=== PATIENT | male | born 1940 | race Caucasian/White ===

== ENCOUNTER 2024-08-19 09:43 | Day surgery (SDC) | payer MEDICARE, SELFPAY ==
--- NOTE | 2024-08-18 14:59 | PAT.ANESEVAL ---
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 When Was Last Pacemaker Check QUESTION #4 FULL TEXT: You/Your Family Experience fever (hyperthermia) with Anesthesia Last Oral Intake Last Oral intake: Last Oral Intake NPO since Meds taken in AM with sips of water? Meds patient instructed to take am of surgery PONV PONV - bag valver: PONV - bag valver Female No 08/17/24 15:59 HX of Motion Sickness No 08/17/24 15:59 HX of N/V After Surgery No 08/17/24 15:59 Non-Smoker Yes 08/17/24 15:59 Duration of Surgery greater No 08/17/24 15:59 than 60 minutes Number of Risk Factors 1 08/17/24 15:59 PONV Score Low Risk 08/17/24 15:59 Height & Weight Height & Weight: Anesthesia: Height & Weight Height 5 ft 6 in 02/25/22 12:54 Respiratory Assessment Respiratory Assessment - bag valver: Respiratory Tract Infection Hx - bag valver Hx Respiratory Tract Infection No 08/17/24 15:59 STOP Sleep Apnea STOP Sleep Apnea - bag valver: STOP Sleep Apnea - bag valver Hx Hypertension No 08/17/24 15:59 Hx Sleep Apnea No 08/17/24 15:59 CPAP BIPAP Do you snore loudly (louder Yes 08/17/24 15:59 than talking or can be heard Do you often feel tired/ No 08/17/24 15:59 fatigued/ sleepy during daytime? Has anyone observed you stop No 08/17/24 15:59 breathing during sleep? STOP Results Negative 08/17/24 15:59 QUESTION #5 FULL TEXT : Do you snore loudly (louder than talking or can be heard through closed doors)? 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 Specify any problems Hx of Preganancy in last 3 N/A 08/17/24 15:59 Months Nurse Filling Out Transfusion [email or web address] 08/17/24 15:59 & Questions: Date: 08/17/24 08/17/24 15:59 Time: 16:04 08/17/24 15:59 Patient unable to answer at this time (ie. confused, unrespo /Reproduction History /Reproductive History - bag valver: /Reproductive Hx- bag valver Hx Now Gestational Age (in weeks): EDC: Hx Hx Para Hx Section SAB PFSH Medical History (Updated 08/17/24 @ 16:12 by Willard Isidro) Cardiology follow-up encounter History of stress test History of echocardiogram Wears glasses History of leukemia Thyroid disease Hoarseness Leg cramps History of heart attack Chest pain Gastroesophageal reflux disease without esophagitis Low HDL (under 40) Erectile dysfunction Aortic stenosis Gastritis without bleeding Hypercholesteremia Hypothyroidism Coronary artery disease involving [place] coronary artery of [place] heart Delayed gastric emptying Home Medications ?Medication ?Instructions ?Recorded ?Last Taken ?Type aspirin 81 mg tablet,delayed 81 mg PO QDAY 12/11/23 08/15/24 History release (Adult Aspirin Regimen) atorvastatin 80 mg tablet 80 mg PO QDAY 12/11/23 Unknown History clopidogrel 75 mg tablet 75 mg PO QDAY 12/11/23 08/14/24 History coenzyme Q10 100 mg capsule 100 mg PO QDAY 12/11/23 Unknown History ezetimibe 10 mg tablet 10 mg PO QDAY 12/11/23 Unknown History isosorbide mononitrate 60 mg 60 mg PO QDAY 12/11/23 Unknown History tablet,extended release 24 hr levothyroxine 100 mcg capsule 100 mcg PO QDAY 12/11/23 Unknown History metoprolol tartrate 25 mg tablet 25 mg PO BID 12/11/23 Unknown History nitroglycerin 0.4 mg sublingual 0.4 mg sublingual Q5-15M PRN chest 12/11/23 Unknown History tablet pain pantoprazole 40 mg tablet,delayed 40 mg PO QDAY 12/11/23 Unknown History release cyanocobalamin (vitamin B-12) 500 500 mcg PO DAILY 08/04/24 Unknown History mcg tablet (Vitamin B-12) Allergy/AdvReac Type Severity Reaction Status Date / Time No Known Allergies Allergy Verified 08/17/24 15:55 Family History (Updated 12/11/23 @ 12:54 by Saloni Seo) Father COPD (chronic obstructive pulmonary disease) Sister Diabetes Brother Heart disease Brother Cancer bladder Surgical History History of cardiac catheterization History of coronary artery stent placement S/P CABG x 3 Social History (Updated 12/11/23 @ 12:53 by Saloni Seo) Smoking Status: Never smoker alcohol intake: never Audit: Pertinent Findings HISTORY of Pertinent Findings History of Pertinent Findings: Patient has a hx of severe CAD and moderate to severe aortic stenosis. Underwent LHC 08/2023 noting continued moderate aortic stenosis, with progression of CAD to Left main and ostium of his circumflex. Had stents placed for this, which improved his angina. Pertinent Findings EKG Perinent findings: EKG 06/2024: Sinus Rhythm with left atrial enlargement Stress test pertinent findings: Stress echo performed 01/2020: no evidence for stress induced ischemia. Echo (EF%) pertinent findings: Echo 08/13/2024: LV normal, normal LV systolic function. EF 74%. Diastolic dysfunction present with normal LVEF. AV area by continuity VTI is 1.2 cm2 (moderate aortic stenosis) Echo 05/2023: LV normal, mild septal thickening, normal LV Systolic function. EF 69%. Grade 1 diastolic dysfunction. Aortic valve has severely calcified cusps with mobility restriction. AV Peak velocity is 3.1 m/s. AV area by continuity VTI is 0.9 cm2 (moderate aortic stenosis) Recommendation Anesthesia Recommendation Anesthesia recommendation: OPTIMIZED for anesthesia
[2024-08-19] VITALS (9 sets, daily range): BP systolic 82–120; BP diastolic 57–75; PULSE 50–62; RESP 16–17; TEMP 36.1–36.4; O2SAT 94–99; BMI 27.3
[2024-08-19] MEDS: Lactated Ringers 1,000 ML 15 ML IV (10:15)
--- NOTE | 2024-08-19 10:47 | PCM.PRE.AN2 ---
ASA Classification* ASA Classification ASA Classification: 3 Assessment & Plan Anesthesia* Anesthesia Assessment Anesthesia Assessment: Discussed sedation and/or anesthesia options, risks, benefits, and alternatives with patient/parents/legal guardian/POA. Questions invited. The patient/parents/legal guardian/POA seems to understand and agrees to proceed with anesthesia plan. Reviewed the physical assessment, medical history, allergy history and patient home medications list prior to surgery/procedure/anesthetic and documented any changes. Performed airway and anesthesia risk assessments. Anesthesia Type Anesthesia Type: MAC (Patient has moderate aortic stenosis. Avoid high heart rates and low blood pressure. Phenylephrine is drug of choice.) History Source History Obtained from:: Patient and Chart Anesthesia Focused Assessment* Temperature: 96.9 F Pulse Rate: 53 Blood Pressure: 120/75 Respiratory Rate: 17 Pulse Ox: 99 Oxygen Delivery Method: Room Air Airway Assessment Mouth opens: >3 cm Mallampati Score: III Teeth Condition: Missing (Patient is missing several teeth. 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 When Was Last Pacemaker Check QUESTION #4 FULL TEXT: You/Your Family Experience fever (hyperthermia) with Anesthesia Last Oral Intake Last Oral intake: Last Oral Intake NPO since 05:00 08/19/24 10:15 Meds taken in AM with sips of Yes 08/19/24 10:15 water? Meds patient instructed to take am of surgery Any additional information?: Yes NPO since: 04:00 (Patient took his a.m. 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 Female No 08/17/24 15:59 HX of Motion Sickness No 08/17/24 15:59 HX of N/V After Surgery No 08/17/24 15:59 Non-Smoker Yes 08/17/24 15:59 Duration of Surgery greater No 08/17/24 15:59 than 60 minutes Number of Risk Factors 1 08/17/24 15:59 PONV Score Low Risk 08/17/24 15:59 Height & Weight Height & Weight: Anesthesia: Height & Weight Height 5 ft 6 in 08/19/24 10:15 Weight: 77 kg 08/19/24 10:15 Body Mass Index (BMI) 27.3 08/19/24 10:15 Respiratory Assessment Respiratory Assessment - reactor fueling supervisor: Respiratory Tract Infection Hx - reactor fueling supervisor Hx Respiratory Tract Infection No 08/17/24 15:59 STOP Sleep Apnea STOP Sleep Apnea - reactor fueling supervisor: STOP Sleep Apnea - reactor fueling supervisor Hx Hypertension No 08/17/24 15:59 Hx Sleep Apnea No 08/17/24 15:59 CPAP BIPAP Do you snore loudly (louder Yes 08/17/24 15:59 than talking or can be heard Do you often feel tired/ No 08/17/24 15:59 fatigued/ sleepy during daytime? Has anyone observed you stop No 08/17/24 15:59 breathing during sleep? STOP Results Negative 08/17/24 15:59 QUESTION #5 FULL TEXT : Do you snore loudly (louder than talking or can be heard through closed doors)? 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 Specify any problems Hx of Preganancy in last 3 N/A 08/17/24 15:59 Months Nurse Filling Out Transfusion [email or web address] 08/17/24 15:59 & Questions: Date: 08/17/24 08/17/24 15:59 Time: 16:04 08/17/24 15:59 Patient unable to answer at this time (ie. 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: /Reproductive Hx- reactor fueling supervisor Hx Now Gestational Age (in weeks): EDC: Hx Hx Para Hx Section SAB Active Medications Active Medications: Current Medications Generic Name Dose Route Start Last Admin Trade Name Freq PRN Reason Stop Dose Admin Lactated Ringer's 1,000 mls @ 15 mls/hr 08/19/24 10:00 08/19/24 10:15 IV 15 mls/hr .Q48H NAN Administration PFSH Medical History Cardiology follow-up encounter History of stress test History of echocardiogram Wears glasses History of leukemia Thyroid disease Hoarseness Leg cramps History of heart attack Chest pain Gastroesophageal reflux disease without esophagitis Low HDL (under 40) Erectile dysfunction Aortic stenosis Gastritis without bleeding Hypercholesteremia Hypothyroidism Coronary artery disease involving [place] coronary artery of [place] heart Delayed gastric emptying Home Medications ?Medication ?Instructions ?Recorded ?Last Taken ?Type aspirin 81 mg tablet,delayed 81 mg PO QDAY 12/11/23 08/15/24 History release (Adult Aspirin Regimen) atorvastatin 80 mg tablet 80 mg PO QDAY 12/11/23 08/18/24 History clopidogrel 75 mg tablet 75 mg PO QDAY 12/11/23 08/14/24 History coenzyme Q10 100 mg capsule 100 mg PO QDAY 12/11/23 08/18/24 History ezetimibe 10 mg tablet 10 mg PO QDAY 12/11/23 08/18/24 History isosorbide mononitrate 60 mg 60 mg PO QDAY 12/11/23 08/19/24 History tablet,extended release 24 hr levothyroxine 100 mcg capsule 100 mcg PO QDAY 12/11/23 08/19/24 History metoprolol tartrate 25 mg tablet 25 mg PO BID 12/11/23 08/19/24 History nitroglycerin 0.4 mg sublingual 0.4 mg sublingual Q5-15M PRN chest 12/11/23 Unknown History tablet pain pantoprazole 40 mg tablet,delayed 40 mg PO QDAY 12/11/23 08/18/24 History release cyanocobalamin (vitamin B-12) 500 500 mcg PO DAILY 08/04/24 08/18/24 History mcg tablet (Vitamin B-12) Allergy/AdvReac Type Severity Reaction Status Date / Time No Known Allergies Allergy Verified 08/19/24 10:14 Family History Father COPD (chronic obstructive pulmonary disease) Sister Diabetes Brother Heart disease Brother Cancer bladder Surgical History History of cardiac catheterization History of coronary artery stent placement S/P CABG x 3 Social History Smoking Status: Never smoker alcohol intake: never Review of Systems (Anesthesia) ROS Narrative System reviewed and no additional complaints, except as documented.
--- NOTE | 2024-08-19 11:00 | EGD_PTH ---
PATIENT: RAMY VERNON LOC: EN U#:[id number] AGE/SX: 83/M ROOM: RE08/19/[address]: Dr. Liam Bajwa DO : 1940 BED: DIS: 08/19/2024 SPEC #: [id number] RECD: 08/19/24 13:16 STATUS: NICOLASA MICHAEL #: [id number] DARIEL: 08/19/24 11:[address]: Liam Bajwa DEPT: SURGICAL PATHOLOGY RECD BY: Adonis Flowers ENTERED: 08/19/24 13:50 SP TYPE: EGD BIOPSY KLAUDIA DR: Dr. Jean-Paul Pack DO Tissues: A - Gastric mucous membrane B - Gastric mucous membrane C - Gastric mucous membrane Procedures: Immunohistochemical Stains Surgery Specimen Level IV HEADER OPERATION: EGD with biopsy PRE-OP DIAGNOSIS: GERD TISSUE SUBMITTED: A- Gastric body biopsy, B- Gastric cardia biopsy, C- Gastric antrum biopsy MICROSCOPIC DIAGNOSIS A. Gastric body, biopsy: - Oxyntic mucosa with dilated fundic glands suggestive of fundic gland polyp. B. Gastric cardia, biopsy: - Oxyntic mucosa with dilated fundic glands suggestive of fundic gland polyp. C. Gastric antrum, biopsy: - Oxyntic mucosa with mild active chronic inflammation. - IHC for H pylori is pending and will be reported in an addendum. MICROSCOPIC DESCRIPTION Slides are reviewed. GROSS DESCRIPTION A. Received in fixative is one container labeled with the patient's name and designated Gastric antrum biopsy. The specimen consists of multiple irregular fragments of light kevin soft tissue that in aggregate measure <0.1 to 0.5 cm. The specimen is totally submitted in one cassette. B. Received in fixative is one container labeled with the patient's name and designated Gastric cardia biopsy. The specimen consists of two irregular fragments of light kevin soft tissue, each measuring 0.4 cm. The specimen is totally submitted in one cassette. C. Received in fixative is one container labeled with the patient's name and designated Gastric antrum biopsy. The specimen consists of one irregular fragment of light kevin soft tissue that measures 0.4 cm. The specimen is totally submitted in one cassette. Andrea 08/19/2024 CPT:[id number] ADDENDUM ADDENDUM ADDENDUM ADDENDUM ADDENDUM ADDENDUM ADDENDUM ADDENDUM ADDENDUM ADDENDUM 09/03/2024 16:12 ADDENDUM 09/03/2024 16:12 ADDENDUM 09/03/2024 16:12 ADDENDUM 09/03/2024 16:12 ADDENDUM 09/03/2024 16:12 This addendum is to report the result of the IHC for H pylori on part C: C. IHC negative for H pylori organisms. All matched controls reacted appropriately. These tests were developed and their performance characteristics determined by [facility]. They may not have been cleared or approved by the [place]. Food and Drug Administration. The FDA has determined that such clearance or approval is not necessary.? The above immunohistochemical/dualISH?markers are reviewed by the Pathologist.
--- NOTE | 2024-08-19 11:38 | PCM.HP.STD ---
[facility] - General General Date of Admission: 08/19/24 Date of Service: 08/19/24 Chief Complaint: GERD and Bloating HPI Narrative RAMY VERNON, is a 83 M who presents with complaints of painful epigastric gas. He notes the increased gas and pain is related to eating tomatoes and red sauce on pasta. He denies difficulty chewing and swallowing, heartburn, bloating, constipation, diarrhea, hematochezia and melena. He states that he is able to lay in left recumbent position to evacuate the gas and it doesn't build up. He reports an ER visit 2 months ago where he thought he was having a heart attack from the gas pain. States he has a heart history of 5 coronary stents and a problem valve. He states that he will get an EGD if necessary, but would prefer not to. He denies knowing a specific food trigger. [facility] Medical History Cardiology follow-up encounter History of stress test History of echocardiogram Wears glasses History of leukemia Thyroid disease Hoarseness Leg cramps History of heart attack Chest pain Gastroesophageal reflux disease without esophagitis Low HDL (under 40) Erectile dysfunction Aortic stenosis Gastritis without bleeding Hypercholesteremia Hypothyroidism Coronary artery disease involving [place] coronary artery of [place] heart Delayed gastric emptying Home Medications ?Medication ?Instructions ?Recorded ?Last Taken ?Type aspirin 81 mg tablet,delayed 81 mg PO QDAY 12/11/23 08/15/24 History release (Adult Aspirin Regimen) atorvastatin 80 mg tablet 80 mg PO QDAY 12/11/23 08/18/24 History clopidogrel 75 mg tablet 75 mg PO QDAY 12/11/23 08/14/24 History coenzyme Q10 100 mg capsule 100 mg PO QDAY 12/11/23 08/18/24 History ezetimibe 10 mg tablet 10 mg PO QDAY 12/11/23 08/18/24 History isosorbide mononitrate 60 mg 60 mg PO QDAY 12/11/23 08/19/24 History tablet,extended release 24 hr levothyroxine 100 mcg capsule 100 mcg PO QDAY 12/11/23 08/19/24 History metoprolol tartrate 25 mg tablet 25 mg PO BID 12/11/23 08/19/24 History nitroglycerin 0.4 mg sublingual 0.4 mg sublingual Q5-15M PRN chest 12/11/23 Unknown History tablet pain pantoprazole 40 mg tablet,delayed 40 mg PO QDAY 12/11/23 08/18/24 History release cyanocobalamin (vitamin B-12) 500 500 mcg PO DAILY 08/04/24 08/18/24 History mcg tablet (Vitamin B-12) Allergy/AdvReac Type Severity Reaction Status Date / Time No Known Allergies Allergy Verified 08/19/24 10:14 Family History Father COPD (chronic obstructive pulmonary disease) Sister Diabetes Brother Heart disease Brother Cancer bladder Surgical History History of cardiac catheterization History of coronary artery stent placement S/P CABG x 3 Social History Smoking Status: Never smoker alcohol intake: never ROS Constitutional Constitutional: Denies fatigue, fever(s), poor appetite, weight gain or weight loss Gastrointestinal Gastrointestinal: Denies belching, bloating, change in bowel habits, change in stool character, chewing difficulty, coffee ground emesis, constipation, cramping, diarrhea, dyspepsia, dysphagia, early satiety, excessive flatus, fecal incontinence, heartburn, hematemesis, hematochezia, hemorrhoids, loose stools, melena, nausea, odynophagia, rectal bleeding, tenesmus, vomiting or weight changes Vital Signs Vital Signs Vital Signs: 08/19/24 10:15 08/19/24 10:15 08/19/24 10:56 Temperature 96.9 F L 96.9 F L Temperature Source Temporal Pulse Rate 53 L 53 L Respiratory Rate 17 17 Respiratory Pattern Normal Blood Pressure 120/75 120/75 Blood Pressure Mean 90 Blood Pressure Source Monitor Blood Pressure Position Semi-Fowlers Blood Pressure Location Left Arm Pulse Ox 99 99 Oxygen Delivery Method Room Air Room Air Weight Weight: 169 lb 12.095 oz Body Mass Index (BMI) 27.3 Physical Exam Const alert, oriented x3, no apparent distress and healthy appearing General Appearance: cooperative GI normal to inspection, nondistended, normoactive bowel sounds, soft to palpation, non-tender and non-distended Percussion: normal to percussion Rectal Exam: deferred Assessment & Plan Assessment/Plan (1) Small intestinal bacterial overgrowth (SIBO): (2) GERD (gastroesophageal reflux disease): PLAN: Assessment and Plan Assessment and Plan (1) Small intestinal bacterial overgrowth (SIBO): Status: Acute Plan: RAMY VERNON, is a 83 M who presents to the office today for establishment with [facility] for complaints of painful epigastric gas. Differential diagnoses include: SIBO, GERD, hiatal hernia, gastric dysmotility. erythromycin 500mg PO TID probiotics daily x2wks, starting second week of atb continue pantoprazole 40mg PO daily call with results(2) Gastroesophageal reflux disease: Qualifiers: Esophagitis presence: esophagitis presence not specified Qualified Code(s): K21.9 - Gastro-esophageal reflux disease without esophagitis Medications: New erythromycin 500 mg PO Q8H 42 tabs 0RF
--- NOTE | 2024-08-19 12:05 | PCM.POST.ANE ---
Anesthesia: Postop Eval I Current Vital Signs Temperature: 97.6 F Pulse Rate: 62 Blood Pressure: 97/59 Respiratory Rate: 16 Pulse Ox: 96 Assessment Airway patent: Yes Spontaneous unlabored respirations: Yes nausea: No Vomiting: No Anesthesia Complication: No Fluid Hydration Crystalloid volume administer (ml): 300 Total IV fluid infused: 300 Progress Note Anesthesia document: Postop Eval 1 completed: Yes
--- NOTE | 2024-08-19 12:11 | OP.EGD_ITS ---
Patient Name: Cornel Barron Procedure Date: 08/19/2024 11:43 AM Date of : 1940 Age: 83 Procedure: Upper GI endoscopy Indications: Epigastric abdominal pain, Functional Dyspepsia Providers: Liam Bajwa DO Referring MD: Jean-Paul Pack Medicines: Monitored Anesthesia Care Patient Profile: This is an 83 year old male. Refer to note in patient chart for documentation of history and physical. Patient has symptoms of chronic abdominal cramping, chronic abdominal distention, acute epigastric abdominal pain and chronic dyspepsia. Complications: No immediate complications. Procedure: Pre-Anesthesia Assessment: - Prior to the procedure, a History and Physical was performed, and patient medications and allergies were reviewed. The patient is competent. The risks and benefits of the procedure and the sedation options and risks were discussed with the patient. All questions were answered and informed consent was obtained. Patient identification and proposed procedure were verified by the physician in the pre-procedure area. Mental Status Examination: alert and oriented. Airway Examination: normal oropharyngeal airway and neck mobility. Respiratory Examination: clear to auscultation. CV Examination: normal. Prophylactic Antibiotics: The patient does not require prophylactic antibiotics. Prior Anticoagulants: The patient has taken no anticoagulant or antiplatelet agents except for NSAID medication. ASA Grade Assessment: II - A patient with mild systemic disease. After reviewing the risks and benefits, the patient was deemed in satisfactory condition to undergo the procedure. The anesthesia plan was to use monitored anesthesia care (MAC). Immediately prior to administration of medications, the patient was re-assessed for adequacy to receive sedatives. The heart rate, respiratory rate, oxygen saturations, blood pressure, adequacy of pulmonary ventilation, and response to care were monitored throughout the procedure. The physical status of the patient was re-assessed after the procedure. After obtaining informed consent, the endoscope was passed under direct vision. Throughout the procedure, the patient's blood pressure, pulse, and oxygen saturations were monitored continuously. The Endoscope was introduced through the mouth, and advanced to the fourth part of the duodenum. Small bowel enteroscopy was deemed necessary. The upper GI endoscopy was accomplished without difficulty. The patient tolerated the procedure well. Scope In: 11:53:58 AM Scope Out: 11:57:41 AM Total Procedure Duration Time 0 hours 3 minutes 43 seconds Findings: The examined esophagus was normal. Diffuse moderate inflammation characterized by congestion (edema) was found in the entire examined stomach. Biopsies were taken with a cold forceps for histology. Verification of patient identification for the specimen was done. Estimated blood loss was minimal. Biopsies were taken with a cold forceps for Helicobacter pylori testing. Verification of patient identification for the specimen was done. Estimated blood loss was minimal. The examined duodenum was normal. Impression: - Normal esophagus. - Atrophic gastritis. Biopsied. - Normal examined duodenum. Recommendation: - Await pathology results. - Patient has a contact number available for emergencies. The signs and symptoms of potential delayed complications were discussed with the patient. Return to normal activities tomorrow. Written discharge instructions were provided to the patient. - Resume previous diet. - Continue present medications. - Await pathology results. - IBD guard three times a day for 7 days, two times a day for 7 days, one time a day for 7 days, then take it as needed Procedure Code(s): --- Professional --- 49820, Small intestinal endoscopy, enteroscopy beyond second portion of duodenum, not including ileum; with biopsy, single or multiple CPT copyright 2021 [employer]. All rights reserved. The codes documented in this report are preliminary and upon auto parts manager review may be revised to meet current compliance requirements. Liam Bajwa DO 08/19/2024 12:11:15 PM This report has been signed electronically. Number of Addenda: 0 Note Initiated On: 08/19/2024 11:43 AM
--- NOTE | 2024-08-19 12:11 | OP.CCLET_ITS ---
08/19/2024 Jean-Paul Pack Re : Upper GI endoscopy procedure for Cornel Barron Dear Ramone This procedure was performed on July. My impressions and recommendations are as follows: Impressions : - Normal esophagus. - Atrophic gastritis. Biopsied. - Normal examined duodenum. Recommendations : - Await pathology results. - Patient has a contact number available for emergencies. The signs and symptoms of potential delayed complications were discussed with the patient. Return to normal activities tomorrow. Written discharge instructions were provided to the patient. - Resume previous diet. - Continue present medications. - Await pathology results. - IBD guard three times a day for 7 days, two times a day for 7 days, one time a day for 7 days, then take it as needed My findings are described in the full procedure note, which is enclosed. If I can be of further assistance, please feel free to contact me at . Sincerely, Liam Bajwa, 08/19/2024 12:11:15 PM This report has been signed electronically.
--- NOTE | 2024-08-19 18:13 | POSTOPAN2_ITS ---
Anesthesia Postop Eval I Sum Postop Eval Completion status Anesthesia document: Postop Eval 1 completed: Yes Anesthesia Postop Eval I Summary Anesthesia Postop Eval I Summary: Anesthesia Postop Eval I: Assessment Summary Airway patent Yes 08/19/24 12:05 [email or web address] [email or web address] Spontaneous unlabored Yes 08/19/24 12:05 PSYCHOLOGIST [employer] [email or web address] respirations Mental status nausea No 08/19/24 12:05 PSYCHOLOGIST [email or web address] Vomiting No 08/19/24 12:05 [email or web address] [email or web address] Anesthesia Postop Eval I: Fluid Summary Crystalloid volume administer 300 08/19/24 12:05 [email or web address] [email or web address] (ml) Colloids volume administered ( ml) Blood Product volume administered (ml) Total IV fluid infused 300 08/19/24 12:05 PSYCHOLOGIST [email or web address] Anesthesia Postop Eval I: Summary Notes Anesthesia Complication No 08/19/24 12:05 [email or web address] [email or web address] Anesthesia Complication Comment: Post-operative progress note Anesthesia: Postop Eval II Evaluation Mental status: Awake Pain Level: 0 nausea: No Vomiting: No
--- NOTE | 2024-08-19 18:13 | PCM.POSTANE2 ---
Anesthesia Postop Eval I Sum Postop Eval Completion status Anesthesia document: Postop Eval 1 completed: Yes Anesthesia Postop Eval I Summary Anesthesia Postop Eval I Summary: Anesthesia Postop Eval I: Assessment Summary Airway patent Yes 08/19/24 12:05 [email or web address] Spontaneous unlabored Yes 08/19/24 12:05 CONCRETE [email or web address] respirations Mental status nausea No 08/19/24 12:05 CONCRETE [email or web address] Vomiting No 08/19/24 12:05 CONCRETE [email or web address] Anesthesia Postop Eval I: Fluid Summary Crystalloid volume administer 300 08/19/24 12:05 CONCRETE [email or web address] (ml) Colloids volume administered ( ml) Blood Product volume administered (ml) Total IV fluid infused 300 08/19/24 12:05 CONCRETE [email or web address] Anesthesia Postop Eval I: Summary Notes Anesthesia Complication No 08/19/24 12:05 CONCRETE [email or web address] Anesthesia Complication Comment: Post-operative progress note Anesthesia: Postop Eval II Evaluation Mental status: Awake Pain Level: 0 nausea: No Vomiting: No
== END 2024-08-19 13:00 | disposition home or self-care (01) ==
LOC: EN 09:45 → AC 09:45
PROVIDERS: PCP Family Medicine; Referring Provider Family Medicine; Visit Provider Internal Medicine Gastroenterology
PROC: 0DJ08ZZ Inspection of Upper Intestinal Tract, Via Natural or Artificial Opening Endoscopic (ICD-10-PCS; CPT 43235; principal; 2024-08-19 10:55)
DX: K29.40 Chronic atrophic gastritis without bleeding (principal); K21.9 Gastro-esophageal reflux disease without esophagitis; Z79.02 Long term (current) use of antithrombotics/antiplatelets; I25.10 Atherosclerotic heart disease of native coronary artery without angina pectoris; E78.00 Pure hypercholesterolemia, unspecified; Z95.5 Presence of coronary angioplasty implant and graft; Z79.890 Hormone replacement therapy; Z79.899 Other long term (current) drug therapy; K63.8219 Small intestinal bacterial overgrowth, unspecified; E03.9 Hypothyroidism, unspecified; Z79.82 Long term (current) use of aspirin; K31.7 Polyp of stomach and duodenum
CPT/HCPCS: 43239; 88305; 88342

== ENCOUNTER → 2025-01-26 | Outpatient (CLI) | payer MEDICARE, SELFPAY ==
--- OUTSIDE RECORDS SUMMARY | 2025-01-26 06:52 | XMS RPT_ITS | CCD ---
Author Organization [facility] Care Team Providers Care Sales Assistant Name Role Phone Jean-Paul Pack Primary Care Provider Friend , Dr. Wheeler Attending Provider Ramone ROBERTSON, Dr. Jeong Primary Care Provider Dr. Jean-Paul Pack DO Referring Provider Aydee ROBERTSON, Dr. Wheeler Other Provider Jean-Paul Pack DO Primary Care Provider [phone] Jean-Paul Zheng Referring Unavailable Freda Ozuna Attending Unavailable FriendLiam Attending Unavailable Mahoganylla, Jean-Paul Primary Care Unavailable Mahoganylla, Jean-Paul Referring Unavailable FriendLiam Consulting Unavailable FriendLiam Attending Unavailable Petrilla, Jean-Paul Primary Care Unavailable Petrilla, Jean-Paul Referring Unavailable RODDY SOSA Attending Unavailable PETRILLA, JEAN-PAUL Primary Care Unavailable GLADYS ANTHONY Attending Unavailable MAHOGANYLLA, JEAN-PAUL Primary Care Unavailable PETRILLA, JEAN-PAUL Attending Unavailable MAHOGANYLLA, JEAN-PAUL Primary Care Unavailable PETRILLA, JEAN-PAUL Primary Care Unavailable KAVON KRAMER Attending Unavailable MAHOGANYLLAJEAN-PAUL Attending Unavailable MAHOGANYLLA, JEAN-PAUL Primary Care Unavailable PETRILLA, JEAN-PAUL Primary Care Unavailable PIETROLRODDY WILLS Attending Unavailable KAVON KRAMER Referring Unavailable PETRILLA, JEAN-PAUL Primary Care Unavailable KAVON KRAMER Referring Unavailable KAVON KRAMER Attending Unavailable MAHOGANYLLA, JEAN-PAUL Primary Care Unavailable PIETROLUNGORODDY Attending Unavailable KAVON KRAMER Referring Unavailable PIETROLRODDY WILLS Attending Unavailable RADHAA, JEAN-PAUL Primary Care Unavailable KAVON KRAMER Referring Unavailable PIETROLCLARICEORODDY Attending Unavailable JEAN-PAUL PACK Primary Care Unavailable KAVON KRAMER Referring Unavailable RODDY ALCAZAR Attending Unavailable JEAN-PAUL PACK Primary Care Unavailable KAVON KRAMER Referring Unavailable JEAN-PAUL PACK Primary Care Unavailable RODDY ALCAZAR Attending Unavailable KAVON KRAMER Referring Unavailable Medications Current Medications Medication Drug Class(es) Dates Sig (Normalized) Sig (Original) aspirin 81 mg delayed release oral tablet (20 sources) Platelet Aggregation Inhibitor, Nonsteroidal Anti-inflammatory Drug Start: 12-11-2023 take 1 tablet by mouth once daily Aspirin (Adult Aspirin Regimen) 81 mg tablet,delayed release (DR/EC) Active 81 mg PO daily December 11, 2023 12:00am Start: 08-18-2023 End: 08-18-2023 take 81 mg by mouth once daily 81 mg, Oral, Daily, Fir st dose on Fri08/18/23 at 0900, Do not crush, chew, or split. Start: 05-27-2022 End: 05-28-2022 take 81 mg by mouth once daily 81 mg, Oral, Daily, Fir st dose on Fri05/27/22 at 1800 Do not crush, chew, or split. take 1 tablet by mouth once maria elena y aspirin 81 MG tablet Take 81 mg by mouth daily 0 Active clopidogrel 75 mg oral tablet (20 sources) P2Y12 Platelet Inhibitor Start: 07-29-2023 End: 08-25-2024 take 1 tablet by mouth once daily clopidogrel (Plavix) 75 MG tablet Indications: Needs Short term supply while waiting for the [employer] to arrive. Take 1 tablet (75 mg) by mouth daily. 14 tablet 08/25/2024 Active ubidecarenone 100 mg oral capsule (8 sources) Start: 12-11-2023 take 10 capsules by mouth once daily Coenzyme Q10 100 mg capsule Active 100 mg PO daily December 11, 2023 12:00am take 1 capsule by mouth in the m orning coenzyme Q-10 100 MG capsule Take 1 capsule by mouth in the morning. 0 Active take 1 capsule by mouth once ricky ly Coenzyme Q10 (CO Q10) 100 MG CAPS Take 1 capsule by mouth daily 0 Active 250 ml DOBUTamine 2 mg/ml injection (1 source) beta-Adrenergic Agonist Start: 02-23-2020 DOBUTamine (DOBUTREX) 500 mg in dextrose 5 % 250 mL infusion ezetimibe 10 mg oral tablet (20 sources) Dietary Cholesterol Absorption Inhibitor Start: 05-09-2023 End: 05-11-2025 take 1 tablet by mouth once daily ezetimibe (Zetia) 10 MG tablet TAKE 1 TABLET BY MOUTH DAILY 90 tablet 3 07/05/2024 Active folic acid 1 mg oral tablet (13 sources) Start: 07-06-2024 End: 07-06-2025 take 1 tablet by mouth once daily folic acid (Folvite) 1 MG tablet Take 1 tablet (1 mg) by mouth daily. 90 tablet 1 07/06/2024 07/06/2025 Active 24 hr isosorbide mononitrate 60 mg extended release oral tablet (20 sources) Nitrate Vasodilator Start: 06-19-2022 End: 08-16-2024 take 1 tablet by mouth once daily isosorbide mononitrate ER (Imdur) 60 MG 24 hr tablet Indications: Chest pain due to coronary artery disease (HCC) TAKE 1 TABLET BY MOUTH DAILY 90 tablet 3 08/16/2024 Active Start: 01-29-2022 End: 05-28-2022 take 1 tablet by mouth once daily isosorbide mononitrate ER (Imdur) 60 MG 24 hr tablet Take 1 tablet (60 mg) by mouth daily. 90 tablet 3 01/29/2022 Active Start: 10-18-2020 take 1 tablet by blayne th once daily isosorbide mononitrate (IMDUR) 30 MG extended release tablet Take 1 tablet by mouth daily 90 tablet 3 10/18/2020 Active Start: 12-08-2019 take 1 tablet by blayne th once daily isosorbide mononitrate (IMDUR) 30 MG extended release tablet Take 1 tablet by mouth daily 90 tablet 3 12/08/2019 Active levothyroxine sodium 0.1 mg oral tablet (20 sources) l-Thyroxine Start: 04-30-2024 End: 10-27-2024 take 1 tablet by mouth once daily levothyroxine (Synthroid, Levoxyl) 100 MCG tablet Take 1 tablet (100 mcg) by mouth daily. 90 tablet 1 04/30/2024 Active Start: 12-11-2023 take 1 capsule by mo [facility] once daily Levothyroxine 100 mcg capsule Active 100 ug PO daily December 11, 2023 12:00am Start: 04-21-2023 End: 04-17-2024 take 1 tablet by mouth once daily levothyroxine (Synthroid, Levoxyl) 100 MCG tablet Take 1 tablet (100 mcg) by mouth daily. 90 tablet 3 04/23/2023 04/17/2024 Active Start: 04-25-2021 End: 04-15-2023 take 1 tablet by mouth once daily levothyroxine (Synthroid, Levoxyl) 100 MCG tablet Take 1 tablet (100 mcg) by mouth daily. 90 tablet 3 10/17/2022 Active Start: 04-04-2020 take 1 tablet by blayne th once daily levothyroxine (SYNTHROID) 100 MCG tablet Take 1 tablet by mouth Daily 90 tablet 3 04/04/2020 Active Start: 01-25-2019 take 1 tablet by blayne th once daily levothyroxine (SYNTHROID) 100 MCG tablet Take 1 tablet by mouth Daily 90 tablet 3 01/25/2019 Active metoprolol tartrate 25 mg oral tablet (20 sources) beta-Adrenergic Naomi Start: 05-28-2022 End: 09-01-2024 take 1 tablet by mouth twice daily metoprolol tartrate (Lopressor) 25 MG tablet Indications: Chest pain due to coronary artery disease (HCC) TAKE 1 TABLET BY MOUTH TWICE DAILY 180 tablet 3 09/01/2024 Active nitroglycerin 0.4 mg sublingual tablet (20 sources) Nitrate Vasodilator Start: 05-29-2022 End: 10-07-2024 nitroglycerin (Nitrostat) 0.[address] 1 tablet (0.4 mg) under the tongue every 5 minutes as needed for chest pain. May repeat dose every 5 minutes for up to 3 doses total. 25 tablet 1 10/08/2023 Active Start: 05-27-2022 End: 05-28-2022 nitroglycerin (Nitrostat) SL tablet 0.4 mg pantoprazole 40 mg delayed release oral tablet (20 sources) Proton Pump Inhibitor Start: 05-28-2022 End: 02-26-2024 take 1 tablet by mouth before breakfast pantoprazole (ProtoNix) 40 MG EC tablet TAKE 1 TABLET BY MOUTH IN THE MORNING BEFORE BREAKFAST DO NOT CRUSH, CHEW, OR SPLIT 90 tablet 3 02/26/2024 Active Start: 05-27-2022 End: 05-28-2022 pantoprazole (ProtoNix) inje ction 40 mg predniSONE 20 mg oral tablet (4 sources) Start: 12-23-2019 predniSONE (DELTASONE) 20 MG tablet 3 a day for 3 days, then 2 a day for 3 days, then one a day until gone- all with food 18 tablet 0 12/23/2019 Active rosuvastatin calcium 10 mg oral tablet (2 sources) HMG-CoA Reductase Inhibitor Start: 10-21-2024 End: 10-21-2025 take 1 tablet by mouth once daily rosuvastatin (Crestor) 10 MG tablet Take 1 tablet (10 mg) by mouth daily. 30 tablet 11 10/21/2024 10/21/2025 Active ubidecarenone 100 mg / vitamin e 5 unt oral capsule (20 sources) take 1 capsule by mouth in the morning coenzyme Q-10 100 MG capsule Take 1 capsule by mouth in the morning. Active vitamin B12 (13 sources) Vitamin B12 Start: 08-04-2024 take 1 tablet by mouth once daily Cyanocobalamin (Vitamin B-12) (Vitamin B-12) 500 mcg tablet Active 500 ug PO DAILY August 04, 2024 12:00am take 1 tablet by mouth once maria elena y cyanocobalamin (Vitamin B-12) 500 MCG tablet Take 500 mcg by mouth daily. Active Completed/Discontinued Medications Medication Drug Class(es) Dates Sig (Normalized) Sig (Original) acetaminophen 500 mg oral capsule (20 sources) Start: 12-11-2023 End: 12-12-2023 take 1 capsule by mouth every six hours as needed Acetaminophen 500 mg capsule Discontinued 500 mg PO EVERY 6 HOURS as needed December 11, 2023 12:00am December 12, 2023 1:23pm Start: 09-23-2023 End: 09-30-2023 take 1 tablet by mouth every four hours as needed for pain 650 mg, Oral, Every 4 hours PRN, mild pain (1-3), Fever > 100.5 F (38 C), Starting on Fri09/23/23 at 1055, [facility], Maximum dose of acetaminophen is 4000 mg from all sources in 24 hours. Start: 08-18-2023 End: 08-18-2023 take 1 tablet by mouth every six hours as needed for pain and fever acetaminophen (Tylenol) tablet 650 mg Start: 05-27-2022 End: 05-28-2022 take 1 tablet by mouth every six hours as needed for pain and fever acetaminophen (Tylenol) tablet 650 mg Start: 02-14-2017 acetaminophen (Tylenol) 500 MG tablet Take 1 tablet by mouth as needed. 02/14/2017 Active atorvastatin 80 mg oral tablet (20 sources) HMG-CoA Reductase Inhibitor Start: 08-21-2022 End: 10-21-2024 take 1 tablet by mouth once daily atorvastatin (Lipitor) 80 MG tablet TAKE 1 TABLET BY MOUTH ONCE DAILY 90 tablet 3 05/06/2024 10/21/2024 Discontinued (Side effects) Start: 05-23-2021 End: 05-28-2022 take 1 tablet by mouth in the morning atorvastatin (Lipitor) 80 MG tablet Take 1 tablet by mouth in the morning. 0 05/23/2021 Active Start: 11-30-2020 atorvastatin ( LIPITOR) 80 MG tablet Indications: Hypercholesterolemia TAKE 1 TABLET DAILY 90 tablet 3 11/30/2020 Active Start: 12-08-2019 atorvastatin ( LIPITOR) 40 MG tablet Indications: Hypercholesterolemia TAKE 1 TABLET DAILY 90 tablet 3 12/08/2019 Active azithromycin 250 mg oral tablet (1 source) Macrolide Antimicrobial Start: 02-25-2022 End: 12-11-2023 take 2-5 tablets by mouth once daily Azithromycin 250 mg tablet Discontinued 0 PO .COMPLEX February 25, 2022 1:00am December 11, 2023 12:51pm take 500 mg today (day 1), then 250 mg for 4 days (days 2-5) PO benzonatate 100 mg oral capsule (1 source) Non-narcotic Antitussive Start: 02-25-2022 End: 12-11-2023 take 2 capsules by mouth three times daily as needed for cough Benzonatate 100 mg capsule Discontinued 200 mg PO THREE TIMES A DAY as needed for cough February 25, 2022 1:00am December 11, 2023 12:51pm 0.4 ml enoxaparin sodium 100 mg/ml prefilled syringe (2 sources) Low Molecular Weight Heparin Start: 08-18-2023 End: 08-18-2023 inject 40 mg by subcutaneous injection every twenty-four hours 40 mg, SubCUTAneous, Every 24 hours scheduled (Daily), First dose on Fri08/18/23 at 0900, Indication of Use: Prophylaxis-DVT/PE, Indications: Prophylaxis of Venous Thromboembolism erythromycin 500 mg oral tablet (1 source) Macrolide, Macrolide Antimicrobial Start: 12-12-2023 End: 12-15-2023 take 1 tablet by mouth every eight hours Erythromycin 500 mg tablet Discontinued 500 mg PO Q8H 42 December 12, 2023 12:00am December 15, 2023 9:10am iopamidol (ISOVUE-370) 76 % injection 75 mL (1 source) Start: 12-07-2020 End: 12-07-2020 iopamidol (ISOVUE-370) 76 % injection 75 mL iopamidol (Isovue-370) 76 % injection 75 mL (2 sources) Start: 09-15-2023 End: 09-15-2023 take 75 mL intravenously once as needed 75 mL, IntraVENous, IMG once PRN, contrast, Starting on Fri09/15/23 at 1245, For 1 dose 1 ml morphine sulfate 4 mg/ml injection (2 sources) Opioid Agonist Start: 05-27-2022 End: 05-28-2022 take 2 mg intravenously every four hours as needed for pain morphine sulfate (PF) injection 2 mg 2 ml ondansetron 2 mg/ml injection (2 sources) Serotonin-3 Receptor Antagonist Start: 08-18-2023 End: 08-18-2023 4 mg, IntraVENous, Once, On Fri08/18/23 at 0240, For 1 dose ondansetron ODT (Zofran-ODT) disintegrating tablet 4 mg (4 sources) Start: 08-18-2023 End: 08-18-2023 take 1 tablet by mouth every eight hours as needed for nausea and vomiting ondansetron ODT (Zofran-ODT) disintegrating tablet 4 mg Start: 05-27-2022 End: 05-28-2022 take 1 tablet by mouth every eight hours as needed for nausea and vomiting ondansetron ODT (Zofran-ODT) disintegrating tablet 4 mg pantoprazole (ProtoNix) 40 mg in sodium chloride (PF) 0.9 % 10 mL injection (2 sources) Start: 08-18-2023 End: 08-18-2023 take 40 mg by mouth once daily 40 mg, IntraVENous, Administer over 2 Minutes, Nightly, First dose on Fri08/18/23 at 0245, Give only if unable to tolerate po. perflutren lipid microspheres (DEFINITY) injection 1.65 mg (1 source) Start: 02-23-2020 End: 02-23-2020 perflutren lipid microspheres (DEFINITY) injection 1.65 mg polyethylene glycol 3350 07872 mg powder for oral solution (4 sources) Osmotic Laxative Start: 08-18-2023 End: 08-18-2023 take 17 g by mouth every twenty-four hours as needed for constipation 17 g, Oral, Daily PRN, constipation, Starting on Fri08/18/23 at 0611, 1st line for treatment of constipation - give scheduled if no bowel movement in past 24 hours. Start: 05-27-2022 End: 05-28-2022 take 17 g by mouth every twenty-four hours as needed for constipation polyethylene glycol (PEG) 3350 (Miralax) packet 17 g microencapsulated potassium chloride 10 meq extended release oral tablet (2 sources) Start: 08-18-2023 End: 08-18-2023 40 mEq, Oral, Once, On Fri08/18/23 at 0330, For 1 dose, Best given with food and plenty of water to minimize gastric irritation. Do not crush or chew. rifAXIMin 550 mg oral tablet (3 sources) Rifamycin Antibacterial Start: 12-15-2023 End: 08-04-2024 take 1 tablet by mouth three times daily Xifaxan 550 MG tablet Take 550 mg by mouth 3 times daily. 12/23/2023 01/15/2024 Discontinued (Therapy completed) 1000 ml sodium chloride 9 mg/ml injection (8 sources) Start: 09-23-2023 End: 09-30-2023 take 30 mL intravenously every hour 30 mL/hr, IntraVENous, Continuous, Starting on Fri09/23/23 at 0630, Preprocedure Start: 09-23-2023 End: 09-30-2023 5-40 mL, IntraVENous, PRN, l ine care, After every IV line use, Starting on Fri09/23/23 at 0624, Preprocedure, For Line Patency: Peripheral IV = 5 mL; Midline or Central Line = 10 mL/lumen. If following IV push medication, administer flush at same rate as the IV push. Flush volume is determined by type of infusion therapy being given. For non-viscous solutions use: Peripheral IV = 5 mL Midline or Central Line = 10 mL/lumen For viscous solutions (i.e. blood components, parenteral nutrition, contrast media, or after obtaining blood sample) use: Peripheral IV = 10 mL Midline or Central Line = 20 mL/lumen Start: 09-23-2023 End: 09-30-2023 take 5-40 mL intravenously every twelve hours 5-40 mL, IntraVENous, Every 12 hours, First dose on Fri09/23/23 at 0630, Preprocedure, For Line Patency: Peripheral IV = 5 mL; Midline or Central Line = 10 mL/lumen. If following IV push medication, administer flush at same rate as the IV push. Flush volume is determined by type of infusion therapy being given. For non-viscous solutions use: Peripheral IV = 5 mL Midline or Central Line = 10 mL/lumen For viscous solutions (i.e. blood components, parenteral nutrition, contrast media, or after obtaining blood sample) use: Peripheral IV = 10 mL Midline or Central Line = 20 mL/lumen Start: 08-18-2023 End: 08-18-2023 1,000 mL, IntraVENous, at 1, 000 mL/hr, Administer over 1 Hours, Once, On Fri08/18/23 at 0240, For 1 dose technetium Tc-99m sulfur colloid (Nycomed-SC) radio-isotope solution 1.1 millicurie (2 sources) Start: 09-30-2023 End: 09-30-2023 1.1 millicurie, Oral, Once, On Fri09/30/23 at 0815, For 1 dose ticagrelor 90 mg oral tablet (20 sources) Start: 06-19-2022 End: 07-29-2023 take 1 tablet by mouth twice daily Brilinta 90 MG tablet Indications: Coronary artery disease involving [place] coronary artery of [place] heart, unspecified whether angina present TAKE 1 TABLET BY MOUTH TWICE DAILY 180 tablet 0 06/17/2023 07/29/2023 Discontinued (Alternate therapy) Problems Active Problems Problem Classification Problem Date Documented Da te Episodic/Chronic Acute bronchitis (1 source) Acute bronchitis; Translations: [Acute bronchitis, unspecified] 02-25-2022 Episodic Complication of device; implant or graft (1 source) Hematoma; Translations: [Other specified complication of vascular prosthetic devices, implants and grafts, initial encounter] Chronic Coronary atherosclerosis and other heart disease (20 sources) Coronary arteriosclerosis; Translations: [Old myocardial infarction] Onset: 5 Resolved: 4 01-05-2015 Chronic Disorders of lipid metabolism (20 sources) Hypercholesterolemia; Translations: [Hyperlipidemia] Onset: 5 Resolved: 7 10-30-2016 Chronic Esophageal disorders (20 sources) Gastroesophageal reflux disease without esophagitis; Translations: [Gastro-esophageal reflux disease without esophagitis] Onset: 4 04-21-2023 Chronic Essential hypertension (6 sources) Hypertensive disorder; Translations: [Essential (primary) hypertension] Onset: 8 01-26-2018 Chronic Gastritis and duodenitis (2 sources) Gastritis; Translations: [Gastritis, unspecified, without bleeding] 11-10-2023 Episodic Heart valve disorders (20 sources) Nonrheumatic aortic (valve) stenosis; Translations: [Aortic valve disorders] Onset: 3 10-17-2022 Chronic Other disorders of stomach and duodenum (2 sources) Delayed gastric emptying; Translations: [Functional dyspepsia] 11-10-2023 Episodic Other gastrointestinal disorders (1 source) Irritable bowel syndrome; Translations: [Irritable bowel syndrome without diarrhea] 01-08-2024 Chronic Other gastrointestinal disorders (1 source) Irritable bowel syndrome with diarrhea; Translations: [Irritable bowel syndrome with diarrhea] 12-15-2023 Chronic Other gastrointestinal disorders (2 sources) Irritable bowel syndrome without diarrhea; Translations: [Irritable bowel syndrome, unspecified] Onset: 4 Chronic Other gastrointestinal disorders (2 sources) Small bowel bacterial overgrowth syndrome; Translations: [Small intestinal bacterial overgrowth (SIBO)] 12-12-2023 Episodic Other gastrointestinal disorders (1 source) Abdominal distension (gaseous); Translations: [Abdominal distension (gaseous)] Onset: 5 Episodic Other hematologic conditions (1 source) Macrocytosis; Translations: [Other specified diseases of blood and blood-forming organs] 10-17-2022 Chronic Other hematologic conditions (1 source) Macrocytosis - no anemia; Translations: [Other specified diseases of blood and blood-forming organs] 05-16-2024 Chronic Other lower respiratory disease (1 source) Dyspnea; Translations: [Shortness of breath] 07-29-2023 Episodic Other male genital disorders (20 sources) Male erectile dysfunction, unspecified; Translations: [Impotence of organic origin] Onset: 5 01-05-2015 Chronic Other nutritional; endocrine; and metabolic disorders (20 sources) Cholesterol level - finding; Translations: [Lipoprotein deficiency] Onset: 5 01-05-2015 Chronic Spondylosis; intervertebral disc disorders; other back problems (20 sources) Cervical spondylosis; Translations: [Degeneration of lumbar intervertebral disc] Onset: 5 Resolved: 7 01-05-2015 Chronic Spondylosis; intervertebral disc disorders; other back problems (5 sources) Herniation of nucleus pulposus of lumbar intervertebral disc; Translations: [Displacement of lumbar intervertebral disc] 01-05-2015 Thyroid disorders (20 sources) Hypothyroidism; Translations: [Hypothyroidism, unspecified] Onset: 5 01-05-2015 Chronic Unclassified (2 sources) Small intestinal bacterial overgrowth, unspecified; Translations: [Small intestinal bacterial overgrowth, unspecified] Onset: Past or Other Problems Problem Classification Problem Date Documented Da te Episodic/Chronic Abdominal hernia (20 sources) Umbilical hernia; Translations: [Umbilical hernia without obstruction or gangrene] Onset: 09-22-2023 09-22-2023 Episodic 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 (20 sources) Generalized abdominal pain; Translations: [Generalized abdominal pain] Onset: 09-22-2023 Resolved: 11-10-2023 09-15-2023 Episodic Coronary atherosclerosis and other heart disease (20 sources) History of myocardial infarction; Translations: [History of percutaneous coronary intervention] Onset: 11-04-2014 10-30-2016 Episodic Gastrointestinal hemorrhage (20 sources) Rectal hemorrhage; Translations: [Hemorrhage of anus and rectum] Onset: 12-29-2023 12-29-2023 Episodic Hemorrhoids (3 sources) Bleeding external hemorrhoids; Translations: [Residual hemorrhoidal skin tags] Onset: 01-08-2024 01-08-2024 Episodic Intestinal infection (20 sources) Clostridium difficile colitis; Translations: [Enterocolitis due to Clostridium difficile, not specified as recurrent] Onset: 01-29-2021 12-07-2021 Episodic Nonspecific chest pain (20 sources) Chest pain; Translations: [Chest pain, unspecified] Onset: 05-27-2022 Resolved: 04-21-2023 05-27-2022 Episodic Other lower respiratory disease (20 sources) Lesion of lung; Translations: [Other disorders of lung] Onset: 02-24-2015 10-30-2016 Episodic Spondylosis; intervertebral disc disorders; other back problems (20 sources) Spinal stenosis of lumbar region; Translations: [Disorder of cervical spine] Onset: 02-14-2017 01-26-2018 Episodic Unclassified (2 sources) Aortic stenosis, moderate 08-13-2024 Results Test Name Value Interpretation Reference Range Facility [id number] Spoke with DIAMOND at pt' s dental office. Relayed recommendations per GUEST SERVICES REPRESENTATIVE. She states that pt was initially holding medication this morning but since there was a delay in medication recommendations from our office, she told pt that it would be best to go ahead and take the plavix today. Informed her that it was recommended for pt to NOT hold the plavix and if the dentist did in fact need the pt to hold this medication and delay his procedure, than to please call the office back. [facility] 36 Received request fro m pt's dental office requesting to hold plavix for one day prior to tooth extraction. Reviewed with KAYLEIGH. It was stated that the pt would have the same bleeding risk as being on the medication uninterrupted during procedure as he would just holding it for 1 day only. Kayleigh also states that since pt has CAD involving his left main, it would need to be cleared with a thermometer production worker for pt to hold this medication. Will call dental office and relay KAYLEIGH recommendations. [facility] 36on 11-02-2024 36 I called and spoke mandy Unger. He drank three bottles of water after he fell beside his car twice. He thinks he passed out but is not sure. Since Drinking the 3 bottles of water he has had no further episodes. I told him this sounds like it could have been dehydration but it would have been better to call 911 while he was out at his car. I told him that if he has further feeling of lightheadedness or feels faint to call 911 and go to the ER. [facility] 36 Pt called because he went fishing and felt weak when he stood up. He went home and he thinks he passed out. He would like to know if this was caused from dehydration. Please advise ANGELY: 07/16/24 NOV: 01/17/[address] 10-21-2024 36 I called and left a message stating he should continue to remain off atorvastatin due to myalgias. I recommended he initiate rosuvastatin or Crestor 10 mg daily. I routed a prescription to [facility] in [place], his pharmacy of record. I requested he have a repeat lipid panel in 3 months. I also requested a return phone call if any difficulties tolerating the rosuvastatin, or any further questions. [address] 10-20-2024 36 PT called stating he spoke to a nurse about 2 wks ago that told him to stop taking his atorvastatin due to muscle cramps, he's was told to call back in 2 wks with an update. He's doing much better and would like to know what he can take in it's place. Pt would like a call back. [address] 09-21-2024 36 I called and advised pt hold atorvastatin 80 mg daily for 2 weeks to see if his muscle pain improves. He agrees to call the office in 2 weeks with an update on how he is feeling. [address] 09-20-2024 36 S: Patient spoke wit h [facility] nurse regarding medication issue. B: Onset of symptoms/concern: atorvastatin 80 mg A: Patient states Kavon that prescribed his medication is causing extreme muscle soreness, Dr. Pack added a 10 mg of ezetimibe but states he's been on that for about six (6) months, first thing he read is that medication can cause muscle pain, states he's experiencing muscle soreness in his shoulders and arm and has had it for about two (2) months now, he cut the medication in half within the last week to see if that would help, noticed a slight difference but not absolutely sure, requesting alternative. R: Patient advised message would be sent to provider for follow up and recommendation, verbalized understanding. Q: Wants to know if there is a possibility to get it down to one medication? Please advise Reason for Disposition Caller wants to use a complementary or alternative medicine Protocols used: Medication [facility] 36 Last seen 07/16/24. [facility] 3608-25-2024 36 PT. Took last pill t his morning. [facility] says they received an order about a week and a half ago..he has not received it. He now has no pills left. Please call and advise he doesn't know where his medication is or what to do. [phone] [facility] 3608-24-2024 36 PT. Has one pill lef t. Needs to go to [facility] in [facility] EGD Reporton 08-19-2024 EGD Report [facility] Medical Records Department [address] [place] [address] EGD Report MR#: [id number] Acct: [id number] Name: RAMY BARRON Rep #: [id number] : 1940 83 From: Liam Bajwa DO PCP: Dr. Jean-Paul Pack DO Status:REG [facility] Patient Name: Ramy Barron Procedure Date: 08/19/2024 11:43 AM Date of : 1940 Age: 83 Procedure: Upper GI endoscopy Indications: Epigastric abdominal pain, Functional Dyspepsia Providers: Liam Bajwa DO Referring MD: Jean-Paul Pack Medicines: Monitored Anesthesia Care Patient Profile: This is an 83 year old male. Refer to note in patient chart for documentation of history and physical. Patient has symptoms of chronic abdominal cramping, chronic abdominal distention, acute epigastric abdominal pain and chronic dyspepsia. Complications: No immediate complications. Procedure: Pre-Anesthesia Assessment: - Prior to the procedure, a History and Physical was performed, and patient medications and allergies were reviewed. The patient is competent. The risks and benefits of the procedure and the sedation options and risks were discussed with the patient. All questions were answered and informed consent was obtained. Patient identification and proposed procedure were verified by the physician in the pre-procedure area. Mental Status Examination: alert and oriented. Airway Examination: normal oropharyngeal airway and neck mobility. Respiratory Examination: clear to auscultation. CV Examination: normal. Prophylactic Antibiotics: The patient does not require prophylactic antibiotics. Prior Anticoagulants: The patient has taken no anticoagulant or antiplatelet agents except for NSAID medication. ASA Grade Assessment: II - A patient with mild systemic disease. After reviewing the risks and benefits, the patient was deemed in satisfactory condition to undergo the procedure. The anesthesia plan was to use monitored anesthesia care (MAC). Immediately prior to administration of medications, the patient was re-assessed for adequacy to receive sedatives. The heart rate, respiratory rate, oxygen saturations, blood pressure, adequacy of pulmonary ventilation, and response to care were monitored throughout the procedure. The physical status of the patient was re-assessed after the procedure. After obtaining informed consent, the endoscope was passed under direct vision. Throughout the procedure, the patient's blood pressure, pulse, and oxygen saturations were monitored continuously. The Endoscope was introduced through the mouth, and advanced to the fourth part of the duodenum. Small bowel enteroscopy was deemed necessary. The upper GI endoscopy was accomplished without difficulty. The patient tolerated the procedure well. Scope In: 11:53:58 AM Scope Out: 11:57:41 AM Total Procedure Duration Time 0 hours 3 minutes 43 seconds Findings: The examined esophagus was normal. Diffuse moderate inflammation characterized by congestion (edema) was found in the entire examined stomach. Biopsies were taken with a cold forceps for histology. Verification of patient identification for the specimen was done. Estimated blood loss was minimal. Biopsies were taken with a cold forceps for Helicobacter pylori testing. Verification of patient identification for the specimen was done. Estimated blood loss was minimal. The examined duodenum was normal. Impression: - Normal esophagus. - Atrophic gastritis. Biopsied. - Normal examined duodenum. Recommendation: - Await pathology results. - Patient has a contact number available for emergencies. The signs and symptoms of potential delayed complications were discussed with the patient. Return to normal activities tomorrow. Written discharge instructions were provided to the patient. - Resume previous diet. - Continue present medications. - Await pathology results. - IBD guard three times a day for 7 days, two times a day for 7 days, one time a day for 7 days, then take it as needed Procedure Code(s): --- Professional --- 65675, Small intestinal endoscopy, enteroscopy beyond second portion of duodenum, not including ileum; with biopsy, single or multiple CPT copyright 2021 [employer]. All rights reserved. The codes documented in this report are preliminary and upon flame channeler review may be revised to meet current compliance requirements. Liam Bajwa DO 08/19/2024 12:11:15 PM This report has been signed electronically. Number of Addenda: 0 Note Initiated On: 08/19/2024 11:43 AM 08/19/24 1211 Date Liam Bajwa DO Cosigner Signature: Date (if indicated) CC: Dr. Jean-Paul Pack DO; Liam Bajwa DO Date Dictated (more content not included)... Normal [facility] Immunohistochemical Stainson 08-19-2024 Immunohistochemical Stains Patient Age/Sex Location Account Attending Physician RAMY BARRON 83/M EN [id number] Liam Bajwa DO Specimen: [id number] Received: 08/19/24 Status: NICOLASA Marsh Num: [id number] Spec Type: EGD BIOPSY Subm Dr: Liam Bajwa, HEADER OPERATION: EGD with biopsy PRE-OP DIAGNOSIS: GERD TISSUE SUBMITTED: A- Gastric body biopsy, B- Gastric cardia biopsy, C- Gastric antrum biopsy MICROSCOPIC DIAGNOSIS A. Gastric body, biopsy: - Oxyntic mucosa with dilated fundic glands suggestive of fundic gland polyp. B. Gastric cardia, biopsy: - Oxyntic mucosa with dilated fundic glands suggestive of fundic gland polyp. C. Gastric antrum, biopsy: - Oxyntic mucosa with mild active chronic inflammation. - IHC for H pylori is pending and will be reported in an addendum. MICROSCOPIC DESCRIPTION Slides are reviewed. GROSS DESCRIPTION A. Received in fixative is one container labeled with the patient's name and designated Gastric antrum biopsy. The specimen consists of multiple irregular fragments of light kevin soft tissue that in aggregate measure <0.1 to 0.5 cm. The specimen is totally submitted in one cassette. B. Received in fixative is one container labeled with the patient's name and designated Gastric cardia biopsy. The specimen consists of two irregular fragments of light kevin soft tissue, each measuring 0.4 cm. The specimen is totally submitted in one cassette. C. Received in fixative is one container labeled with the patient's name and designated Gastric antrum biopsy. The specimen consists of one irregular fragment of light kevin soft tissue that measures 0.4 cm. The specimen is totally submitted in one cassette. NJ/mr 08/19/2024 CPT:51868w7,38003 Patient Age/Sex Location Account Attending Physician RAMY BARRON 83/M EN [id number] Liam Bajwa DO ADDENDUM Addendum 1 Entered: 09/03/24 This addendum is to report the result of the IHC for H pylori on part C: C. IHC negative for H pylori organisms. All matched controls reacted appropriately. These tests were developed and their performance characteristics determined by [facility]. They may not have been cleared or approved by the U.S. Food and Drug Administration. The FDA has determined that such clearance or approval is not necessary.??? The above immunohistochemical/ladan Ira???markers are reviewed by the Pathologist. Addendum Signed (signature on file) Dr. Susannah London MD 09/03/24 1612 Patient Age/Sex Location Account Attending Physician RAMY BARRON 83/M EN [id number] Liam Bajwa DO Signed (signature on file) Dr. Susannah London MD 09/03/24 0942 Normal [facility] Comment on above: Performed By: #### ORLIN CONDON #### [facility] [address] [facility] [place], [address] MR/POSTOP.ANE 08-19-2024 MR/POSTOP.[facility] Medical Records Department [address] [place] [address] Anesthesia Postop Eval I 08/19/241204 MR#: [id number] Acct: [id number] Name: RAMY BARRON Rep #: [id number] : 1940 83 From: Juvencio Luu CRNA PCP: Dr. Jean-Paul Pack, DO Status:REG SDC Y Race: C Location: [place] [address] Anesthesia: Postop Eval I Current Vital Signs Temperature: 97.6 F Pulse Rate: 62 Blood Pressure: 97/59 Respiratory Rate: 16 Pulse Ox: 96 Assessment Airway patent: Yes Spontaneous unlabored respirations: Yes nausea: No Vomiting: No Anesthesia Complication: No Fluid Hydration Crystalloid volume administer (ml): 300 Total IV fluid infused: 300 Progress Note Anesthesia document: Postop Eval 1 completed: Yes 08/19/241204 Date Juvencio Luu CURTAIN FELLER BLINDSTITCH Cosigner Signature: Date CC: Signed Normal [facility] [id number] 06-26-2025 MR/POSTOPAN2 [facility] Medical Records Department [address] [place] [address] Anesthesia Postop Eval II 08/19/241812 MR#: [id number] Acct: [id number] Name: RAMY BARRON Rep #: [id number] : 1940 83 From: Yolanda Lee CRNA PCP: Dr. Jean-Paul Pack, DO Status:DEP [facility] Y Race: C Location: EN Anesthesia Postop Eval I Sum Postop Eval Completion status Anesthesia document: Postop Eval 1 completed: Yes Anesthesia Postop Eval I Summary Anesthesia Postop Eval I Summary: Anesthesia Postop Eval I: Assessment Summary Airway patent Yes 08/19/24 12:05 CURTAIN FELLER BLINDSTITCH.TNES Spontaneous unlabored Yes 08/19/24 12:05 CURTAIN FELLER BLINDSTITCH.TNES respirations Mental status nausea No 08/19/24 12:05 CURTAIN FELLER BLINDSTITCH.TNES Vomiting No 08/19/24 12:05 CURTAIN FELLER BLINDSTITCH.TNES Anesthesia Postop Eval I: Fluid Summary Crystalloid volume administer 300 08/19/24 12:05 CURTAIN FELLER BLINDSTITCH.TNES (ml) Colloids volume administered ( ml) Blood Product volume administered (ml) Total IV fluid infused 300 08/19/24 12:05 CURTAIN FELLER BLINDSTITCH.TNES Anesthesia Postop Eval I: Summary Notes Anesthesia Complication No 08/19/24 12:05 CURTAIN FELLER BLINDSTITCH.TNES Anesthesia Complication Comment: Post-operative progress note Anesthesia: Postop Eval II Evaluation Mental status: Awake Pain Level: 0 nausea: No Vomiting: No 08/19/241812 Date Yolanda Lee CURTAIN FELLER BLINDSTITCH Cosigner Signature: Date CC: Signed Normal [facility] Surgery Specimen Level [place] 08-19-2024 Surgery Specimen Level IV Patient Age/Sex Location Account Attending Physician RAMY BARRON 83/M EN [id number] Liam Bajwa DO Specimen: [id number] Received: 08/19/24 Status: NICOLASA Marsh Num: [id number] Spec Type: EGD BIOPSY Subm Dr: Liam Bajwa DO HEADER OPERATION: EGD with biopsy PRE-OP DIAGNOSIS: GERD TISSUE SUBMITTED: A- Gastric body biopsy, B- Gastric cardia biopsy, C- Gastric antrum biopsy MICROSCOPIC DIAGNOSIS A. Gastric body, biopsy: - Oxyntic mucosa with dilated fundic glands suggestive of fundic gland polyp. B. Gastric cardia, biopsy: - Oxyntic mucosa with dilated fundic glands suggestive of fundic gland polyp. C. Gastric antrum, biopsy: - Oxyntic mucosa with mild active chronic inflammation. - IHC for H pylori is pending and will be reported in an addendum. MICROSCOPIC DESCRIPTION Slides are reviewed. GROSS DESCRIPTION A. Received in fixative is one container labeled with the patient's name and designated Gastric antrum biopsy. The specimen consists of multiple irregular fragments of light kevin soft tissue that in aggregate measure <0.1 to 0.5 cm. The specimen is totally submitted in one cassette. B. Received in fixative is one container labeled with the patient's name and designated Gastric cardia biopsy. The specimen consists of two irregular fragments of light kevin soft tissue, each measuring 0.4 cm. The specimen is totally submitted in one cassette. C. Received in fixative is one container labeled with the patient's name and designated Gastric antrum biopsy. The specimen consists of one irregular fragment of light kevin soft tissue that measures 0.4 cm. The specimen is totally submitted in one cassette. Andrea 08/19/2024 CPT:56660a6,15293 Patient Age/Sex Location Account Attending Physician RAMY BARRON 83/M EN [id number] Liam Bajwa DO Signed (signature on file) Dr. Susannah London MD 09/03/24 0942 [facility] Comment on above: Performed By: #### P ORLIN LUNDBERG #### [facility] [address] [place], [address] 36on 08-18-2024 36 Per aircraft maintenance engineer, pt returned call and stated that [facility] already shipped his medication to him and it will be there on Friday. [place] [address] Called and spoke wit h pt regarding plavix refill. Informed pt that a new script was sent to [facility] home delivery pharmacy on 08/11/24. Pt states he typically gets this medication through the [facility] in [place]. Instructed pt to call [facility] to see if they have already ran it through the insurance and have it on the way. Also instructed pt to call back if they have not sent it yet and then we can send the script to [facility]. Pt verbalized understanding and had no further questions at this time. [facility] 36 Patient called and stated that he needs a refill on his medication. He states he only has a few pills left . If you have any additional questions please call him back at your earliest convenience to discuss. Thank you [facility] MR/PAT.ALEXISodrina 08-18-2024 MR/PAT.ALEXIS [facility] Medical Records Department [address] [place] [address] PAT - Anesthesia 08/18/24 1025 MR#: [id number] Acct: [id number] Name: RAMY BARRON Rep #: [id number] : 1940 83 From: Arian Rice MD PCP: Dr. 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 When Was Last Pacemaker Check QUESTION #4 FULL TEXT: You/Your Family Experience fever (hyperthermia) with Anesthesia Last Oral Intake Last Oral intake: Last Oral Intake NPO since Meds taken in AM with sips of water? Meds patient instructed to take am of surgery PONV PONV - shoe parts caser: PONV - shoe parts caser Female No 08/17/24 15:59 HX of Motion Sickness No 08/17/24 15:59 HX of N/V After Surgery No 08/17/24 15:59 Non-Smoker Yes 08/17/24 15:59 Duration of Surgery greater No 08/17/24 15:59 than 60 minutes Number of Risk Factors 1 08/17/24 15:59 PONV Score Low Risk 08/17/24 15:59 Height Weight Height Weight: Anesthesia: Height Weight Height 5 ft 6 in 02/25/22 12:54 Respiratory Assessment Respiratory Assessment - shoe parts caser: Respiratory Tract Infection Hx - 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 Has anyone observed you stop No 08/17/24 15:59 breathing during sleep? STOP Results Negative 08/17/24 15:59 QUESTION #5 FULL TEXT : Do you snore loudly (louder than talking or can be heard through closed doors)? 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 Specify any problems Hx of Preganancy in last 3 N/A 08/17/24 15:59 Months Nurse Filling Out Transfusion CPOWERS2 08/17/24 15:59 Questions: Date: 08/17/24 08/17/24 15:59 Time: 16:04 08/17/24 15:59 Patient unable to answer at this time (ie. confused, unrespo /Reproduction History /Reproductive History - shoe parts caser: /Reproductive Hx- shoe parts caser Hx Now Gestational Age (in weeks): EDC: Hx Hx Para Hx Section SAB PFSH Medical History (Updated 08/17/24 @ 16:12 by Willard Isidro) Cardiology follow-up encounter History of stress test History of echocardiogram Wears glasses History of leukemia Thyroid disease Hoarseness Leg cramps History of heart attack Chest pain Gastroesophageal reflux disease without esophagitis Low HDL (under 40) Erectile dysfunction Aortic stenosis Gastritis without bleeding Hypercholesteremia Hypothyroidism 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 Normal [facility] 36on 08-16-2024 36 Last seen 07/16/24. Normal [facility] Progress Noteon 08-13-2024 Progress Note Good afternoon, Your Echo is stable. The pumping function of your heart remains normal. You have continued moderate aortic stenosis, which is stable and comparable to your prior Echo 06/17/2023. No new recommendations at this time. Please continue your present medications. Please keep your upcoming follow up with Dr. Sosa on 01/17/2025 at 2:00 pm. Please call the office if any further questions. Thank you. Normal [facility] US Heart TransthoracicOrdere d By: Triston Lynch on 08-13-2024 Ao Root Index 1.55 cm/m2 [facility] Work Phone: [phone] Aortic Arch 2.4 cm [facility] [employer] Work Phone: [phone] Aortic Root 2.9 cm [facility] [employer] Work Phone: [phone] Aortic valve Mean systole pressure gradient by US.doppler derived full Bernoulli 22 mmHg [facility] Work Phone: Aortic valve Orifice area by US 3.5 cm2 [facility] [employer] Work Phone: Aortic valve Peak systolic flow by US.doppler 2.2 m/s [facility] [employer] Work Phone: [phone] Ascending Aorta 3.2 cm [facility] Work Phone: [phone] Ascending Aorta Index 1.71 cm/m2 [facility] [employer] Work Phone: AV Area by Peak Velocity 1.1 cm2 [facility] [employer] Work Phone: AV Area by Planimetry 0.9 cm2 [facility] [employer] Work Phone: AV Area by VTI 1.2 cm2 [facility] Work Phone: [phone] AV AT 79.92 ms [facility] [employer] Work Phone: AV Peak Gradient 40 mmHg [facility] Work Phone: [phone] AV Peak Velocity 3.2 m/s [facility] Work Phone: AV Velocity Ratio 0.31 [facility] Work Phone: AV VTI 69.4 cm [facility] Work Phone: XU/BSA 0.48 cm2/m2 [facility] Work Phone: XU/BSA Peak Velocity 0.6 cm2/m2 [facility] Work Phone: XU/BSA VTI 0.6 cm2/m2 [facility] Work Phone: E/E' Lateral 7.33 [facility] Work Phone: E/E' Ratio (Averaged) 10.27 [facility] Work Phone: [phone] E/E' Septal 13.2 [facility] Work Phone: Est. RA Pressure 3 mmHg [facility] Work Phone: [phone] Fractional Shortening 2D 37 % 28 - 44 % [facility] Work Phone: Global Longitudinal Strain -15.7 % [facility] Work Phone: [phone] Interpretation and review of laboratory results Abnormal [facility] Work Phone: [phone] IVC Diameter 1.6 cm [facility] Work Phone: [phone] IVSd 1 cm 0.6 - 1.0 cm [facility] Work Phone: [phone] LA Volume 2C 40 mL 18 - 58 mL [facility] Work Phone: [phone] LA Volume 4C 40 mL 18 - 58 mL [facility] Work Phone: [phone] LA Volume A/L 44 mL [facility] Work [phone] LA Volume BP 42 mL 18 - 58 mL [facility] [employer] Work Phone: [phone] LA Volume Index 2C 21 mL/m2 16 - 34 mL/m2 [facility] Work Phone: [phone] LA Volume Index 4C 21 mL/m2 16 - 34 mL/m2 [facility] [employer] Work Phone: [phone] LA Volume Index A/L 24 mL/m2 16 - 34 mL/m2 [facility] Work Phone: LA Volume Index BP 22 ml/m2 16 - 34 ml/m2 [facility] Work Phone: Left ventricular Ejection fraction by US.2D+Calculated by biplane method of disks 74 % 55 - 100 % [facility] Work Phone: LV E' Lateral Velocity 9 cm/s [facility] Work Phone: LV E' Septal Velocity 5 cm/s [facility] Work Phone: LV EDV A2C 54 mL [facility] Work Phone: LV EDV A4C 69 mL [facility] Work Phone: LV EDV BP 62 mL Abnormal 67 - 155 mL [facility] Work Phone: LV EDV Index A2C 29 mL/m2 [facility] Work Phone: LV EDV Index A4C 37 mL/m2 [facility] Work Phone: LV EDV Index BP 33 mL/m2 [facility] Work Phone: LV Ejection Fraction A2C 74 % [facility] Work Phone: LV Ejection Fraction A4C 73 % [facility] Work Phone: LV ESV A2C 14 mL [facility] Work Phone: LV ESV A4C 19 mL [facility] Work Phone: LV ESV BP 16 mL Abnormal 22 - 58 mL [facility] Work Phone: LV ESV Index A2C 7 mL/m2 [facility] Work Phone: LV ESV Index A4C 10 mL/m2 [facility] Work Phone: LV ESV Index BP 9 mL/m2 [facility] Work Phone: LV Mass 2D 109 g 88 - 224 g [facility] Work Phone: LV Mass 2D Index 58.3 g/m2 49 - 115 g/m2 [facility] Work Phone: LV RWT Ratio 0.47 [facility] Work Phone: LVIDd 3.8 cm Abnormal 4.2 - 5.9 cm [facility] Work Phone: LVIDd Index 2.03 cm/m2 [facility] [employer] Work Phone: LVIDs 2.4 cm [facility] [employer] Work Phone: LVIDs Index 1.28 cm/m2 [facility] [employer] Work Phone: LVOT Cardiac Output 16.1 liter/minute [facility] [employer] Work Phone: LVOT Diameter 2.1 cm [facility] Work Phone: LVOT Mean Gradient 3 mmHg [facility] [employer] Work Phone: LVOT Peak Gradient 4 mmHg [facility] [employer] Work Phone: LVOT Peak Velocity 1 m/s [facility] [employer] Work Phone: LVOT Stroke Volume Index 43.5 mL/m2 [facility] [employer] Work Phone: LVOT SV 81.4 ml [facility] [employer] Work Phone: LVOT VTI 23.5 cm [facility] [employer] Work Phone: LVOT:AV VTI Index 0.34 [facility] [facility] Work Phone: LVPWd 0.9 cm 0.6 - 1.0 cm [facility] [employer] Work Phone: MV A Velocity 1.03 m/s [facility] Work Phone: MV E Velocity 0.66 m/s [facility] Work Phone: MV E Wave Deceleration Time 372.1 ms [facility] [employer] Work Phone: MV E/A 0.64 [facility] [employer] Work Phone: Pulmonary Artery EDP 4 mmHg [facility] Work Phone: RA Area 4C 32 mL [facility] Work Phone: RA Area 4C 29.7 mL [facility] Work Phone: RV Basal Dimension 3.3 cm [facility] Work Phone: [phone] RV Free Wall Peak S' 11 cm/s [facility] Work Phone: [phone] RV Mid Dimension 2.5 cm [facility] Work Phone: [phone] RVSP 23 mmHg [facility] Work Phone: [phone] Sinotubular Junction 2.8 cm [facility] Work Phone: [phone] TAPSE 1.7 cm 1.7 cm [facility] Work Phone: [phone] TR Max Velocity 2.23 m/s [facility] Work Phone: [phone] TR Peak Gradient 20 mmHg [facility] Work Phone: [phone] [facility] Work Phone: US Heart Transthoracicon Left Ventricle: Left ventricle size is normal. Normal wall thickness. Normal left ventricular systolic function. EF by 2D Simpsons Biplane is 74%. Global longitudinal strain is -15.7%. Normal wall motion. Right Ventricle: Right ventricle size is normal. Normal systolic function. Aortic Valve: Trileaflet. Severely calcified cusps. Mild (1+) regurgitation. Moderate stenosis of the aortic valve. AV mean gradient is 22 mmHg. AV peak velocity is 3.2 m/s. LVOT:AV VTI Index is 0.34. AV area by continuity VTI is 1.2 cm2. Tricuspid Valve: Mild (1+) regurgitation. Normal hepatic vein systolic flow. Normal RVSP. RVSP is 23 mmHg. IVC/SVC: IVC diameter is normal and decreases greater than 50% during inspiration; therefore the estimated right atrial pressure is normal (~3 mmHg). Left Ventricle Left ventricle size is normal. Normal wall thickness. Normal left ventricular systolic function. EF by 2D Simpsons Biplane is 74%. Global longitudinal strain is -15.7%. Normal wall motion. Diastolic dysfunction present with normal LVEF. Right Ventricle Right ventricle size is normal. Normal systolic function. Left Atrium Left atrium size is normal. LA Vol Index A/L is 24 mL/m2. Right Atrium Right atrium size is normal. IVC/SVC IVC diameter is normal and decreases greater than 50% during inspiration; therefore the estimated right atrial pressure is normal (~3 mmHg). Mitral Valve Valve structure is normal. Moderate annular calcification (posterior). Trace regurgitation. No stenosis noted. Tricuspid Valve Valve structure is normal. Mild (1+) regurgitation. Normal hepatic vein systolic flow. Normal RVSP. RVSP is 23 mmHg. Aortic Valve Trileaflet. Severely calcified cusps. Mild (1+) regurgitation. Moderate stenosis of the aortic valve. AV mean gradient is 22 mmHg. AV peak velocity is 3.2 m/s. LVOT:AV VTI Index is 0.34. AV area by continuity VTI is 1.2 cm2. Pulmonic Valve Valve structure is normal. Mild (1+) regurgitation. Ascending Aorta Normal sized sinuses of Valsalva and ascending aorta. Pericardium No pericardial effusion. Septum No interatrial shunt visualized on color Doppler. Study Details Image quality: good. Additional technique includes myocardial strain. Heart rate: 63 bpm. Blood pressure: 135/71 mmHg. The underlying ECG rhythm was sinus rhythm. No contrast was given. CV CPACS 36on 08-11-2024 36 [facility] Has about a week left. [phone] Normal [facility] 36on 08-10-2024 36 Faxed cardiac clearance Normal S [facility] Office Visiton 07-16-2024 Follow-up visit [id number] Ramy Barron 1940 M Date Provider Department Center 07/16/2024 [id number] [place] [facility] [place] Family History Problem Relation Age of Onset No Known Problems Mother Comments: PNA and bowel obst age 85 COPD Father Comments: Miners Lung, age 80 Diabetes Sister Heart disease Brother Comments: age 76, pacemaker Bladder Cancer Brother Family Status - Relation Status Age at Mother Father Sister Alive Sister Brother Brother Alive Daughter Level of Service:03573 [place] OFFICE/OUTPATIENT ESTABLISHED MOD MDM 30 MIN Reason for Visit and Comments: Follow-up [[id number]] Normal [facility] Progress Noteon 07-16-2024 Progress Note [facility] Office Note DATE of SERVICE: 07/16/24 TIME of SERVICE: 2:01 PM Reason for Visit: Chief Complaint Patient presents with Follow-up History ofPresent Illness: Ramy Barron is a 83 y.o. male who is known to Dr. Sosa. He has a history of severe coronary artery disease and known moderate to severe aortic stenosis. He had had symptoms of worsening chest discomfort, underwent heart catheterization 09/23/2023 noting continued moderate aortic stenosis, he had progression of his coronary artery disease, underwent stenting of his left main and ostium of his circumflex. It was noted it was a complex procedure due to torturous vessels. He had significant improvement of his angina after stenting, and continues to feel well. He continues on aspirin and Plavix therapy along with atorvastatin 80 mg daily. Continues on metoprolol tartrate 25 mg twice daily as well as isosorbide. He attended cardiac rehab. He is now interested in attending [employer] which I encouraged. I advised his goal is to walk at least 30 minutes most every day of the week. I have ordered a repeat transthoracic echo for continued surveillance of his moderate aortic valve stenosis. He appears compensated today. Past Medical History: Medical History[1] Past Surgical History Surgical History[2] Family History Family History[3] Social History Social History[4] Allergies: Allergies[5] Medications: Current Medications[6] Review of Systems: Review of Systems Constitutional: Negative for activity change, chills, diaphoresis, fatigue and fever. Pt states feeling well HENT: Negative for nosebleeds and trouble swallowing. Eyes: Negative for discharge and visual disturbance. Respiratory: Negative for apnea, cough, chest tightness, shortness of breath and wheezing. Denies SOB Cardiovascular: Negative for chest pain, palpitations and leg swelling. Denies chest pain or palpitations Gastrointestinal: Negative for abdominal distention, abdominal pain, blood in stool, diarrhea, nausea and vomiting. Endocrine: Negative for cold intolerance and heat intolerance. Genitourinary: Negative for hematuria. Musculoskeletal: Negative for gait problem and myalgias. Skin: Negative for color change and rash. Neurological: Negative for dizziness, seizures, syncope, facial asymmetry, speech difficulty, weakness, light-headedness, numbness and headaches. Denies dizziness or light headedness Hematological: Does not bruise/bleed easily. Psychiatric/Behavioral: Negative for dysphoric mood. Physical Examination: Vitals: BP 116/64 (BP Location: Left arm, Patient Position: Sitting, BP Cuff Size: Adult) Pulse 61 Ht 5' 6 (1.676 m) Wt 170 lb 12.8 oz (77.5 kg) SpO2 97% BMI 27.57 kg/m? Body mass index is 27.57 kg/m?. Physical Exam Constitutional: Appearance: Normal appearance. Comments: Well compensated HENT: Head: Normocephalic. Eyes: General: Right eye: No discharge. Left eye: No discharge. Neck: Comments: No JVD Cardiovascular: Rate and Rhythm: Normal rate and regular rhythm. Heart sounds: No murmur heard. Comments: Regular, systolic murmer present Pulmonary: Effort: Pulmonary effort is normal. Breath sounds: Normal breath sounds. No wheezing or rales. Comments: clear Abdominal: General: Bowel sounds are normal. There is no distension. Palpations: Abdomen is soft. Musculoskeletal: Cervical back: Neck supple. Right lower leg: No edema. Left lower leg: No edema. Comments: BLE are non edematous Skin: General: Skin is warm. Findings: No erythema or rash. Neurological: Mental Status: He is alert and oriented to person, place, and time. Psychiatric: Behavior: Behavior normal. Laboratory Tests: Lab Results Component Value Date GLUCOSE 101 (H) 05/11/2024 CALCIUM 9.4 05/11/2024 NA 140 12/29/2023 K 4.4 12/29/2023 CO2 31 05/11/2024 CL 106 12/29/2023 BUN 13 05/11/2024 CREATININE 1.03 05/11/2024 Lab Results Component Value Date CHOL 133 05/27/2022 CHOL 125 05/23/2021 CHOL 125 11/20/2020 Lab Results Component Value Date TRIG 325 (H) 05/27/2022 TRIG 91 05/23/2021 TRIG 84 11/20/2020 Lab Results Component Value Date HDL 25 (L) 05/27/2022 HDL 41 05/23/2021 HDL 31 (L) 11/20/2020 Lab Results Component Value Date LDLCALC 43 05/27/2022 No results found for: VLDL Lab Results Component Value Date CHOLHDLRATIO 5 05/27/2022 CHOLHDLRATIO 3 05/23/2021 CHOLHDLRATIO 4 11/20/2020 Other Testing: Cardiac Tests: Last Echo (date: 06/17/2023): Left Ventricle: Left ventricle size is normal. Mild septal thickening. Normal left ventricular systolic function. EF by 2D Simpsons Biplane is 69%. Normal wall motion. Grade I diastolic dysfunction with normal LAP. Right Ventricle: Right ventricle size is normal. Normal systolic function. Left Atrium: Left atrium is mildly dilated. Aortic Valve: Trileaflet. Severely roberto (more content not included)... [facility] 3607-06-2024 36 stated she spok e with you about sending an rx [facility] folic acid [facility] [place] [facility] 36on 07-05-2024 36 Recent Visits Date Type Provider Dept 05/11/24 Office Visit Jean-Paul Pack DO [facility] [place] 01/08/24 Office Visit Jean-Paul Pack DO [facility] [place] 11/10/23 Office Visit Jean-Paul Pack DO [facility] [place] Showing recent visits within past 365 days and meeting all other requirements Future Appointments No visits were found meeting these conditions. Showing future appointments within next 90 days and meeting all other requirements Requested Prescriptions Pending Prescriptions Disp Refills ezetimibe (Zetia) 10 MG tablet [Pharmacy Med Name: Ezetimibe 10 MG Oral Tablet] 90 tablet 3 Sig: TAKE 1 TABLET BY MOUTH DAILY Provider: Jean-Paul Pack DO Verified pharmacy: yes Verified day(s) supplied: yes Verified refill(s) needed (previous prescription showing no refills in chart): Yes Have you received any controlled medications from any other provider? N/A Overdue for visit: No If yes - patient scheduled? Yes Most recent labs completed in chart? Yes Cholesterol: Lab Results Component Value Date CHOLESTEROLT 117 05/11/2024 HDLCHOLESTER 35 (L) 05/11/2024 TRIGLYCERIDE 140 05/11/2024 LDLCHOLESTER 60 05/11/2024 CHOLHDLCRATI 3.3 05/11/2024 NONHDLCHOLES 82 05/11/2024 [facility] Office Visiton 05-11-2024 Follow-up visit [id number] Ramy Barron 1940 M Date Provider Department Center 05/11/2024 JEAN-PAUL OWENS [facility] Family History Problem Relation Age of Onset No Known Problems Mother Comments: PNA and bowel obst age 85 COPD Father Comments: Miners Lung, age 80 Diabetes Sister Heart disease Brother Comments: age 76, pacemaker Bladder Cancer Brother Family Status - Relation Status Age at Mother Father Sister Alive Sister Brother Brother Alive Daughter Level of Service:20844 [place] OFFICE/OUTPATIENT ESTABLISHED LOW MDM 20 MIN Reason for Visit and Comments: 6 Month Follow-up [671] Normal [facility] Progress Noteon 05-11-2024 Progress Note [facility] - [address] [facility] [address] Visit type: Established Patient Reason for Visit: 6 Month Follow-up Assessment / Plan: Ramy was seen today for 6 month follow-up. Diagnoses and all orders for this visit: Coronary artery disease involving [place] coronary artery of [place] heart, unspecified whether angina present (Primary) Comments: Stable on Plavix and aspirin and Isordil and metoprolol Hypercholesterolemia Comments: Stable on Lipitor and Zetia Orders: - CBC auto differential; Future - Comprehensive metabolic panel; Future - CBC auto differential - Comprehensive metabolic panel Hypothyroidism, unspecified type - Lipid panel; Future - TSH; Future - Lipid panel - TSH Nonrheumatic aortic valve stenosis Gastroesophageal reflux disease without esophagitis Comments: Stable on Protonix Subjective: Patient ID: Ramy Barron is a 83 y.o. male. HPI lipid management patient with stable coronary disease, moderate to severe aortic valvular stenosis and hypothyroidism. No new concerns. Resolved lower GI bleed that was probably due to hemorrhoid. No recent acid reflux. Review of Systems No const usual symptoms. Eating and voiding well. No recent fevers or chills. Defers vaccinations. No exertional chest pain use of nitro. No acid reflux symptoms. No dysphagia abdominal pain melena or blood. Bowels are regular. No dysuria. Overall feels well. Takes some Tylenol for some arthralgias. No Known Allergies Current Outpatient Medications on File Prior to Visit Medication Sig Dispense Refill acetaminophen (Tylenol) 500 MG tablet Take 1 tablet by mouth as needed. aspirin 81 MG EC tablet Take 81 mg by mouth in the morning. atorvastatin (Lipitor) 80 MG tablet TAKE 1 TABLET BY MOUTH ONCE DAILY 90 tablet 3 clopidogrel (Plavix) 75 MG tablet Take 1 tablet (75 mg) by mouth daily. 90 tablet 3 coenzyme Q-10 100 MG capsule Take 1 capsule by mouth in the morning. ezetimibe (Zetia) 10 MG tablet Take 1 tablet (10 mg) by mouth daily. 90 tablet 3 isosorbide mononitrate ER (Imdur) 60 MG 24 hr tablet TAKE 1 TABLET BY MOUTH DAILY 90 tablet 3 levothyroxine (Synthroid, Levoxyl) 100 MCG tablet Take 1 tablet (100 mcg) by mouth daily. 90 tablet 1 metoprolol tartrate (Lopressor) 25 MG tablet TAKE 1 TABLET BY MOUTH TWICE DAILY 180 tablet 3 nitroglycerin (Nitrostat) 0.[address] 1 tablet (0.4 mg) under the tongue every 5 minutes as needed for chest pain. May repeat dose every 5 minutes for up to 3 doses total. 25 tablet 1 pantoprazole (ProtoNix) 40 MG EC tablet TAKE 1 TABLET BY MOUTH IN THE MORNING BEFORE BREAKFAST DO NOT CRUSH, CHEW, OR SPLIT 90 tablet 3 [DISCONTINUED] atorvastatin (Lipitor) 80 MG tablet TAKE 1 TABLET BY MOUTH DAILY 90 tablet 3 No current facility-administered medications on file prior to visit. 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 Barr- 3 RCA stents, CARDIAC CATHETERIZATION N/A 09/23/2023 Performed by Ronal Barr MD at [facility] Cardiac Director Utilization Management CARDIAC CATHETERIZATION N/A 09/23/2023 Performed by Ronal Barr MD at [facility] Cardiac Director Utilization Management CARDIAC CATHETERIZATION N/A 09/23/2023 Performed by Ronal Barr MD at [facility] Cardiac Director Utilization Management COLONOSCOPY 2007 Dr. Garnica CORONARY ANGIOPLASTY WITH STENT PLACEMENT 10/2014 JUSTINA to mid LAD CORONARY ARTERY BYPASS GRAFT 10/2014 RODARTE-LAD, SVG-Diagonal, SVG-PDA KNEE ARTHROSCOPY W/ MENISCAL REPAIR Left 2013 Raman Family History Problem Relation Name Age of Onset No Known Problems Mother PNA and bowel obst age 85 COPD Father Miners Lung, age 80 Diabetes Sister 4 Heart disease Brother 5 age 76, pacemaker Bladder Cancer Brother Objective: BP 120/78 Pulse 51 Temp 36.2 ?C (97.1 ?F) (Temporal) Ht 5' 6 (1.676 m) Wt 180 lb (81.6 kg) SpO2 97% BMI 29.05 kg/m? Physical Exam vital signs stable. Pleasant alert and oriented. No JVD adenopathy or thyroid lesions. Physiologic reflexes. No carotid bruits. Heart is regular with a same systolic murmu (more content not included)... Normal [address] 05-06-2024 36 ANGELY: 01/15/24, next OV on 07/16/24, last lipid on 10/08/23, LDL-48, med pended for review [address] 04-30-2024 36 Recent Visits Date Type Provider Dept 01/08/24 Office Visit Jean-Paul Pack DO [facility] 11/10/23 Office Visit Jean-Paul Pack DO [facility] Showing recent visits within past 365 days and meeting all other requirements Future Appointments Date Type Provider Dept 05/11/24 Appointment Jean-Paul Pack DO [facility] Showing future appointments within next 90 days and meeting all other requirements Requested Prescriptions Pending Prescriptions Disp Refills levothyroxine (Synthroid, Levoxyl) 100 MCG tablet [Pharmacy Med Name: Levothyroxine Sodium 100 MCG Oral Tablet] 90 tablet 1 Sig: Take 1 tablet (100 mcg) by mouth daily. Provider: Jean-Paul Pack DO Verified pharmacy: yes Verified day(s) supplied: yes Verified refill(s) needed (previous prescription showing no refills in chart): Yes Have you received any controlled medications from any other provider? N/A Overdue for visit: No If yes - patient scheduled? N/A Most recent labs completed in chart? Yes None [address] 02-26-2024 36 ANGELY: 01/15/24, next OV on 07/16/24, labs: 12/29/23 [facility] ECG 12 lead - CLINIC PERFORM EDon 01-15-2024 Sinus Bradycardia -Left atrial enlargement. Low voltage -possible pulmonary disease. ABNORMAL [facility] Office Visiton 01-15-2024 Follow-up visit [id number] Ramy Barron 1940 M Date Provider Department Center 01/15/2024 [id number] [facility] [place] Family History Problem Relation Age of Onset No Known Problems Mother Comments: PNA and bowel obst age 85 COPD Father Comments: Miners Lung, age 80 Diabetes Sister Heart disease Brother Comments: age 76, pacemaker Bladder Cancer Brother Family Status - Relation Status Age at Mother Father Sister Alive Sister Brother Brother Alive Daughter Level of Service:75871 [place] OFFICE/OUTPATIENT ESTABLISHED MOD MDM 30 MIN Reason for Visit and Comments: 3 Month Follow Up [[id number]] Coronary Artery Disease [187] Cardiac Valve Problem [1334] Normal [facility] Progress Noteon 01-15-2024 Progress Note [facility] Cardiology [facility]ARD[facility]OLOG[facility] - [address] [facility] [address] Dept: [phone] Dept Visit type: Established : 1940 Chief Complaint: Chief Complaint Patient presents with 3 Month Follow Up Coronary Artery Disease Cardiac Valve Problem History of Present Illness: Ramy Barron is a 83 y.o. male who returns in follow-up concerning his history of severe coronary artery disease and moderate to severe aortic stenosis. He had a catheterization in August because of accelerated angina. He had known moderate to moderately severe aortic stenosis. This showed his aortic stenosis to be continued moderate but he had significant progression of his [place] coronary disease. He had stenting of his left main, ostium of his circumflex. He had very tortuous vessel so the procedure was complex. He had no complications related to this. Since then he is doing much better with no symptoms of angina. He is exercising in cardiac rehab and hopes to go onto [employer]. Past Medical History: Past Medical History: Diagnosis Date Aortic stenosis, moderate 05/2022 per ECHO CAD (coronary artery disease) 01/05/2015 CABG, 06/[address] Barr Cervical spine degeneration 2019 Clostridium difficile colitis 01/2021 ?etiology ED (erectile dysfunction) H/O colonoscopy 2007 Dr. 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 Barr- 3 RCA stents, CARDIAC CATHETERIZATION N/A 09/23/2023 Performed by Ronal Barr MD at [facility] Cardiac Director Utilization Management CARDIAC CATHETERIZATION N/A 09/23/2023 Performed by Ronal Barr MD at [facility] Cardiac Director Utilization Management CARDIAC CATHETERIZATION N/A 09/23/2023 Performed by Ronal Barr MD at [facility] Cardiac Director Utilization Management COLONOSCOPY 2007 Dr. Garnica CORONARY ANGIOPLASTY WITH STENT PLACEMENT 10/2014 JUSTINA to mid LAD CORONARY ARTERY BYPASS GRAFT 10/2014 RODARTE-LAD, SVG-Diagonal, SVG-PDA KNEE ARTHROSCOPY W/ MENISCAL REPAIR Left 2013 [place] Family History Family History Problem Relation Name Age of Onset No Known Problems Mother PNA and bowel obst age 85 COPD Father Miners Lung, age 80 Diabetes Sister 4 Heart disease Brother 5 age 76, pacemaker Bladder Cancer Brother Social History Social History Tobacco Use Smoking status: Never Smokeless tobacco: Never Vaping Use Vaping status: Never Used Substance Use Topics Alcohol use: Never Drug use: Never Allergies: No Known Allergies Medications: Current Outpatient Medications: acetaminophen (Tylenol) 500 MG tablet, Take 1 tablet by mouth as needed., Disp: , Rfl: aspirin 81 MG EC tablet, Take 81 mg by mouth in the morning., Disp: , Rfl: atorvastatin (Lipitor) 80 MG tablet, TAKE 1 TABLET BY MOUTH DAILY, Disp: 90 tablet, Rfl: 3 clopidogrel (Plavix) 75 MG tablet, Take 1 tablet (75 mg) by mouth daily., Disp: 90 tablet, Rfl: 3 coenzyme Q-10 100 MG capsule, Take 1 capsule by mouth in the morning., Disp: , Rfl: ezetimibe (Zetia) 10 MG tablet, Take 1 tablet (10 mg) by mouth daily., Disp: 90 tablet, Rfl: 3 isosorbide mononitrate ER (Imdur) 60 MG 24 hr tablet, TAKE 1 TABLET BY MOUTH DAILY, Disp: 90 tablet, Rfl: 3 levothyroxine (Synthroid, Levoxyl) 100 MCG tablet, Take 1 tablet (100 mcg) by mouth daily., Disp: 90 tablet, Rfl: 3 metoprolol tartrate (Lopressor) 25 MG tablet, TAKE 1 TABLET BY MOUTH TWICE DAILY, Disp: 180 tablet, Rfl: 3 nitroglycerin (Nitrostat) 0.4 MG SL tablet, Place 1 tablet (0.4 mg) under the tongue every 5 minutes as needed for chest pain. May repeat dose every 5 minutes for up to 3 doses total., Disp: 25 tablet, Rfl: 1 pantoprazole (ProtoNix) 40 MG EC tablet, TAKE 1 TABLET BY MOUTH IN THE MORNING BEFORE BREAKFAST DO NOT CRUSH, CHEW, OR SPLIT, Disp: 90 tablet, Rfl: 3 Xifaxan 550 MG tablet, Take 550 mg by mouth 3 times daily. (Patient not taking: Reported on 01/15/2024), Disp: , Rfl: Review of Systems: Review of Systems Constitutional: Negative for activity change, chills, diaphoresis, fatigue and fever. HENT: Negative for nosebleeds and trouble swallowing. Eyes: Negative for discharge and visual disturbance. Respiratory: Negative for apnea, cough, chest tightness, shortness of breath and wheezing. Cardiovascular: Negative for chest pain, palpitations and leg swelling. Gastrointestinal: Negative for abdominal distention, abdominal pain, blood in stool, diarrhea, nausea and vomiting. Endocr (more content not included)... Normal [facility] Office Visiton 01-08-2024 Follow-up visit [id number] Ramy Barron 1940 M Date Provider Department Center 01/08/2024 [id number]-PYEPSSNGJEAN-PAUL PACK [facility] Family History Problem Relation Age of Onset No Known Problems Mother Comments: PNA and bowel obst age 85 COPD Father Comments: [employer] Lung, age 80 Diabetes Sister Heart disease Brother Comments: age 76, pacemaker Bladder Cancer Brother Family Status - Relation Status Age at Mother Father Sister Alive Sister Brother Brother Alive Daughter Level of Service:71671 [place] OFFICE/OUTPATIENT ESTABLISHED LOW MDM 20 MIN Reason for Visit and Comments: ER Follow-up [831] - Bleeding is stool Hemorid Normal [facility] Progress Noteon 01-08-2024 Progress Note [facility] Trejo [address] [facility] [id number] Visit type: Established Patient Reason for Visit: ER Follow-up (Bleeding is stool Hemorid ) Assessment / Plan: Ramy was seen today for er follow-up. Diagnoses and all orders for this visit: External hemorrhoid, bleeding (Primary) Comments: Resolved, follow-up as needed Irritable bowel syndrome, unspecified type Comments: Stable, follow-up with GI after Xifaxan completed Coronary artery disease involving [place] coronary artery of [place] heart, unspecified whether angina present Comments: Very stable, continue all meds and follow-up with cardiology Subjective: Patient ID: Ramy Barron is a 83 y.o. male. HPI patient presents to the office after going to the ER after his found spotting of blood on his pants in the rectal area. In the ER he is found to have a small external hemorrhoid that is healing. No recurrent symptoms. He presents for overall checkup Review of Systems of note was placed on Suboxone per GI for cleaning on his bowels he says. Tolerated the the meds. GI deferred doing upper endoscopy. Denies dysphagia or abdominal pain. No recurrent chest pain since a few ER evaluations this summer. No exertional dyspnea or chest pain. Denies PND orthopnea or edema. Bowels have been regular. No constipation or diarrhea.. No melena or blood. CBC normal. No Known Allergies Current Outpatient Medications on File Prior to Visit Medication Sig Dispense Refill acetaminophen (Tylenol) 500 MG tablet Take 1 tablet by mouth as needed. aspirin 81 MG EC tablet Take 81 mg by mouth in the morning. atorvastatin (Lipitor) 80 MG tablet TAKE 1 TABLET BY MOUTH DAILY 90 tablet 3 clopidogrel (Plavix) 75 MG tablet Take 1 tablet (75 mg) by mouth daily. 90 tablet 3 coenzyme Q-10 100 MG capsule Take 1 capsule by mouth in the morning. ezetimibe (Zetia) 10 MG tablet Take 1 tablet (10 mg) by mouth daily. 90 tablet 3 isosorbide mononitrate ER (Imdur) 60 MG 24 hr tablet TAKE 1 TABLET BY MOUTH DAILY 90 tablet 3 levothyroxine (Synthroid, Levoxyl) 100 MCG tablet Take 1 tablet (100 mcg) by mouth daily. 90 tablet 3 metoprolol tartrate (Lopressor) 25 MG tablet TAKE 1 TABLET BY MOUTH TWICE DAILY 180 tablet 3 nitroglycerin (Nitrostat) 0.[address] 1 tablet (0.4 mg) under the tongue every 5 minutes as needed for chest pain. May repeat dose every 5 minutes for up to 3 doses total. 25 tablet 1 pantoprazole (ProtoNix) 40 MG EC tablet TAKE 1 TABLET BY MOUTH IN THE MORNING BEFORE BREAKFAST DO NOT CRUSH, CHEW, OR SPLIT 90 tablet 3 Xifaxan 550 MG tablet Take 550 mg by mouth 3 times daily. No current facility-administered medications on file prior to visit. 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 Barr- 3 RCA stents, CARDIAC CATHETERIZATION N/A 09/23/2023 Performed by Ronal Barr MD at [facility] Cardiac Director Utilization Management CARDIAC CATHETERIZATION N/A 09/23/2023 Performed by Ronal Barr MD at [facility] Cardiac Director Utilization Management CARDIAC CATHETERIZATION N/A 09/23/2023 Performed by Ronal Barr MD at [facility] Cardiac Director Utilization Management COLONOSCOPY 2007 Dr. Garnica CORONARY ANGIOPLASTY WITH STENT PLACEMENT 10/2014 JUSTINA to mid LAD CORONARY ARTERY BYPASS GRAFT 10/2014 RODARTE-LAD, SVG-Diagonal, SVG-PDA KNEE ARTHROSCOPY W/ MENISCAL REPAIR Left 2013 [place] Family History Problem Relation Name Age of Onset No Known Problems Mother PNA and bowel obst age 85 COPD Father [employer] Lung, age 80 Diabetes Sister 4 Heart disease Brother 5 age 76, pacemaker Bladder Cancer Brother Objective: BP 121/64 (BP Location: Right arm, Patient Position: Sitting, BP Cuff Size: Large adult) Pulse 54 Temp 36.1 ?C (97 ?F) (Temporal) Ht 5' 6 (1.676 m) Wt 177 lb (80.3 kg) SpO2 97% BMI 28.57 kg/m? Physical Exam He appears well. Very alert and pleasant and engaging. No neck masses. Heart is regular. Lungs are clear. Abdomen without pain hepatosplenomegaly or masses. No guarding rigidity or rebound tenderness. Good bowel sounds. Some he (more content not included)... Normal [facility] 36on 01-07-2024 36 Called and spoke wit h patient. He already saw Dr Aydee and is established with him. No action needed by us at this time. Thank you [facility] Progress Noteon 01-02-2024 Progress Note Chart reviewed of ED follow up Seen in [facility] ED on 12/29/23 Reason: Rectal bleeding Discharge instructions: Please make appointment follow-up with gastroenterology in 1 day. Please follow-up with your PCP in 2 days. I work with Jean-Paul Pack DO's office. We received notice you were in the ED recently and wanted to ask some questions to see how you are doing. This should only take a few minutes. According to ER notes you were there for Rectal bleeding. Is that correct?Yes How are your symptoms now? States he is not having anymore active bleeding. He is having normal stools, no signs of bleeding noted. He did reach out to GI but has not heard back from them yet. He is taking his medication as ordered. He would like an appointment with his PCP since he can not get into his GI. Appointment made with PCP 01/08/24. Any questions about the instructions the emergency department gave you?No Have you picked up the medication prescribed by ED and taking as prescribed? No new medications order from ED is taking his antibiotics Are there any other concerns I can help you with today?No That's all I have for today. Thank you for choosing [facility], always remember we have same day or telehealth visits available. We encourage you to call the office if sudden health changes occur before going to ED. We have nurses available 16/09 available to help. [facility] CBC W Auto Differential pane l (Bld)Ordered By: Jaylan Madison on 12-29-2023 Basophils (Bld) [#/Vol] 0 10*3/uL 0.0 - 0.2 10*3/uL [facility] Basophils/100 WBC (Bld) 0.5 % 0.0 - 2.0 % [facility] Eosinophils (Bld) [#/Vol] 0.1 10*3/uL 0.0 - 0.5 10*3/uL [facility] Eosinophils/100 WBC (Bld) 1.6 % 0.0 - 6.0 % [facility] Erythrocyte distribution width (RBC) [Ratio] 11.8 % 11.5 - 15.0 % [facility] Hematocrit (Bld) [Volume fraction] 42.8 % 40.0 - 52.0 % [facility] Hemoglobin (Bld) [Mass/Vol] 14.6 g/dL 13.0 - 18.0 g/dL [facility] Immature granulocytes (Bld) [#/Vol] 0 10*3/uL NINF - 0.1 10*3/uL [facility] Immature granulocytes/100 WBC (Bld) 0.2 % 0.0 - 2.0 % [facility] Interpretation and review of laboratory results Abnormal [facility] Lymphocytes (Bld) [#/Vol] 1.4 10*3/uL 1.0 - 4.3 10*3/uL [facility] Lymphocytes/100 WBC (Bld) 32.1 % 15.0 - 45.0 % [facility] MCH (RBC) [Entitic mass] 35.9 pg High 26.0 - 34.0 pg [facility] MCHC (RBC) [Mass/Vol] 34.1 % 30.5 - 36.0 % [facility] MCV (RBC) [Entitic vol] 105.2 fL High 77.0 - 99.0 fL [facility] Monocytes (Bld) [#/Vol] 0.5 10*3/uL 0.0 - 0.9 10*3/uL [facility] Monocytes/100 WBC (Bld) 10.4 % 5.0 - 13.0 % [facility] Neutrophils (Bld) [#/Vol] 2.4 10*3/uL 1.8 - 7.5 10*3/uL [facility] Neutrophils/100 WBC (Bld) 55.2 % 38.0 - 82.0 % [facility] Nucleated RBC/100 WBC (Bld) [Ratio] 0 % [facility] Platelet mean volume (Bld) [Entitic vol] 10.1 fL 9.0 - 12.7 fL [facility] Platelets (Bld) [#/Vol] 167 10*3/uL 140 - 440 10*3/uL [facility] RBC (Bld) [#/Vol] 4.07 10*6/uL Low 4.40 - 5.9 0 10*6/uL [facility] WBC (Bld) [#/Vol] 4.3 10*3/uL 3.6 - 10.7 10*3/uL [facility] CBC WITH AUTO DIFFERENTIALon 12-29-2023 Basophils (Bld) [#/Vol] 0.0 10*3/uL Normal 0.0-0.[address] [facility] Comment on above: Performed By: #### L [id number] ####Infantry Weapons Officer: NATHALY GANN ([id number])[facility] ([facility])[address] [place] [address] Basophils/100 WBC (Bld) 0.5 % Normal 0.0-2.0 [facility] Comment on above: Performed By: #### L [id number] ####Infantry Weapons Officer: NATHALY GANN ([id number])[facility] [place] [address] Eosinophils (Bld) [#/Vol] 0.1 10*3/uL Normal 0.0-0.5 [facility] Comment on above: Performed By: #### L [id number] ####Infantry Weapons Officer: NATHALY GANN ([id number])[facility] ([facility])[address] Eosinophils/100 WBC (Bld) 1.6 % Normal 0.0-6.[address] [facility] Comment on above: Performed By: #### L [id number] ####Infantry Weapons Officer: NATHALY GANN ([id number])[facility] ([facility])[address] [place] [address] Erythrocyte distribution width (RBC) [Ratio] 11.8 % Normal 11.5-15.0 [facility] Comment on above: Performed By: #### L [id number] ####Infantry Weapons Officer: NATHALY MAYMalenaSONG ([id number])[facility] [place] [facility])[address] Hematocrit (Bld) [Volume fraction] 42.8 % Normal 40.0-52.0 [facility] Comment on above: Performed By: #### L [id number] ####Infantry Weapons Officer: NATHALY MAYMICAH ([id number])[facility] [place] ([facility])[address] Hemoglobin (Bld) [Mass/Vol] 14.6 g/dL Normal 13.0-18.0 [facility] Comment on above: Performed By: #### L [id number] ####Infantry Weapons Officer: NATHALY WALLSSONG ([id number])[facility] [place] ([facility])[address] IMMATURE GRANS % 0.2 % Normal 0.0-2.0 [facility] Comment on above: Performed By: #### L [id number] ####Infantry Weapons Officer: NATHALY WALLSSONG ([id number])[facility] [place] ([facility])[address] IMMATURE GRANS ABSOLUTE 0.0 10*3/uL Normal <0.1 [facility] Comment on above: Performed By: #### L [id number] ####Infantry Weapons Officer: NATHALY WALLSSONG ([id number])[facility] [place] ([facility])[address] Lymphocytes (Bld) [#/Vol] 1.4 10*3/uL Normal 1.0-4.3 [facility] Comment on above: Performed By: #### L [id number] ####Infantry Weapons Officer: NATHALY GANN ([id number])[facility] [place] ([facility])[address] Lymphocytes/100 WBC (Bld) 32.1 % Normal 15.0-45.[address] [facility] Comment on above: Performed By: #### L [id number] ####Infantry Weapons Officer: NATHALY GANN ([id number])[facility] [place] ([facility])[address] MCH (RBC) [Entitic mass] 35.9 pg High 26.0-34.[address] [facility] Comment on above: Performed By: #### L [id number] ####Infantry Weapons Officer: NATHALY GANN ([id number])[facility] [place] ([facility])[address] MCHC 34.1 % Normal 30.5-36.[address] [facility] Comment on above: Performed By: #### L [id number] ####Infantry Weapons Officer: NATHALY GANN ([id number])[facility] [place] ([facility])[address] [place] [address] MCV (RBC) [Entitic vol] 105.2 fL High 77.0-99.0 [facility] Comment on above: Performed By: #### L [id number] ####Infantry Weapons Officer: NATHALY GANN ([id number])[facility] [place] ([facility])[address] [place] [address] Monocytes (Bld) [#/Vol] 0.5 10*3/uL Normal 0.0-0.[address] [facility] Comment on above: Performed By: #### L [id number] ####Infantry Weapons Officer: NATHALY GANN ([id number])[facility] [place] ([facility])[address] [place] [address] Monocytes/100 WBC (Bld) 10.4 % Normal 5.0-13.0 [facility] Comment on above: Performed By: #### L [id number] ####Infantry Weapons Officer: NATHALY GANN ([id number])[facility] [place] ([facility])[address] NEUTROPHILS ABSOLUTE 2.4 10*3/uL Normal 1.8-7.5 [facility] Comment on above: Performed By: #### L [id number] ####Infantry Weapons Officer: NATHALY GANN ([id number])[facility] [place] ([facility])[address] Neutrophils/100 WBC (Bld) 55.2 % Normal 38.0-82.0 [facility] Comment on above: Performed By: #### L [id number] ####Infantry Weapons Officer: NATHALY GANN ([id number])[facility] [place] ([facility])[address] NRBC 0.0 /100 WBCs Normal 0.0-2.0 [facility] Comment on above: Performed By: #### L [id number] ####Infantry Weapons Officer: NATHALY GANN ([id number])[facility] ([facility])[address] Platelet mean volume (Bld) [Entitic vol] 10.1 fL Normal 9.0-12.7 [facility] Comment on above: Performed By: #### L [id number] ####Infantry Weapons Officer: NATHALY GANN ([id number])[facility] [place] ([facility])[address] Platelets (Bld) [#/Vol] 167 10*3/uL Normal 140-440 [facility] Comment on above: Performed By: #### L [id number] ####Infantry Weapons Officer: NATHALY GANN ([id number])[facility] [place] ([facility])[address] [place] [address] [place] RBC (Bld) [#/Vol] 4.07 10*6/uL Low 4.40-5.90 [facility] Comment on above: Performed By: #### L [id number] ####Infantry Weapons Officer: NATHALY GANN ([id number])[facility] [place] ([facility])[address] [place] [address] [place] WBC (Bld) [#/Vol] 4.3 10*3/uL Normal 3.6-10.7 [facility] Comment on above: Performed By: #### L [id number] ####Infantry Weapons Officer: NATHALY GANN ([id number])[facility] [place] ([facility])[address] COMPREHENSIVE METABOLIC PANE Hussein 12-29-2023 Albumin [Mass/Vol] 4.8 g/dL Normal 3.5-5.0 [facility] Comment on above: Performed By: #### L AB17, LAB99 ####Infantry Weapons Officer: NATHALY GANN ([id number])[facility] [place] ([facility])[address] ALP [Catalytic activity/Vol] 97 U/L Normal 38-126 [facility] Comment on above: Performed By: #### L AB17, LAB99 ####Infantry Weapons Officer: NATHALY GANN ([id number])[facility] [place] ([facility])[address] ALT [Catalytic activity/Vol] 34 U/L Normal 0-49 [facility] Comment on above: Performed By: #### L AB17, LAB99 ####Infantry Weapons Officer: NATHALY GANN ([id number])[facility] [place] ([facility])[address] Anion gap [Moles/Vol] 9 mmol/L Normal 3-13 [facility] Comment on above: Performed By: #### L AB17, LAB99 ####Infantry Weapons Officer: NATHALY GANN ([id number])[facility] [place] ([facility])[address] AST [Catalytic activity/Vol] 35 U/L Normal 15-46 [facility] Comment on above: Performed By: #### L AB17, LAB99 ####Infantry Weapons Officer: NATHALY GANN ([id number])[facility] [place] ([facility])[address] Bilirubin [Mass/Vol] 1.0 mg/dL Normal 0.2-1.3 [facility] Comment on above: Performed By: #### L AB17, LAB99 ####Infantry Weapons Officer: NATHALY GANN ([id number])[facility] [place] ([facility])[address] Calcium [Mass/Vol] 9.4 mg/dL Normal 8.4-10.4 [facility] Comment on above: Performed By: #### L AB17, LAB99 ####Infantry Weapons Officer: NATHALY GANN ([id number])[facility] [place] ([facility])[address] Chloride [Moles/Vol] 106 mmol/L Normal 98-107 [facility] Comment on above: Performed By: #### L AB17, LAB99 ####Infantry Weapons Officer: NATHALY GANN ([id number])[facility] ([facility])[address] CO2 [Moles/Vol] 26 mmol/L Normal 22-30 [facility] Comment on above: Performed By: #### L AB17, LAB99 ####Infantry Weapons Officer: NATHALY GANN ([id number])[facility] ([facility])[address] Creatinine [Mass/Vol] 0.95 mg/dL Normal 0.66-1.25 [facility] Comment on above: Performed By: #### L AB17, LAB99 ####Infantry Weapons Officer: NATHALY GANN ([id number])[facility] ([facility])[address] [place] [address] [place] GLOMERULAR FILTRATION RATE ML/MIN/1.73 SQ M.PREDICTED 79.9 mL/min/1.73m*2 Normal >60.0 [facility] Comment on above: Result Comment: Calc ulation based on the Chronic Kidney Disease Epidemiology Collaboration (CKD-EPI) equation refit without adjustment for race Performed By: #### L AB17, LAB99 ####Infantry Weapons Officer: NATHALY GANN ([id number])[facility] ([facility])[address] Glucose [Mass/Vol] 102 mg/dL High 70-100 [facility] Comment on above: Performed By: #### L AB17, LAB99 ####Infantry Weapons Officer: NATHALY GANN ([id number])[facility] ([facility])[address] Potassium [Moles/Vol] 4.4 mmol/L Normal 3.5-5.1 [facility] Comment on above: Performed By: #### L AB17, LAB99 ####Infantry Weapons Officer: NATHALY GANN ([id number])[facility] ([facility])[address] Protein [Mass/Vol] 8.3 g/dL High 6.3-8.2 [facility] Comment on above: Performed By: #### L AB17, LAB99 ####Infantry Weapons Officer: NATHALY GANN ([id number])[facility] ([facility])[address] Sodium [Moles/Vol] 140 mmol/L Normal 135-145 [facility] Comment on above: Performed By: #### L AB17, LAB99 ####Infantry Weapons Officer: NATHALY GANN ([id number])[facility] ([facility])[address] Urea nitrogen [Mass/Vol] 18 mg/dL Normal 9-20 [facility] Comment on above: Performed By: #### L AB17, LAB99 ####Infantry Weapons Officer: NATHALY GANN ([id number])[facility] ([facility])[address] Comprehensive metabolic 1998 panelon 12-29-2023 Albumin [Mass/Vol] 4.8 g/dL 3.5 - 5.0 g/dL [facility] ALP [Catalytic activity/Vol] 97 U/L 38 - 126 U/L [facility] ALT [Catalytic activity/Vol] 34 U/L 0 - 49 U/L [facility] Anion gap [Moles/Vol] 9 mmol/L 3 - 13 mmol/L [facility] AST [Catalytic activity/Vol] 35 U/L 15 - 46 U/L [facility] Bilirubin [Mass/Vol] 1 mg/dL 0.2 - 1 .3 mg/dL [facility] Calcium [Mass/Vol] 9.4 mg/dL 8.4 - 10. 4 mg/dL [facility] Chloride [Moles/Vol] 106 mmol/L 98 - 10 7 mmol/L [facility] CO2 [Moles/Vol] 26 mmol/L 22 - 30 mmol/L [facility] Creatinine [Mass/Vol] 0.95 mg/dL 0.66 - 1.25 mg/dL [facility] GFR/1.73 sq M.predicted (S/P/Bld) [Vol rate/Area] 79.9 mL/min - PINF [facility] Comment on above: Calculation based on the Chronic Kidney Disease Epidemiology Collaboration (CKD-EPI) equation refit without adjustment for race Glucose [Mass/Vol] 102 mg/dL High 70 - 100 mg/dL [facility] Interpretation and review of laboratory results Abnormal [facility] Potassium [Moles/Vol] 4.4 mmol/L 3.5 - 5.1 mmol/L [facility] Protein [Mass/Vol] 8.3 g/dL High 6.3 - 8.2 g/dL [facility] Sodium [Moles/Vol] 140 mmol/L 135 - 145 mmol/L [facility] Urea nitrogen [Mass/Vol] 18 mg/dL 9 - 20 mg/dL [facility] ED Nursing Noteon 12-29-2023 ED Nursing Note I was in the room wi Gustavo GUEST SERVICES REPRESENTATIVE for the rectal exam. Normal [facility] ED Nursing Note Reports he was place d on Xifaxan 4 days ago, reports he had an episode of rectal bleeding today. Normal [facility] ED Provider Noteon ED Provider Note EMERGENCY DEPARTMENT ENCOUNTER Pt Name: Ramy Barron Birthdate 1940 Date of evaluation: 12/29/2023 ED Provider: Gustavo Tsang, SALESPERSON TOY TRAINS AND ACCESSORIES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 EDcare was supervised by Dr. Gladys Anthony who independently examined and evaluated the patient. Please see their attestation note for further details. CHIEF COMPLAINT Chief Complaint Patient presents with Rectal Bleeding Reports he was placed on Xifaxan 4 days ago, reports he had an episode of rectal bleeding today. HISTORY OF PRESENT ILLNESS (Location/Symptom, Timing/Onset, Context/Setting, Quality, Duration, Modifying Factors, Severity) Note limiting factors. I wore appropriate PPE for the entirety of this encounter. History provided by: Patient circuit court judge used: Nery Barron is a 83 y.o. male with past medical history for hemorrhoids, C. difficile, CAD and status post CABG presents to the emergency department for evaluation of rectal bleeding which started today. Patient states that he recently started taking Xifaxan medication. He is suspecting that the medication is causing the rectal bleeding. He has taken 4 doses. Patient states that he does not think that his hemorrhoids are bleeding. Patient denies abdominal pain, nausea, vomiting, diarrhea, dysuria, fever or chills. Nursing Notes were reviewed. Limitations to history: None Outside historians: None REVIEW OF SYSTEMS Review of Systems Constitutional: Negative for chills and fever. Gastrointestinal: Positive for anal bleeding. Negative for abdominal pain, diarrhea, nausea and vomiting. Genitourinary: Negative for dysuria. All other systems reviewed and are negative. Pertinent positives and negatives as per HPI. PAST MEDICAL HISTORY Past Medical History: Diagnosis Date Aortic stenosis, moderate 05/2022 per ECHO CAD (coronary artery disease) 01/05/2015 CABG, 06/[address] Barr Cervical spine degeneration 2019 Clostridium difficile colitis 01/2021 ?etiology ED (erectile dysfunction) H/O colonoscopy 2007 Dr. 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 Barr- 3 RCA stents, CARDIAC CATHETERIZATION N/A 09/23/2023 Performed by Ronal Barr MD at [facility] Cardiac Director Utilization Management CARDIAC CATHETERIZATION N/A 09/23/2023 Performed by Ronal Barr MD at [facility] Cardiac Director Utilization Management CARDIAC CATHETERIZATION N/A 09/23/2023 Performed by Ronal Barr MD at [facility] Cardiac Director Utilization Management COLONOSCOPY 2007 Dr. Garnica CORONARY ANGIOPLASTY WITH STENT PLACEMENT 10/2014 JUSTINA to mid LAD CORONARY ARTERY BYPASS GRAFT 10/2014 RODARTE-LAD, SVG-Diagonal, SVG-PDA KNEE ARTHROSCOPY W/ MENISCAL REPAIR Left 2013 [place] CURRENT MEDICATIONS Discharge Medication List as of 12/29/2023 10:34 PM CONTINUE these medications which have NOT CHANGED Details acetaminophen (Tylenol) 500 MG tablet Take 1 tablet by mouth as needed., Starting Fri02/14/2017, Historical Med aspirin 81 MG EC tablet Take 81 mg by mouth in the morning., Historical Med atorvastatin (Lipitor) 80 MG tablet TAKE 1 TABLET BY MOUTH DAILY, Starting Fri06/30/2023, Normal clopidogrel (Plavix) 75 MG tablet Take 1 tablet (75 mg) by mouth daily., Starting Fri08/15/2023, Normal coenzyme Q-10 100 MG capsule Take 1 capsule by mouth in the morning., Historical Med ezetimibe (Zetia) 10 MG tablet Take 1 tablet (10 mg) by mouth daily., Starting Fri06/04/2023, Until Fri12/01/2023, Normal isosorbide mononitrate ER (Imdur) 60 MG 24 hr tablet TAKE 1 TABLET BY MOUTH DAILY, Starting Fri08/19/2023, Normal levothyroxine (Synthroid, Levoxyl) 100 MCG tablet Take 1 tablet (100 mcg) by mouth daily., Starting Fri04/23/2023, Until 04/17/2024, Normal metoprolol tartrate (Lopressor) 25 MG tablet TAKE 1 TABLET BY MOUTH TWICE DAILY, Starting Fri08/19/2023, Normal nitroglycerin (Nitrostat) 0.[address] 1 tablet (0.4 mg) under the tongue every 5 minutes as needed for chest pain. May repeat dose every 5 minutes for up to 3 doses total., Starting Fri10/08/2023, Until Jyotsna 10/07/2024 at 2359, Normal pantoprazole (ProtoNix) 40 MG EC tablet TAKE 1 TABLET BY MOUTH IN THE MORNING BEFORE BREAKFAST DO NOT CRUSH, CHEW, OR SPLIT, Normal ALLERGIES Patient has no known allergies. FAMILY HISTORY Family History Problem Relation Name Age of Onset No Known Problems Mother PNA and bowel obst age 85 COPD Father [employer], age 80 Diabetes Sister 4 Heart disease Brother 5 age 76, pacemaker (more content not included)... Normal [facility] ED Provider Note Emergency Department Encounter [facility] ED Patient: Ramy Barron : 1940 Date of Evaluation: 12/29/2023 ED Supervising Physician: Gladys Anthony DO I personally evaluated Ramy Barron and made/approved the management plan and take responsibility for the patient management. This will serve as my Supervisory note and shared attestation. I did perform a substantive portion of the visit including all aspects of the Medical Decision Making. I wore appropriate PPE for the entirety of this encounter. In brief, Ramy Barron is a 83 y.o. that presents to the emergency department for evaluation of rectal bleeding. Patient was started Xifaxan 4 days ago by GI. This afternoon noticed he had some spots of blood on his pants. He reports when he checked this out, he had a few drops on his pants as well as some \blood on his underwear. Denies any melanotic stools. Denies any bloody stools. Denies any lethargy shortness of breath chest pain or lightheadedness. He does have a history of hemorrhoids. Reports he wanted to get checked out because he is concerned that the bleeding was caused by this medication Focused exam: Sitting upright, no acute distress. Answer questions appropriately. No conversational dyspnea. Abdomen is soft, nondistended, nontender. No rebound or guarding Brief ED course/MDM: Patient is an 83-year-old male presenting to the emergency department for evaluation of rectal bleeding Concern for internal versus external hemorrhoids, diverticulosis. Low suspicion for melena. Patient is well-established with GI. He is only reporting 1 episode of rectal bleeding and says it was a few spots on his underwear. Obtained labs to evaluate for anemia, transaminitis, or dehydration and these were grossly unremarkable. The patient is denying any active bleeding at this time and he has a benign abdominal exam. I did consider obtaining advanced imaging however I do not think it would be overtly helpful in this case. Discussed with the patient returning to the emergency department if he has additional episodes of rectal bleeding, and discussed that he should call his GI doctor tomorrow morning for further recommendations whether he should continue on this antibiotic or not. Patient voices understanding, all questions answered. Patient stable for discharge Diagnostics interpreted by me: I personally discussed the patient's management with other clinicians: All diagnostic, treatment, and disposition decisions were made by myself in conjunction with the KAYLEIGH. For all further details of the patient's emergency department visit, please see their documentation. (Comment: Please note this report has been produced using speech recognition software and may contain errors related to that system including errors in grammar, punctuation, and spelling, as well as words and phrases that may be inappropriate. If there are any questions or concerns please feel free to contact the dictating provider for clarification.) Gladys Anthony DO [employer] Gladys Anthony DO 12/31/231957 Normal [facility] LIPASEon 12-29-2023 Lipase [Catalytic activity/Vol] 65 U/L Normal 23-300 [facility] Comment on above: Performed By: #### L AB17, LAB99 ####Infantry Weapons Officer: NATHALY GANN ([phone])[facility] ([facility])[address] [place] [address] Laboratory - Chemistry and C hemistry - challengeon 12-29-2023 Lipase [Catalytic activity/Vol] 65 U/L 23 - 300 U/L [facility] Lipase [Catalytic activity/V ol]on 12-29-2023 Interpretation and review of laboratory results Normal [facility] No Panel Informationon 12-28 [facility] Gastroenterology Visit Repor ton 12-12-2023 Gastroenterology Visit Report [facility] Gastroenterology [address] [place] [address] OFFICE VISIT Date of Service: 12/12/23 MR#: [id number] Acct: [id number] Name: RAMY BARRON Rep #: [id number] : 1940 Provider: ROBBIN meléndez Age/Sex: 83/M [place] [facility] [place]: Signed Intake Vital Signs 02/25/22 12:54 Height 5 ft 6 in Intake Visit Reasons: Gastroesophageal reflux disease (GERD) Management Manager Required: No Is patient in pain?: No Allergies No Known Allergies Allergy (Unverified 12/11/23 12:48) Medications ???Medication ???Instructions ???Recorded ???Confirmed ???Type aspirin 81 mg tablet,delayed 81 mg PO QDAY 12/11/23 12/11/23 History release (Adult Aspirin Regimen) atorvastatin 80 mg tablet 80 mg PO QDAY 12/11/23 12/11/23 History clopidogrel 75 mg tablet 75 mg PO QDAY 12/11/23 12/11/23 History coenzyme Q10 100 mg capsule 100 mg PO QDAY 12/11/23 12/11/23 History ezetimibe 10 mg tablet 10 mg PO QDAY 12/11/23 12/11/23 History isosorbide mononitrate 60 mg 60 mg PO QDAY 12/11/23 12/11/23 History tablet,extended release 24 hr levothyroxine 100 mcg capsule 100 mcg PO QDAY 12/11/23 12/11/23 History metoprolol tartrate 25 mg tablet 25 mg PO BID 12/11/23 12/11/23 History nitroglycerin 0.4 mg sublingual 0.4 mg sublingual Q5-15M PRN 12/11/23 12/11/23 History tablet pantoprazole 40 mg tablet,delayed 40 mg PO QDAY 12/11/23 12/11/23 History release erythromycin 500 mg tablet 500 mg PO Q8H #42 tabs 12/12/23 12/12/23 Rx Have you fallen in the past year?: No Nurse's Note: Gets reflux so bad he ended up in the hospital about 3 months ago in [place]. If he is able to burb he is ok and if he lays on his left side he will pass gas terrible. Notices it more with tomato or eats late in the evening after 7 people. [facility] Medical History (Updated 12/12/23 @ 15:36 by ROBBIN German) Chest pain Gastroesophageal reflux disease without esophagitis Low HDL (under 40) Erectile dysfunction Aortic stenosis Gastritis without bleeding Hypercholesteremia Hypothyroidism 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 Surgical History (Updated 12/11/23 @ 12:53 by Saloni Seo) S/P CABG x 3 Family History (Updated 10/17/24 @ 12:54 by Saloni Seo) Father COPD (chronic obstructive pulmonary disease) Sister Diabetes Brother Heart disease Brother Cancer bladder Social History (Updated 12/11/23 @ 12:53 by Saloni Seo) Smoking Status: Never smoker alcohol intake: never HPI HPI Details: RAMY BARRON, is a 83 M who presents to the office today for establishment with [facility] for complaints of painful epigastric gas. He notes the increased gas and pain is related to eating tomatoes and red sauce on pasta. He denies difficulty chewing and swallowing, heartburn, bloating, constipation, diarrhea, hematochezia and melena. He states that he is able to lay in left recumbent position to evacuate the gas and it doesn't build up. He reports an ER visit 2 months ago where he thought he was having a heart attack from the gas pain. States he has a heart history of 5 coronary stents and a problem valve. He states that he will get an EGD if necessary, but would prefer not to. He denies knowing a specific food trigger. ROS Gastro GI: Positive for bloating and heartburn Musc Musculoskeletal: Positive for joint pain, back pain, Arthritis and sciatica Skin Skin: Positive for dry skin Onur/Lymp Hematologic/Lymphatic: Positive for easy bruising Exam Const General: cooperative, healthy appearing, comfortable and no acute distress Nutritional Appearance: average body habitus Orientation: alert HENIA Head: normal to inspection Ears: hearing grossly normal bilaterally Nose: external nose normal Face and sinus: normal facial exam and face symmetric Eyes General: appearance normal, both eyes and all related structures Sclera: sclerae normal Neck Neck: normal visual inspection and full ROM Neck mass: No Chest Chest palpation inspection: normal inspection of the chest Resp Effort Inspection: normal respiratory effort, able to speak in complete sentences and symmetric chest movement GI Inspection: normal to inspection and distended Palpation: soft and no hepatosplenomegaly Skin General: ecchymosis Neuro General: patient alert, patient awake, patient oriented x3 and moves all extremities Cognition: normal cognition Speech: speech normal Gait: normal gait Extrem General: normal to inspection and full ROM Psych Appearance: well kempt Mental Status: mental status grossly normal Mood: congruent mood Affect: normal affect Speech and Movement: speech and movement normal Attitude: cooperative Thought Process: normal As (more content not included)... Normal [facility] ECG 12 leadon 10-08-2023 Sinus Bradycardia -Left atrial enlargement. [facility] Stomach Views for gastric emptying solid phase W radionuclide Raul 09-30-2023 Impression: While th ere is normal emptying by one hour, by two hours there is minimally abnormally increased activity within the stomach, which is eventually normalized by four hours. DELAYED GASTRIC EMPTYING OF SOLIDS. Report Dictated on Electronically Signed By: Mitchell Regalado MD Electronically Signed Date/Time: 09/30/2023 1:53 PM EDT [facility] Patient Name: RAMY RAHMAN : 1940 Exam Date/Time: 09/30/2023 12:17 Procedure: NM GASTRIC EMPTYING SOLID Ordering Provider: TRUJILLO RYAN Reason For Exam: chronic abdominal pain, bloating Study: GASTRIC EMPTYING STUDY. Clinical indication: 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 Dose: 1 mCi tc-99m sulfur colloid in standard meal TECHNIQUE: Anterior and posterior imaging was obtained over the abdomen for up to four hours. Geometric mean values were utilized to determine gastric emptying fraction. Findings: At one hour the percentage of contents remaining in the stomach is 82%. At two hours the percentage of contents remaining in the stomach is 53%. At four hours the percentage of contents remaining in the stomach is 7.0%. (Normal ranges include 37-90 percent at one hour, 19- 52% at two hours, less than 10 percent at four hours if performed) [facility] Mitchell Regalado MD - 09/30/2023 Patient Name: RAMY BARRON : 1940 Exam Date/Time: 09/30/2023 12:17 Procedure: NM GASTRIC EMPTYING SOLID Ordering Provider: TRUJILLO RYAN Reason For Exam: chronic abdominal pain, bloating Study: GASTRIC EMPTYING STUDY. Clinical indication: 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 Dose: 1 mCi tc-99m sulfur colloid in standard meal TECHNIQUE: Anterior and posterior imaging was obtained over the abdomen for up to four hours. Geometric mean values were utilized to determine gastric emptying fraction. Findings: At one hour the percentage of contents remaining in the stomach is 82%. At two hours the percentage of contents remaining in the stomach is 53%. At four hours the percentage of contents remaining in the stomach is 7.0%. (Normal ranges include 37-90 percent at one hour, 19- 52% at two hours, less than 10 percent at four hours if performed) IMPRESSION: Impression: While there is normal emptying by one hour, by two hours there is minimally abnormally increased activity within the stomach, which is eventually normalized by four hours. DELAYED GASTRIC EMPTYING OF SOLIDS. Report Dictated on Electronically Signed By: Mitchell Regalado MD Electronically Signed Date/Time: 09/30/2023 1:53 PM EDT [facility] [employer] Radiology Study observation (narrative) [facility] [place] Stomach Views for gastric emptying solid phase W radionuclide POOrdered By: Mitchell Regalado on 09-30-2023 [employer] Work Phone: No Panel InformationOrdered By: Triston Patterson on 09-24-2023 P [place] 66 degrees [facility] [employer] Work Phone: VT Interval 188 ms [facility] [employer] Work Phone: QRS [place] 76 degrees [employer] Work Phone: QRSD Interval [address] [facility] [employer] Work Phone: QT Interval 467 ms [employer] Work Phone: QTC Interval 414 ms [facility] [employer] Work Phone: T Wave [place] 24 degrees [facility] [employer] Work Phone: [facility]: No Panel Informationon 09-23 Sinus bradycardia Probable left atrial enlargement Low voltage with right axis deviation Electronically Signed On 09-24-2023 17:30:36 EDT by Triston Patterson CV Triston Arana MD - 09/24/2023 IMPRESSION: Sinus bradycardia Probable left atrial enlargement Low voltage with right axis deviation Electronically Signed On 09-24-2023 17:30:36 EDT by Triston Patterson [facility] [employer] Vital signsOrdered By: Elaine Patterson on 09-24-2023 Heart rate 47 /min bpm [employer] Work Phone: Cardiac catheterization stud yon 09-23-2023 Severe CAD with azul re LMT disease, ostial LCX disease and ostial diagonal disease. The L-LAD is patent. His aortic stenosis appears moderate so it was decided to proceed with PCI. The ostium of the LCx was treated with angioplasty only with a 2.5mm balloon. The LMT into the proximal diagonal was treated with a 3.0x28 drug eluting stent, IVUS guided. It was extremely difficult to pass equipment into the mid/distal calcified and tortuous diagonal branch. Both the LCx and the diagonal have improved flow after the LMT/Diagonal stent. If he has persistent symptoms of dyspnea and fatigue, consider proceeding with TAVR. Coronary Findings Diagnostic Dominance: Right Left Main: Ost LM to Mid LM lesion, 70% stenosed. IVUS was performed on the lesion. Left Anterior Descending: Prox LAD lesion, 80% stenosed. Mid LAD to Dist LAD lesion, 80% stenosed. First Diagonal Branch: 1st Diag-1 lesion, 90% stenosed. 1st Diag-2 lesion, 80% stenosed. Ramus Intermedius: The vessel exhibits moderate disease. Lateral Ramus Intermedius: The vessel exhibits moderate disease. Left Circumflex: The vessel exhibits mild disease. Ost Cx to Prox Cx lesion, 90% stenosed. First Obtuse Marginal Branch: The vessel exhibits moderate disease. Right Coronary Artery: The vessel exhibits moderate disease. Ost RCA lesion, 5% stenosed. The lesion was previously treated using a drug-eluting stent and balloon angioplasty. Dist RCA lesion, 5% stenosed with 5% stenosed side branch in RPAV. The lesion is severely calcified. The lesion was previously treated using a drug-eluting stent and balloon angioplasty. Right Posterior Atrioventricular Artery: The vessel exhibits mild disease. Vein Graft To 1st Diag: Conduit Type: vein. Occluded SVG to Diag Vein Graft To 1st Mrg: Conduit Type: vein. Occluded SVG to OM RODARTE Graft To Dist LAD: Patent RODARTE - LAD Vein Graft To RPDA: Conduit Type: vein. Occluded SVG to RCA Intervention Ost LM to Mid LM lesion: Stent: Type of stent: drug-eluting. Post-Intervention Lesion Assessment: The guidewire crossed the lesion. Device was deployed. The pre-interventional distal flow is normal (REBECA 3). Post-intervention REBECA flow is 3. There is a 5% residual stenosis post intervention. 1st Diag-1 lesion: Angioplasty: Angioplasty using a standard balloon was performed prior to stent deployment. Balloon inflated using mutiple inflation technique. Stent: Type of stent: drug-eluting. A single stent was placed. The stent was fully expanded. Stent strut was apposed. Post-Intervention Lesion Assessment: The intervention was successful. The guidewire crossed the lesion. Device was deployed. The pre-interventional distal flow is normal (REBECA 3). Post-intervention REBECA flow is 3. There were no complications. There is a 5% residual stenosis post intervention. Ost Cx to Prox Cx lesion: Angioplasty: Angioplasty was performed independent of stent deployment. Balloon inflated using single inflation technique. Post-Intervention Lesion Assessment: The guidewire crossed the lesion. Device was deployed. The pre-interventional distal flow is normal (REBECA 3). Post-intervention REBECA flow is 3. There were no complications. There is a 40% residual stenosis post intervention. Clinical Background Very pleasant 82yo M with h/o PCI and CABG (RODARTE to left anterior descending, vein to OM, vein to diagonal, vein to PDA with all vein grafts known occluded) with PCI of the RCA in the setting of unstable angina 05/2022, aortic stenosis (likely moderate) who presents with worsening dyspnea. He was scheduled for L/R heart cath for evaluation of need for further PCI vs TAVR. Cath Recommendations Patient management should include: Aggressive risk factor modification, optimal medical management, follow-up for further management of valve disease, cardiac rehabillitation, drug-eluting stent maintenance and continue with current meds. CV CPACS HEMO [facility] [employer] No Panel Informationon 09-22 Interpretation and review of laboratory results Abnormal [employer] POCT ACT 292 High [employer] POCT ACT 274 High [employer] Performed by: [facility], [address] [place] [id number] CLIA ID: [id number] [facility] [employer] [facility] [employer] Performed by: [facility], [address] [facility] [address] CLIA ID: [id number] Reportable Results: OxyHemoglobin 0 - 100% Expected Ranges: OxyHemoglobin Arterial Sample 95 - 100%* Adequate Oxygenation >=92% Venous sample 60 - 85%* Note: *OxyHemoglobin Reference Ranges based upon literature review Adequate oxygenation based upon [facility] Clinical Decision [facility] Performed by: [facility], [address] [place] [address] CLIA ID: [id number] Reportable Results: OxyHemoglobin 0 - 100% Expected Ranges: OxyHemoglobin Arterial Sample 95 - 100%* Adequate Oxygenation >=92% Venous sample 60 - 85%* Note: *OxyHemoglobin Reference Ranges based upon literature review Adequate oxygenation based upon [facility] Clinical Decision [facility] Performed by: [facility], [address] [facility] [address] CLIA ID: [id number] Reportable Results: OxyHemoglobin 0 - 100% Expected Ranges: OxyHemoglobin Arterial Sample 95 - 100%* Adequate Oxygenation >=92% Venous sample 60 - 85%* Note: *OxyHemoglobin Reference Ranges based upon literature review Adequate oxygenation based upon [facility] Clinical Decision [facility] Vital signson 09-23-2023 Oxygen saturation in Blood 65 % [facility] Oxygen saturation in Blood 92 % [facility] Oxygen saturation in Blood 63 % [facility] CBC W Auto Differential pane l (Bld)Ordered By: Rachana Coelho on 09-15-2023 Basophils (Bld) [#/Vol] 0.0 10*3/uL 0.0 - 0.2 10*3/uL [facility] Basophils/100 WBC (Bld) 0.2 % 0.0 - 2.0 % [facility] Eosinophils (Bld) [#/Vol] 0.1 10*3/uL 0.0 - 0.5 10*3/uL [facility] Eosinophils/100 WBC (Bld) 2.0 % 0.0 - 6.0 % [facility] Erythrocyte distribution width (RBC) [Ratio] 12.0 % 11.5 - 15.0 % [facility] Hematocrit (Bld) [Volume fraction] 40.5 % 40.0 - 52.0 % [facility] Hemoglobin (Bld) [Mass/Vol] 14.1 g/dL 13.0 - 18.0 g/dL [facility] Immature granulocytes (Bld) [#/Vol] 0.0 10*3/uL NINF - 0.1 10*3/uL [facility] Immature granulocytes/100 WBC (Bld) 0.2 % 0.0 - 2.0 % [facility] [employer] Interpretation and review of laboratory results Abnormal [facility] [employer] Lymphocytes (Bld) [#/Vol] 1.4 10*3/uL 1.0 - 4.3 10*3/uL [facility] Lymphocytes/100 WBC (Bld) 31.4 % 15.0 - 45.0 % [facility] [employer] MCH (RBC) [Entitic mass] 36.5 pg High 26.0 - 34.0 pg [facility] [employer] MCHC (RBC) [Mass/Vol] 34.8 % 30.5 - 36.0 % [facility] [employer] MCV (RBC) [Entitic vol] 104.9 fL High 77.0 - 99.0 fL [facility] [employer] Monocytes (Bld) [#/Vol] 0.5 10*3/uL 0.0 - 0.9 10*3/uL [facility] Monocytes/100 WBC (Bld) 11.0 % 5.0 - 13.0 % [facility] [employer] Neutrophils (Bld) [#/Vol] 2.5 10*3/uL 1.8 - 7.5 10*3/uL [facility] Neutrophils/100 WBC (Bld) 55.2 % 38.0 - 82.0 % [facility] [employer] Nucleated RBC/100 WBC (Bld) [Ratio] 0.0 % [facility] [employer] Platelet mean volume (Bld) [Entitic vol] 10.3 fL 9.0 - 12.7 fL [facility] [employer] Platelets (Bld) [#/Vol] 163 10*3/uL 140 - 440 10*3/uL [facility] RBC (Bld) [#/Vol] 3.86 10*6/uL Low 4.40 - 5.9 0 10*6/uL [facility] WBC (Bld) [#/Vol] 4.6 10*3/uL 3.6 - 10.7 10*3/uL [facility] CT Abdomen and Pelvis W alton Hutchinson 09-15-2023 1. No acute abdominopelvic process identified. 2. Other chronic and postsurgical findings as discussed. Report Dictated on Electronically Signed By: Sedrick Vivar MD Electronically Signed Date/Time: 09/15/2023 1:36 PM EDT [employer] Patient Name: RAMY RAHMAN : [address] [facility]#: [id number] Exam Date/Time: 09/15/2023 12:46 Procedure: CT ABDOMEN PELVIS W CONTRAST Ordering Provider: CANALES GREGORY Reason For Exam: 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 patient clinically has periumbilical hernia evaluate for obstruction incarceration CT ABDOMEN AND PELVIS WITH CONTRAST CLINICAL INDICATION: Superficial abdominal pain about the umbilicus TECHNIQUE: Transaxial sequence was performed through the abdomen and pelvis during the intravenous infusion of 75 mL nonionic contrast media . Oral contrast: Not given Dose reduction was employed with automated exposure control. COMPARISON: None. FINDINGS: Lung bases: No pleural effusion or focal consolidation. Pulmonary parenchymal calcifications are seen. Coronary atherosclerosis. Chest wall: Status post median sternotomy. Liver: The liver is normal in size and contour. No focal hepatic lesions identified. Biliary system: The biliary system is not dilated. The gallbladder is normal in appearance. Spleen: Scattered calcifications are noted in the spleen, compatible with sequela of prior granulomatous disease. Otherwise the spleen is normal in size and contour. Pancreas: No significant abnormality. Adrenal glands: No significant abnormality. Kidneys/ Ureter: Symmetric renal enhancement is noted. No evidence of hydroureteronephrosis. No evidence of nephrolithiasis. No evidence of focal renal lesions. Bladder: The urinary bladder is decompressed, limiting detailed evaluation. Pelvic organs: No masses or other significant abnormalities seen. Bowel: Esophagus is unremarkable. The stomach is unremarkable. The small bowel is of normal caliber throughout without evidence of wall thickening or obstruction. The appendix is unremarkable. The large bowel is without evidence of dilatation or thickening. Mesentery/Intraperitone um: No intraperitoneal free fluid or air is seen. Mesentery is normal in appearance. Lymph nodes: No lymphadenopathy Vasculature: Atherosclerotic calcifications are noted throughout the abdominal pelvic vasculature. Otherwise, the abdominal aorta is normal in caliber without evidence of aneurysmal dilatation. The venous vasculature appears grossly unremarkable. Abdominal wall: The abdominal wall soft tissues appear unremarkable. Osseous structures: No suspicious osseous lesions identified. Mild degenerative changes of the lumbar spine are observed. [employer] Sedrick Vivar MD - 09/15/2023 Patient Name: RAMY BARRON : 1940 Exam Date/Time: 09/15/2023 12:46 Procedure: CT ABDOMEN PELVIS W CONTRAST Ordering Provider: CANALES GREGORY Reason For Exam: 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 patient clinically has periumbilical hernia evaluate for obstruction incarceration CT ABDOMEN AND PELVIS WITH CONTRAST CLINICAL INDICATION: Superficial abdominal pain about the umbilicus TECHNIQUE: Transaxial sequence was performed through the abdomen and pelvis during the intravenous infusion of 75 mL nonionic contrast media . Oral contrast: Not given Dose reduction was employed with automated exposure control. COMPARISON: None. FINDINGS: Lung bases: No pleural effusion or focal consolidation. Pulmonary parenchymal calcifications are seen. Coronary atherosclerosis. Chest wall: Status post median sternotomy. Liver: The liver is normal in size and contour. No focal hepatic lesions identified. Biliary system: The biliary system is not dilated. The gallbladder is normal in appearance. Spleen: Scattered calcifications are noted in the spleen, compatible with sequela of prior granulomatous disease. Otherwise the spleen is normal in size and contour. Pancreas: No significant abnormality. Adrenal glands: No significant abnormality. Kidneys/ Ureter: Symmetric renal enhancement is noted. No evidence of hydroureteronephrosis. No evidence of nephrolithiasis. No evidence of focal renal lesions. Bladder: The urinary bladder is decompressed, limiting detailed evaluation. Pelvic organs: No masses or other significant abnormalities seen. Bowel: Esophagus is unremarkable. The stomach is unremarkable. The small bowel is of normal caliber throughout without evidence of wall thickening or obstruction. The appendix is unremarkable. The large bowel is without evidence of dilatation or thickening. Mesentery/Intraperitone um: No intraperitoneal free fluid or air is seen. Mesentery is normal in appearance. Lymph nodes: No lymphadenopathy Vasculature: Atherosclerotic calcifications are noted throughout the abdominal pelvic vasculature. Otherwise, the abdominal aorta is normal in caliber without evidence of aneurysmal dilatation. The venous vasculature appears grossly unremarkable. Abdominal wall: The abdominal wall soft tissues appear unremarkable. Osseous structures: No suspicious osseous lesions identified. Mild degenerative changes of the lumbar spine are observed. IMPRESSION: 1. No acute abdominopelvic process identified. 2. Other chronic and postsurgical findings as discussed. Report Dictated on Electronically Signed By: Sedrick Vivar MD Electronically Signed Date/Time: 09/15/2023 1:36 PM EDT [facility] Radiology Study observation (narrative) Mohan He alth CT Abdomen and Pelvis W cont rast IVOrdered By: Sedrick Vivar on 09-15-2023 [facility] Work Phone: Comprehensive metabolic 1998 panelon 09-15-2023 Albumin [Mass/Vol] 4.3 g/dL 3.5 - 5.0 g/dL [facility] ALP [Catalytic activity/Vol] 84 U/L 38 - 126 U/L [facility] ALT [Catalytic activity/Vol] 26 U/L 0 - 49 U/L [facility] Anion gap [Moles/Vol] 7 mmol/L 3 - 13 mmol/L [facility] AST [Catalytic activity/Vol] 32 U/L 15 - 46 U/L [facility] Bilirubin [Mass/Vol] 1.4 mg/dL High 0.2 - 1 .3 mg/dL [facility] Calcium [Mass/Vol] 9.5 mg/dL 8.4 - 10. 4 mg/dL [facility] Chloride [Moles/Vol] 104 mmol/L 98 - 10 7 mmol/L [facility] CO2 [Moles/Vol] 28 mmol/L 22 - 30 mmol/L [facility] Creatinine [Mass/Vol] 1.05 mg/dL 0.66 - 1.25 mg/dL [facility] GFR/1.73 sq M.predicted MDRD (S/P/Bld) [Vol rate/Area] 71.3 mL/min/{1.73_m2[facility] Comment on above: Calculation based on the Chronic Kidney Disease Epidemiology Collaboration (CKD-EPI) equation refit without adjustment for race Glucose [Mass/Vol] 126 mg/dL High 70 - 100 mg/dL [facility] Interpretation and review of laboratory results Abnormal [facility] Potassium [Moles/Vol] 4.6 mmol/L 3.5 - 5.1 mmol/L [facility] Protein [Mass/Vol] 7.5 g/dL 6.3 - 8.2 g/dL [facility] Sodium [Moles/Vol] 139 mmol/L 135 - 145 mmol/L [facility] Urea nitrogen [Mass/Vol] 17 mg/dL 9 - 20 mg/dL [facility] Laboratory - Chemistry and C hemistry - challengeon 09-15-2023 Lipase [Catalytic activity/Vol] 53 U/L 23 - 300 U/L [facility] Lipase [Catalytic activity/V ol]on 09-15-2023 Interpretation and review of laboratory results Normal [facility] No Panel Informationon 09-14 [facility] Basic metabolic 1998 panelon 08-18-2023 Anion gap [Moles/Vol] 16 mmol/L High 3 - 13 mmol/L [facility] Calcium [Mass/Vol] 9.0 mg/dL 8.4 - 10. 4 mg/dL [facility] Chloride [Moles/Vol] 105 mmol/L 98 - 10 7 mmol/L [facility] CO2 [Moles/Vol] 15 mmol/L Low 22 - 30 mmol/L [facility] Creatinine [Mass/Vol] 0.89 mg/dL 0.66 - 1.25 mg/dL [facility] GFR/1.73 sq M.predicted MDRD (S/P/Bld) [Vol rate/Area] 86.1 mL/min/{1.73_m2} - PIN[facility] Comment on above: Calculation based on the Chronic Kidney Disease Epidemiology Collaboration (CKD-EPI) equation refit without adjustment for race Glucose [Mass/Vol] 177 mg/dL High 70 - 100 mg/dL [facility] Interpretation and review of laboratory results Abnormal [facility] Potassium [Moles/Vol] 3.3 mmol/L Low 3.5 - 5.1 mmol/L [facility] Sodium [Moles/Vol] 137 mmol/L 135 - 145 mmol/L [facility] Urea nitrogen [Mass/Vol] 21 mg/dL High 9 - 20 mg/dL [facility] CBC W Auto Differential pane l (Bld)Ordered By: Timothy Barragan on 08-18-2023 Basophils (Bld) [#/Vol] 0.0 10*3/uL 0.0 - 0.2 10*3/uL [facility] Basophils/100 WBC (Bld) 0.3 % 0.0 - 2.0 % [facility] Eosinophils (Bld) [#/Vol] 0.1 10*3/uL 0.0 - 0.5 10*3/uL [facility] Eosinophils/100 WBC (Bld) 1.7 % 0.0 - 6.0 % [facility] Erythrocyte distribution width (RBC) [Ratio] 12.3 % 11.5 - 15.0 % [facility] [employer] Hematocrit (Bld) [Volume fraction] 36.2 % Low 40.0 - 52.0 % [facility] Hemoglobin (Bld) [Mass/Vol] 12.9 g/dL Low 13.0 - 18.0 g/dL [facility] Immature granulocytes (Bld) [#/Vol] 0.0 10*3/uL NINF - 0.1 10*3/uL [facility] Immature granulocytes/100 WBC (Bld) 0.3 % 0.0 - 2.0 % [facility] Interpretation and review of laboratory results Abnormal [facility] Lymphocytes (Bld) [#/Vol] 2.5 10*3/uL 1.0 - 4.3 10*3/uL [facility] Lymphocytes/100 WBC (Bld) 32.5 % 15.0 - 45.0 % [facility] MCH (RBC) [Entitic mass] 36.8 pg High 26.0 - 34.0 pg [facility] MCHC (RBC) [Mass/Vol] 35.6 % 30.5 - 36.0 % [facility] MCV (RBC) [Entitic vol] 103.1 fL High 77.0 - 99.0 fL [facility] [employer] Monocytes (Bld) [#/Vol] 1.0 10*3/uL High 0.0 - 0.9 10*3/uL [facility] Monocytes/100 WBC (Bld) 12.5 % 5.0 - 13.0 % [facility] Neutrophils (Bld) [#/Vol] 4.0 10*3/uL 1.8 - 7.5 10*3/uL [facility] Neutrophils/100 WBC (Bld) 52.7 % 38.0 - 82.0 % [facility] Nucleated RBC/100 WBC (Bld) [Ratio] 0.0 % [facility] [employer] Platelet mean volume (Bld) [Entitic vol] 10.4 fL 9.0 - 12.7 fL [facility] Platelets (Bld) [#/Vol] 181 10*3/uL 140 - 440 10*3/uL [facility] RBC (Bld) [#/Vol] 3.51 10*6/uL Low 4.40 - 5.9 0 10*6/uL [facility] WBC (Bld) [#/Vol] 7.6 10*3/uL 3.6 - 10.7 10*3/uL [facility] Comprehensive metabolic 1998 panelOrdered By: Jaylan Madison on 08-18-2023 Albumin [Mass/Vol] 4.0 g/dL 3.5 - 5.0 g/dL [facility] ALP [Catalytic activity/Vol] 63 U/L 38 - 126 U/L [facility] ALT [Catalytic activity/Vol] 28 U/L 0 - 49 U/L [facility] Anion gap [Moles/Vol] 8 mmol/L 3 - 13 mmol/L [facility] AST [Catalytic activity/Vol] 36 U/L 15 - 46 U/L [facility] Bilirubin [Mass/Vol] 1.1 mg/dL 0.2 - 1 .3 mg/dL [facility] Calcium [Mass/Vol] 8.8 mg/dL 8.4 - 10. 4 mg/dL [facility] Chloride [Moles/Vol] 104 mmol/L 98 - 10 7 mmol/L [facility] CO2 [Moles/Vol] 26 mmol/L 22 - 30 mmol/L [facility] Creatinine [Mass/Vol] 0.88 mg/dL 0.66 - 1.25 mg/dL [facility] GFR/1.73 sq M.predicted MDRD (S/P/Bld) [Vol rate/Area] 86.4 mL/min/{1.73_m2} [facility] Comment on above: Calculation based on the Chronic Kidney Disease Epidemiology Collaboration (CKD-EPI) equation refit without adjustment for race Glucose [Mass/Vol] 90 mg/dL 70 - 100 mg/dL [facility] Interpretation and review of laboratory results Normal [facility] Potassium [Moles/Vol] 4.5 mmol/L 3.5 - 5.1 mmol/L [facility] Protein [Mass/Vol] 7.0 g/dL 6.3 - 8.2 g/dL [facility] Sodium [Moles/Vol] 138 mmol/L 135 - 145 mmol/L [facility] Urea nitrogen [Mass/Vol] 17 mg/dL 9 - 20 mg/dL [facility] SLIGHTLY HEMOLYZED [facility] Laboratory - Chemistry and C hemistry - challengeon 08-18-2023 Lactate [Moles/Vol] 1.3 mmol/L 0.7 - 2. 0 mmol/L [facility] Troponin I.cardiac [Mass/Vol] ng/mL [facility] - 0.034 ng/mL [facility] Troponin I.cardiac [Mass/Vol] ng/mL NINF - 0.034 ng/mL [facility] TSH Qn 3.488 m[IU]/L [facility] h Troponin I.cardiac [Mass/Vol] ng/mL [facility] - 0.034 ng/mL [facility] Lipase [Catalytic activity/Vol] 82 U/L 23 - 300 U/L [facility] Lipase [Catalytic activity/V ol]on 08-18-2023 Interpretation and review of laboratory results Normal [facility] Natriuretic peptide B [Mass/ Vol]on 08-18-2023 Natriuretic peptide B (Bld) [Mass/Vol] 145 pg/mL <20 - 300 [facility] No Panel Informationon 08-17 Interpretation and review of laboratory results Normal [facility] P [place] 58 degrees [facility] [place] Interval 277 ms [facility] QRS [place] 39 degrees [facility] QRSD Interval [address] [facility] h QT Interval 463 ms [facility] QTC Interval 481 ms [facility] T Wave [place] 23 degrees [facility] Sinus arrhythmia Sinus pause new compared to previous Prolonged [place] interval Borderline low voltage, extremity leads Borderline prolonged QT interval No Electronically Signed On 08-18-2023 03:29:34 EDT by Tanna Winston MD - 08/18/2023 IMPRESSION: Sinus arrhythmia Sinus pause new compared to previous Prolonged [place] interval Borderline low voltage, extremity leads Borderline prolonged QT interval No Electronically Signed On 08-18-2023 03:29:34 EDT by Tanna Camarillo [facility] P [place] 79 degrees [facility] [place] Interval 308 ms [facility] QRS [place] 67 degrees [facility] QRSD Interval [address] [facility] h QT Interval 441 ms [facility] QTC Interval 477 ms [facility] T Wave [place] 31 degrees [facility] Sinus rhythm Prolonged [place] interval Borderline low voltage, extremity leads Abnormal R-wave progression, late transition Borderline prolonged QT interval No significant change compared to 06/11/2022 Electronically Signed On 08-18-2023 02:25:29 EDT by Tanna Winston MD - 08/18/2023 IMPRESSION: Sinus rhythm Prolonged [place] interval Borderline low voltage, extremity leads Abnormal R-wave progression, late transition Borderline prolonged QT interval No significant change compared to 06/11/2022 Electronically Signed On 08-18-2023 02:25:29 EDT by Tanna Camarillo [facility] Interpretation and review of laboratory results Normal [facility] TSH Qnon 08-18-2023 Interpretation and review of laboratory results Normal [facility] Troponin I.cardiac [Mass/Vol ]on 08-18-2023 Interpretation and review of laboratory results Normal [facility] Patients with high levels of Biotin oral intake (ie >5 mg/day) may have falsely decreased Troponin levels. [facility] Interpretation and review of laboratory results Normal [facility] Patients with high levels of Biotin oral intake (ie >5 mg/day) may have falsely decreased Troponin levels. [facility] Patients with high levels of Biotin oral intake (ie >5 mg/day) may have falsely decreased Troponin levels. [facility] Vital signson 08-18-2023 Heart rate 65 /min bpm [facility] Heart rate 70 /min bpm [facility] ECG 12 lead - CLINIC PERFORM EDon 07-29-2023 Sinus Bradycardia -Left atrial enlargement. Low voltage -possible pulmonary disease. ABNORMAL [facility] US Heart TransthoracicOrdere d By: Lucia Sargent on 06-17-2023 Aortic Sinus Valsalva 3.2 cm [facility] Work Phone: Aortic Sinus Valsalva Index 1.69 cm/m2 [facility] Work Phone: Ascending Aorta 3.6 cm [facility] Work Phone: Ascending Aorta Index 1.90 cm/m2 [facility] Work Phone: AV Area by Peak Velocity 1.0 cm2 [facility] Work Phone: AV Area by VTI 0.9 cm2 [facility] Work Phone: AV Mean Gradient 20 mmHg [facility] Work Phone: [phone] AV Mean Velocity 2.0 m/s [facility] Work Phone: AV Peak Gradient 38 mmHg [facility] Work Phone: AV Peak Velocity 3.1 m/s [facility] Work Phone: AV Velocity Ratio 0.35 [facility] Work Phone: AV VTI 68.4 cm [facility] Work Phone: XU/BSA Peak Velocity 0.5 cm2/m2 [facility] Work Phone: XU/BSA VTI 0.5 cm2/m2 [facility] Work Phone: E/E' Lateral 7.00 [facility] Work Phone: E/E' Ratio (Averaged) 8.50 [facility] Work Phone: E/E' Septal 10.00 [facility] Work Phone: [phone] EF BP 69 % 55 - 100 % [facility] Work Phone: [phone] Est. RA Pressure 3 mmHg [facility] Work Phone: Fractional Shortening 2D 28 % 28 - 44 % [facility] Work Phone: [phone] Interpretation and review of laboratory results Abnormal [facility] Work Phone: [phone] IVC Diameter 1.2 cm [facility] [employer] Work Phone: [phone] IVSd 0.9 cm 0.6 - 1.0 cm [facility] [employer] Work Phone: [phone] LA Diameter 4.3 cm [facility] [employer] Work Phone: [phone] LA Size Index 2.28 cm/m2 [facility] [employer] Work Phone: LA Volume 2C 59 mL Abnormal 18 - 58 mL [facility] Work Phone: [phone] LA Volume 4C 69 mL Abnormal 18 - 58 mL [facility] [employer] Work [phone] LA Volume A/L [address] [facility] [employer] Work Phone: LA Volume Index 2C 31 mL/m2 16 - 34 mL/m2 [facility] Work Phone: LA Volume Index 4C 37 mL/m2 Abnormal 16 - 34 mL/m2 [facility] Work Phone: LA Volume Index A/L 35 mL/m2 16 - 34 mL/m2 [facility] Work Phone: LV E' Lateral Velocity 10 cm/s [facility] Work Phone: LV E' Septal Velocity 7 cm/s [facility] Work Phone: LV EDV A2C 71 mL [facility] Work Phone: LV EDV A4C 81 mL [facility] Work Phone: LV EDV BP 76 mL 67 - 155 mL [facility] Work Phone: LV EDV Index A2C 38 mL/m2 [facility] Work Phone: LV EDV Index A4C 43 mL/m2 [facility] Work Phone: LV EDV Index BP 40 mL/m2 [facility] Work Phone: LV Ejection Fraction A2C 70 % [facility] Work Phone: LV Ejection Fraction A4C 68 % [facility] Work Phone: LV ESV A2C 21 mL [facility] Work Phone: LV ESV A4C 26 mL [facility] Work Phone: LV ESV BP 24 mL 22 - 58 mL [facility] Work Phone: LV ESV Index A2C 11 mL/m2 [facility] Work Phone: LV ESV Index A4C 14 mL/m2 [facility] Work Phone: LV ESV Index BP 13 mL/m2 [facility] Work Phone: LV Mass 2D 122.3 g 88 - 224 g [facility] Work Phone: LV Mass 2D Index 64.7 g/m2 49 - 115 g/m2 [facility] [employer] Work Phone: LV RWT Ratio 0.30 [facility] [employer] Work Phone: LVIDd 4.7 cm 4.2 - 5.9 cm [facility] Work Phone: LVIDd Index 2.49 cm/m2 [facility] [employer] Work Phone: LVIDs 3.4 cm [facility] [employer] Work Phone: LVIDs Index 1.80 cm/m2 [facility] [employer] Work Phone: LVOT Area 3.1 cm2 [facility] [employer] Work Phone: [phone] LVOT Cardiac Output 5.3 liter/minute [facility] [employer] Work Phone: LVOT Diameter 2.0 cm [facility] [employer] Work Phone: [phone] LVOT Mean Gradient 2 mmHg [facility] [employer] Work Phone: [phone] LVOT Peak Gradient 5 mmHg [facility] [employer] Work Phone: LVOT Peak Velocity 1.1 m/s [facility] [employer] Work Phone: [phone] LVOT Stroke Volume Index 34.9 mL/m2 [facility] [employer] Work Phone: [phone] LVOT SV 65.9 ml [facility] [employer] Work Phone: LVOT VTI 21.0 cm [facility] [employer] Work Phone: [phone] LVOT:AV VTI Index 0.31 [facility] Work Phone: LVPWd 0.7 cm 0.6 - 1.0 cm [facility] [employer] Work Phone: [phone] MV A Velocity 0.88 m/s [facility] Work Phone: [phone] MV E Velocity 0.70 m/s [facility] Work Phone: MV E Wave Deceleration Time 322.4 ms [facility] [employer] Work [phone] MV E/A 0.80 [facility] [employer] Work Phone: [phone] Pulmonary Artery EDP 4 mmHg [facility] Work Phone: RV Free Wall Peak S' 8 cm/s [facility] Work Phone: [phone] RVSP 24 mmHg [facility] Work Phone: Sinotubular [place] 3.0 cm [facility] Work Phone: [phone] TAPSE 1.8 cm 1.7 cm [facility] Work Phone: TR Max Velocity 2.30 m/s [facility] Work Phone: TR Peak Gradient 21 mmHg [facility] Work Phone: [facility] Work Phone: US Heart Transthoracicon Left Ventricle: Left ventricle size is normal. Mild septal thickening. Normal left ventricular systolic function. EF by 2D [employer] Biplane is 69%. Normal wall motion. Grade I diastolic dysfunction with normal LAP. Right Ventricle: Right ventricle size is normal. Normal systolic function. Left Atrium: Left atrium is mildly dilated. Aortic Valve: Trileaflet. Severely calcified cusps with signifincat mobility restriction on visual inspetion. Trace regurgitation. Paradoxical low flow/low gradient severe aortic stenosis with normal EF. AV mean gradient is 20 mmHg. AV peak gradient is 38 mmHg. AV peak velocity is 3.1 m/s. LVOT:AV VTI Index is 0.31. AV area by continuity VTI is 0.9 cm2. Stroke volume index is 34.9 mL/m2. Aorta: Normal sized sinuses of Valsalva. Mildly dilated ascending aorta. Ao ascending diameter is 3.6 cm. Technically difficult study. Left Ventricle Left ventricle size is normal. Mild septal thickening. Normal left ventricular systolic function. EF by 2D [employer] Biplane is 69%. Normal wall motion. Grade I diastolic dysfunction with normal LAP. Right Ventricle Right ventricle size is normal. Normal systolic function. Left Atrium Left atrium is mildly dilated. Right Atrium Right atrium size is normal. IVC/SVC IVC diameter is normal and decreases greater than 50% during inspiration; therefore the estimated right atrial pressure is normal (~3 mmHg). Mitral Valve Moderate annular calcification. No regurgitation. No stenosis noted. Tricuspid Valve Valve structure is normal. Trace regurgitation. Normal RVSP. Aortic Valve Trileaflet. Severely calcified cusps with signifincat mobility restriction on visual inspetion. Trace regurgitation. Paradoxical low flow/low gradient severe aortic stenosis with normal EF. AV mean gradient is 20 mmHg. AV peak gradient is 38 mmHg. AV peak velocity is 3.1 m/s. LVOT:AV VTI Index is 0.31. AV area by continuity VTI is 0.9 cm2. Stroke volume index is 34.9 mL/m2. Pulmonic Valve The pulmonic valve visualization is suboptimal but appears to be functioning normally. Mild (1+) regurgitation. Ascending Aorta Normal sized sinuses of Valsalva. Mildly dilated ascending aorta. Ao ascending diameter is 3.6 cm. Pericardium No pericardial effusion. Septum No interatrial shunt visualized on color Doppler. Pulmonary Artery Pulmonary artery was not well visualized. Study Details Image quality: adequate. Blood pressure: 137/70 mmHg. No contrast was given. Echo Additional Conclusions Technically difficult study. Wall Scoring Baseline Score Index: 1.00 The left ventricular wall motion is normal. CV CPACS US Heart TransthoracicOrdere d By: Kelly Hernandez on 06-06-2022 Ascending [facility] 3.[facility] Work Phone: Ascending Aorta Index 1.82 cm/m2 [place] [employer] Work Phone: AV Area by Peak Velocity 1.0 cm2 [facility] Work Phone: AV Area by VTI 1.0 cm2 [facility] Work Phone: AV Mean Gradient 20 mmHg [facility] Work Phone: AV Mean Velocity 2.1 m/s [facility] Work Phone: AV Peak Gradient 33 mmHg [facility] Work Phone: AV Peak Velocity 2.9 m/s [facility] Work Phone: AV Velocity Ratio 0.34 [facility] Work Phone: AV VTI 69.6 cm [facility] Work Phone: XU/BSA Peak Velocity 0.5 cm2/m2 [place] [facility] Work Phone: XU/BSA VTI 0.5 cm2/m2 [facility] Work Phone: EF BP 59 % 55 - 100 % [facility] Work Phone: Est. RA Pressure 3 mmHg [facility] alth Work Phone: Fractional Shortening 2D 33 % 28 - 44 % [facility] Work Phone: [phone] Interpretation and review of laboratory results Abnormal [facility] Work Phone: [phone] IVC Diameter 0.8 cm [facility] Work Phone: [phone] IVSd 1.2 cm Abnormal 0.6 - 1.0 cm [facility] Work Phone: [phone] LA Volume 2C 46 mL 18 - 58 mL [facility] Work Phone: [phone] LA Volume 4C 53 mL 18 - 58 mL [facility] Work Phone: [phone] LA Volume A/L 52 mL [facility] Work [phone] LA Volume Index 2C 25 mL/m2 16 - 34 mL/m2 [facility] Work Phone: LA Volume Index 4C 28 mL/m2 16 - 34 mL/m2 [facility] Work [phone] LA Volume Index A/L 28 mL/m2 16 - 34 mL/m2 [facility] Work Phone: LV EDV A2C 61 mL [facility] Work Phone: [phone] LV EDV A4C 64 mL [facility] Work Phone: LV EDV BP 63 mL Abnormal 67 - 155 mL [facility] Work Phone: LV EDV Index A2C 33 mL/m2 [facility] alth Work Phone: [phone] LV EDV Index A4C 34 mL/m2 [facility] Work Phone: LV EDV Index BP 34 mL/m2 [facility] Work Phone: LV Ejection Fraction A2C 62 % [facility] Work Phone: LV Ejection Fraction A4C 58 % [facility] Work Phone: LV ESV A2C 23 mL [facility] Work Phone: LV ESV A4C 27 mL [facility] Work Phone: LV ESV BP 26 mL 22 - 58 mL [facility] Work Phone: LV ESV Index A2C 12 mL/m2 [facility] alth Work Phone: LV ESV Index A4C 14 mL/m2 [facility]th Work Phone: LV ESV Index BP 14 mL/m2 [facility] Work Phone: LV Mass 2D 178.2 g 88 - 224 g [facility] Work Phone: LV Mass 2D Index 95.3 g/m2 49 - 115 g/m2 [facility] Work Phone: LV RWT Ratio 0.57 [facility] [employer] Work Phone: LVIDd 4.2 cm 4.2 - 5.9 cm [facility] Work Phone: LVIDd Index 2.25 cm/m2 [facility] [employer] Work Phone: LVIDs 2.8 cm [facility] Work Phone: LVIDs Index 1.50 cm/m2 [facility] [employer] Work Phone: LVOT Area 2.8 cm2 [facility] [employer] Work Phone: [phone] LVOT Cardiac Output 5.7 liter/minute [facility] Work Phone: LVOT Diameter 1.9 cm [facility] Work Phone: LVOT Mean Gradient 2 mmHg [facility] [employer] Work Phone: LVOT Peak Gradient 4 mmHg [facility] Work Phone: [phone] LVOT Peak Velocity 1.0 m/s [facility] [employer] Work Phone: [phone] LVOT Stroke Volume Index 35.2 mL/m2 [facility] Work Phone: LVOT SV 65.7 ml [facility] Work Phone: LVOT VTI 23.2 cm [facility] Work Phone: [phone] LVOT:AV VTI Index 0.33 [facility] ealth Work Phone: LVPWd 1.2 cm Abnormal 0.6 - 1.0 cm [facility] Work Phone: MV A Velocity 0.99 m/s [facility] h Work Phone: MV E Velocity 0.84 m/s [facility] Work Phone: MV E Wave Deceleration Time 181.7 ms [facility] Work Phone: MV E/A 0.85 [facility] Work Phone: Pulm Vein A Duration 198.4 ms [facility] Work Phone: Pulm Vein A Velocity 0.5 m/s [facility] Work Phone: Pulm Vein Peak D Velocity 0.6 m/s [facility] Work Phone: Pulm Vein Peak S Velocity 0.6 m/s [facility] Work Phone: Pulm Vein S/D 1.0 [facility] Work Phone: RVSP 22 mmHg [facility] Work Phone: Sinotubular Junction 2.5 cm [facility] Work Phone: TAPSE 1.7 cm 1.7 cm [facility] Work Phone: [phone] TR Max Velocity 2.20 m/s [facility] Work Phone: [facility] Work Phone: Heart Transthoracicon Left Ventricle: Left ventricle size is normal. Mildly increased wall thickness. Normal left ventricular systolic function. EF by 2D [employer] Bi[employer] is 59%. Normal wall motion. Right Ventricle: Right ventricle size is normal. Normal systolic function. Aortic Valve: Trileaflet. No cusp thickening. Moderately calcified noncoronary cusp. Moderate stenosis of the aortic valve. AV mean gradient is 20 mmHg. AV peak gradient is 33 mmHg. AV area by continuity VTI is 1.0 cm2. Left Ventricle Left ventricle size is normal. Mildly increased wall thickness. Normal left ventricular systolic function. EF by 2D [employer] Biplane is 59%. Normal wall motion. Normal diastolic function. Right Ventricle Right ventricle size is normal. Normal systolic function. Left Atrium Left atrium size is normal. Right Atrium Right atrium size is normal. IVC/SVC IVC diameter is normal and decreases greater than 50% during inspiration; therefore the estimated right atrial pressure is normal (~3 mmHg). Mitral Valve Mildly thickened leaflets. Mildly calcified leaflets. Moderate annular calcification. No regurgitation. No stenosis noted. Tricuspid Valve Valve structure is normal. Mild (1+) regurgitation. Normal RVSP. RVSP is 22 mmHg. Aortic Valve Trileaflet. No cusp thickening. Moderately calcified noncoronary cusp. Trace regurgitation. Moderate stenosis of the aortic valve. AV mean gradient is 20 mmHg. AV peak gradient is 33 mmHg. AV area by continuity VTI is 1.0 cm2. Pulmonic Valve Valve structure is normal. Trace regurgitation. Ascending Aorta Normal sized sinuses of Valsalva and ascending aorta. Pericardium No pericardial effusion. Septum No interatrial shunt visualized on color Doppler. Study Details Image quality: good. Heart rate: 53 bpm. Blood pressure: 129/72 mmHg. The underlying ECG rhythm was sinus bradycardia. No contrast was given. CV CPACS CBC panel Auto (Bld)Ordered By: Bill Tao on 05-28-2022 Erythrocyte distribution width (RBC) [Ratio] 12.9 % 11.5 - 14.5 % [facility] Hematocrit (Bld) [Volume fraction] 40.5 % 40.0 - 52.0 % [facility] Hemoglobin (Bld) [Mass/Vol] 14.1 g/dL 13.0 - 18.0 g/dL [facility] Interpretation and review of laboratory results Abnormal [facility] MCH (RBC) [Entitic mass] 36.3 pg High 26.0 - 34.0 pg [facility] MCHC (RBC) [Mass/Vol] 34.9 % 32.0 - 36.0 % [facility] MCV (RBC) [Entitic vol] 104.0 fL High 80.0 - 98.0 fL [facility] Platelet mean volume (Bld) [Entitic vol] 8.1 fL 7.4 - 12.4 fL [facility] Platelets (Bld) [#/Vol] 160 10*3/uL 140 - 440 10*3/uL [facility] RBC (Bld) [#/Vol] 3.89 10*6/uL Low 4.40 - 5.9 0 10*6/uL [facility] WBC (Bld) [#/Vol] 5.7 10*3/uL 3.6 - 10.7 10*3/uL [facility] Comprehensive metabolic 1998 panelon 05-28-2022 Albumin [Mass/Vol] 3.9 g/dL 3.5 - 5.0 g/dL [facility] ALP [Catalytic activity/Vol] 90 U/L 38 - 126 U/L [facility] ALT [Catalytic activity/Vol] 28 U/L 0 - 49 U/L [facility] Anion gap [Moles/Vol] 5 mmol/L 3 - 13 mmol/L [facility] AST [Catalytic activity/Vol] 30 U/L 15 - 46 U/L [facility] Bilirubin [Mass/Vol] 0.8 mg/dL 0.2 - 1 .3 mg/dL [facility] Calcium [Mass/Vol] 8.9 mg/dL 8.4 - 10. 4 mg/dL [facility] Chloride [Moles/Vol] 106 mmol/L 98 - 10 7 mmol/L [facility] CO2 [Moles/Vol] 26 mmol/L 22 - 30 mmol/L [facility] Creatinine [Mass/Vol] 1.06 mg/dL 0.66 - 1.25 mg/dL [facility] GFR/1.73 sq M.predicted MDRD (S/P/Bld) [Vol rate/Area] 70.9 mL/min/{1.73_m2} - PINF [facility] Comment on above: Calculation based on the Chronic Kidney Disease Epidemiology Collaboration (CKD-EPI) equation refit without adjustment for race Glucose [Mass/Vol] 97 mg/dL 70 - 100 mg/dL [facility] Interpretation and review of laboratory results Normal [facility] Potassium [Moles/Vol] 4.4 mmol/L 3.5 - 5.1 mmol/L [facility] Protein [Mass/Vol] 7.1 g/dL 6.3 - 8.2 g/dL [facility] Sodium [Moles/Vol] 137 mmol/L 135 - 145 mmol/L [facility] Urea nitrogen [Mass/Vol] 19 mg/dL 9 - 20 mg/dL [facility] Laboratory - Chemistry and C hemistry - challengeon 05-28-2022 Troponin I.cardiac [Mass/Vol] ng/mL 0.000 - 0.034 ng/mL [facility] No Panel InformationOrdered By: Amy Savage on 05-28-2022 P [place] 74 degrees [facility] [employer] Work Phone: VT Interval 163 ms [facility] [employer] Work Phone: QRS [place] 66 degrees [facility] [employer] Work Phone: QRSD Interval 84 ms [facility] Work Phone: QT Interval 393 ms [facility] [employer] Work Phone: QTC Interval 419 ms [facility] [employer] Work Phone: T Wave [place] 27 degrees [facility] [employer] Work Phone: [facility] [employer] Work Phone: No Panel Informationon 05-28 Sinus rhythm Probable left atrial enlargement Low voltage with right axis deviation Electronically Signed On 05-28-2022 7:09:10 EDT by Amy Burks MD - 05/28/2022 IMPRESSION: Sinus rhythm Probable left atrial enlargement Low voltage with right axis deviation Electronically Signed On 05-28-2022 7:09:10 EDT by Amy Savage [facility] Troponin I.cardiac [Mass/Vol ]on 05-28-2022 Interpretation and review of laboratory results Normal [facility] Patients with high levels of Biotin oral intake (ie >5 mg/day) may have falsely decreased Troponin levels. [facility] [employer] Vital signsOrdered By: Amy Savage on 05-28-2022 Heart rate 68 /min bpm [facility] [employer] Work Phone: CBC W Auto Differential pane l (Bld)Ordered By: Josefa Lerner on 05-27-2022 Basophils (Bld) [#/Vol] 0.0 10*3/uL 0.0 - 0.2 10*3/uL [facility] [employer] Basophils/100 WBC (Bld) 0.4 % 0.0 - 2.0 % [facility] Eosinophils (Bld) [#/Vol] 0.1 10*3/uL 0.0 - 0.5 10*3/uL [facility] Eosinophils/100 WBC (Bld) 2.5 % 1.0 - 6.0 % [facility] Erythrocyte distribution width (RBC) [Ratio] 12.9 % 11.5 - 14.5 % [facility] Hematocrit (Bld) [Volume fraction] 41.7 % 40.0 - 52.0 % [facility] Hemoglobin (Bld) [Mass/Vol] 14.2 g/dL 13.0 - 18.0 g/dL [facility] Interpretation and review of laboratory results Abnormal [facility] Lymphocytes (Bld) [#/Vol] 1.9 10*3/uL 1.0 - 4.3 10*3/uL [facility] Lymphocytes/100 WBC (Bld) 40.2 % High 20.0 - 40.0 % [facility] MCH (RBC) [Entitic mass] 35.7 pg High 26.0 - 34.0 pg [facility] MCHC (RBC) [Mass/Vol] 34.0 % 32.0 - 36.0 % [facility] MCV (RBC) [Entitic vol] 104.9 fL High 80.0 - 98.0 fL [facility] Monocytes (Bld) [#/Vol] 0.7 10*3/uL 0.0 - 0.8 10*3/uL [facility] Monocytes/100 WBC (Bld) 14.5 % High 2.0 - 10.0 % [facility] Neutrophils (Bld) [#/Vol] 2.0 10*3/uL 1.8 - 7.0 10*3/uL [facility] Neutrophils/100 WBC (Bld) 42.4 % 40.0 - 80.0 % [facility] Nucleated RBC/100 WBC (Bld) [Ratio] 0.2 % [facility] Platelet mean volume (Bld) [Entitic vol] 8.8 fL 7.4 - 12.4 fL [facility] Platelets (Bld) [#/Vol] 165 10*3/uL 140 - 440 10*3/uL [facility] RBC (Bld) [#/Vol] 3.97 10*6/uL Low 4.40 - 5.9 0 10*6/uL [facility] WBC (Bld) [#/Vol] 4.6 10*3/uL 3.6 - 10.7 10*3/uL [facility] Comprehensive metabolic 1998 panelon 05-27-2022 Albumin [Mass/Vol] 4.0 g/dL 3.5 - 5.0 g/dL [facility] ALP [Catalytic activity/Vol] 122 U/L 38 - 126 U/L [facility] ALT [Catalytic activity/Vol] 28 U/L 0 - 49 U/L [facility] Anion gap [Moles/Vol] 8 mmol/L 3 - 13 mmol/L [facility] AST [Catalytic activity/Vol] 31 U/L 15 - 46 U/L [facility] Bilirubin [Mass/Vol] 0.7 mg/dL 0.2 - 1 .3 mg/dL [facility] Calcium [Mass/Vol] 9.2 mg/dL 8.4 - 10. 4 mg/dL [facility] Chloride [Moles/Vol] 107 mmol/L 98 - 10 7 mmol/L [facility] CO2 [Moles/Vol] 22 mmol/L 22 - 30 mmol/L [facility] Creatinine [Mass/Vol] 0.87 mg/dL 0.66 - 1.25 mg/dL [facility] GFR/1.73 sq M.predicted MDRD (S/P/Bld) [Vol rate/Area] 87.2 mL/min/{1.73_m2} - [facility] Comment on above: Calculation based on the Chronic Kidney Disease Epidemiology Collaboration (CKD-EPI) equation refit without adjustment for race Glucose [Mass/Vol] 104 mg/dL High 70 - 100 mg/dL [facility] Interpretation and review of laboratory results Abnormal [facility] Potassium [Moles/Vol] 4.0 mmol/L 3.5 - 5.1 mmol/L [facility] Protein [Mass/Vol] 7.0 g/dL 6.3 - 8.2 g/dL [facility] Sodium [Moles/Vol] 136 mmol/L 135 - 145 mmol/L [facility] Urea nitrogen [Mass/Vol] 19 mg/dL 9 - 20 mg/dL [facility] Laboratory - Chemistry and C hemistry - challengeon 05-27-2022 Troponin I.cardiac [Mass/Vol] ng/mL 0.000 - 0.034 ng/mL [facility] TSH Qn 4.207 m[IU]/L [facility] h Troponin I.cardiac [Mass/Vol] ng/mL 0.000 - 0.034 ng/mL [facility] Troponin I.cardiac [Mass/Vol] ng/mL 0.000 - 0.034 ng/mL [facility] Lipid 1996 panelon 3 Cholesterol [Mass/Vol] 133 mg/dL NINF - 200 mg/dL [facility] Cholesterol in HDL [Mass/Vol] 25 mg/dL Low 40 - 60 mg/dL [facility] Cholesterol in LDL [Mass/Vol] 43 mg/dL 0 - <100 [facility] Cholesterol.total/Ange sterol in HDL [Mass ratio] 5 {ratio} [facility] Comment on above: Ref Range: < 3 Low Risk for CHD 3-6 Mod Risk for CHD > 6 High Risk for CHD Interpretation and review of laboratory results Abnormal [facility] Triglyceride [Mass/Vol] 325 mg/dL High NINF - 150 mg/dL [facility] Natriuretic peptide B [Mass/ Vol]on 05-27-2022 Interpretation and review of laboratory results Normal [facility] Natriuretic peptide B (Bld) [Mass/Vol] 106 pg/mL 0 - 450 pg/mL [facility] No Panel Informationon 05-27 P [place] 51 degrees [facility] VT Interval 148 ms [facility] QRS [place] 89 degrees [facility] QRSD Interval [address] [facility] h QT Interval 368 ms [facility] QTC Interval 422 ms [facility] T Wave [place] -10 degrees [facility] SINUS ARRHYTHMIA, RA TE 64- 89 PROBABLE LEFT ATRIAL ABNORMALITY BORDERLINE RIGHT AXIS DEVIATION LATE PRECORDIAL R/S TRANSITION BORDERLINE T ABNORMALITIES, INFERIOR LEADS No previous ECG available for comparison Electronically Signed On 05-27-2022 14:09:09 EDT by Cornelio Garcia CV Cornelio Zheng MD - 05/27/2022 IMPRESSION: SINUS ARRHYTHMIA, RATE 64- 89 PROBABLE LEFT ATRIAL ABNORMALITY BORDERLINE RIGHT AXIS DEVIATION LATE PRECORDIAL R/S TRANSITION BORDERLINE T ABNORMALITIES, INFERIOR LEADS No previous ECG available for comparison Electronically Signed On 05-27-2022 14:09:09 EDT by Cornelio Garcia [facility] TSH Qnon 05-27-2022 Interpretation and review of laboratory results Normal [facility] Troponin I.cardiac [Mass/Vol ]on 05-27-2022 Interpretation and review of laboratory results Normal [facility] Patients with high levels of Biotin oral intake (ie >5 mg/day) may have falsely decreased Troponin levels. [facility] Interpretation and review of laboratory results Normal [facility] Patients with high levels of Biotin oral intake (ie >5 mg/day) may have falsely decreased Troponin levels. [facility] Interpretation and review of laboratory results Normal [facility] Patients with high levels of Biotin oral intake (ie >5 mg/day) may have falsely decreased Troponin levels. [facility] Vital signson 05-27-2022 Heart rate 79 /min bpm [facility] XR Chest 2 Viewson FINDINGS AND IMPRESSION: SUPPORT DEVICES: EKG leads OSSEOUS STRUCTURES: Degenerative changes in the thoracic spine. HEART AND MEDIASTINUM: The cardiomediastinal silhouette appears unchanged from the prior exam, including prior median sternotomy. LUNGS AND PLEURA: The lungs are clear. No sizable pleural effusion. Report Dictated on Electronically Signed By: Bharat Saravia Electronically Signed Date/Time: 05/27/2022 2:28 PM EDT [facility] Patient Name: RAMY RAHMAN : 1940 Exam Date/Time: 05/27/2022 14:24 Procedure: XR CHEST 2 VIEWS Ordering Provider: GARCIA MICHAEL Reason For Exam: CHEST PAIN PA AND LATERAL CHEST CLINICAL INDICATION: Chest pain TECHNIQUE: PA and Lateral chest COMPARISON: 01/27/2018 [facility] Bharat Saravia MD - 05/27/2022 Patient Name: RAMY BARRON : 1940 Exam Date/Time: 05/27/2022 14:24 Procedure: XR CHEST 2 VIEWS Ordering Provider: GARCIA MICHAEL Reason For Exam: CHEST PAIN PA AND LATERAL CHEST CLINICAL INDICATION: Chest pain TECHNIQUE: PA and Lateral chest COMPARISON: 01/27/2018 IMPRESSION: FINDINGS AND IMPRESSION: SUPPORT DEVICES: EKG leads OSSEOUS STRUCTURES: Degenerative changes in the thoracic spine. HEART AND MEDIASTINUM: The cardiomediastinal silhouette appears unchanged from the prior exam, including prior median sternotomy. LUNGS AND PLEURA: The lungs are clear. No sizable pleural effusion. Report Dictated on Electronically Signed By: Bharat Saravia Electronically Signed Date/Time: 05/27/2022 2:28 PM EDT [facility] Radiology Study observation (narrative) [facility] alth XR Chest 2 ViewsOrdered By: Bharat Saravia on 05-27-2022 [facility] [employer] Work Phone: Comp Metabolic Panelon 01-25 ALT [Catalytic activity/Vol] 31 U/L Normal 0-[address] [facility] Comment on above: Result Comment: The ALT test is performed by an updated assay method. Please note that the reference intervals have been changed and are now sex specific. Performed By: #### C MP3, HEMDF, LACT3, RBCMO #### [facility] [address] [place] [address] Calcium [Mass/Vol] 9.0 mg/dL Normal 8.4-10.[address] [facility] Comment on above: Performed By: #### C MP3, HEMDF, LACT3, RBCMO #### [facility] [address] [place] [address] Glucose [Mass/Vol] 161 mg/dL High 70-[address] [facility] Comment on above: Performed By: #### C MP3, HEMDF, LACT3, RBCMO #### [facility] [address] [place] [address] ALP [Catalytic activity/Vol] 91 U/L Normal 38-[address] [facility] Comment on above: Performed By: #### C MP3, HEMDF, LACT3, RBCMO #### [facility] [address] [place] [address] Anion gap [Moles/Vol] 8 mmol/L Normal 3-13 [facility] Comment on above: Performed By: #### C MP3, HEMDF, LACT3, RBCMO #### [facility] [address] [place] [address] AST [Catalytic activity/Vol] 32 U/L Normal 15-[address] [facility] Comment on above: Performed By: #### C MP3, HEMDF, LACT3, RBCMO #### [facility] [address] [place] [address] Bilirubin [Mass/Vol] 0.7 mg/dL Normal 0.2-1.3 [facility] Comment on above: Performed By: #### C MP3, HEMDF, LACT3, RBCMO #### [facility] [address] [place] [address] CO2 [Moles/Vol] 26 mmol/L Normal 22-30 [facility] Comment on above: Performed By: #### C MP3, HEMDF, LACT3, RBCMO #### [facility] [address] [place] [address] Creatinine [Mass/Vol] 0.86 mg/dL Normal 0.52-1.25 [facility] Comment on above: Performed By: #### C MP3, HEMDF, LACT3, RBCMO #### [facility] [address] [place] [address] GFR/1.73 sq M.predicted among blacks MDRD (S/P/Bld) [Vol rate/Area] mL/min/{1.73_m2} Normal >[address] [facility] Comment on above: Performed By: #### C MP3, HEMDF, LACT3, RBCMO #### [place] [address] [place] [address] GFR/1.73 sq M.predicted among non-blacks MDRD (S/P/Bld) [Vol rate/Area] 82.4 mL/min/{1.73_m2} Normal >60 [facility] Comment on above: Result Comment: KDIG O guidelines provide the following GFR categories: Stage GFR(ml/min/1.73 m2) Terms G1 >=90 Normal or high G2 60-89 Mildly decreased* G3a 45-59 Mildly to moderately decreased G3b 30-44 Moderately to severely decreased G4 15-29 Severely decreased G5 <15 Kidney failure *Relative to young adult level. In the absence of evidence of kidney damage, neither GFR category G1 nor G2 fulfill the criteria for CKD. The CKD-EPI equation is validated in individuals 18 years of age and older. Currently the best equation for estimating glomerular filtration rate (GFR) from serum creatinine in children is the Bedside Mcclain equation. It is less accurate in patients with extremes of muscle mass, restriction of dietary protein, ingestion of creatine, extra-renal metabolism of creatinine, or treatment with medications that affect renal tubular creatinine secretion. Performed By: #### C MP3, HEMDF, LACT3, RBCMO #### [facility] [address] [place] [address] Protein [Mass/Vol] 7.0 g/dL Normal 6.3-8.[address] [facility] Comment on above: Performed By: #### C MP3, HEMDF, LACT3, RBCMO #### [facility] [address] [place] [address] Urea nitrogen [Mass/Vol] 17 mg/dL Normal 7-[address] [facility] Comment on above: Performed By: #### C MP3, HEMDF, LACT3, RBCMO #### [facility] [address] [place] [address] Potassium [Moles/Vol] 3.8 mmol/L Normal 3.5-5.1 [facility] Comment on above: Performed By: #### C MP3, HEMDF, LACT3, RBCMO #### [facility] [address] [place] [address] Sodium [Moles/Vol] 137 mmol/L Normal 135-[address] [facility] Comment on above: Performed By: #### C MP3, HEMDF, LACT3, RBCMO #### [facility] [address] [place] [address] Albumin [Mass/Vol] 4.0 g/dL Normal 3.5-5.[address] [facility] Comment on above: Performed By: #### C MP3, HEMDF, LACT3, RBCMO #### [facility] [address] [place] [address] Chloride [Moles/Vol] 103 mmol/L Normal 98-107 [facility] Comment on above: Performed By: #### C MP3, HEMDF, LACT3, RBCMO #### [facility] [address] [place] [address] ED Provider Noteon 1 ED Provider Note JOSIANE SIENNASHARIF ED eMERGENCY dEPARTMENT eNCOUnter Pt Name: Ramy Barron Birthdate 1940 Date of evaluation: 01/25/2021 Provider: Jah Gauthier APRN - PENELOPE I have evaluated this patient on my own, per my scope of practice with an attending physician available for consultation. CHIEF COMPLAINT No chief complaint on file. HISTORY OF PRESENT ILLNESS (Location/Symptom, Timing/Onset,Context/Se tting, Quality, Duration, Modifying Factors, Severity) Note limiting factors. HPI Ramy Barron is a 80 y.o. male who presents to the emergency department with diarrhea for the last week. Patient had a GI panel and a C. difficile test done by his PCP was positive for C. difficile. No recent antibiotic use. PCP tried to put him on Dificid and it was declined by insurance it would cost him $5000 [id number]. Patient's PCP told him to come to the emergency department because the medication would need to be approved by a GI doctor or an infectious disease doctor. Patient denies any abdominal pain. Denies lightheadedness. He had 2 episodes of bloody stool yesterday today his stool is not bloody. He is not on blood thinners. Denies lightheadedness or any other complaints. Nursing Notes were reviewed. REVIEW OF SYSTEMS (2+ for4; 10+ for level 5) Review of Systems Constitutional: Negative for activity change, appetite change, chills and fever. HENT: Negative for congestion, ear discharge, ear pain, hearing loss, postnasal drip, rhinorrhea and sore throat. Eyes: Negative for discharge and redness. Respiratory: Negative for chest tightness, shortness of breath and wheezing. Cardiovascular: Negative for chest pain and palpitations. Gastrointestinal: Positive for diarrhea. Negative for abdominal pain, blood in stool, constipation, nausea and vomiting. Genitourinary: Negative for dysuria, genital sores, hematuria and penile pain. Musculoskeletal: Negative for arthralgias and myalgias. Skin: Negative for color change. Neurological: Negative for dizziness, tremors, syncope, weakness, light-headedness and headaches. Hematological: Negative for adenopathy. Psychiatric/Behavioral: Negative for agitation, confusion and dysphoric mood. All other systems reviewed and are negative. PAST MEDICAL HISTORY Past Medical History: Diagnosis Date ? CAD (coronary artery disease) 10/2014 stent and 4 vessel CABG (Dr. Barr)- nml EF ? Cervical spine degeneration 2019 ? Displacement of lumbar intervertebral disc 2010 bulging discs, various levels with one epidural NB- repeat study 12/10 ? ED (erectile dysfunction) ? H/O colonoscopy 2007 Turowski- due 2017 ? History of myocardial infarction 11/04/2014 STEMI-anterior ? Hypercholesterolemia 2014 ? Hypothyroidism 2008 ? 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 Prostate cancer screening 01/2018 ? Pulmonary scarring 2016 pulm workup SURGICALHISTORY Past Surgical History: Procedure Laterality Date ? COLONOSCOPY 2007 Dr. Garnica - due 2017 ? CORONARY ANGIOPLASTY WITH STENT PLACEMENT 11/04/2014 JUSTINA to mid LAD ? CORONARY ARTERY BYPASS GRAFT 10/2014 RODARTE-LAD, SVG-OM, SVG-Diagonal, SVG-PDA ? MENISCECTOMY Left 2013 [place] CURRENT MEDICATIONS Previous Medications ACETAMINOPHEN (TYLENOL) 500 MG TABLET 1-2 tid prn, no more than 6 a day as needed for pain ASPIRIN 81 MG TABLET Take 81 mg by mouth daily ATORVASTATIN (LIPITOR) 80 MG TABLET TAKE 1 TABLET DAILY COENZYME Q10 (CO Q10) 100 MG CAPS Take 1 capsule by mouth daily ISOSORBIDE MONONITRATE (IMDUR) 30 MG EXTENDED RELEASE TABLET Take 1 tablet by mouth daily LEVOTHYROXINE (SYNTHROID) 100 MCG TABLET Take 1 tablet by mouth Daily LOPERAMIDE (IMODIUM A-D) 2 MG TABLET Take 1 tablet by mouth 4 times daily as needed for Diarrhea SIMETHICONE (MYLICON) 80 MG CHEWABLE TABLET Take 1 tablet by mouth 4 times daily as needed for Flatulence Patient has no known allergies. FAMILY HISTORY Family History Problem Relation Age of Onset ? Heart Disease Father ? High Blood Pressure Father ? COPD Father miner helper's lung in 80 ? Other Mother SBO , age 85 ? Heart Disease Brother ? High Blood Pressure Brother ? No Known Problems Sister ? Ovarian Cancer Sister ? Heart Attack Brother 70 sudden age 76, hx of defi ? Alzheimer's Disease Brother age 75 ? Other Brother 63 [place] ? due to agent orange ? COPD Brother 80 miners lung ? Cancer Brother bladder CA, alive 86 ? Diabetes Sister age 69 ? Other Sister 70 ? Alzheimer's Disease Sister 80 SOCIAL HISTORY Social History Socioeconomic History ? Marital status: Spouse name: Not on file ? Number of children: Not on file ? Years of education: Not on file ? Highest education level: Not on file Occupational History ? Not on file Tobacco Use ? Smoking status: Never Smoker ? Smokeless tobacco: Never Used Vaping Use ? Vaping Use: Not on file (more content not included)... Normal [facility] Hemogram w/ Autodiffon 01-25 Abs Baso Cnt 0.0 10*3/uL Normal 0.0-0.2 [facility] Comment on above: Performed By: #### C MP3, HEMDF, LACT3, RBCMO #### [facility] [address] [place] [address] Abs Neutrophile Cnt 3.4 10*3/uL Normal 1.8-7.0 [facility] Comment on above: Performed By: #### C MP3, HEMDF, LACT3, RBCMO #### [facility] [address] [place] [address] Basophils/100 WBC (Bld) 0.4 % Normal 0.0-2.0 [facility] Comment on above: Performed By: #### C MP3, HEMDF, LACT3, RBCMO #### [facility] [address] [place] [address] Eosinophils (Bld) [#/Vol] 0.1 10*3/uL Normal 0.0-0.[address] [facility] Comment on above: Performed By: #### C MP3, HEMDF, LACT3, RBCMO #### [facility] [address] [place] [address] Eosinophils/100 WBC (Bld) 1.6 % Normal 1.0-6.[address] [facility] Comment on above: Performed By: #### C MP3, HEMDF, LACT3, RBCMO #### [facility] [address] [place] [address] Erythrocyte distribution width (RBC) [Ratio] 12.1 % Normal 11.5-14.[address] [facility] Comment on above: Performed By: #### C MP3, HEMDF, LACT3, RBCMO #### [facility] [address] [place] [address] Granulocytes/100 WBC (Bld) 60.4 % Normal 40.0-80.[address] [facility] Comment on above: Performed By: #### C MP3, HEMDF, LACT3, RBCMO #### [facility] [address] [place] [address] Hematocrit (Bld) [Volume fraction] 38.4 % Low 40.0-52.[address] [facility] Comment on above: Performed By: #### C MP3, HEMDF, LACT3, RBCMO #### [facility] [address] [place] [address] Hemoglobin (Bld) [Mass/Vol] 13.2 g/dL Normal 13.0-18.[address] [facility] Comment on above: Performed By: #### C MP3, HEMDF, LACT3, RBCMO #### [facility] [address] [place] [address] Lymphocytes (Bld) [#/Vol] 1.4 10*3/uL Normal 1.0-4.[address] [facility] Comment on above: Performed By: #### C MP3, HEMDF, LACT3, RBCMO #### [facility] [address] [place] [address] Lymphocytes/100 WBC (Bld) 25.8 % Normal 20.0-40.[address] [facility] Comment on above: Performed By: #### C MP3, HEMDF, LACT3, RBCMO #### [facility] [address] [place] [address] MCH (RBC) [Entitic mass] 36.5 pg High 26.0-34.[address] [facility] Comment on above: Performed By: #### C MP3, HEMDF, LACT3, RBCMO #### [facility] [address] [place] [address] MCHC 34.5 % Normal 32.0-36.[address] [facility] Comment on above: Performed By: #### C MP3, HEMDF, LACT3, RBCMO #### [facility] [address] [place] [address] MCV (RBC) [Entitic vol] 105.8 fL High 80.0-98.0 [facility] Comment on above: Performed By: #### C MP3, HEMDF, LACT3, RBCMO #### [facility] [address] [place] [address] Monocytes (Bld) [#/Vol] 0.7 10*3/uL Normal 0.0-0.[address] [facility] Comment on above: Performed By: #### C MP3, HEMDF, LACT3, RBCMO #### [facility] [address] [place] [address] Monocytes/100 WBC (Bld) 11.8 % High 2.0-10.0 [facility] Comment on above: Performed By: #### C MP3, HEMDF, LACT3, RBCMO #### [facility] [address] [place] [address] Platelet mean volume (Bld) [Entitic vol] 8.4 fL Normal 7.4-10.[address] [facility] Comment on above: Performed By: #### C MP3, HEMDF, LACT3, RBCMO #### [facility] [address] [place] [address] Platelets (Bld) [#/Vol] 182 10*3/uL Normal 140-[address] [facility] Comment on above: Performed By: #### C MP3, HEMDF, LACT3, RBCMO #### [facility] [address] [place] [address] RBC (Bld) [#/Vol] 3.62 10*6/uL Low 4.40-5.[address] [facility] Comment on above: Performed By: #### C MP3, HEMDF, LACT3, RBCMO #### [facility] [address] [place] [address] WBC (Bld) [#/Vol] 5.6 10*3/uL Normal 3.6-10.[address] [facility] Comment on above: Performed By: #### C MP3, HEMDF, LACT3, RBCMO #### [facility] [address] [place] [address] Lactic Acidon 2021 Lactate [Moles/Vol] 1.5 mmol/L Normal 0.7-2.[address] [facility] Comment on above: Performed By: #### C MP3, HEMDF, LACT3, RBCMO #### [facility] [address] [place] [address] RBC Morphologyon 01-25-2021 Macrocytosis Slight Normal [facility] Comment on above: Performed By: #### C MP3, HEMDF, LACT3, RBCMO #### [facility] [address] [place] [address] Ovalocytes Slight Normal [facility] Comment on above: Performed By: #### C MP3, HEMDF, LACT3, RBCMO #### [facility] [address] [place] [address] RBC morphology finding Nom (Bld) ABNORMAL Normal [facility] Comment on above: Performed By: #### C MP3, HEMDF, LACT3, RBCMO #### [facility] [address] [place] [address] CT Chest w/ Contraston 12-07 CT Chest w/ Contrast Patient Name: RAMY ELLSWORTH Computed Tomography ACCESSION EXAM DATE/TIME PROCEDURE ORDERING PROVIDER [id number] 12/07/2020 13:[address] Thorax w/ Contrast DO PACK EUGENE F. CPT code 61608 Q9967 Reason For Exam (CT Thorax w/ Contrast) hx of asbestosis exposure Report CLINICAL HISTORY: Abnormal chest radiograph. The patient complains of shortness of breath and cough. COMPARISON: Chest radiograph dated 01/27/2018 Technique: [address] images were obtained of the chest after the uneventful IV administration of 75 mL of Isovue-370. Images were reformatted in coronal and sagittal projections. FINDINGS: Lungs: There are bilateral scattered calcified granulomas. No suspicious pulmonary nodules or masses. No areas of consolidation. The tracheobronchial tree remains patent. Pleura: No pleural effusion Heart/Great vessels: Normal heart size with no pericardial effusion. The aorta and pulmonary arteries are normal in caliber. Mediastinum/Marguerite: No enlarged mediastinal, hilar, or axillary lymph nodes. Thyroid and Esophagus: Normal Visualized Upper Abdomen: Calcified granulomas within the liver and spleen. Chest wall/Lower neck: Normal Bones: Multilevel degenerative changes of the thoracic spine and lumbar spine. No suspicious osseous lesions. IMPRESSION: Lungs clear with no suspicious pulmonary nodules or masses. No areas of consolidation. Sequela of prior granulomatous disease. Computed Tomography Report Report Dictated on Final Dictating Physician: MD WILLIS YUN ROBERT Signed Date and Time: 12/08/2020 4:18 pm Signed by: MD WILLIS YUN ROBERT Transcribed Date and Time: 12/08/2020 4:[address] [facility] Echo Dobutamine Stress Echo w/wo Conton 02-23-2020 Echo Dobutamine Stress Echo w/wo Cont Patient Name: RAMY BARRON Ultrasound ACCESSION EXAM DATE/TIME PROCEDURE ORDERING PROVIDER [id number] 02/23/2020 10:05 EST Echo Dobutamine Stress PENELOPE MALDONADO CAYLA Echo w/wo Cont Reason For Exam (Echo Dobutamine Stress Echo w/wo Cont) chest pain with exertion Addendum STRESS ECHOCARDIOGRAM Dobutamine (AMENDED REPORT ) PATIENT: Ramy Barron STUDY DATE: 02/23/2020 [facility]#: [id number] : 1940 AGE: 79 HT/WT: 170.2 cm (67 80.7 kg in) (177.6 lb) GENDER: M BP: 134 / 92 LOCATION: [place] [address] PATIENT Outpatient [facility] STATUS: *ORDERING PHYSICIAN: * Rekha Maldonado *FELLOW: * Huyen Linares *SUPERVISING PHYSICIAN: * Janette, *RN: * Martha Aguilar Smita MD Thania *READING PHYSICIAN: * Amy Savage MD *DEVELOPER ADVOCATE: * Janie Martin 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 -- HISTORY: Dyslipidemia. Myocardial infarction. Family history of cardiovascular disease. Chest Pain/ discomfort with exertion. Hypothyroid Lightheadedness. Medications: Aspirin. Atorvastatin (Lipitor). Isosorbide mononitrate (Imdur). Levothyroxine (Synthroid). Allergies: No known allergies. Patient is NPO per policy. Catheterization (2014). There was a stenosis which was treated with a stent. Coronary artery bypass grafting (2014). -- CONCLUSIONS SUMMARY: 1. Left ventricle: Systolic function is normal by the biplane method of disks. The estimated ejection fraction is 65%. 2. Normal study after pharmacologic stress without reproduction of symptoms. Low risk/extent of ischemia. 3. Stress echo: There is no evidence for stress-induced ischemia. 4. Stress ECG conclusions: There was no ischemic ST depression. 5. Stress: Stress testing did not produce any symptoms suggestive of coronary artery disease. Ultrasound Addendum -- STUDY DATA: Stress echocardiogram. Procedure: Initial setup. A baseline ECG was recorded. Surface ECG leads and blood pressure measurements were monitored. Total intravenous fluids received during the test were 50 ml. Image quality was suboptimal. The study was technically limited due to body habitus. Intravenous imaging enhancement (Definity) was administered to opacify the chamber. Definity lot #: [id number]. Dobutamine stress test. Dobutamine was administered by intravenous infusion at an initial rate of 10 mcg/kg/min; the rate was advanced to a final rate of 20 mcg/kg/min. Heart rate response was augmented by the addition of hand marine services technician and leg lifts. The infusion was terminated after achieving the target heart rate. Transthoracic stress echocardiography. Images were captured at baseline, low dose, peak dose, and recovery. Total time of infusion 4 min 36 sec Limited 2D and color flow Doppler images were acquired and archived for permanent storage and are available for subsequent review. Study status: Routine. Patient status: Outpatient. Pre pain assessment is 0 out of 10. Post pain assessment is 0 out of 10. Location: Echo laboratory. Consent: The procedure was reviewed with the patient and the patient voices understanding. Study completion: The patient tolerated the procedure well. There were no complications. Administered medications: None. Discharge: Discharge instructions given The patient was discharged to homewhile ambulatory. -- FINDINGS LEFT VENTRICLE: The cavity size is normal. Wall thickness is normal. Systolic function is normal by the biplane method of disks. The estimated ejection fraction is 65%. There are no regional wall motion abnormalities. RIGHT VENTRICLE: The cavity size is normal. Wall thickness is normal. Systolic function is normal. MITRAL VALVE: Structurally normal valve. Leaflet separation is normal. Doppler: Transvalvular velocity is within the normal range. There is no evidence for stenosis. There is no regurgitation. AORTIC VALVE: Trileaflet; mildly thickened, moderately calcified leaflets. Thickening, consistent with sclerosis. Cusp separation is normal. Doppler: Transvalvular velocity is within the normal range. There is no stenosis. There is no regurgitation. The peak systolic gradient is 8 mm Hg. The peak systolic velocity is 1.4 m/sec. TRICUSPID VALVE: Structurally normal valve. Leaflet separation is normal. Doppler: Transvalvular velocity is within the normal range. There is no evidence for stenosis. There is trivial, less than 1+ regurgitation. AORTA: Aortic root: The aortic root is normal in size. Ascending aorta: The ascending aorta is normal in size. STRESS PROTOCOL: + -+---+ +---- --------+ +Stage +HR +BP +Symptoms + + -+---+ +---- --------+ +Baseline +104+134/92 (106)+No symptoms.+ + -+---+ +---- --------+ +Dobutamine 10 ug/kg/min+84 +126/75 (92) +No symptoms.+ + -+---+ +---- --------+ +Peak stress +130+123/66 (85) +No symptoms.+ + -+---+ +---- --------+ +Recovery; 2 min +120+125/64 (84) +No symptoms.+ + -+---+ +---- --------+ +Late recovery +101+130/75 (93) +No symptoms.+ + -+---+ +---- --------+ Ultrasound Addendum STRESS RESULTS: There is an appropriate blood pressure response to stress. The rate-pressure product for the peak heart rate and blood pressure was [address] mm Hg/min. Stress testing did not produce any symptoms suggestive of coronary artery disease. Peak heart rate during stress was 130 bpm (92% of maximal predicted heart rate). The maximal predicted heart rate was 142 bpm.The target heart rate was achieved. The heart rate response to stress was normal. STRESS ECG: There was no ischemic ST depression. Baseline: LV size is normal. LV global systolic function is normal. Normal wall motion; no LV regional wall motion abnormalities. Wall motion score: 1.00. Low dose: LV size is appropriately decreased from baseline. No evidence for new LV regional wall motion abnormalities. Peak dose: LV size is appropriately decreased from the prior stage. LV global systolic function is hyperdynamic. No evidence for new LV regional wall motion abnormalities. Recovery: LV size is unchanged from the prior stage. Normal wall motion; no LV regional wall motion abnormalities. Wall motion score: 1.00. STRESS ECHO RESULTS: There is no evidence for stress-induced ischemia. -- Measurements Value Reference Ascending aorta ID, A-P, S 3.5 cm --------- Ascending aorta ID/bsa, A-P, S 1.8 cm/m^2 --------- Left ventricle Value Reference Stroke volume/bsa, 1-p A2C 21.1 ml/m^2 --------- LV end-diastolic volume, 1-p A4C (L) 62 ml 69 - 185 LV end-systolic volume, 1-p A4C 23 ml 22 - 78 LV end-diastolic volume, 2-p 64 ml 62 - 150 LV end-systolic volume, 2-p 22 ml 21 - 61 LV ejection fraction, 2-p 65 % 52 - 72 LVOT Value Reference LVOT mean velocity, S 0.7 m/sec --------- LVOT peak gradient, S 4 mm Hg --------- Aortic valve Value Reference Aortic valve peak velocity, S 1.4 m/sec --------- Aortic peak gradient, S 8 mm Hg --------- Legend: (L) and (H) mary values outside specified reference range. (AMENDED REPORT ) Electronically signed by Amy Savage MD 02/23/2020 11:04 Prior Signatures: Final Addendum Signed Date and Time: 02/23/2020 11:05 am Signed by: AMY SAVAGE Ultrasound Report STRESS ECHOCARDIOGRAM Dobutamine PATIENT: Ramy Barron STUDY DATE: 02/23/2020 : 1940 AGE: 79 HT/WT: 170.2 cm (67 80.7 kg in) (177.6 lb) GENDER: M BP: 134 / 92 LOCATION: [place] [address] PATIENT Outpatient [facility] STATUS: *ORDERING PHYSICIAN: * Rekha Maldonado *FELLOW: * Huyen Linares *SUPERVISING PHYSICIAN: * Janette, *RN: * Mratha Aguilar Smita MD Jeanine *READING PHYSICIAN: * Amy Savage MD *DEVELOPER ADVOCATE: * Janie Martin 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 -- HISTORY: Dyslipidemia. Myocardial infarction. Family history of cardiovascular disease. Chest Pain/ discomfort with exertion. Hypothyroid Lightheadedness. Medications: Aspirin. Atorvastatin (Lipitor). Isosorbide mononitrate (Imdur). Levothyroxine (Synthroid). Allergies: No known allergies. Patient is NPO per policy. Catheterization (2015). There was a stenosis which was treated with a stent. Coronary artery bypass grafting (2015). -- CONCLUSIONS SUMMARY: 1. Normal study after pharmacologic stress without reproduction of symptoms. Low risk/extent of ischemia. 2. Stress echo: There is no evidence for stress-induced ischemia. 3. Stress ECG conclusions: There was no ischemic ST depression. 4. Stress: Stress testing did not produce any symptoms suggestive of coronary artery disease. -- STUDY DATA: Stress echocardiogram. Procedure: Initial setup. A baseline ECG was recorded. Surface ECG leads and blood pressure measurements were monitored. Total intravenous fluids received during the test were 50 ml. . Intravenous imaging enhancement (Definity) was administered. Dobutamine stress test. Dobutamine was administered by intravenous infusion at an initial rate of 10 mcg/kg/min; the rate was advanced to a final rate of 20 mcg/kg/min. Heart rate response was augmented by the addition of hand marine services technician and leg lifts. The infusion was terminated after achieving the target heart rate. Transthoracic stress echocardiography. Images were captured at baseline, low dose, peak dose, and recovery. Total time of infusion 4 min 36 sec Limited 2D and color flow Doppler images were acquired and archived for permanent storage and are available for subsequent review. Study status: Routine. Patient status: Outpatient. Pre pain assessment is 0 out of 10. Post pain assessment is 0 out of 10. Location: Echo laboratory. Consent: The procedure was reviewed with the patient and the patient voices understanding. Study completion: The patient tolerated the procedure well. There were no complications. Administered medications: Ultrasound Report None. Discharge: Discharge instructions given The patient was discharged to homewhile ambulatory. -- FINDINGS AORTIC VALVE: Doppler: The peak systolic gradient is 8 mm Hg. The peak systolic velocity is 1.4 m/sec. STRESS PROTOCOL: + -+---+ +---- --------+ +Stage +HR +BP +Symptoms + + -+---+ +---- --------+ +Baseline +104+134/92 (106)+No symptoms.+ + -+---+ +---- --------+ +Dobutamine 10 ug/kg/min+84 +126/75 (92) +No symptoms.+ + -+---+ +---- --------+ +Peak stress +130+123/66 (85) +No symptoms.+ + -+---+ +---- --------+ +Recovery; 2 min +120+125/64 (84) +No symptoms.+ + -+---+ +---- --------+ +Late recovery +101+130/75 (93) +No symptoms.+ + -+---+ +---- --------+ STRESS RESULTS: There is an appropriate blood pressure response to stress. The rate-pressure product for the peak heart rate and blood pressure was 54644 mm Hg/min. Stress testing did not produce any symptoms suggestive of coronary artery disease. Peak heart rate during stress was 130 bpm (92% of maximal predicted heart rate). The maximal predicted heart rate was 142 bpm.The target heart rate was achieved. The heart rate response to stress was normal. STRESS ECG: There was no ischemic ST depression. Baseline: LV size is normal. LV global systolic function is normal. Normal wall motion; no LV regional wall motion abnormalities. Wall motion score: 1.00. Low dose: LV size is appropriately decreased from baseline. No evidence for new LV regional wall motion abnormalities. Peak dose: LV size is appropriately decreased from the prior stage. LV global systolic function is hyperdynamic. No evidence for new LV regional wall motion abnormalities. Recovery: LV size is unchanged from the prior stage. Normal wall motion; no LV regional wall motion abnormalities. Wall motion score: 1.00. STRESS ECHO RESULTS: There is no evidence for stress-induced ischemia. -- Measurements Value Reference Ascending aorta ID, A-P, S 3.5 cm --------- Ascending aorta ID/bsa, A-P, S 1.8 cm/m^2 --------- Left ventricle Value Reference Stroke volume/bsa, 1-p A2C 21.1 ml/m^2 --------- LV end-diastolic volume, 1-p A4C (L) 62 ml 69 - 185 LV end-systolic volume, 1-p A4C 23 ml 22 - 78 LV end-diastolic volume, 2-p 64 ml 62 - 150 LV end-systolic volume, 2-p 22 ml 21 - 61 LV ejection fraction, 2-p 65 % 52 - 72 LVOT Value Reference LVOT mean velocity, S 0.7 m/sec --------- Ultrasound Report LVOT peak gradient, S 4 mm Hg --------- Aortic valve Value Reference Aortic valve peak velocity, S 1.4 m/sec --------- Aortic peak gradient, S 8 mm Hg --------- Legend: (L) and (H) mary values outside specified reference range. Electronically signed by Amy Savage MD 02/23/2020 10:34 Prior Signatures: Final Dictated: 02/23/2020 10:34 am Dictating Physician: AMY SAVAGE Signed Date and Time: 02/23/2020 10:34 am Signed by: AMY SAVAGE Report last revised on 02/23/2020 11:05 EST by AMY SAVAGE Normal [facility] Echo Stress Test - Dobutamin nader 02-23-2020 STRESS ECHOCARDIOGRA M Dobutamine (AMENDED REPORT ) PATIENT: Ramy Barron STUDY DATE: 02/23/2020 : 1940 AGE: 79 HT/WT: 170.2 cm (67 80.7 kg in) (177.6 lb) GENDER: M BP: 134 / 92 LOCATION: [place] [address] PATIENT Outpatient [facility] [place] STATUS: *ORDERING PHYSICIAN: * Rekha Maldonado *FELLOW: * Huyen Linares *SUPERVISING PHYSICIAN: * Janette, *RN: * Martha Aguilar Smita MD Jeanine *READING PHYSICIAN: * Amy Savage MD *DEVELOPER ADVOCATE: * Janie Martin 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 -- HISTORY: Dyslipidemia. Myocardial infarction. Family history of cardiovascular disease. Chest Pain/ discomfort with exertion. Hypothyroid Lightheadedness. Medications: Aspirin. Atorvastatin (Lipitor). Isosorbide mononitrate (Imdur). Levothyroxine (Synthroid). Allergies: No known allergies. Patient is NPO per policy. Catheterization (2014). There was a stenosis which was treated with a stent. Coronary artery bypass grafting (2014). -- CONCLUSIONS SUMMARY: 1. Left ventricle: Systolic function is normal by the biplane method of disks. The estimated ejection fraction is 65%. 2. Normal study after pharmacologic stress without reproduction of symptoms. Low risk/extent of ischemia. 3. Stress echo: There is no evidence for stress-induced ischemia. 4. Stress ECG conclusions: There was no ischemic ST depression. 5. Stress: Stress testing did not produce any symptoms suggestive of coronary artery disease. -- STUDY DATA: Stress echocardiogram. Procedure: Initial setup. A baseline ECG was recorded. Surface ECG leads and blood pressure measurements were monitored. Total intravenous fluids received during the test were 50 ml. Image quality was suboptimal. The study was technically limited due to body habitus. Intravenous imaging enhancement (Definity) was administered to opacify the chamber. Definity lot #: [id number]. Dobutamine stress test. Dobutamine was administered by intravenous infusion at an initial rate of 10 mcg/kg/min; the rate was advanced to a final rate of 20 mcg/kg/min. Heart rate response was augmented by the addition of hand marine services technician and leg lifts. The infusion was terminated after achieving the target heart rate. Transthoracic stress echocardiography. Images were captured at baseline, low dose, peak dose, and recovery. Total time of infusion 4 min 36 sec Limited 2D and color flow Doppler images were acquired and archived for permanent storage and are available for subsequent review. Study status: Routine. Patient status: Outpatient. Pre pain assessment is 0 out of 10. Post pain assessment is 0 out of 10. Location: Echo laboratory. Consent: The procedure was reviewed with the patient and the patient voices understanding. Study completion: The patient tolerated the procedure well. There were no complications. Administered medications: None. Discharge: Discharge instructions given The patient was discharged to homewhile ambulatory. -- FINDINGS LEFT VENTRICLE: The cavity size is normal. Wall thickness is normal. Systolic function is normal by the biplane method of disks. The estimated ejection fraction is 65%. There are no regional wall motion abnormalities. RIGHT VENTRICLE: The cavity size is normal. Wall thickness is normal. Systolic function is normal. MITRAL VALVE: Structurally normal valve. Leaflet separation is normal. Doppler: Transvalvular velocity is within the normal range. There is no evidence for stenosis. There is no regurgitation. AORTIC VALVE: Trileaflet; mildly thickened, moderately calcified leaflets. Thickening, consistent with sclerosis. Cusp separation is normal. Doppler: Transvalvular velocity is within the normal range. There is no stenosis. There is no regurgitation. The peak systolic gradient is 8 mm Hg. The peak systolic velocity is 1.4 m/sec. TRICUSPID VALVE: Structurally normal valve. Leaflet separation is normal. Doppler: Transvalvular velocity is within the normal range. There is no evidence for stenosis. There is trivial, less than 1+ regurgitation. AORTA: Aortic root: The aortic root is normal in size. Ascending aorta: The ascending aorta is normal in size. STRESS PROTOCOL: + -+---+ +---- --------+ +Stage +HR +BP +Symptoms + + -+---+ +---- --------+ +Baseline +104+134/92 (106)+No symptoms.+ + -+---+ +---- --------+ +Dobutamine 10 ug/kg/min+84 +126/75 (92) +No symptoms.+ + -+---+ +---- --------+ +Peak stress +130+123/66 (85) +No symptoms.+ + -+---+ +---- --------+ +Recovery; 2 min +120+125/64 (84) +No symptoms.+ + -+---+ +---- --------+ +Late recovery +101+130/75 (93) +No symptoms.+ + -+---+ +---- --------+ STRESS RESULTS: There is an appropriate blood pressure response to stress. The rate-pressure product for the peak heart rate and blood pressure was 48633 mm Hg/min. Stress testing did not produce any symptoms suggestive of coronary artery disease. Peak heart rate during stress was 130 bpm (92% of maximal predicted heart rate). The maximal predicted heart rate was 142 bpm.The target heart rate was achieved. The heart rate response to stress was normal. STRESS ECG: There was no ischemic ST depression. Baseline: LV size is normal. LV global systolic function is normal. Normal wall motion; no LV regional wall motion abnormalities. Wall motion score: 1.00. Low dose: LV size is appropriately decreased from baseline. No evidence for new LV regional wall motion abnormalities. Peak dose: LV size is appropriately decreased from the prior stage. LV global systolic function is hyperdynamic. No evidence for new LV regional wall motion abnormalities. Recovery: LV size is unchanged from the prior stage. Normal wall motion; no LV regional wall motion abnormalities. Wall motion score: 1.00. STRESS ECHO RESULTS: There is no evidence for stress-induced ischemia. -- Measurements Value Reference Ascending aorta ID, A-P, S 3.5 cm --------- Ascending aorta ID/bsa, A-P, S 1.8 cm/m^2 --------- Left ventricle Value Reference Stroke volume/bsa, 1-p A2C 21.1 ml/m^2 --------- LV end-diastolic volume, 1-p A4C (L) 62 ml 69 - 185 LV end-systolic volume, 1-p A4C 23 ml 22 - 78 LV end-diastolic volume, 2-p 64 ml 62 - 150 LV end-systolic volume, 2-p 22 ml 21 - 61 LV ejection fraction, 2-p 65 % 52 - 72 LVOT Value Reference LVOT mean velocity, S 0.7 m/sec --------- LVOT peak gradient, S 4 mm Hg --------- Aortic valve Value Reference Aortic valve peak velocity, S 1.4 m/sec --------- Aortic peak gradient, S 8 mm Hg --------- Legend: (L) and (H) mary values outside specified reference range. (AMENDED REPORT ) Electronically signed by Amy Savage MD 02/23/2020 11:04 Prior Signatures: [facility], [facility], [employer] Incoming Cardiology Results From [employer] - 02/23/2020 11:05 AM EST STRESS ECHOCARDIOGRAM Dobutamine (AMENDED REPORT ) PATIENT: Ramy Barron STUDY DATE: 02/23/2020 : 1940 AGE: 79 HT/WT: 170.2 cm (67 80.7 kg in) (177.6 lb) GENDER: M BP: 134 / 92 LOCATION: [place] [address] [address] STATUS: *ORDERING PHYSICIAN: * Rekha Maldonado *FELLOW: * Huyen Linares *SUPERVISING PHYSICIAN: * Janette, *RN: * Martha Aguilar Smita MD Thania *READING PHYSICIAN: * Amy Savage MD *DEVELOPER ADVOCATE: * Janie Martin 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 -- HISTORY: Dyslipidemia. Myocardial infarction. Family history of cardiovascular disease. Chest Pain/ discomfort with exertion. Hypothyroid Lightheadedness. Medications: Aspirin. Atorvastatin (Lipitor). Isosorbide mononitrate (Imdur). Levothyroxine (Synthroid). Allergies: No known allergies. Patient is NPO per policy. Catheterization (2015). There was a stenosis which was treated with a stent. Coronary artery bypass grafting (2015). -- CONCLUSIONS SUMMARY: 1. Left ventricle: Systolic function is normal by the biplane method of disks. The estimated ejection fraction is 65%. 2. Normal study after pharmacologic stress without reproduction of symptoms. Low risk/extent of ischemia. 3. Stress echo: There is no evidence for stress-induced ischemia. 4. Stress ECG conclusions: There was no ischemic ST depression. 5. Stress: Stress testing did not produce any symptoms suggestive of coronary artery disease. -- STUDY DATA: Stress echocardiogram. Procedure: Initial setup. A baseline ECG was recorded. Surface ECG leads and blood pressure measurements were monitored. Total intravenous fluids received during the test were 50 ml. Image quality was suboptimal. The study was technically limited due to body habitus. Intravenous imaging enhancement (Definity) was administered to opacify the chamber. Definity lot #: [id number]. Dobutamine stress test. Dobutamine was administered by intravenous infusion at an initial rate of 10 mcg/kg/min; the rate was advanced to a final rate of 20 mcg/kg/min. Heart rate response was augmented by the addition of hand marine services technician and leg lifts. The infusion was terminated after achieving the target heart rate. Transthoracic stress echocardiography. Images were captured at baseline, low dose, peak dose, and recovery. Total time of infusion 4 min 36 sec Limited 2D and color flow Doppler images were acquired and archived for permanent storage and are available for subsequent review. Study status: Routine. Patient status: Outpatient. Pre pain assessment is 0 out of 10. Post pain assessment is 0 out of 10. Location: Echo laboratory. Consent: The procedure was reviewed with the patient and the patient voices understanding. Study completion: The patient tolerated the procedure well. There were no complications. Administered medications: None. Discharge: Discharge instructions given The patient was discharged to homewhile ambulatory. -- FINDINGS LEFT VENTRICLE: The cavity size is normal. Wall thickness is normal. Systolic function is normal by the biplane method of disks. The estimated ejection fraction is 65%. There are no regional wall motion abnormalities. RIGHT VENTRICLE: The cavity size is normal. Wall thickness is normal. Systolic function is normal. MITRAL VALVE: Structurally normal valve. Leaflet separation is normal. Doppler: Transvalvular velocity is within the normal range. There is no evidence for stenosis. There is no regurgitation. AORTIC VALVE: Trileaflet; mildly thickened, moderately calcified leaflets. Thickening, consistent with sclerosis. Cusp separation is normal. Doppler: Transvalvular velocity is within the normal range. There is no stenosis. There is no regurgitation. The peak systolic gradient is 8 mm Hg. The peak systolic velocity is 1.4 m/sec. TRICUSPID VALVE: Structurally normal valve. Leaflet separation is normal. Doppler: Transvalvular velocity is within the normal range. There is no evidence for stenosis. There is trivial, less than 1+ regurgitation. AORTA: Aortic root: The aortic root is normal in size. Ascending aorta: The ascending aorta is normal in size. STRESS PROTOCOL: + -+---+ +---- --------+ +Stage +HR +BP +Symptoms + + -+---+ +---- --------+ +Baseline +104+134/92 (106)+No symptoms.+ + -+---+ +---- --------+ +Dobutamine 10 ug/kg/min+84 +126/75 (92) +No symptoms.+ + -+---+ +---- --------+ +Peak stress +130+123/66 (85) +No symptoms.+ + -+---+ +---- --------+ +Recovery; 2 min +120+125/64 (84) +No symptoms.+ + -+---+ +---- --------+ +Late recovery +101+130/75 (93) +No symptoms.+ + -+---+ +---- --------+ STRESS RESULTS: There is an appropriate blood pressure response to stress. The rate-pressure product for the peak heart rate and blood pressure was 70746 mm Hg/min. Stress testing did not produce any symptoms suggestive of coronary artery disease. Peak heart rate during stress was 130 bpm (92% of maximal predicted heart rate). The maximal predicted heart rate was 142 bpm.The target heart rate was achieved. The heart rate response to stress was normal. STRESS ECG: There was no ischemic ST depression. Baseline: LV size is normal. LV global systolic function is normal. Normal wall motion; no LV regional wall motion abnormalities. Wall motion score: 1.00. Low dose: LV size is appropriately decreased from baseline. No evidence for new LV regional wall motion abnormalities. Peak dose: LV size is appropriately decreased from the prior stage. LV global systolic function is hyperdynamic. No evidence for new LV regional wall motion abnormalities. Recovery: LV size is unchanged from the prior stage. Normal wall motion; no LV regional wall motion abnormalities. Wall motion score: 1.00. STRESS ECHO RESULTS: There is no evidence for stress-induced ischemia. -- Measurements Value Reference Ascending aorta ID, A-P, S 3.5 cm --------- Ascending aorta ID/bsa, A-P, S 1.8 cm/m^2 --------- Left ventricle Value Reference Stroke volume/bsa, 1-p A2C 21.1 ml/m^2 --------- LV end-diastolic volume, 1-p A4C (L) 62 ml 69 - 185 LV end-systolic volume, 1-p A4C 23 ml 22 - 78 LV end-diastolic volume, 2-p 64 ml 62 - 150 LV end-systolic volume, 2-p 22 ml 21 - 61 LV ejection fraction, 2-p 65 % 52 - 72 LVOT Value Reference LVOT mean velocity, S 0.7 m/sec --------- LVOT peak gradient, S 4 mm Hg --------- Aortic valve Value Reference Aortic valve peak velocity, S 1.4 m/sec --------- Aortic peak gradient, S 8 mm Hg --------- Legend: (L) and (H) mary values outside specified reference range. (AMENDED REPORT ) Electronically signed by Amy Savage MD 02/23/2020 11:04 Prior Signatures: [employer] [place], [facility] XR CERVICAL SPINE (4-5 VIEWS )on 12-23-2019 Patient Name: RAMY RAHMAN ---Diagnostic Radiology--- Exam Date/Time 12/23/2019 13:24:00 EDT Exam CR Spine Cervical 4+ Views Ordering Physician DO PACK EUGENE F. Accession Number [id number] CPT4 Codes 26140 () Reason For Exam pain Report CERVICAL SPINE SERIES: INDICATION: Neck pain COMPARISON: No prior studies are available for comparative purposes. TECHNIQUE: Five films are submitted for interpretation, including a swimmer's view. FINDINGS: Alignment, curvature and segmentation of the cervical spine are within normal limits. The prevertebral soft tissues are unremarkable. There is no evidence of acute fracture, dislocation or subluxation. Disc space narrowing is noted at C4-C5, C5-C6 and C6-C7. There is 2 mm retrolisthesis at C5-C6. Multilevel foraminal encroachment is present bilaterally with relative sparing at C6-C7. AP and open mouth odontoid views are grossly unremarkable. Impression: Arthritic changes. No acute fracture. 2 mm of retrolisthesis of C5-C6. Report Dictated on --- Final --- Dictating Physician: DO KING ALFRED Signed Date and Time: 12/23/2019 2:32 pm Signed by: DO KING ALFRED Transcribed Date and Time: 12/23/2019 2:33 [facility], [place] [facility] Results From [facility] - 12/23/2019 2:33 PM EDT Patient Name: RAMY BARRON ---Diagnostic Radiology--- Exam Date/Time 12/23/2019 13:24:00 EDT Exam CR Spine Cervical 4+ Views Ordering Physician DO PACK EUGENE F. Accession Number [id number] CPT4 Codes 74113 () Reason For Exam pain Report CERVICAL SPINE SERIES: INDICATION: Neck pain COMPARISON: No prior studies are available for comparative purposes. TECHNIQUE: Five films are submitted for interpretation, including a swimmer's view. FINDINGS: Alignment, curvature and segmentation of the cervical spine are within normal limits. The prevertebral soft tissues are unremarkable. There is no evidence of acute fracture, dislocation or subluxation. Disc space narrowing is noted at C4-C5, C5-C6 and C6-C7. There is 2 mm retrolisthesis at C5-C6. Multilevel foraminal encroachment is present bilaterally with relative sparing at C6-C7. AP and open mouth odontoid views are grossly unremarkable. Impression: Arthritic changes. No acute fracture. 2 mm of retrolisthesis of C5-C6. Report Dictated on --- Final --- Dictating Physician: DO KING ALFRED Signed Date and Time: 12/23/2019 2:32 pm Signed by: DO KING ALFRED Transcribed Date and Time: 12/23/2019 2:33 [place], [place] Vital Signs Date Time Vital Sign Value Performing Clinician Facility 08-19-2024 12:30-0400 Body temperature 97.5 [degF] Dr. Jean-Paul Pack DO Work Phone: [facility] 08-19-2024 12:30-0400 Diastolic blood pressure 60 mm[Hg] Dr. Jean-Paul Pack DO Work Phone: [facility] 08-19-2024 12:30-0400 Heart rate 50 /min Dr. Jean-Paul Pack DO Work Phone: [phone] [place] [address] 08-19-2024 12:30-0400 Respiratory rate 16 /min Dr. Jean-Paul Pack DO Work Phone: [facility] 08-19-2024 12:30-0400 SaO2% (BldA) [Mass fraction] 96 % Dr. Jean-Paul Pack DO Work Phone: [facility] 08-19-2024 12:30-0400 Systolic blood pressure 97 mm[Hg] Dr. Jean-Paul Pack DO Work Phone: [facility] 08-19-2024 12:00-0400 Inhaled oxygen flow rate 2 L/min Dr. Jean-Paul Pack DO Work Phone: [facility] 08-19-2024 10:15-0400 Body height 167.[address] Jean-Paul Pack DO Work Phone: [facility] 08-19-2024 10:15-0400 Body mass index (BMI) [Ratio] 27.3 kg/m2 Dr. Jean-Paul Pack DO Work Phone: [facility] 08-19-2024 10:15-0400 Body weight [address] Jean-Paul Pack DO Work Phone: [facility] 08-13-2024 13:49-0400 Body height 167.6 cm Kavon Kramer [employer]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 Work Phone: [facility] [employer] 08-13-2024 13:49-0400 Body mass index (BMI) [Ratio] 27.44 kg/m2 Kavon Kramer SALESPERSON [employer]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 Work Phone: [facility] [employer] 08-13-2024 13:49-0400 Body weight 77.11 kg Kavon Kramer [employer]ESPERSON [employer]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 Work Phone: [facility] [employer] 05-11-2024 10:18-0400 Body height 167.6 cm Jean-Paul Mahoganydes DO Work Phone: [facility] [employer] 05-11-2024 10:18-0400 Body mass index (BMI) [Ratio] 29.05 kg/m2 Jean-Paul Pack Work Phone: [facility] [employer] 05-11-2024 10:18-0400 Body temperature 97.11 [degF] Jean-Paul Pack Work Phone: [facility] [employer] 05-11-2024 10:18-0400 Body weight 81.65 kg Jean-Paul Pack Work Phone: [facility] [employer] 05-11-2024 10:18-0400 Diastolic blood pressure 78 mm[Hg] Jean-Paul Pack Work Phone: [facility] [employer] 05-11-2024 10:18-0400 Heart rate 51 /min Jean-Paul Pack Work Phone: [facility] [employer] 05-11-2024 10:18-0400 SaO2% (BldA) [Mass fraction] 97 % Jean-Paul Pack DO Work Phone: [facility] [employer] 05-11-2024 10:18-0400 Systolic blood pressure 120 mm[Hg] Jean-Paul Videsdes Work Phone: [facility] [employer] 01-15-2024 14:42-0500 Body height 167.6 cm Roddy Sosa MD Work Phone: [facility] [employer] 01-15-2024 14:42-0500 Body mass index (BMI) [Ratio] 28.25 kg/m2 Roddy Sosa MD Work Phone: [facility] [employer] 01-15-2024 14:42-0500 Body weight 79.38 kg Roddy Sosa MD Work Phone: [facility] [employer] 01-15-2024 14:42-0500 Diastolic blood pressure 62 mm[Hg] Roddy Sosa MD Work Phone: [facility] [employer] 01-15-2024 14:42-0500 Heart rate 54 /min Roddy Sosa MD Work Phone: [facility] [employer] 01-15-2024 14:42-0500 Respiratory rate 16 /min Roddy Sosa MD Work Phone: [facility] [employer] 01-15-2024 14:42-0500 SaO2% (BldA) [Mass fraction] 98 % Roddy Sosa MD Work Phone: [facility] [employer] 01-15-2024 14:42-0500 Systolic blood pressure 110 mm[Hg] Roddy Sosa MD Work Phone: [facility] [employer] 01-08-2024 14:23-0500 Body height 167.6 cm Jean-Paul Videsdes Work Phone: [facility] [employer] 01-08-2024 14:23-0500 Body mass index (BMI) [Ratio] 28.57 kg/m2 Jean-Paul Ramone Work Phone: [facility] [employer] 01-08-2024 14:23-0500 Body temperature 97 [degF] Jean-Paul Ramone DO Work Phone: [facility] [employer] 01-08-2024 14:23-0500 Body weight 80.29 kg Jean-Paul Petrilla DO Work Phone: [employer] 01-08-2024 14:23-0500 Diastolic blood pressure 64 mm[Hg] Jean-Paul Pack DO Work Phone: [facility] [employer] 01-08-2024 14:23-0500 Heart rate 54 /min Jean-Paul Pack DO Work Phone: [facility] [employer] 01-08-2024 14:23-0500 SaO2% (BldA) [Mass fraction] 97 % Jean-Paul Pack DO Work Phone: [facility] [employer] 01-08-2024 14:23-0500 Systolic blood pressure 121 mm[Hg] Jean-Paul Pack DO Work Phone: [facility] [employer] 12-29-2023 21:13-0500 Diastolic blood pressure 71 mm[Hg] Gladys Anthony DO Work Phone: [facility] [employer] 12-29-2023 21:13-0500 Heart rate 61 /min Gladys Anthony DO Work Phone: [facility] [employer] 12-29-2023 21:13-0500 SaO2% (BldA) [Mass fraction] 98 % Gladys Anthony DO Work Phone: [facility] [employer] 12-29-2023 21:13-0500 Systolic blood pressure 127 mm[Hg] Gladys Anthony DO Work Phone: [facility] [employer] 12-29-2023 17:48-0500 Body temperature 97.11 [degF] Gladys Anthony DO Work Phone: [facility] [employer] 12-29-2023 17:48-0500 Respiratory rate 19 /min Gladys Anthony DO Work Phone: [facility] [employer] 11-10-2023 08:39-0400 Body height 167.6 cm Jean-Paul Pack DO Work Phone: [facility] [employer] 11-10-2023 08:39-0400 Body mass index (BMI) [Ratio] 28.41 kg/m2 Jean-Paul Pack DO Work Phone: [facility] [employer] 11-10-2023 08:39-0400 Body temperature 97 [degF] Jean-Paul Pack DO Work Phone: [facility] [employer] 11-10-2023 08:39-0400 Body weight 79.83 kg Jean-Paul Pack DO Work Phone: [facility] [employer] 11-10-2023 08:39-0400 Diastolic blood pressure 74 mm[Hg] Jean-Paul Pack DO Work Phone: [facility] [employer] 11-10-2023 08:39-0400 Heart rate 55 /min Jean-Paul Pack DO Work Phone: [facility] [employer] 11-10-2023 08:39-0400 SaO2% (BldA) [Mass fraction] 98 % Jean-Paul Pack DO Work Phone: [facility] [employer] 11-10-2023 08:39-0400 Systolic blood pressure 118 mm[Hg] Jean-Paul Pack DO Work Phone: [facility] [employer] 10-08-2023 10:42-0400 Body height 167.6 cm Kavon Nia [employer]ERSON [employer]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 Work Phone: [employer] 10-08-2023 10:42-0400 Body mass index (BMI) [Ratio] 28.12 kg/m2 Kavon Nia [employer]ERSON [employer]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 Work Phone: [employer] 10-08-2023 10:42-0400 Body weight 79.02 kg Kavon Nia [employer]ESPERSON [employer]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 Work Phone: [employer] 10-08-2023 10:42-0400 Diastolic blood pressure 78 mm[Hg] Kavon Nia SALESPERSON [employer]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 Work Phone: [employer] 10-08-2023 10:42-0400 Heart rate 58 /min Kavon Nia SALESPERSON [employer]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 Work Phone: [employer] 10-08-2023 10:42-0400 Respiratory rate 16 /min Kavon Nia SALESPERSON [employer]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 Work Phone: [facility] [employer] 10-08-2023 10:42-0400 Systolic blood pressure 126 mm[Hg] Kavon Kramer SALESPERSON [employer]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 Work Phone: [facility] [employer] 09-23-2023 14:45-0400 Diastolic blood pressure 58 mm[Hg] Ronal Barr MD Work Phone: [facility] [employer] 09-23-2023 14:45-0400 Heart rate 60 /min Ronal Barr MD Work Phone: [facility] [employer] 09-23-2023 14:45-0400 Respiratory rate 14 /min Ronal Barr MD Work Phone: [facility] [employer] 09-23-2023 14:45-0400 SaO2% (BldA) [Mass fraction] 98 % Ronal Barr MD Work Phone: [facility] [employer] 09-23-2023 14:45-0400 Systolic blood pressure 102 mm[Hg] Ronal Barr MD Work Phone: [facility] [employer] 09-23-2023 10:55-0400 Body temperature 97.39 [degF] Ronal Barr MD Work Phone: [facility] [employer] 09-23-2023 06:33-0400 Body height 167.6 cm Ronal Barr MD Work Phone: [facility] [employer] 09-23-2023 06:33-0400 Body mass index (BMI) [Ratio] 27.44 kg/m2 Ronal Barr MD Work Phone: [facility] [employer] 09-23-2023 06:33-0400 Body weight 77.11 kg Ronal Barr MD Work Phone: [facility] [employer] 09-22-2023 08:40-0400 Body height 167.6 cm Kaushik Wise MD Work Phone: [facility] [employer] 09-22-2023 08:40-0400 Body mass index (BMI) [Ratio] 28.15 kg/m2 Kaushik Wise MD Work Phone: [facility] [employer] 09-22-2023 08:40-0400 Body weight 79.11 kg Kaushik Wise MD Work Phone: [facility] [employer] 09-22-2023 08:40-0400 Diastolic blood pressure 69 mm[Hg] Kaushik Wise MD Work Phone: [facility] [employer] 09-22-2023 08:40-0400 Heart rate 51 /min Kaushik Wise MD Work Phone: [facility] [employer] 09-22-2023 08:40-0400 Systolic blood pressure 120 mm[Hg] Kaushik Wise MD Work Phone: [facility] [employer] 09-17-2023 15:04-0400 Body height 167.6 cm Ronal Barr MD Work Phone: [facility] [employer] 09-17-2023 15:04-0400 Body mass index (BMI) [Ratio] 27.7 kg/m2 Ronal Barr MD Work Phone: [facility] [employer] 09-17-2023 15:04-0400 Body weight 77.84 kg Ronal Barr MD Work Phone: [facility] [employer] 09-17-2023 15:04-0400 Diastolic blood pressure 76 mm[Hg] Ronal Barr MD Work Phone: [facility] [employer] 09-17-2023 15:04-0400 Heart rate 61 /min Ronal Barr MD Work Phone: [facility] [employer] 09-17-2023 15:04-0400 SaO2% (BldA) [Mass fraction] 97 % Ronal Barr MD Work Phone: [facility] [employer] 09-17-2023 15:04-0400 Systolic blood pressure 144 mm[Hg] Ronal Barr MD Work Phone: [facility] [employer] 09-15-2023 11:11-0400 Body temperature 97.9 [degF] Keanu Canales MD Work Phone: [facility] [employer] 09-15-2023 11:11-0400 Diastolic blood pressure 80 mm[Hg] Keanu Canales MD Work Phone: [facility] [employer] 09-15-2023 11:11-0400 Heart rate 67 /min Keanu Canales MD Work Phone: [facility] 09-15-2023 11:11-0400 Respiratory rate 16 /min Keanu Canales MD Work Phone: [facility] 09-15-2023 11:11-0400 SaO2% (BldA) [Mass fraction] 98 % Keanu Canales MD Work Phone: [facility] 09-15-2023 11:11-0400 Systolic blood pressure 144 mm[Hg] Keanu Canales MD Work Phone: [facility] 08-18-2023 11:14-0400 Body temperature 97.2 [degF] Tanna Chavez MD Work Phone: [facility] 08-18-2023 11:14-0400 Diastolic blood pressure 68 mm[Hg] Tanna Chavez MD Work Phone: [facility] 08-18-2023 11:14-0400 Heart rate 73 /min Tanna Chavez MD Work Phone: [facility] 08-18-2023 11:14-0400 Respiratory rate 14 /min Tanna Chavez MD Work Phone: [facility] 08-18-2023 11:14-0400 SaO2% (BldA) [Mass fraction] 96 % Tanna Chavez MD Work Phone: [facility] 08-18-2023 11:14-0400 Systolic blood pressure 117 mm[Hg] Tanna Chavez MD Work Phone: [facility] 08-18-2023 10:33-0400 Body height 167.6 cm Tanna Chavez MD Work Phone: [facility] 08-18-2023 10:33-0400 Body mass index (BMI) [Ratio] 27.44 kg/m2 Tanna Chavez MD Work Phone: [facility] [employer] 08-18-2023 10:33-0400 Body weight 77.11 kg Tanna Chavez MD Work Phone: [facility] [employer] 07-29-2023 10:53-0400 Body height 167.6 cm Roddy Sosa MD Work Phone: [facility] [employer] 07-29-2023 10:53-0400 Body mass index (BMI) [Ratio] 27.99 kg/m2 Roddy Sosa MD Work Phone: [facility] [employer] 07-29-2023 10:53-0400 Body weight 78.65 kg Roddy Sosa MD Work Phone: [facility] [employer] 07-29-2023 10:53-0400 Diastolic blood pressure 70 mm[Hg] Roddy Sosa MD Work Phone: [facility] [employer] 07-29-2023 10:53-0400 Heart rate 57 /min Roddy Sosa MD Work Phone: [facility] [employer] 07-29-2023 10:53-0400 Respiratory rate 16 /min Roddy Sosa MD Work Phone: [facility] [employer] 07-29-2023 10:53-0400 SaO2% (BldA) [Mass fraction] 97 % Roddy Sosa MD Work Phone: [facility] [employer] 07-29-2023 10:53-0400 Systolic blood pressure 90 mm[Hg] Roddy Sosa MD Work Phone: [facility] [employer] 06-17-2023 12:45-0400 Body height 167.6 cm Ronal Barr MD Work Phone: [facility] [employer] 06-17-2023 12:45-0400 Body mass index (BMI) [Ratio] 28.41 kg/m2 Ronal Barr MD Work Phone: [facility] [employer] 06-17-2023 12:45-0400 Body weight 79.83 kg Ronal Barr MD Work Phone: [facility] [employer] 10-17-2022 07:32-0400 Diastolic blood pressure 76 mm[Hg] Jean-Paul Pack DO Work Phone: [facility] [employer] 10-17-2022 07:32-0400 Heart rate 72 /min Jean-Paul Pack DO Work Phone: [facility] [employer] 10-17-2022 07:32-0400 Systolic blood pressure 126 mm[Hg] Jean-Paul Pack DO Work Phone: [facility] [employer] 10-17-2022 06:53-0400 Body height 167.6 cm Jean-Paul Pack DO Work Phone: [facility] [employer] 10-17-2022 06:53-0400 Body mass index (BMI) [Ratio] 28.08 kg/m2 Jean-Paul Pack DO Work Phone: [facility] [employer] 10-17-2022 06:53-0400 Body temperature 98.01 [degF] Jean-Paul Pack DO Work Phone: [facility] [employer] 10-17-2022 06:53-0400 Body weight 78.93 kg Jean-Paul Pack DO Work Phone: [facility] [employer] 10-17-2022 06:53-0400 SaO2% (BldA) [Mass fraction] 98 % Jean-Paul Pack DO Work Phone: [facility] [employer] 06-22-2022 18:15-0400 Body temperature 97.2 [degF] Jean-Paul Pack DO Work Phone: [facility] [employer] 06-22-2022 18:15-0400 Diastolic blood pressure 85 mm[Hg] Jean-Paul Pack DO Work Phone: [facility] [employer] 06-22-2022 18:15-0400 Heart rate 79 /min Jean-Paul Pack DO Work Phone: [facility] [employer] 06-22-2022 18:15-0400 Respiratory rate 16 /min Jean-Paul Pack DO Work Phone: [facility] [employer] 06-22-2022 18:15-0400 SaO2% (BldA) [Mass fraction] 97 % Jean-Paul Pack DO Work Phone: [facility] [employer] 06-22-2022 18:15-0400 Systolic blood pressure 142 mm[Hg] Jean-Paul Petrilla DO Work Phone: [facility] 06-06-2022 11:57-0400 Body height 167.6 cm Ronal Barr MD Work Phone: [facility] 06-06-2022 11:57-0400 Body mass index (BMI) [Ratio] 27.44 kg/m2 Ronal Barr MD Work Phone: [facility] 06-06-2022 11:57-0400 Body weight 77.11 kg Ronal Barr MD Work Phone: [facility] 05-29-2022 12:02-0400 Body height 167.6 cm Ronal Barr MD Work Phone: [facility] [employer] 05-29-2022 12:02-0400 Body mass index (BMI) [Ratio] 28.63 kg/m2 Ronal Barr MD Work Phone: [facility] [employer] 05-29-2022 12:02-0400 Body weight 80.47 kg Ronal Barr MD Work Phone: [facility] 05-29-2022 12:02-0400 Diastolic blood pressure 62 mm[Hg] Ronal Barr MD Work Phone: [facility] [employer] 05-29-2022 12:02-0400 Heart rate 60 /min Ronal Barr MD Work Phone: [facility] 05-29-2022 12:02-0400 Systolic blood pressure 112 mm[Hg] Ronal Barr MD Work Phone: [facility] 05-28-2022 10:20-0400 Body temperature 97 [degF] Cornelio Garcia MD Work Phone: [facility] [employer] 05-28-2022 10:20-0400 Diastolic blood pressure 71 mm[Hg] Cornelio Garcia MD Work Phone: [facility] [employer] 05-28-2022 10:20-0400 Heart rate 70 /min Cornelio Garcia MD Work Phone: [facility] [employer] 05-28-2022 10:20-0400 Respiratory rate 16 /min Cornelio Garcia MD Work Phone: [facility] [employer] 05-28-2022 10:20-0400 SaO2% (BldA) [Mass fraction] 96 % Cornelio Garcia MD Work Phone: [facility] [employer] 05-28-2022 10:20-0400 Systolic blood pressure 111 mm[Hg] Cornelio Garcia MD Work Phone: [facility] [employer] 05-27-2022 16:11-0400 Body height 167.6 cm Cornelio Garcia MD Work Phone: [facility] [employer] 05-27-2022 16:11-0400 Body mass index (BMI) [Ratio] 27.44 kg/m2 Cornelio Garcia MD Work Phone: [facility] [employer] 05-27-2022 16:11-0400 Body weight 77.11 kg Cornelio Garcia MD Work Phone: [facility] [employer] 02-23-2020 09:26-0500 BMI (Body Mass Index) 27.88 kg/m2 [place], [place] 02-23-2020 09:26-0500 Body weight 80.74 kg [place], [place] 02-23-2020 09:26-0500 Height 170.2 cm [place], [place] Encounters Encounter Date Encounter Type Care Provider Facility Start: 11-02-2024 End: 11-03-2024 Telephone encounter Roddy Sosa MD Work Phone: [facility] Comment on above: Med Management Start: 10-20-2024 End: 10-21-2024 Telephone encounter Roddy Sosa MD Work Phone: [facility] Comment on above: Medication Reaction Start: 09-20-2024 End: 09-21-2024 ambulatory Karolina Lopez RN [facility] Clinical Communication Start: 09-20-2024 End: 09-21-2024 Patient encounter procedure Karolina Lopez RN [facility] Clinic al Communication Start: 08-31-2024 End: 09-01-2024 Refill Roddy Sosa MD Work Phone: [facility] Comment on above: Chest pain due to co ronary artery disease (HCC) Start: 08-25-2024 End: 08-25-2024 Telephone encounter Roddy Sosa MD Work Phone: [facility] Comment on above: Med Management Start: 08-24-2024 End: 08-24-2024 Refill Roddy Sosa MD Work Phone: [facility] Comment on above: Coronary artery dise ase involving [place] coronary artery of [place] heart, unspecified whether angina present Start: 08-19-2024 ambulatory Liam Bajwa Facility :[facility] Start: 08-19-2024 Non-patient / Non-visit Liam Gaviria nd DO -[facility] Start: 08-19-2024 End: 08-19-2024 Admission to same day surgery center Liam Bajwa DO -Endoscopy Work Phone: Start: 08-19-2024 End: 08-19-[address] Jean-Paul Pack DO Work Phone: [facility] Work Phone: Start: 08-13-2024 End: 10-13-2024 Follow-up encounter Kavon Kramer APRN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 Work Phone: [facility] Comment on above: Transthoracic echoca rdiogram (TTE) complete with contrast, bubble, strain, and 3D PRN Start: 08-13-2024 End: 08-16-2024 Subsequent hospital visit by physician Kavon Kramer APRN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 Work Phone: [facility] Non-Invasive Cardiology Comment on above: Aortic stenosis, mod erate Chest pain due to co ronary artery disease (HCC) Start: 08-13-2024 End: 08-13-2024 ambulatory JEAN-PAUL PACK [facility] Start: 08-11-2024 End: 08-11-2024 Refill Roddy Sosa MD Work Phone: [facility] Comment on above: Coronary artery dise ase involving [place] coronary artery of [place] heart, unspecified whether angina present Start: 08-10-2024 End: 08-10-2024 Telephone encounter Roddy Sosa MD Work Phone: [facility] Start: 07-16-2024 End: 07-16-2024 ambulatory JEAN-PAUL [facility] Start: 07-06-2024 End: 07-06-2024 Orders Only Jean-Paul Pack DO Work Phone: [facility] Start: 07-03-2024 End: 07-05-2024 Refill Jean-Paul Pack DO Work Phone: [facility] Start: 05-16-2024 End: 05-16-2024 Orders Only Jean-Paul Pack DO Work Phone: [facility] Comment on above: Macrocytosis without anemia (Primary Dx) Start: 05-11-2024 End: 05-11-2024 Office outpatient visit 15 minutes Jean-Paul Pack DO Work Phone: [facility] Comment on above: Coronary artery dise ase involving [place] coronary artery of [place] heart, unspecified whether angina present (Primary Dx); Hypercholesterolemia; Hypothyroidism, unspecified type; Nonrheumatic aortic valve stenosis; Gastroesophageal reflux disease without esophagitis Start: 05-11-2024 End: 05-11-2024 ambulatory [facility] Start: 05-05-2024 End: 05-06-2024 Refill Roxana Kelly APRN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 [facility] Start: 04-29-2024 End: 04-30-2024 Refill Jean-Paul Pack DO Work Phone: [facility] Start: 02-24-2024 End: 02-26-2024 Refill Jean-Paul Pack DO Work Phone: [facility] Start: 01-15-2024 End: 01-15-2024 Office outpatient visit 25 minutes Roddy Sosa MD Work Phone: [facility] Comment on above: Coronary artery dise ase involving [place] coronary artery of [place] heart, unspecified whether angina present (Primary Dx); Aortic valve stenosis, etiology of cardiac valve disease unspecified; Mixed hyperlipidemia Start: 01-15-2024 End: 01-15-2024 ambulatory RODDY MARTÍNEZPAMELA [facility] Start: 01-08-2024 End: 01-08-2024 Office outpatient visit 15 minutes Jean-Paul Pack DO Work Phone: [facility] [place] Comment on above: External hemorrhoid, bleeding (Primary Dx); Irritable bowel syndrome, unspecified type; Coronary artery disease involving [place] coronary artery of [place] heart, unspecified whether angina present Start: 01-08-2024 End: 01-08-2024 ambulatory [facility] Start: 12-30-2023 End: 01-03-2024 Telephone encounter Jill Giron MD Work Phone: [facility] Gastroenterology - [place] Comment on above: Appointment Request Start: 12-29-2023 End: 12-29-2023 Emergency department patient visit Gladys Villanueva Pipe DO Work Phone: [facility] ED Comment on above: Rectal bleeding (Gena soila Dx) Start: 12-12-2023 End: 12-12-2023 ambulatory Jean-Paul Pack [facility] Facility:[facility] Start: 12-11-2023 End: 12-11-2023 Subsequent hospital visit by physician Roddy Alcazar DO Work Phone: [facility] Comment on above: Postsurgical percuta neous transluminal coronary angioplasty status [Z98.61] Start: 12-11-2023 End: 12-11-2023 ambulatory JEAN-PAUL [facility] Start: 12-10-2023 End: 12-10-2023 [facility] Start: 12-10-2023 End: 12-10-2023 Subsequent hospital visit by physician Roddy Alcazar DO Work Phone: [facility] Comment on above: Postsurgical percuta neous transluminal coronary angioplasty status [Z98.61] Start: 12-08-2023 End: 12-08-2023 ambulatory JEAN-PAUL [facility] Start: 12-08-2023 End: 12-08-2023 Subsequent hospital visit by physician Roddy Alcazar DO Work Phone: [facility] Comment on above: Postsurgical percuta neous transluminal coronary angioplasty status [Z98.61] Start: 12-04-2023 End: 12-04-2023 [facility] Start: 12-04-2023 End: 12-04-2023 Subsequent hospital visit by physician Roddy Alcazar DO Work Phone: [facility] Comment on above: Postsurgical percuta neous transluminal coronary angioplasty status [Z98.61] Start: 12-03-2023 End: 12-03-2023 [facility] Start: 12-03-2023 End: 12-03-2023 Subsequent hospital visit by physician Roddy Alcazar DO Work Phone: [facility] Comment on above: Postsurgical percuta neous transluminal coronary angioplasty status [Z98.61] Start: 12-01-2023 End: 12-01-2023 [facility] Start: 12-01-2023 End: 12-01-2023 Subsequent hospital visit by physician Roddy Alcazar DO Work Phone: [facility] Comment on above: Postsurgical percuta neous transluminal coronary angioplasty status [Z98.61] Start: 11-27-2023 End: 11-27-2023 Subsequent hospital visit by physician Roddy Alcazar DO Work Phone: [facility] Comment on above: Postsurgical percuta neous transluminal coronary angioplasty status [Z98.61] Start: 11-26-2023 End: 11-26-2023 Subsequent hospital visit by physician Roddy Alcazar DO Work Phone: [facility] Comment on above: Postsurgical percuta neous transluminal coronary angioplasty status [Z98.61] Start: 11-24-2023 End: 11-24-2023 Subsequent hospital visit by physician Roddy Alcazar DO Work Phone: [facility] Comment on above: Percutaneous translu mata coronary angioplasty status [Z98.61] Start: 11-20-2023 End: 11-20-2023 Subsequent hospital visit by physician Roddy Alcazar DO Work Phone: [facility] Comment on above: Postsurgical percuta neous transluminal coronary angioplasty status [Z98.61] Start: 11-19-2023 End: 11-19-2023 Subsequent hospital visit by physician Roddy Alcazar DO Work Phone: [facility] Comment on above: Postsurgical percuta neous transluminal coronary angioplasty status [Z98.61] Start: 11-17-2023 End: 11-17-2023 Subsequent hospital visit by physician Roddy Alcazar DO Work Phone: [facility] Comment on above: Postsurgical percuta neous transluminal coronary angioplasty status [Z98.61] Start: 11-13-2023 End: 11-14-2023 Telephone encounter Jean-Paul Pack DO Work Phone: [facility] Start: 11-13-2023 End: 11-13-2023 Subsequent hospital visit by physician Roddy Alcazar DO Work Phone: [facility] Comment on above: Postsurgical percuta neous transluminal coronary angioplasty status [Z98.61] Start: 11-12-2023 End: 11-12-2023 Subsequent hospital visit by physician Roddy Alcazar DO Work Phone: [facility] Comment on above: Postsurgical percuta neous transluminal coronary angioplasty status [Z98.61] Start: 11-10-2023 End: 11-10-2023 Subsequent hospital visit by physician Roddy Alcazar DO Work Phone: [facility] Comment on above: Postsurgical percuta neous transluminal coronary angioplasty status [Z98.61] Start: 11-10-2023 End: 11-10-2023 Office outpatient visit 15 minutes Jean-Paul Rodas Mahoganydes DO Work Phone: [facility] [place] Comment on above: Delayed gastric empt judi (Primary Dx); Coronary artery disease involving [place] coronary artery of [place] heart, unspecified whether angina present; Hypothyroidism, unspecified type; Hypercholesterolemia; Gastritis without bleeding, unspecified chronicity, unspecified gastritis type; Aortic stenosis, moderate Start: 11-07-2023 End: 11-07-2023 Subsequent hospital visit by physician Roddy Alcazar DO Work Phone: [facility] Card Pulm Rehab Comment on above: Coronary artery dise ase involving [place] coronary artery of [place] heart, unspecified whether angina present; History of percutaneous coronary intervention; Post PTCA [Z98.61] Start: 10-08-2023 End: 10-08-2023 Office outpatient visit 25 minutes Kavon Kramer SALESPERSON [employer] [place] Work Phone: [facility] Cardiology Comment on above: Coronary artery dise ase involving [place] coronary artery of [place] heart, unspecified whether angina present (Primary Dx); Aortic valve stenosis, etiology of cardiac valve disease unspecified; History of percutaneous coronary intervention; Dyslipidemia; Aortic stenosis, moderate; Hypercholesterolemia Start: 09-30-2023 End: 09-30-2023 Subsequent hospital visit by physician Florian Trujillo APRN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 Work Phone: [facility] Nuclear Medicine Comment on above: 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, 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, 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 Start: 09-23-2023 End: 09-23-2023 Subsequent hospital visit by physician Ronal Barr MD Work Phone: [facility] Cardiac Director Utilization Management Comment on above: Aortic valve stenosi s, etiology of cardiac valve disease unspecified Start: 09-22-2023 End: 09-22-2023 Office outpatient new 30 minutes Kaushik Wise MD Work Phone: [facility] General Surgery Comment on above: Umbilical hernia wit hout obstruction and without gangrene (Primary Dx); 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, chronic, generalized Start: 09-18-2023 End: 09-18-2023 ambulatory Meagan Jovel SALESPERSON [employer]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 Work Phone: [facility] Start: 09-17-2023 End: 09-17-2023 Office outpatient visit 40 minutes Ronal Barr MD Work Phone: [facility] Comment on above: Aortic valve stenosi s, etiology of cardiac valve disease unspecified (Primary Dx) Start: 09-15-2023 End: 09-15-2023 ambulatory Salma Amezcua RN [facility] Clinical Communication Start: 09-15-2023 End: 09-15-2023 Patient encounter procedure Salma Amezcua RN [facility] Clinic al Communication Start: 09-15-2023 End: 09-15-2023 Emergency department patient visit Keanu Canales MD Work Phone: [facility] ED Comment on above: Generalized abdomina l pain (Primary Dx) Start: 08-19-2023 End: 08-19-2023 Refill Kayla Vamsi PA-C Work Phone: [facility] Cardiology Comment on above: Chest pain due to co ronary artery disease (HCC) Start: 08-18-2023 End: 08-19-2023 Refill Kayla Vamsi PA-C Work Phone: [facility] Comment on above: Chest pain due to co ronary artery disease (HCC) Start: 08-18-2023 End: 08-18-2023 Evaluation and management of inpatient Tanna Chavez MD Work Phone: [facility] Medical Surgical Unit [facility] Comment on above: Chest pain, unspecif ied type (Primary Dx) Start: 08-15-2023 End: 08-15-2023 Refill Roddy Sosa MD Work Phone: [facility] Comment on above: Coronary artery dise ase involving [place] coronary artery of [place] heart, unspecified whether angina present Start: 07-29-2023 End: 07-29-2023 Office outpatient visit 25 minutes Roddy Sosa MD Work Phone: [facility] Comment on above: Coronary artery dise ase involving [place] coronary artery of [place] heart, unspecified whether angina present (Primary Dx); Shortness of breath; Aortic valve stenosis, etiology of cardiac valve disease unspecified; Mixed hyperlipidemia Start: 06-27-2023 Refill Ronal Barr MD Work Phone: [facility] Start: 06-17-2023 Refill Kayla Vamsi PA-C Work Phone: [facility] Comment on above: Chest pain due to co ronary artery disease (HCC) Start: 06-17-2023 End: 06-17-2023 Subsequent hospital visit by physician Ronal Barr MD Work Phone: [facility] Non-Invasive Cardiology Comment on above: Aortic valve stenosi s, etiology of cardiac valve disease unspecified Start: 06-16-2023 Refill Kayla Vamsi PA-C Work Phone: [facility] Comment on above: Coronary artery dise ase involving [place] coronary artery of [place] heart, unspecified whether angina present; Chest pain due to coronary artery disease (HCC) Start: 06-04-2023 Orders Only Jean-Paul F Mahogany lla DO Work Phone: [facility] Start: 05-14-2023 Orders Only Jean-Paul F Mahogany lla DO Work Phone: [facility] Comment on above: Hypercholesterolemia (Primary Dx) Start: 05-09-2023 Orders Only Jean-Paul F Mahogany lla DO Work Phone: [facility] Comment on above: Hypercholesterolemia (Primary Dx) Start: 04-23-2023 Refill Jean-Paul F Mahogany lla DO Work Phone: [facility] Start: 04-14-2023 Refill Kayla Vamsi PA-C Work Phone: [facility] Comment on above: Coronary artery dise ase involving [place] coronary artery of [place] heart, unspecified whether angina present; Chest pain, unspecified type; Chest pain due to coronary artery disease (HCC) Start: 11-06-2022 Refill Kayla Vamsi PA-C Work Phone: [facility] Start: 10-17-2022 End: 10-17-2022 Assay of hemosiderin, quant Jean-Paul Pack DO Work Phone: [facility] Start: 10-17-2022 End: 10-17-2022 Patient encounter procedure Jean-Paul Pack DO Work Phone: [facility] Comment on above: Encounter for subseq uent annual wellness visit (AWV) in Medicare patient (Primary Dx); Coronary artery disease involving [place] coronary artery of [place] heart, unspecified whether angina present; Acquired hypothyroidism; Hypercholesterolemia; History of myocardial infarction; Macrocytic; Routine general medical examination at health care facility Start: 10-14-2022 ambulatory Carolyn Orosco RN [facility] C linical Communication Start: 10-14-2022 Patient encounter procedure Carolyn hall RN [facility] Clinical Communication Start: 07-31-2022 Refill Jean-Paul nunes DO Work Phone: [facility] Start: 07-09-2022 End: 07-09-2022 Subsequent hospital visit by physician Roddy Alcazar DO Work Phone: [facility] Card Pulm Rehab Comment on above: Canceled (Patient: O ther ) Start: 06-22-2022 End: 06-22-2022 Emergency department patient visit Jean-Paul Pack DO Work Phone: [facility] ED Comment on above: Hematoma of IV site, initial encounter (HCC) (Primary Dx) Start: 06-06-2022 End: 06-06-2022 Subsequent hospital visit by physician Ronal Barr MD Work Phone: [facility] [address] Non-Invasive Cardiology Comment on above: Coronary artery dise ase involving [place] coronary artery of [place] heart, unspecified whether angina present Start: 06-05-2022 ambulatory Meagan Jovel [employer]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 Work Phone: [facility] Start: 05-29-2022 End: 05-29-2022 Office outpatient visit 40 minutes Ronal Barr MD Work Phone: [facility] Comment on above: Coronary artery dise ase involving [place] coronary artery of [place] heart, unspecified whether angina present; Chest pain due to coronary artery disease (HCC); Hypercholesterolemia Start: 05-28-2022 Telephone encounter Ronal baldwin MD Work Phone: [facility] Comment on above: Appointment Request (Discharge from CDU today. 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) Start: 01-13-2020 End: 01-13-2020 Subsequent hospital visit by physician Jean-Paul Pack Work Phone: [facility] [place] [facility] Start: 01-07-2020 End: 01-07-2020 Subsequent hospital visit by physician [facility] Start: 01-06-2020 End: 01-06-2020 Subsequent hospital visit by physician Jean-Paul Pack Work Phone: [facility] [place] [facility] Start: 12-23-2019 End: 12-23-2019 Subsequent hospital visit by physician Jean-Paul Pack Work Phone: [facility] Radiology Comment on above: Cervical spine disea se Procedures Date Procedure Procedure Detail Performing Clinician Start: 08-19-[address] Jean-Paul griffin DO Work Phone: Start: 08-13-2024 Echo tthrc r-t 2d w/wom-mode compl spec&colr d Kavon Kramer [employer] [place] Work Phone: Start: 05-11-2024 Adult depression screening assessment Jean-Paul Pack DO Work Phone: Start: 05-11-2024 Lipid 1996 panel - Serum or Plasma Cristal Pack DO Work Phone: Start: 05-11-2024 Thyrotropin [Units/volume] in Serum or Plasma Jean-Paul Pack DO Work Phone: Start: 01-15-2024 Ecg routine ecg w/least 12 lds w/i&r Roddy Sosa MD Work Phone: Start: 01-08-2024 Adult depression screening assessment Jean-Paul Pack DO Work Phone: Start: 12-29-2023 Comprehensive metabolic panel Gustavo ennis [employer] [place] Work Phone: Start: 10-08-2023 Ecg routine ecg w/least 12 lds w/i&r Roddy Sosa MD Work Phone: Start: 10-08-2023 Lipid 1996 panel - Serum or Plasma Reyes eliot Inge DO Work Phone: Start: 09-30-2023 Gastric emptying imaging study Florian damon [employer] [place] Work Phone: Start: 09-26-2023 History of coronary artery bypass grafting S/P CABG x 3 Florian Trujillo [employer]ERSON [employer] - [employer] Work Phone: Start: 09-23-2023 Ecg routine ecg w/least 12 lds trcg only w/o i&r Ronal Barr MD Work Phone: Start: 09-23-2023 Cardiac catheterization study Ronal baldwin MD Work Phone: Start: 09-23-2023 Percutaneous coronary intervention Chase Barr MD Work Phone: Start: 09-23-2023 POCT ACT Ronal Barr MD Work Phone: Start: 09-23-2023 POCT ACT Ronal Barr MD Work Phone: Start: 09-23-2023 End: 09-23-2023 POCT O2 SATURATION Ronal Barr MD Work Phone: Start: 09-17-2023 Ecg routine ecg w/least 12 lds trcg only w/o i&r Ronal Barr MD Work Phone: Start: 09-15-2023 Ct abdomen & pelvis w/contrast material Keanu Canales MD Work Phone: Start: 09-15-2023 Comprehensive metabolic panel Keanu pollock MD Work Phone: Start: 08-18-2023 Basic metabolic panel calcium total Garrison george Montoya MD Work Phone: Start: 08-18-2023 Assay of troponin quantitative Tanna Guy MD Work Phone: Start: 08-18-2023 Assay of troponin quantitative Tanna Guy MD Work Phone: Start: 08-18-2023 Ecg routine ecg w/least 12 lds trcg only w/o i&r Tanna Chavez MD Work Phone: Start: 08-18-2023 Thyrotropin [Units/volume] in Serum or Plasma Tanna Chavez MD Work Phone: Start: 08-18-2023 Comprehensive metabolic panel Tanna Ross MD Work Phone: Start: 08-18-2023 Ecg routine ecg w/least 12 lds trcg only w/o i&r Tanna Chavez MD Work Phone: Start: 07-29-2023 Ecg routine ecg w/least 12 lds w/i&r Roddy Sosa MD Work Phone: Start: 06-17-2023 Echo tthrc r-t 2d w/wom-mode compl spec&colr d Ronal Barr MD Work Phone: Start: 04-21-2023 Lipid 1996 panel - Serum or Plasma Cristal Pack DO Work Phone: Start: 04-21-2023 Thyrotropin [Units/volume] in Serum or Plasma Jean-Paul Pack DO Work Phone: Start: 10-17-2022 Adult depression screening assessment Jean-Paul Pack DO Work Phone: Start: 10-17-2022 Lipid 1996 panel - Serum or Plasma Bree h Vamsi PA-C Work Phone: Start: 10-17-2022 Thyrotropin [Units/volume] in Serum or Plasma Kayla Vamsi PA-C Work Phone: Start: 06-06-2022 Echo tthrc r-t 2d w/wom-mode compl spec&colr d Ronal Barr MD Work Phone: Start: 05-28-2022 Ecg routine ecg w/least 12 lds trcg only w/o i&r Freda Yony Cisneros [employer]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 Work Phone: Start: 05-28-2022 Comprehensive metabolic panel Freda Bhakta Cisneros [employer]ERSON [employer]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 Work Phone: Start: 05-27-2022 Assay of troponin quantitative Freda Bhakta Cisneros SAL[employer]ERSON [employer]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 Work Phone: Start: 05-27-2022 Ecg routine ecg w/least 12 lds trcg only w/o i&r Freda M Cisneros [employer]ERSON [employer]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 Work Phone: Start: 05-27-2022 Assay of troponin quantitative Freda Yony Cisneros [employer]ERSON [employer]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 Work Phone: Start: 05-27-2022 Radiologic exam chest 2 views Temi bean MD Work Phone: Start: 05-27-2022 Comprehensive metabolic panel Temi bean MD Work Phone: Start: 05-27-2022 Lipid panel Freda Cisneros [employer]ERSON [employer]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 Work Phone: Start: 05-27-2022 Ecg routine ecg w/least 12 lds i&r only Cornelio Garcia MD Work Phone: Start: 05-27-2022 Lipid 1996 panel - Serum or Plasma Chase Barr MD Work Phone: Start: 05-27-2022 End: 05-27-2022 Thyrotropin [Units/volume] in Serum or Plasma Freda Cisneros APRN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 Work Phone: Start: 05-23-2021 Lipid 1996 panel - Serum or Plasma Cristal e Mahoganylla DO Work Phone: Start: 02-23-2020 ECHOCARDIOGRAM PHARMACOLOGICAL STRESS TEST Rekha Maldonado Work Phone: Start: 12-23-2019 Radex spine cervical 4 or 5 views Jean-Paul Rodas Ramone Work Phone: Plan of Treatment Date Care Activity Detail Author Start: 05-11-2029 Lipid panel Lipid Panel [facility] Start: 10-07-2028 Lipid panel Lipid Panel [facility] Start: 04-21-2028 Lipid panel Lipid Panel [facility] Start: 10-18-2027 Lipid panel Lipid Panel [facility] Start: 05-28-2027 Lipid panel Lipid Panel [facility] Start: 05-23-2026 Lipid panel Lipid Panel [facility] Start: 05-11-2025 Depression Screening Depression Screening [facility] Start: 05-11-2025 Thyroid stimulating hormone measurement TSH Level [facility] Start: 01-17-2025 End: 01-17-2025 Patient encounter procedure 01/17/2025 2:00 PM EST Office Visit [facility] Cardiology [facility] [address] [place] [address] [phone] Roddy Sosa MD [address] [place] [address] [phone] [facility] Cardiology [facility] Start: 01-07-2025 Depression Screening Depression Screening [facility] Start: 11-16-2024 End: 05-16-2025 CBC W Auto Differential panel - Blood CBC auto differential Lab Routine Macrocytosis without anemia Expected: 11/16/2024 (Approximate), Expires: 05/16/2025 [facility] Comment on above: Expected: 11/16/2024 (Approximate), Expi res: 05/16/2025 Start: 11-16-2024 End: 05-16-2025 Cobalamin (Vitamin B12) [Mass/volume] in Serum or Plasma Vitamin B12 Lab Routine Macrocytosis without anemia Expected: 11/16/2024 (Approximate), Expires: 05/16/2025 [facility] Work Phone: Comment on above: Expected: 11/16/2024 (Approximate), Expi res: 05/16/2025 Start: 11-16-2024 End: 05-16-2025 Folate RBC Folate RBC Lab Routine Macrocytosis without anemia Expected: 11/16/2024 (Approximate), Expires: 05/16/2025 [facility] Comment on above: Expected: 11/16/2024 (Approximate), Expi res: 05/16/2025 Start: 11-10-2024 End: 11-10-2024 Patient encounter procedure 11/10/2024 10:20 AM EDT Office Visit [facility] [address] [place] [address] Jean-Paul Pack, [address] [place] [address] [facility] Start: 10-25-2024 COVID-19 Vaccine ( season) COVID-19 Vaccine ( season) [facility] Start: 10-25-2024 Influenza vaccination [facility] Start: 08-19-2024 Patient discharge [facility] Start: 08-17-2024 Thyroid stimulating hormone measurement TSH Level [facility] Start: 08-13-2024 End: 08-13-2024 Patient encounter procedure 08/13/2024 2:00 PM EDT Appointment [facility] Non-Invasive Cardiology [address] [place] [address] Kavon Kramer, [employer]ERSON [employer]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 [address], [address] [place] [address] [facility] Non-Invasive Cardiology Start: 07-16-2024 End: 07-16-2024 Patient encounter procedure 07/16/2024 1:30 PM EDT Office Visit [facility] [address] [place] [address] Kavon Kramer, [employer]ERSON [employer]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 [address], [address] [place] [address] [facility] Start: 05-11-2024 End: 05-11-2025 CBC W Auto Differential panel - Blood CBC auto differential Lab Routine Hypercholesterolemia Expected: 05/11/2024 (Approximate), Expires: 05/11/2025 [facility] Work Phone: Comment on above: Expected: 05/11/2024 (Approximate), Expi res: 05/11/2025 Start: 05-11-2024 End: 05-11-2025 Comprehensive metabolic 1998 panel - Serum or Plasma Comprehensive metabolic panel Lab Routine Hypercholesterolemia Expected: 05/11/2024 (Approximate), Expires: 05/11/2025 [facility] Comment on above: Expected: 05/11/2024 (Approximate), Expi res: 05/11/2025 Start: 05-11-2024 End: 05-11-2025 Lipid 1996 panel - Serum or Plasma Lipid panel Lab Routine Hypothyroidism, unspecified type Expected: 05/11/2024 (Approximate), Expires: 05/11/2025 [facility] Comment on above: Expected: 05/11/2024 (Approximate), Expi res: 05/11/2025 Start: 05-11-2024 End: 05-11-2025 Thyrotropin [Units/volume] in Serum or Plasma TSH Lab Routine Hypothyroidism, unspecified type Expected: 05/11/2024 (Approximate), Expires: 05/11/2025 [facility] Comment on above: Expected: 05/11/2024 (Approximate), Expi res: 05/11/2025 Start: 05-11-2024 End: 05-11-2024 Patient encounter procedure 05/11/2024 10:30 AM EDT Office Visit [facility] [address] [place] [address] Jean-Paul Pack Clark, DO [address] [place] [address] [facility] Start: 04-21-2024 Thyroid stimulating hormone measurement TSH Level [facility] Start: 02-25-2024 Medicare Advantage Annual Wellness Visit Medicare Advantage Annual Wellness Visit [facility] Start: 01-28-2024 End: 01-28-2024 Patient encounter procedure 01/28/2024 1:30 PM EST Appointment [facility]m Re[facility] [address] [place] [address] [phone] [facility], DO [address] [place] [address] [facility] Start: 01-26-2024 End: 01-26-2024 Patient encounter procedure 01/26/2024 1:30 PM EST Appointment [facility] [address] [place] [phone] [facility], DO [address] [place] [address] [facility] Start: 01-21-2024 End: 01-21-2024 Patient encounter procedure 01/21/2024 1:30 PM EST Appointment [facility] [address] [place] [phone] [facility], DO [address] [place] [address] [facility] Start: 01-19-2024 End: 01-19-2024 Patient encounter procedure 01/19/2024 1:30 PM EST Appointment [facility] [address] [place] [phone] Johnnyhugo Roddy, [place] [address] [facility] Start: 01-15-2024 End: 01-15-2024 Patient encounter procedure [facility] Start: 01-15-2024 End: 01-15-2024 Patient encounter procedure 01/15/2024 1:30 PM EST Appointment [facility] [address] [place] [phone] [facility] [place] [address] [facility] Start: 01-14-2024 End: 01-14-2024 Patient encounter procedure 01/14/2024 1:30 PM EST Appointment [facility] [address] [place] [phone] [facility] Roddy, DO [address] [place] [address] [facility] Start: 01-12-2024 End: 01-12-2024 Patient encounter procedure 01/12/2024 1:30 PM EST Appointment [facility] [address] [place] [phone] [facility] Roddy, [place] [address] [facility] Start: 01-08-2024 End: 01-08-2024 Patient encounter procedure [facility] Start: 01-07-2024 End: 01-07-2024 Patient encounter procedure 01/07/2024 1:30 PM EST Appointment [facility] [address] [facility] [place] [address] Roddy Alcazar, DO [address] [place] [address] [facility] Start: 01-05-2024 End: 01-05-2024 Patient encounter procedure 01/05/2024 1:30 PM EST Appointment [facility] [address] [facility] [place] [address] Roddy Alcazar, DO [address] [place] [address] [facility] Start: 01-01-2024 End: 01-01-2024 Patient encounter procedure 01/01/2024 1:30 PM EST Appointment [facility] [address] [place] [address] Roddy Alcazar, DO [address] [place] [address] [facility] Start: 12-31-2023 End: 12-31-2023 Patient encounter procedure 12/31/2023 1:30 PM EST Appointment [facility] [address] [address] [place] [address] Roddy Alcazar, DO [address] [place] [address] [facility] Start: 12-29-2023 End: 12-29-2023 Patient encounter procedure 12/29/2023 1:30 PM EST Appointment [facility] [address] [address] [address] [place] [address] Roddy Alcazar, DO [address] [place] [address] [facility] Start: 12-25-2023 End: 12-25-2023 Patient encounter procedure 12/25/2023 1:30 PM EDT Appointment [facility] [address] [facility] [place] [address] Roddy Alcazar, [place] [address] [facility] Start: 12-24-2023 End: 12-24-2023 Patient encounter procedure 12/24/2023 1:30 PM EDT Appointment [facility] [address] [place], [place] [address] [address] Inge Roddy, [place] [address] [facility] Start: 12-22-2023 End: 12-22-2023 Patient encounter procedure 12/22/2023 1:30 PM EDT Appointment [facility] [address] [facility] [address] [place], [place] [address] [address] Inge Roddy, [place] [address] [facility] Start: 12-18-2023 End: 12-18-2023 Patient encounter procedure 12/18/2023 1:30 PM EDT Appointment [facility] [address] [facility] [address] [place] [address] [address] Roddy Alcazar, [place] [address] [facility] Start: 12-17-2023 End: 12-17-2023 Patient encounter procedure 12/17/2023 1:30 PM EDT Appointment [facility] [address] [facility] [address] [place] [address] Inge [place], DO [address] [place] [id number] [facility] Start: 12-15-2023 End: 12-15-2023 Patient encounter procedure 12/15/2023 1:30 PM EDT Appointment [facility] [address] [facility] [address] [place] [address] [address] [facility] Roddy, [place] [address] [facility] Start: 12-11-2023 End: 12-11-2023 Patient encounter procedure 12/11/2023 1:30 PM EDT Appointment [facility] [address] [address] [place] [address] [facility] DO [address] [place] [address] [facility] Start: 12-10-2023 End: 12-10-2023 Patient encounter procedure 12/10/2023 1:30 PM EDT Appointment [facility] [address] [facility] [address] [place] [address] [facility], DO [address] [place] [address] [facility] Start: 12-08-2023 End: 12-08-2023 Patient encounter procedure 12/08/2023 1:30 PM EDT Appointment [facility] [address] [address] [place] [address] [facility] DO [address] [place] [address] [facility] Start: 12-04-2023 End: 12-04-2023 Patient encounter procedure 12/04/2023 1:30 PM EDT Appointment [facility] [address] [facility] [address] [facility] [place] [address] Roddy Alcazar, DO [address] [place] [address] [facility] Start: 12-03-2023 End: 12-03-2023 Patient encounter procedure 12/03/2023 1:30 PM EDT Appointment [facility] [address] [facility] [address] [place] [address] [address] [facility], [place] [address] [facility] Start: 12-01-2023 End: 12-01-2023 Patient encounter procedure 12/01/2023 1:30 PM EDT Appointment [facility] [address] [facility] [address] [place], [place] [address] [address] [facility], [place] [address] [facility] Start: 11-27-2023 End: 11-27-2023 Patient encounter procedure 11/27/2023 1:30 PM EDT Appointment [facility] [address] [facility] [address] [place] [address] [address] Roddy Alcazar, [place] [address] [facility] Start: 11-26-2023 End: 11-26-2023 Patient encounter procedure 11/26/2023 1:30 PM EDT Appointment [facility] [address] [facility] [address] [place] [address] [facility] Roddy, [place] [address] [facility] Start: 11-24-2023 End: 11-24-2023 Patient encounter procedure 11/24/2023 1:30 PM EDT Appointment [facility] [address] [facility] [address] [address] [place] [address] Roddy Alcazar, [place] [address] [facility] Start: 11-20-2023 End: 11-20-2023 Patient encounter procedure 11/20/2023 1:30 PM EDT Appointment [facility] [address] [facility] [address] [place] [address] [facility], [place] [address] [facility] Start: 11-19-2023 End: 11-19-2023 Patient encounter procedure 11/19/2023 1:30 PM EDT Appointment [facility] [address] [facility] [address] [place] [address] [facility] [place] Roddy, [place] [address] [facility] Start: 11-17-2023 End: 11-17-2023 Patient encounter procedure 11/17/2023 1:30 PM EDT Appointment [facility] [address] [facility] [address] [address] [facility] Roddy, [place] [address] [facility] Start: 11-13-2023 End: 11-13-2023 Patient encounter procedure 11/13/2023 1:30 PM EDT Appointment [facility] [address] [facility] [address] [address] [facility] [address] [place] [address] [facility] Start: 11-12-2023 End: 11-12-2023 Patient encounter procedure 11/12/2023 1:30 PM EDT Appointment [facility] [address] [place] [phone] [facility] [address] [place] [address] [facility] Start: 11-10-2023 End: 11-10-2023 Patient encounter procedure [facility] Start: 10-26-2023 COVID-19 Vaccine ( season) COVID-19 Vaccine ( season) [facility] Start: 10-26-2023 COVID-19 Vaccine ( season) COVID-19 Vaccine ( season) [facility] Start: 10-26-2023 Influenza vaccination [facility] Start: 10-20-2023 End: 10-20-2023 Patient encounter procedure 10/20/2023 8:30 AM EDT Office Visit [facility] [address] [place] [address] Jean-Paul Pack F, DO [address] [place] [address] [facility] Start: 10-18-2023 Depression Screening Depression Screening [facility] Start: 10-18-2023 Thyroid stimulating hormone measurement TSH Level [facility] Start: 10-08-2023 End: 10-07-2024 Basic metabolic 1998 panel - Serum or Plasma Basic metabolic panel Lab Routine Coronary artery disease involving [place] coronary artery of [place] heart, unspecified whether angina present Expected: 10/08/2023 (Approximate), Expires: 10/07/2024 [facility] Work Phone: Comment on above: Expected: 10/08/2023 (Approximate), Expi res: 10/07/2024 Start: 10-08-2023 End: 10-07-2024 CBC panel - Blood by Automated count CBC Lab Routine Coronary artery disease involving [place] coronary artery of [place] heart, unspecified whether angina present Expected: 10/08/2023 (Approximate), Expires: 10/07/2024 [facility] Comment on above: Expected: 10/08/2023 (Approximate), Expi res: 10/07/2024 Start: 10-08-2023 End: 10-07-2024 Hepatic function 2000 panel - Serum or Plasma Hepatic function panel Lab Routine Dyslipidemia Expected: 10/08/2023 (Approximate), Expires: 10/07/2024 [facility] Comment on above: Expected: 10/08/2023 (Approximate), Expi res: 10/07/2024 Start: 10-08-2023 End: 10-07-2024 Lipid 1996 panel - Serum or Plasma Lipid panel Lab Routine Dyslipidemia Expected: 10/08/2023 (Approximate), Expires: 10/07/2024 [facility] Comment on above: Expected: 10/08/2023 (Approximate), Expi res: 10/07/2024 Start: 10-08-2023 End: 10-08-2023 Patient encounter procedure 10/08/2023 9:00 AM EDT Office Visit [facility] [address] [place] [address] Temi Tubbs, [employer]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 [address] [place] [address] [facility] Start: 09-23-2023 End: 09-23-2023 Admission to same day surgery center [facility] Cardiac Director Utilization Management Comment on above: Left and right heart cath / coronary ang iography Left and right heart cath / coronary angiography w grafts Start: 09-23-2023 Subsequent hospital visit by physician 09/23/2023 8:00 AM EDT Hospital Encounter [facility] Cardiac Director Utilization Management [address] [place] [address] Ronal Barr MD [address] [place] [phone] Aortic valve stenosis, etiology of cardiac valve disease unspecified [facility] Cardiac Director Utilization Management Comment on above: Aortic valve stenosis, etiology of cardi ac valve disease unspecified Start: 09-22-2023 End: 09-21-2024 NM Stomach Views for gastric emptying solid phase W radionuclide PO NM gastric emptying solid Imaging Routine 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, chronic, generalized Expected: 09/22/2023, Expires: 09/21/2024 [facility] Work Phone: Comment on above: Expected: 09/22/2023, Expires: Start: 09-22-2023 End: 09-22-2023 Patient encounter procedure 09/22/2023 9:15 AM EDT Office Visit [facility] [address] [facility] [address] [place] [phone] Kaushik Wise MD [address] [place] [address] [address] [place] [address] [facility] Start: 09-17-2023 End: 09-17-2023 Patient encounter procedure 09/17/2023 3:30 PM EDT Office Visit [facility] [address] [place] [phone] Ronal Barr MD [address] [place] [phone] [facility] Start: 08-14-2023 End: 05-13-2024 Alanine aminotransferase [Enzymatic activity/volume] in Serum or Plasma ALT Lab Routine Hypercholesterolemia Expected: 08/14/2023 (Approximate), Expires: 05/13/2024 [facility] Work Phone: Comment on above: Expected: 08/14/2023 (Approximate), Expi res: 05/13/2024 Start: 08-14-2023 End: 05-13-2024 Lipid 1996 panel - Serum or Plasma Lipid panel Lab Routine Hypercholesterolemia Expected: 08/14/2023 (Approximate), Expires: 05/13/2024 [facility] Comment on above: Expected: 08/14/2023 (Approximate), Expi res: 05/13/2024 Start: 08-09-2023 End: 05-08-2024 Alanine aminotransferase [Enzymatic activity/volume] in Serum or Plasma ALT Lab Routine Hypercholesterolemia Expected: 08/09/2023 (Approximate), Expires: 05/08/2024 [facility] Comment on above: Expected: 08/09/2023 (Approximate), Expi res: 05/08/2024 Start: 08-09-2023 End: 05-08-2024 Aspartate aminotransferase [Enzymatic activity/volume] in Serum or Plasma AST Lab Routine Hypercholesterolemia Expected: 08/09/2023 (Approximate), Expires: 05/08/2024 [facility] Comment on above: Expected: 08/09/2023 (Approximate), Expi res: 05/08/2024 Start: 08-09-2023 End: 05-08-2024 Lipid 1996 panel - Serum or Plasma Lipid panel Lab Routine Hypercholesterolemia Expected: 08/09/2023 (Approximate), Expires: 05/08/2024 [facility] [employer] Work Phone: Comment on above: Expected: 08/09/2023 (Approximate), Expi res: 05/08/2024 Start: 07-29-2023 End: 07-29-2023 Patient encounter procedure 07/29/2023 11:00 AM EDT Office Visit [facility] [address] [facility] [address] [place] [address] Roddy Sosa MD [address] [facility] [address] [place] [address] [facility] Start: 06-17-2023 End: 06-17-2023 Patient encounter procedure 06/17/2023 1:00 PM EDT Appointment [facility] Non-Invasive Cardiology [address] [place] [phone] Ronal Barr MD [address] [facility] [address] [place] [phone] [facility] Non-Invasive Cardiology Start: 05-28-2023 Thyroid stimulating hormone measurement TSH Level [facility] Start: 05-26-2023 End: 05-26-2023 Patient encounter procedure 05/26/2023 1:00 PM EDT Appointment [facility] Non-Invasive Cardiology [address] [place] [facility] [address] Ronal Barr MD [address] [place] [address] [facility] Non-Invasive Cardiology Start: 04-21-2023 End: 04-21-2023 Patient encounter procedure [facility] Start: 02-24-2023 Medicare Advantage Annual Wellness Visit Medicare Advantage Annual Wellness Visit [facility] Start: 10-25-2022 COVID-19 Vaccine ( season) COVID-19 Vaccine () [facility] Start: 10-25-2022 Influenza vaccination [facility] Start: 10-17-2022 End: 10-18-2023 CBC W Auto Differential panel - Blood CBC auto differential Lab Routine Acquired hypothyroidism Expected: 10/17/2022 (Approximate), Expires: 10/18/2023 [facility] Comment on above: Expected: 10/17/2022 (Approximate), Expi res: 10/18/2023 Start: 10-17-2022 End: 10-18-2023 Cobalamin (Vitamin B12) [Mass/volume] in Serum or Plasma Vitamin B12 Lab Routine Macrocytic Expected: 10/17/2022 (Approximate), Expires: 10/18/2023 [facility] Comment on above: Expected: 10/17/2022 (Approximate), Expi res: 10/18/2023 Start: 10-17-2022 End: 10-18-2023 Comprehensive metabolic 1998 panel - Serum or Plasma Comprehensive metabolic panel Lab Routine Acquired hypothyroidism Expected: 10/17/2022 (Approximate), Expires: 10/18/2023 [facility] Work Phone: Comment on above: Expected: 10/17/2022 (Approximate), Expi res: 10/18/2023 Start: 10-17-2022 End: 10-18-2023 Folate RBC Folate RBC Lab Routine Macrocytic Expected: 10/17/2022 (Approximate), Expires: 10/18/2023 [facility] [employer] Comment on above: Expected: 10/17/2022 (Approximate), Expi res: 10/18/2023 Start: 10-17-2022 End: 10-18-2023 Lipid 1996 panel - Serum or Plasma Lipid panel Lab Routine Hypercholesterolemia Expected: 10/17/2022 (Approximate), Expires: 10/18/2023 [facility] [employer] Comment on above: Expected: 10/17/2022 (Approximate), Expi res: 10/18/2023 Start: 10-17-2022 End: 10-18-2023 Thyrotropin [Units/volume] in Serum or Plasma TSH Lab Routine Acquired hypothyroidism Expected: 10/17/2022 (Approximate), Expires: 10/18/2023 [facility] [employer] Comment on above: Expected: 10/17/2022 (Approximate), Expi res: 10/18/2023 Start: 10-17-2022 End: 10-17-2022 Patient encounter procedure 10/17/2022 7:00 AM EDT Office Visit [facility] [address] [place] [address] Jean-Paul Pack DO [address] [place] [address] [facility] Start: 08-21-2022 End: 08-21-2022 Patient encounter procedure [facility] Start: 07-09-2022 End: 07-09-2022 Patient encounter procedure 07/09/2022 Appointment Cardiology [facility] Card Pulm Rehab Start: 06-11-2022 End: 06-11-2022 Admission to same day surgery center 06/11/2022 Surgery Cardiology Ronal Barr MD [address] [place] [address] Left heart cath / coronary angiography [facility] Cardiac Director Utilization Management Comment on above: Left heart cath / coronary angiography Start: 06-11-2022 Subsequent hospital visit by physician 06/11/2022 Hospital Encounter Cardiology Ronal Barr MD [address] [place] [address] Chest pain due to coronary artery disease (HCC) [facility] Cardiac Director Utilization Management Comment on above: Chest pain due to coronary artery diseas e (HCC) Start: 06-06-2022 End: 06-06-2022 Patient encounter procedure 06/06/2022 Appointment Cardiology Ronal Barr MD [address] [place] [address] [facility] [address] Non-Invasive Cardiology Start: 05-29-2022 End: 05-29-2024 US Heart Transthoracic Transthoracic echocardiogram (TTE) complete with contrast, bubble, strain, and 3D PRN CV Echocardiography STAT Coronary artery disease involving [place] coronary artery of [place] heart, unspecified whether angina present Expected: 05/29/2022 (Approximate), Expires: 05/29/[address] [facility] Work Phone: Comment on above: Expected: 05/29/2022 (Approximate), Expi res: 05/29/2024 Start: 05-29-2022 End: 05-29-2022 Patient encounter procedure 05/29/2022 Office Visit Cardiology Ronal Barr MD [address] [place] [address] [facility] Start: 11-20-2021 Lipid panel Lipid screen [facility] Work Phone: Start: 11-20-2021 Thyroid stimulating hormone measurement TSH testing [facility] Work Phone: Start: 10-25-2021 Influenza vaccination Influenza Vaccine (#1) [facility] Start: 03-22-2021 COVID-19 Vaccine (1) COVID-19 Vaccine (1) [facility] Work Phone: Comment on above: Postponed from 1953 (Patient Refus ed) Start: 01-17-2021 End: 01-17-2021 Office Visit 01/17/2021 Office Visit Family Medicine Jean-Paul Pack, DO [address] [place] [address], [place] [address] [phone] [facility] Start: 01-17-2021 Annual Wellness Visit (AWV) Annual Wellness Visit (AWV) [place], [place] Start: 01-16-2021 Influenza vaccination Flu vaccine (#1) [place] Comment on above: Postponed from 10/26/2019 (Patient Refus ed) Start: 2020 Lipid panel Lipid screen [place] Start: 10-25-2020 Influenza vaccination Flu vaccine (#1) [facility] Work Phone: Start: 03-01-2020 End: 03-01-2020 Virtual Visit 03/01/2020 Virtual Visit Cardiology Ronal Barr MD [address] [place] [phone] [facility] Start: 01-17-2020 End: 01-17-2020 Office Visit 01/17/2020 Office Visit Family Medicine Jean-Paul Pack, DO [address] [place] [address] [phone] [facility] Start: 01-04-2020 End: 01-04-2020 Appointment 01/04/2020 Appointment [facility] [address] [facility] Start: 10-26-2019 Influenza vaccination Flu vaccine (#1) [place] Start: 04-25-2019 TSH Qn TSH testing [place] Start: 08-16-2018 Annual Wellness Visit (AWV) Annual Wellness Visit (AWV) [place] Start: 2016 RSV Immunization for Adults (1 - 1-dose 75+ series) RSV Immunization for Adults (1 - 1-dose 75+ series) [facility] Start: 2001 RSV Immunization aged 60 or older (1 - 1-dose 60+ series) RSV Immunization aged 60 or older (1 - 1-dose 60+ series) [facility] Start: 12-03-1991 Shingles Vaccine (1 of 2) Shingles Vaccine (1 of 2) [place] Start: 12-03-1991 Zoster Vaccines (1 of 2) Zoster Vaccines (1 of 2) [facility] Start: 1960 DTaP/Tdap/Td vaccine (1 - Tdap) DTaP/Tdap/Td vaccine (1 - Tdap) [place] Start: 1960 DTaP/Tdap/Td Vaccines (1 - Tdap) DTaP/Tdap/Td Vaccines (1 - Tdap) [facility] Start: 12-03-1959 Diabetes mellitus screening Diabetes Screening [facility] Start: 1953 Depression Screening Depression Screening [facility] Start: 1948 DTaP/Tdap/Td Vaccines (1 - Tdap) DTaP/Tdap/Td Vaccines (1 - Tdap) [facility] Start: 06-02-1942 COVID-19 Vaccine (#1) COVID-19 Vaccine (#1) [facility] Start: 1941 Hepatitis B Vaccines (1 of 3 - 3-dose series) Hepatitis B Vaccines (1 of 3 - 3-dose series) [facility] Start: 1941 Hepatitis C screening Hepatitis C screen [place], [place] Start: 1941 Medicare Advantage Annual Wellness Visit (AWV) Medicare Advantage Annual Wellness Visit (AWV) [facility] Start: 1941 Thyroid stimulating hormone measurement TSH Level [facility] End: 12-07-2020 CT CHEST W CONTRAST CT CHEST W CONTRAST Imaging Routine Pulmonary scarring 1 Occurrences starting 12/07/2020 until 12/07/2020 [facility] Work Phone: Comment on above: 1 Occurrences starting 12/07/2020 until 12/07/2020 CT CHEST W CONTRAST CT CHEST W C ONTRAST Imaging Routine Pulmonary scarring 12/07/2020 12:53 PM EDT [facility] Work Phone: ECG 12 lead ECG 12 lead CV E CG Routine 05/28/2022 7:20 AM EDT [facility] [employer] Work Phone: ECG 12 lead - CLINIC PERFORMED ECG 12 lead - CLINIC PERFORMED CV ECG Routine Aortic valve stenosis, etiology of cardiac valve disease unspecified 09/17/2023 4:10 PM EDT [employer] Work Phone: LEFT AND RIGHT HEART CATH / CORONARY ANGIOGRAPHY LEFT AND RIGHT HEART CATH / CORONARY ANGIOGRAPHY Aortic valve stenosis, etiology of cardiac valve disease unspecified [employer] End: 02-23-2020 Nasal Cannula Oxygen Nasal Cannula Oxygen Respiratory Care Routine As Needed until discontinued starting 02/23/2020 [place] Comment on above: As Needed until discontinued starting OUTSIDE PROCEDURE SCAN OUTSIDE P ROCEDURE SCAN Procedures Ordered: 06/26/2022 [employer] [facility] Comment on above: Ordered: 06/26/2022 Patient referral [facility] Work Phone: Immunizations Immunization Date Immunization Notes Care Provider Mejia manning 10-30-2016 pneumococcal polysaccharide vaccine, 23 valent [facility] 05-27-2016 pneumococcal conjuga te vaccine, 13 valent [place] Payers Date Payer Category Payer Self-pay 2022 Medicare [id number] 2022 Medicare O [facility] MEDICARE ADV ANTAGE [id number] 2022 Medicare [id number] 2017 Medicare [employer] MEDICARE A ETNA MEDICARE-ADVANTAGE PPO [id number] 2017-Present [address] [place] [address] Medicare [id number] Unknown BC OUT OF STATE [id number] Unknown [id number] Unknown [id number] Social History Date Type Detail Facility Start: 12-23-2019 End: 12-18-2021 Tobacco smoking status NHIS Never smoker [place] Start: 12-23-2019 End: 12-18-2021 Tobacco use and exposure Never used [place], [place] Start: 12-23-2019 End: 11-17-2020 Alcohol intake Current non-drinker of alcohol (finding) [place] Start: 07-22-2018 End: 05-27-2022 History SDOH Alcohol Frequency 1 [place] Start: 07-22-2018 End: 11-17-2020 History SDOH Social Connections Phone 5 [place] Start: 07-22-2018 History SDOH Social Connections Get Together [address] [place] Start: 07-22-2018 History SDOH Social Connections Denominational 3 [place] Start: 07-22-2018 End: 05-27-2022 History SDOH Physical Activity DPW 2 [place], [place] Start: 1940 Sex Assigned At Not on file M [place], [place] Start: 05-17-2022 End: 10-17-2022 Exposure to SARS-CoV-2 (event) Not sure [place] Start: 11-17-2020 End: 05-27-2022 Alcohol intake [facility] Start: 06-19-2022 End: 07-16-2024 Alcohol intake Lifetime non-drinker (finding) [facility] Start: 06-11-2022 History SDOH Alcohol Std Drinks 0 [facility] Start: 05-27-2022 End: 06-11-2022 Humiliation, Afraid, Rape, and Kick questionnaire [HARK] [facility] Within the last year , have you been afraid of your partner or ex-partner? No [facility] How often to you hav e a drink containing alcohol? Never [facility] How many standard dr inks containing alcohol do you have on a typical day? Patient does not drink [facility] Start: 09-24-2021 Sex Male (finding) [facility] Start: 1940 Sex Assigned At Male W [facility] Medical Equipment Procedure Code Equipment Code Equipment Origin al Text Equipment Identifier Dates Stent Cor Skypoi nt [id number] - [id number] Start: 06-11-2022 Stent Cor Skypoi nt [id number] - [id number] Start: 06-11-2022 Stent Cor Skypoi nt [id number] - [id number] Start: 06-11-2022 Stent Cor Skypoi nt [id number] - [id number] Start: 09-23-2023 Goals Date Patient Goal Desired Activity /State Mental Status Date Assessment Result Facility 08-19-2024 Cognitive function Voice/Name [facility] Work Phone: Clinical Notes 03-08-2022 to 11-02-2024 Telephone Encounter - Roddy Anne RN - 11/02/2024 1:53 PM EDTTelephone Encounter - Roddy Anne RN - 11/02/2024 1:53 PM EDTTelephone Encounter - Angelica Burns - 11/02/2024 1:27 PM EDT Note Date & Type Note Facility 11-02-2024 Telephone encounter Note Form atting of this note might be different from the original. I called and spoke with Ramy. He drank three bottles of water after he fell beside his car twice. He thinks he passed out but is not sure. Since Drinking the 3 bottles of water he has had no further episodes. I told him this sounds like it could have been dehydration but it would have been better to call 911 while he was out at his car. I told him that if he has further feeling of lightheadedness or feels faint to call 911 and go to the ER. [facility] 11-02-2024 Miscellaneous Notes Formattin g of this note might be different from the original. I called and spoke with Ramy. He drank three bottles of water after he fell beside his car twice. He thinks he passed out but is not sure. Since Drinking the 3 bottles of water he has had no further episodes. I told him this sounds like it could have been dehydration but it would have been better to call 911 while he was out at his car. I told him that if he has further feeling of lightheadedness or feels faint to call 911 and go to the ER. Pt called because he went fishing and felt weak when he stood up. He went home and he thinks he passed out. He would like to know if this was caused from dehydration. Please advise ANGELY: 07/16/24 NOV: 01/17/25 documented in this encounter [facility] 11-02-2024 Telephone encounter Note Form atting of this note might be different from the original. Pt called because he went fishing and felt weak when he stood up. He went home and he thinks he passed out. He would like to know if this was caused from dehydration. Please advise ANGELY: 07/16/24 NOV: 01/17/25 [facility] 10-21-2024 Telephone encounter Note Form atting of this note might be different from the original. I called and left a message stating he should continue to remain off atorvastatin due to myalgias. I recommended he initiate rosuvastatin or Crestor 10 mg daily. I routed a prescription to [facility] in [place], his pharmacy of record. I requested he have a repeat lipid panel in 3 months. I also requested a return phone call if any difficulties tolerating the rosuvastatin, or any further questions. [facility] 10-21-2024 Miscellaneous Notes Formattin g of this note might be different from the original. I called and left a message stating he should continue to remain off atorvastatin due to myalgias. I recommended he initiate rosuvastatin or Crestor 10 mg daily. I routed a prescription to [facility] in [place], his pharmacy of record. I requested he have a repeat lipid panel in 3 months. I also requested a return phone call if any difficulties tolerating the rosuvastatin, or any further questions. PT called stating he spoke to a nurse about 2 wks ago that told him to stop taking his atorvastatin due to muscle cramps, he's was told to call back in 2 wks with an update. He's doing much better and would like to know what he can take in it's place. Pt would like a call back. documented in this encounter [facility] 10-20-2024 Telephone encounter Note Form atting of this note might be different from the original. PT called stating he spoke to a nurse about 2 wks ago that told him to stop taking his atorvastatin due to muscle cramps, he's was told to call back in 2 wks with an update. He's doing much better and would like to know what he can take in it's place. Pt would like a call back. [facility] 09-21-2024 Telephone encounter Note Form atting of this note might be different from the original. I called and advised pt hold atorvastatin 80 mg daily for 2 weeks to see if his muscle pain improves. He agrees to call the office in 2 weeks with an update on how he is feeling. [facility] 09-21-2024 Miscellaneous Notes Formattin g of this note might be different from the original. I called and advised pt hold atorvastatin 80 mg daily for 2 weeks to see if his muscle pain improves. He agrees to call the office in 2 weeks with an update on how he is feeling. S: Patient spoke with [facility] nurse regarding medication issue. B: Onset of symptoms/concern: atorvastatin 80 mg A: Patient states Kavon that prescribed his medication is causing extreme muscle soreness, Dr. Pack added a 10 mg of ezetimibe but states he's been on that for about six (6) months, first thing he read is that medication can cause muscle pain, states he's experiencing muscle soreness in his shoulders and arm and has had it for about two (2) months now, he cut the medication in half within the last week to see if that would help, noticed a slight difference but not absolutely sure, requesting alternative. R: Patient advised message would be sent to provider for follow up and recommendation, verbalized understanding. Q: Wants to know if there is a possibility to get it down to one medication? Please advise Reason for Disposition Caller wants to use a complementary or alternative medicine Protocols used: Medication Question [id number] documented in this encounter [facility] 09-20-2024 Telephone encounter Note Form atting of this note might be different from the original. S: Patient spoke with [facility] nurse regarding medication issue. B: Onset of symptoms/concern: atorvastatin 80 mg A: Patient states Kavon that prescribed his medication is causing extreme muscle soreness, Dr. Pack added a 10 mg of ezetimibe but states he's been on that for about six (6) months, first thing he read is that medication can cause muscle pain, states he's experiencing muscle soreness in his shoulders and arm and has had it for about two (2) months now, he cut the medication in half within the last week to see if that would help, noticed a slight difference but not absolutely sure, requesting alternative. R: Patient advised message would be sent to provider for follow up and recommendation, verbalized understanding. Q: Wants to know if there is a possibility to get it down to one medication? Please advise Reason for Disposition Caller wants to use a complementary or alternative medicine Protocols used: Medication Question [id number] [facility] 09-01-2024 Telephone encounter Note Form atting of this note might be different from the original. Last seen 07/16/24. [facility] 09-01-2024 Miscellaneous Notes Formattin g of this note might be different from the original. Last seen 07/16/24. documented in this encounter [facility] 08-25-2024 Telephone encounter Note Form atting of this note might be different from the original. PT. Took last pill this morning. [facility] says they received an order about a week and a half ago..he has not received it. He now has no pills left. Please call and advise he doesn't know where his medication is or what to do. [phone] [facility] 08-25-2024 Miscellaneous Notes Formattin g of this note might be different from the original. PT. Took last pill this morning. [facility] says they received an order about a week and a half ago..he has not received it. He now has no pills left. Please call and advise he doesn't know where his medication is or what to do. [phone] documented in this encounter [facility] 08-24-2024 Telephone encounter Note Form atting of this note might be different from the original. PT. Has one pill left. Needs to go to [facility] in [facility] 08-24-2024 Miscellaneous Notes Formattin g of this note might be different from the original. PT. Has one pill left. Needs to go to [facility] in [facility] documented in this encounter [facility] 08-19-2024 Consult note Note Date/Time August 19, 2024 10:56am [facility] Medical Records Department [address] [place] [address] Pre-Anesthesia Evaluation 08/19/24 1047 MR#: [id number] Acct: [id number] Name: RAMY BARRON Rep #:[id number] : 1940 83 From: Bennie Alfaro MD PCP: Dr. Jean-Paul Pack, DO Status:RE G SDC Y Race: C Location: [place] [address] ASA Classification* ASA Classification ASA Classification: 3 Assessment & Plan Anesthesia* Anesthesia Assessment Anesthesia Assessment: Discussed sedation and/or anesthesia options, risks, benefits, and alternatives with patient/parents/legal guardian/POA. Questions invited. The patient/parents/legal guardian/POA seems to understand and agrees to proceedwith anesthesia plan. Reviewed the physical assessment, medical history, allergy history and patient home medications list prior to surgery/procedure/anesthetic and documented any changes. Performed airway and anesthesia risk assessments. Anesthesia Type Anesthesia Type: MAC (Patient has moderate aortic stenosis. Avoid high heart rates and low blood pressure. Phenylephrine is drug of choice.) History Source History Obtained from:: Patient and Chart Anesthesia Focused Assessment* Temperature: 96.9 F Pulse Rate: 53 Blood Pressure: 120/75 Respiratory Rate: 17 Pulse Ox: 99 Oxygen Delivery Method: Room Air Airway Assessment Mouth opens: >3 cm Mallampati Score: III Teeth Condition: Missing (Patient is missing several teeth. 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 When Was Last Pacemaker Check QUESTION #4 FULL TEXT: You/Your Family Experience fever (hyperthermia) with Anesthesia Last Oral Intake Last Oral intake: Last Oral Intake NPO since 05:00 08/19/24 10:15 Meds taken in AM with sips of Yes 08/19/24 10:15 water? Meds patient instructed to take am of surgery Any additional information?: Yes NPO since: 04:00 (Patient took his a.m. 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 Female No 08/17/24 15:59 HX of Motion Sickness No 08/17/24 15:59 HX of N/V After Surgery No 08/17/24 15:59 Non-Smoker Yes 08/17/24 15:59 Duration of Surgery greater No 08/17/24 15:59 than 60 minutes Number of Risk Factors 1 08/17/24 15:59 PONV Score Low Risk 08/17/24 15:59 Height & Weight Height & Weight: Anesthesia: Height & Weight Height 5 ft 6 in 08/19/24 10:15 Weight: 77 kg 08/19/24 10:15 Body Mass Index (BMI) 27.3 08/19/24 10:15 Respiratory Assessment Respiratory Assessment - shoe parts caser: Respiratory Tract Infection Hx - 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 Has anyone observed you stop No 08/17/24 15:59 breathing during sleep? STOP Results Negative 08/17/24 15:59 QUESTION #5 FULL TEXT : Do you snore loudly (louder than talking or can be heard through closed doors)? 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 Specify any problems Hx of Preganancy in last 3 N/A 08/17/24 15:59 Months Nurse Filling Out Transfusion [id number] 08/17/24 15:59 & Questions: Date: 08/17/24 08/17/24 15:59 Time: 16:04 08/17/24 15:59 Patient unable to answer at this time (ie. confused, unrespo /Reproduction History /Reproductive History - shoe parts caser: /Reproductive Hx- shoe parts caser Hx Now Gestational Age (in weeks): EDC: Hx Hx Para Hx Section SAB Active Medications Active Medications: Current Medications Generic Name Dose Route Start Last Admin Trade Name Freq PRN Reason Stop Dose Admin Lactated Ringer's 1,000 mls @ 15 mls/hr 08/19/24 10:00 08/19/24 10:15 IV 15 mls/hr .Q48H NAN Administration PFSH Medical History Cardiology follow-up encounter History of stress test History of echocardiogram Wears glasses History of leukemia Thyroid disease Hoarseness Leg cramps History of heart attack Chest pain Gastroesophageal reflux disease without esophagitis Low HDL (under 40) Erectile dysfunction Aortic stenosis Gastritis without bleeding Hypercholesteremia Hypothyroidism 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 Home Medications ?Medication ?Instructions ?Recorded ?Last Taken ?Type aspirin 81 mg tablet,delayed 81 mg PO QDAY 12/11/23 History release (Adult Aspirin Regimen) atorvastatin 80 mg tablet 80 mg PO QDAY 10/17/24 06/25 /25 History clopidogrel 75 mg tablet 75 mg PO QDAY 12/11/2308/14 History coenzyme Q10 100 mg capsule 100 mg PO QDAY 12/11/23 History ezetimibe 10 mg tablet 10 mg PO QDAY 12/11/2308/18 History isosorbide mononitrate 60 mg 60 mg PO QDAY 12/11/23 History tablet,extended release 24 hr levothyroxine 100 mcg capsule 100 mcg PO QDAY 12/11/23 08/19/24 History metoprolol tartrate 25 mg tablet 25 mg PO BID 12/11/23 08/19/24 History nitroglycerin 0.4 mg sublingual 0.4 mg sublingual Q5-1 5M PRN chest 12/11/23 Unknown History tablet pain pantoprazole 40 mg tablet,delayed 40 mg PO QDAY 08/18/24 History release cyanocobalamin (vitamin B-12) 500 500 mcg PO DAILY 01/1808/18/24 History mcg tablet (Vitamin B-12) Allergy/AdvReac Type Severity Reaction Status Date / Time No Known Allergies Allergy Verified 08/19/24 10:14 Family History Father COPD (chronic obstructive pulmonary disease) Sister Diabetes Brother Heart disease Brother Cancer bladder Surgical History History of cardiac catheterization History of coronary artery stent placement S/P CABG x 3 Social History Smoking Status: Never smoker alcohol intake: never Review of Systems (Anesthesia) ROS Narrative System reviewed and no additional complaints, except as documented. 08/19/24 1056 <Electronically signed by Bennie carson MD> Date _ Bennie Alfaro MD Cosigner Signature: Date CC: ~ Signed [facility] Work Phone: 1(569) 221-212506-26-2025 Procedure note [facility] Medical Records Department [address] [place] [address] EGD Report MR#: [id number] Acct: [id number] Name: RAMY BARRON Rep #:[id number] : 1940 83 From: Liam Bajwa DO PCP: Dr. Jean-Paul Pack DO Status:[facility] Patient Name: Ramy Barron Procedure Date: 08/19/2024 11:43 AM Date of : 1940 Age: 83 Procedure: Upper GI endoscopy Indications: Epigastric abdominal pain, Functional Dyspepsia Providers: Liam Bajwa DO Referring MD: Jean-Paul Pack Medicines: Monitored Anesthesia Care Patient Profile: This is an 83 year old male. Refer to note in patient chart for documentation of history and physical. Patient has symptoms of chronic abdominal cramping, chronic abdominal distention, acute epigastric abdominal pain and chronic dyspepsia. Complications: No immediate complications. Procedure: Pre-Anesthesia Assessment: - Prior to the procedure, a History and Physical was performed, and patient medications and allergies were reviewed. The patient is competent. The risks and benefits of the procedure and the sedation options and risks were discussed with the patient. All questions were answered and informed consent was obtained. Patient identification and proposed procedure were verified by the physician in the pre-procedure area. Mental Status Examination: alert and oriented. Airway Examination: normal oropharyngeal airway and neck mobility. Respiratory Examination: clear to auscultation. CV Examination: normal. Prophylactic Antibiotics: The patient does not require prophylactic antibiotics. Prior Anticoagulants: The patient has taken no anticoagulant or antiplatelet agents except for NSAID medication. ASA Grade Assessment: II - A patient with mild systemic disease. After reviewing the risks and benefits, the patient was deemed in satisfactory condition to undergo the procedure. The anesthesia plan was to use monitored anesthesia care (MAC). Immediately prior to administration of medications, the patient was re-assessed for adequacy to receive sedatives. The heart rate, respiratory rate, oxygen saturations, blood pressure, adequacy of pulmonary ventilation, and response to care were monitored throughout the procedure. The physical status of the patient was re-assessed after the procedure. After obtaining informed consent, the endoscope was passed under direct vision. Throughout the procedure, the patient's blood pressure, pulse, and oxygen saturations were monitored continuously. The Endoscope was introduced through the mouth, and advanced to the fourth part of the duodenum. Small bowel enteroscopy was deemed necessary. The upper GI endoscopy was accomplished without difficulty. The patient tolerated the procedure well. Scope In: 11:53:58 AM Scope Out: 11:57:41 AM Total Procedure Duration Time 0 hours 3 minutes 43 seconds Findings: The examined esophagus was normal. Diffuse moderate inflammation characterized by congestion (edema) was found in the entire examined stomach. Biopsies were taken with a cold forceps for histology. Verification of patient identification for the specimen was done. Estimated blood loss was minimal. Biopsies were taken with a cold forceps for Helicobacter pylori testing. Verification of patient identification for the specimen was done. Estimated blood loss was minimal. The examined duodenum was normal. Impression: - Normal esophagus. - Atrophic gastritis. Biopsied. - Normal examined duodenum. Recommendation: - Await pathology results. - Patient has a contact number available for emergencies. The signs and symptoms of potential delayed complications were discussed with the patient. Return to normal activities tomorrow. Written discharge instructions were provided to the patient. - Resume previous diet. - Continue present medications. - Await pathology results. - IBD guard three times a day for 7 days, two times a day for 7 days, one time a day for 7 days, then take it as needed Procedure Code(s): --- Professional --- 01403, Small intestinal endoscopy, enteroscopy beyond second portion of duodenum, not including ileum; with biopsy, single or multiple CPT copyright 2021 [employer]. All rights reserved. The codes documented in this report are preliminary and upon flame channeler review may be revised to meet current compliance requirements. Liam Bajwa DO 08/19/2024 12:11:15 PM This report has been signed electronically. Number of Addenda: 0 Note Initiated On: 08/19/2024 11:43 AM 08/19/24 1211 Date _ Liam Ashbyignbraden Signature: Date (if indicated) CC: Dr. Jean-Paul Pack DO; Liam Bajwa DO ~ Date Dictated: 08/19/24 1143 Date Transcribed: Chemical Packager: RF Signed [facility]06-26-2025 Procedure note [facility] Medical Records Department [address] [place] [address] Operative Report - CC Letter MR#: [id number] Acct: [id number] Name: RAMY BARRON Rep #:[id number] : 1940 83 From: Liam Bajwa DO PCP: Dr. Jean-Paul Pack DO Status:RE G [facility] 08/19/2024 Jean-Paul Pack Re : Upper GI endoscopy procedure for Ramy Barron Dear Ramone This procedure was performed on July. My impressions and recommendations are as follows: Impressions : - Normal esophagus. - Atrophic gastritis. Biopsied. - Normal examined duodenum. Recommendations : - Await pathology results. - Patient has a contact number available for emergencies. The signs and symptoms of potential delayed complications were discussed with the patient. Return to normal activities tomorrow. Written discharge instructions were provided to the patient. - Resume previous diet. - Continue present medications. - Await pathology results. - IBD guard three times a day for 7 days, two times a day for 7 days, one time a day for 7 days, then take it as needed My findings are described in the full procedure note, which is enclosed. If I can be of further assistance, please feel free to contact me at . Sincerely, Liam Bajwa DO 08/19/2024 12:11:15 PM This report has been signed electronically. 08/19/24 1211 Date _ Liam Bajwa DO Cosigner Signature: Date (if indicated) CC: Dr. Jean-Paul Pack, ; Liam Bajwa, ~ Date Dictated: 08/19/24 1143 Date Transcribed: Chemical Packager: RF Signed [facility]06-26-2025 Consult note [facility] Medical Records Department [address] [place] [address] Anesthesia Postop Eval I 08/19/24 1205 MR#: [id number] Acct: [id number] Name: RAMY BARRON Rep #:[id number] : 1940 83 From: Juvencio CANELA PCP: Dr. Jean-Paul Pack DO Status:RE G SDC Y Race: C Location: [place] [address] Anesthesia: Postop Eval I Current Vital Signs Temperature: 97.6 F Pulse Rate: 62 Blood Pressure: 97/59 Respiratory Rate: 16 Pulse Ox: 96 Assessment Airway patent: Yes Spontaneous unlabored respirations: Yes nausea: No Vomiting: No Anesthesia Complication: No Fluid Hydration Crystalloid volume administer (ml): 300 Total IV fluid infused: 300 Progress Note Anesthesia document: Postop Eval 1 completed: Yes 08/19/24 120 CURTAIN FELLER BLINDSTITCH> Date _ Juvencio Luu CURTAIN FELLER BLINDSTITCH Cosigner Signature: Date CC: ~ Signed [facility]06-26-2025 Evaluation note* Diagnosis Onset Date Resolution Status Admit Date GERD (gastroesophageal reflu x disease) acute August 19, 2024 9:43am Small intestinal bacterial overgrowth (SIBO) acute August 19 9:43am [facility] Work Phone: 1(239) 811-143506-26-2025 History and physical note [facility] Medical Records Department [address] [place] [address] History & Physical Exam 08/19/24 1138 MR#: [id number] Acct: [id number] Name: RAMY BARRON Rep #:[id number] : 1940 83 From: Liam Bajwa DO PCP: Dr. Jean-Paul Pack, DO Status:[facility] Location: [place] [address] HPI - General General Date of Admission: 08/19/24 Date of Service: 08/19/24 Chief Complaint: GERD and Bloating HPI Narrative RAMY BARRON, is a 83 M who presents with complaints of painful epigastric gas. He notes the increased gas and pain is related to eating tomatoes and red sauce on pasta. He denies difficulty chewing and swallowing, heartburn, bloating, constipation, diarrhea, hematochezia and melena. He states that he is able to lay in left recumbent position to evacuate the gas and it doesn't build up. He reports an ER visit 2 months ago where he thought he was having a heart attack from the gas pain. States he has a heart history of 5 coronary stents cristino problem valve. He states that he will get an EGD if necessary, but would prefer not to. He denies knowing a specific food trigger. 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 Home Medications ?Medication ?Instructions ?Recorded ?Last Taken ?Type aspirin 81 mg tablet,delayed 81 mg PO QDAY 12/11/23 History release (Adult Aspirin Regimen) atorvastatin 80 mg tablet 80 mg PO QDAY 12/11/2308/18 History clopidogrel 75 mg tablet 75 mg PO QDAY 12/11/2308/14 History coenzyme Q10 100 mg capsule 100 mg PO QDAY 12/11/23 History ezetimibe 10 mg tablet 10 mg PO QDAY 12/11/2308/18 History isosorbide mononitrate 60 mg 60 mg PO QDAY 12/11/23 History tablet,extended release 24 hr levothyroxine 100 mcg capsule 100 mcg PO QDAY 12/11/23 08/19/24 History metoprolol tartrate 25 mg tablet 25 mg PO BID 12/11/23 08/19/24 History nitroglycerin 0.4 mg sublingual 0.4 mg sublingual Q5-1 5M PRN chest 12/11/23 Unknown History tablet pain pantoprazole 40 mg tablet,delayed 40 mg PO QDAY 08/18/24 History release cyanocobalamin (vitamin B-12) 500 500 mcg PO DAILY 01/1808/18/24 History mcg tablet (Vitamin B-12) Allergy/AdvReac Type Severity Reaction Status Date / Time No Known Allergies Allergy Verified 08/19/24 10:14 Family History Father COPD (chronic obstructive pulmonary disease) Sister Diabetes Brother Heart disease Brother Cancer bladder Surgical History History of cardiac catheterization History of coronary artery stent placement S/P CABG x 3 Social History Smoking Status: Never smoker alcohol intake: never ROS Constitutional Constitutional: Denies fatigue, fever(s), poor appetite, weight gain or weight loss Gastrointestinal Gastrointestinal: Denies belching, bloating, change in bowel habits, change in stool character, chewing difficulty, coffee ground emesis, constipation, cramping, diarrhea, dyspepsia, dysphagia, earlysatiety, excessive flatus, fecalincontinence, heartburn, hematemesis, hematochezia, hemorrhoids, loose stools, melena, nausea, odynophagia, rectal bleeding, tenesmus, vomiting or weight changes Vital Signs Vital Signs Vital Signs: 08/19/24 10:15 08/19/24 10:15 08/19/24 10:56 Temperature 96.9 F L 96.9 F L Temperature Source Temporal Pulse Rate 53 L 53 L Respiratory Rate 17 17 Respiratory Pattern Normal Blood Pressure 120/75 120/75 Blood Pressure Mean 90 Blood Pressure Source Monitor Blood Pressure Position Semi-Fowlers Blood Pressure Location Left Arm Pulse Ox 99 99 Oxygen Delivery Method Room Air Room Air Weight Weight: 169 lb 12.095 oz Body Mass Index (BMI) 27.3 Physical Exam Const alert, oriented x3, no apparent distress and healthy appearing General Appearance: cooperative GI normal to inspection, nondistended, normoactive bowel sounds, soft to palpation,non-tender and non-distended Percussion: normal to percussion Rectal Exam: deferred Assessment & Plan Assessment/Plan (1) Small intestinal bacterial overgrowth (SIBO): (2) GERD (gastroesophageal reflux disease): PLAN: Assessment and Plan Assessment and Plan (1) Small intestinal bacterial overgrowth (SIBO): Status: Acute Plan: RAMY BARRON, is a 83 M who presents to the office today for establishment with [facility] for complaints of painful epigastric gas. Differential diagnoses include: SIBO, GERD, hiatal hernia, gastric dysmotility. * erythromycin 500mg PO TID * probiotics daily x2wks, starting second week of atb * continue pantoprazole 40mg PO daily * call with results(2) Gastroesophageal reflux disease: Qualifiers: Esophagitis presence: esophagitis presence not specified Qualified Code(s): K21.9 - Gastro-esophageal reflux disease without esophagitis Medications: New erythromycin 500 mg PO Q8H 42 tabs 0RF 08/19/24 1140 Cosigner Signature (if applicable): CC: Dr. Jean-Paul Pack DO; Liam Bajwa DO~ Signed [facility]06-26-2025 [facility] Medical Records Department [address] [place] [address] History Physical Exam 08/19/24 1138 MR#: [id number] Acct: [id number] Name: RAMY BARRON Rep #: [id number] : 1940 83 From: Liam Bajwa DO PCP: Dr. Jean-Paul Pack DO Status:[facility] Location: [place] [address] HPI - General General Date of Admission: 08/19/24 Date of Service: 08/19/24 Chief Complaint: GERD and Bloating HPI Narrative RAMY BARRON, is a 83 M who presents with complaints of painful epigastric gas. He notes the increased gas and pain is related to eating tomatoes and red sauce on pasta. He denies difficulty chewing and swallowing, heartburn, bloating, constipation, diarrhea, hematochezia and melena. He states that he is able to lay in left recumbent position to evacuate the gas and it doesn't build up. He reports an ER visit 2 months ago where he thought he was having a heart attack from the gas pain. States he has a heart history of 5 coronary stents and a problem valve. He states that he will get an EGD if necessary, but would prefer not to. He denies knowing a specific food trigger. 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 Home Medications ???Medication ???Instructions ???Recorded ???Last Taken ???Type aspirin 81 mg tablet,delayed 81 mg PO QDAY 12/11/23 08/15/24 Hi story release (Adult Aspirin Regimen) atorvastatin 80 mg tablet 80 mg PO QDAY 12/11/23 08/18/24 Hi story clopidogrel 75 mg tablet 75 mg PO QDAY 12/11/23 08/14/24 Hi story coenzyme Q10 100 mg capsule 100 mg PO QDAY 12/11/23 08/18/24 H istory ezetimibe 10 mg tablet 10 mg PO QDAY 12/11/23 08/18/24 Hi story isosorbide mononitrate 60 mg 60 mg PO QDAY 12/11/23 08/19/24 Hi story tablet,extended release 24 hr levothyroxine 100 mcg capsule 100 mcg PO QDAY 12/11/23 08/19/24 History metoprolol tartrate 25 mg tablet 25 mg PO BID 12/11/23 08/19/24 His tory nitroglycerin 0.4 mg sublingual 0.4 mg sublingual Q5-15M PRN chest 12/11/23 Unknown History tablet pain pantoprazole 40 mg tablet,delayed 40 mg PO QDAY 12/11/23 08/18/24 H istory release cyanocobalamin (vitamin B-12) 500 500 mcg PO DAILY 08/04/24 5 History mcg tablet (Vitamin B-12) Allergy/AdvReac Type Severity Reaction Status Date / Time No Known Allergies Allergy Verified 08/19/24 10:14 Family History Father COPD (chronic obstructive pulmonary disease) Sister Diabetes Brother Heart disease Brother Cancer bladder Surgical History History of cardiac catheterization History of coronary artery stent placement S/P CABG x 3 Social History Smoking Status: Never smoker alcohol intake: never ROS Constitutional Constitutional: Denies fatigue, fever(s), poor appetite, weight gain or weight loss Gastrointestinal Gastrointestinal: Denies belching, bloating, change in bowel habits, change in stool character, chewing difficulty, coffee ground emesis, constipation, cramping, diarrhea, dyspepsia, dysphagia, ea rly satiety, excessive flatus, fecal incontinence, heartburn, hematemesis, hematochezia, hemorrhoids, loose stools, melena, nausea, odynophagia, rectal bleeding, tenesmus, vomiting or weight changes Vital Signs Vital Signs Vital Signs: 08/19/24 10:15 08/19/24 10:15 08/19/24 10:56 Temperature 96.9 F L 96.9 F L Temperature Source Temporal Pulse Rate 53 L 53 L Respiratory Rate 17 17 Respiratory Pattern Normal Blood Pressure 120/75 120/75 Blood Pressure Mean 90 Blood Pressure Source Monitor Blood Pressure Position Semi-Fowlers Blood Pressure Location Left Arm Pulse Ox 99 99 Oxygen Delivery Method Room Air Room Air Weight Weight: 169 lb 12.095 oz Body Mass Index (BMI) 27.3 Physical Exam Const alert, oriented x3, no apparent distress and healthy appearing General Appearance: cooperative GI normal to inspection, nondistended, normoactive bowel sounds, soft to palpation, non-tender and non- distended Percussion: normal to percussion Rectal Exam: deferred Assessment Plan Assessment/Plan (1) Small intestinal bacterial overgro (more content not included)...[facility]06-26-2025 Consult note [facility] Medical Records Department [address] [place] [address] Pre-Anesthesia Evaluation 08/19/24 1047 MR#: [id number] Acct: [id number] Name: RAMY BARRON Rep #:[id number] : 1940 83 From: Bennie Alfaro MD PCP: Dr. Jean-Paul Pack, DO Status:RE G SDC Y Race: C Location: [place] [address] ASA Classification* ASA Classification ASA Classification: 3 Assessment & Plan Anesthesia* Anesthesia Assessment Anesthesia Assessment: Discussed sedation and/or anesthesia options, risks, benefits, and alternatives with patient/parents/legal guardian/POA. Questions invited. The patient/parents/legal guardian/POA seems to understand and agrees to proceedwith anesthesia plan. Reviewed the physical assessment, medical history, allergy history and patient home medications list prior to surgery/procedure/anesthetic and documented any changes. Performed airway and anesthesia risk assessments. Anesthesia Type Anesthesia Type: MAC (Patient has moderate aortic stenosis. Avoid high heart rates and low blood pressure. Phenylephrine is drug of choice.) History Source History Obtained from:: Patient and Chart Anesthesia Focused Assessment* Temperature: 96.9 F Pulse Rate: 53 Blood Pressure: 120/75 Respiratory Rate: 17 Pulse Ox: 99 Oxygen Delivery Method: Room Air Airway Assessment Mouth opens: >3 cm Mallampati Score: III Teeth Condition: Missing (Patient is missing several teeth. 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 When Was Last Pacemaker Check QUESTION #4 FULL TEXT: You/Your Family Experience fever (hyperthermia) with Anesthesia Last Oral Intake Last Oral intake: Last Oral Intake NPO since 05:00 08/19/24 10:15 Meds taken in AM with sips of Yes 08/19/24 10:15 water? Meds patient instructed to take am of surgery Any additional information?: Yes NPO since: 04:00 (Patient took his a.m. 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 Female No 08/17/24 15:59 HX of Motion Sickness No 08/17/24 15:59 HX of N/V After Surgery No 08/17/24 15:59 Non-Smoker Yes 08/17/24 15:59 Duration of Surgery greater No 08/17/24 15:59 than 60 minutes Number of Risk Factors 1 08/17/24 15:59 PONV Score Low Risk 08/17/24 15:59 Height & Weight Height & Weight: Anesthesia: Height & Weight Height 5 ft 6 in 08/19/24 10:15 Weight: 77 kg 08/19/24 10:15 Body Mass Index (BMI) 27.3 08/19/24 10:15 Respiratory Assessment Respiratory Assessment - shoe parts caser: Respiratory Tract Infection Hx - 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 Has anyone observed you stop No 08/17/24 15:59 breathing during sleep? STOP Results Negative 08/17/24 15:59 QUESTION #5 FULL TEXT : Do you snore loudly (louder than talking or can be heard through closeddoors)? 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 Specify any problems Hx of Preganancy in last 3 N/A 08/17/24 15:59 Months Nurse Filling Out Transfusion [email or web address] 08/17/24 15:59 & Questions: Date: 08/17/24 08/17/24 15:59 Time: 16:04 08/17/24 15:59 Patient unable to answer at this time (ie. confused, unrespo /Reproduction History /Reproductive History - shoe parts caser: /Reproductive Hx- shoe parts caser Hx Now Gestational Age (in weeks): EDC: Hx Hx Para Hx Section SAB Active Medications Active Medications: Current Medications Generic Name Dose Route Start Last Admin Trade Name Freq PRN Reason Stop Dose Admin Lactated Ringer's 1,000 mls @ 15 mls/hr 08/19/24 10:00 08/19/24 10:15 IV 15 mls/hr .Q48H NAN Administration PFSH Medical History Cardiology follow-up encounter History of stress test History of echocardiogram Wears glasses History of leukemia Thyroid disease Hoarseness Leg cramps History of heart attack Chest pain Gastroesophageal reflux disease without esophagitis Low HDL (under 40) Erectile dysfunction Aortic stenosis Gastritis without bleeding Hypercholesteremia Hypothyroidism 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 Home Medications ?Medication ?Instructions ?Recorded ?Last Taken ?Type aspirin 81 mg tablet,delayed 81 mg PO QDAY 12/11/23 History release (Adult Aspirin Regimen) atorvastatin 80 mg tablet 80 mg PO QDAY 12/11/2308/18 History clopidogrel 75 mg tablet 75 mg PO QDAY 12/11/2308/14 History coenzyme Q10 100 mg capsule 100 mg PO QDAY 12/11/23 History ezetimibe 10 mg tablet 10 mg PO QDAY 12/11/2308/18 History isosorbide mononitrate 60 mg 60 mg PO QDAY 12/11/23 History tablet,extended release 24 hr levothyroxine 100 mcg capsule 100 mcg PO QDAY 12/11/23 08/19/24 History metoprolol tartrate 25 mg tablet 25 mg PO BID 12/11/23 08/19/24 History nitroglycerin 0.4 mg sublingual 0.4 mg sublingual Q5-1 5M PRN chest 12/11/23 Unknown History tablet pain pantoprazole 40 mg tablet,delayed 40 mg PO QDAY 08/18/24 History release cyanocobalamin (vitamin B-12) 500 500 mcg PO DAILY 01/1808/18/24 History mcg tablet (Vitamin B-12) Allergy/AdvReac Type Severity Reaction Status Date / Time No Known Allergies Allergy Verified 08/19/24 10:14 Family History Father COPD (chronic obstructive pulmonary disease) Sister Diabetes Brother Heart disease Brother Cancer bladder Surgical History History of cardiac catheterization History of coronary artery stent placement S/P CABG x 3 Social History Smoking Status: Never smoker alcohol intake: never Review of Systems (Anesthesia) ROS Narrative System reviewed and no additional complaints, except as documented. 08/19/24 1056 yamileth CONWAY> Date _ Bennie Alfaro MD Cosigner Signature: Date CC: ~ Signed [facility]06-23-2025 Telephone encounter Note* Telephone Encounter - Yadi Costello RN - 08/16/2024 7:37 AM EDT Last seen 07/16/24. [id number] Miscellaneous Notes* Telephone Encounter - Yadi Costello RN - 08/16/2024 7:37 AM EDT Last seen 07/16/24. documented in this [facility], [id number] Progress note* Result Encounter Note - NOÉ Hennessy CNP - 08/13/2024 3:56 PM EDT Good afternoon, Your Echo is stable. The pumping function of your heart remains normal. You have continued moderateaortic stenosis, which is stable and comparable to your prior Echo 06/17/2023. No new recommendations at this time. Please continue your present medications. Please keep your upcoming follow up with Dr. Sosa on 01/17/2025 at 2:00 pm. Please call the office if any further questions. Thank you. [facility] [id number] Miscellaneous Notes* Result Encounter Note - NOÉ Hennessy CNP - 08/13/2024 3:56 PM EDT Good afternoon, Your Echo is stable. The pumping function of your heart remains normal. You have continued moderateaortic stenosis, which is stable and comparable to your prior Echo 06/17/2023. No new recommendations at this time. Please continue your present medications. Please keep your upcoming follow up with Dr. Sosa on 01/17/2025 at 2:00 pm. Please call the office if any further questions. Thank you. documented in this [facility]06-18-2025 Telephone encounter Note* Telephone Encounter - Leslie Mendoza - 08/11/2024 11:46 AM EDT [facility]. Has about a week left. [phone] [id number] Miscellaneous Notes* Telephone Encounter - Leslie Mendoza - 08/11/2024 11:46 AM EDT [facility] [place] [facility] Has about a week left. [phone] documented in this [facility]06-17-2025 Telephone encounter Note* Telephone Encounter - Leslie Mendoza - 08/10/2024 1:53 PM EDT Faxed cardiac clearance [id number] Miscellaneous Notes* Telephone Encounter - Leslie Mendoza - 08/10/2024 1:53 PM EDT Faxed cardiac clearance documented in this [facility]05-12-2025 Telephone encounter Note* Telephone Encounter - Tsering Hudson LPN - 07/05/2024 7:32 AM EDT Recent Visits Date Type Provider Dept 05/11/24 Office Visit Jean-Paul Pack, DO [facility] 01/08/24 Office Visit Jean-Paul Pack, DO [facility] 11/10/23 Office Visit Jean-Paul Pack, DO [facility] Showing recent visits within past 365 days and meeting all other requirements Future Appointments No visits were found meeting these conditions. Showing future appointments within next 90 days and meeting all other requirements Requested Prescriptions Pending Prescriptions Disp Refills ezetimibe (Zetia) 10 MG tablet [Pharmacy Med Name: Ezetimibe 10 MG Oral Tablet] 90 tablet 3 Sig: TAKE 1 TABLET BY MOUTH DAILY Provider: Jean-Paul Pack DO Verified pharmacy: yes Verified day(s) supplied: yes Verified refill(s) needed (previous prescription showing no refills in chart): Yes Have you received any controlled medications from any other provider? N/A Overdue for visit: No If yes - patient scheduled? Yes Most recent labs completed in chart? Yes Cholesterol: Lab Results Component Value Date CHOLESTEROLT 117 05/11/2024 HDLCHOLESTER 35 (L) 05/11/2024 TRIGLYCERIDE 140 05/11/2024 LDLCHOLESTER 60 05/11/2024 CHOLHDLCRATI 3.3 05/11/2024 NONHDLCHOLES 82 05/11/2024 [id number] Miscellaneous Notes* Telephone Encounter - Tsering Hudson LPN - 07/05/2024 7:32 AM EDT Recent Visits Date Type Provider Dept 05/11/24 Office Visit Jean-Paul Pack, DO [facility] 01/08/24 Office Visit Jean-Paul Pack, DO [facility] 11/10/23 Office Visit Jean-Paul Pack, DO [facility] Showing recent visits within past 365 days and meeting all other requirements Future Appointments No visits were found meeting these conditions. Showing future appointments within next 90 days and meeting all other requirements Requested Prescriptions Pending Prescriptions Disp Refills ezetimibe (Zetia) 10 MG tablet [Pharmacy Med Name: Ezetimibe 10 MG Oral Tablet] 90 tablet 3 Sig: TAKE 1 TABLET BY MOUTH DAILY Provider: Jean-Paul Pack DO Verified pharmacy: yes Verified day(s) supplied: yes Verified refill(s) needed (previous prescription showing no refills in chart): Yes Have you received any controlled medications from any other provider? N/A Overdue for visit: No If yes - patient scheduled? Yes Most recent labs completed in chart? Yes Cholesterol: Lab Results Component Value Date CHOLESTEROLT 117 05/11/2024 HDLCHOLESTER 35 (L) 05/11/2024 TRIGLYCERIDE 140 05/11/2024 LDLCHOLESTER 60 05/11/2024 CHOLHDLCRATI 3.3 05/11/2024 NONHDLCHOLES 82 05/11/2024 documented in this [facility]03-18-2025 History of Present illness Narrative* Jean-Paul Pack, - 05/11/2024 10:30 AM EDT Images from the original note were not included. [facility] [place] [address] [facility] [id number] Visit type: Established Patient Reason for Visit: 6 Month Follow-up Assessment / Plan: Ramy was seen today for 6 month follow-up. Diagnoses and all orders for this visit: Coronary artery disease involving [place] coronary artery of [place] heart, unspecified whether angina present (Primary) Comments: Stable on Plavix and aspirin and Isordil and metoprolol Hypercholesterolemia Comments: Stable on Lipitor and Zetia Orders: - CBC auto differential; Future - Comprehensive metabolic panel; Future - CBC auto differential - Comprehensive metabolic panel Hypothyroidism, unspecified type - Lipid panel; Future - TSH; Future - Lipid panel - TSH Nonrheumatic aortic valve stenosis Gastroesophageal reflux disease without esophagitis Comments: Stable on Protonix Subjective: Patient ID: Ramy Barron is a 83 y.o. male. HPI lipid management patient with stable coronary disease, moderate to severe aortic valvular stenosis and hypothyroidism. No new concerns. Resolved lower GI bleed that was probably due to hemorrhoid. No recent acid reflux. Review of Systems No const usual symptoms. Eating and voiding well. No recent fevers or chills. Defers vaccinations. No exertional chest pain use of nitro. No acid reflux symptoms. No dysphagia abdominal pain melena or blood. Bowels are regular. No dysuria. Overall feels well. Takes some Tylenol for some arthralgias. No Known Allergies Current Outpatient Medications on File Prior to Visit Medication Sig Dispense Refill acetaminophen (Tylenol) 500 MG tablet Take 1 tablet by mouth as needed. aspirin 81 MG EC tablet Take 81 mg by mouth in the morning. atorvastatin (Lipitor) 80 MG tablet TAKE 1 TABLET BY MOUTH ONCE DAILY 90 tablet 3 clopidogrel (Plavix) 75 MG tablet Take 1 tablet (75 mg) by mouth daily. 90 tablet 3 coenzyme Q-10 100 MG capsule Take 1 capsule by mouth in the morning. ezetimibe (Zetia) 10 MG tablet Take 1 tablet (10 mg) by mouth daily. 90 tablet 3 isosorbide mononitrate ER (Imdur) 60 MG 24 hr tablet TAKE 1 TABLET BY MOUTH DAILY 90 tablet 3 levothyroxine (Synthroid, Levoxyl) 100 MCG tablet Take 1 tablet (100 mcg) by mouth daily. 90 tablet1 metoprolol tartrate (Lopressor) 25 MG tablet TAKE 1 TABLET BY MOUTH TWICE DAILY 180 tablet 3 nitroglycerin (Nitrostat) 0.[address] 1 tablet (0.4 mg) under the tongue every 5 minutesas needed for chest pain. May repeat dose every 5 minutes for up to 3 doses total. 25 tablet 1 pantoprazole (ProtoNix) 40 MG EC tablet TAKE 1 TABLET BY MOUTH IN THE MORNING BEFORE BREAKFAST DO NOT CRUSH, CHEW, OR SPLIT 90 tablet 3 [DISCONTINUED] atorvastatin (Lipitor) 80 MG tablet TAKE 1 TABLET BY MOUTH DAILY 90 tablet 3 No current facility-administered medications on file prior to visit. 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 Barr- 3 RCA stents, CARDIAC CATHETERIZATION N/A 09/23/2023 Performed by Ronal Barr MD at [facility] Cardiac Director Utilization Management CARDIAC CATHETERIZATION N/A 09/23/2023 Performed by Ronal Barr MD at [facility] Cardiac Director Utilization Management CARDIAC CATHETERIZATION N/A 09/23/2023 Performed by Ronal Barr MD at [facility] Cardiac Director Utilization Management COLONOSCOPY 2007 Dr. Garnica CORONARY ANGIOPLASTY WITH STENT PLACEMENT 10/2014 JUSTINA to mid LAD CORONARY ARTERY BYPASS GRAFT 10/2014 RODARTE-LAD, SVG-Diagonal, SVG-PDA KNEE ARTHROSCOPY W/ MENISCAL REPAIR Left 2013 [place] Family History Problem Relation Name Age of Onset No Known Problems Mother PNA and bowel obst age 85 COPD Father [employer] [facility], age 80 Diabetes Sister 4 Heart disease Brother 5 age 76, pacemaker Bladder Cancer Brother Objective: BP 120/78 Pulse 51 Temp 36.2 C (97.1 F) (Temporal) Ht 5' 6 (1.676 m) Wt 180 lb (81.6 kg) SpO2 97% BMI 29.05 kg/m Physical Exam vital signs stable. Pleasant alert and oriented. No JVD adenopathy or thyroid lesions. Physiologic reflexes. No carotid bruits. Heart is regular with a same systolic murmur. No gallops or ectopy. Lungs are clear without rales wheezes or egophony. Abdomen slightly obese without pain hepatosplenomegaly masses or bruits. Femoral pulses are good. Extremities are without appreciable edema. Posterior pulses are adequate documented in this [facility]03-13-2025 Telephone encounter Note* Telephone Encounter - Marly Chambers RN - 05/06/2024 11:27 AM EDT ANGELY: 01/15/24, next OV on 07/16/24, last lipid on 10/08/23, LDL-48, med pended for review [id number] Miscellaneous Notes* Telephone Encounter - Marly Chambers RN - 05/06/2024 11:27 AM EDT ANGELY: 01/15/24, next OV on 07/16/24, last lipid on 10/08/23, LDL-48, med pended for review documented in this [facility]03-07-2025 Telephone encounter Note* Telephone Encounter - Mary Lou Black MA - 04/30/2024 8:35 AM EST Recent Visits Date Type Provider Dept 01/08/24 Office Visit Jean-Paul Rodas Ramone, DO [facility] 11/10/23 Office Visit Jean-Paul Rodas Mahoganyanatoliykay DO [facility] Showing recent visits within past 365 days and meeting all other requirements Future Appointments Date Type Provider Dept 05/11/24 Appointment Jean-Paul Rodas DO Ramone [facility] Showing future appointments within next 90 days and meeting all other requirements Requested Prescriptions Pending Prescriptions Disp Refills levothyroxine (Synthroid, Levoxyl) 100 MCG tablet [Pharmacy Med Name: Levothyroxine Sodium 100 MCG Oral Tablet] 90 tablet 1 Sig: Take 1 tablet (100 mcg) by mouth daily. Provider: Jean-Paul Pack DO Verified pharmacy: yes Verified day(s) supplied: yes Verified refill(s) needed (previous prescription showing no refills in chart): Yes Have you received any controlled medications from any other provider? N/A Overdue for visit: No If yes - patient scheduled? N/A Most recent labs completed in chart? Yes None [id number] Miscellaneous Notes* Telephone Encounter - Mary Lou Black MA - 04/30/2024 8:35 AM EST Recent Visits Date Type Provider Dept 01/08/24 Office Visit Jean-Paul Rodas Ramone, DO [facility] 11/10/23 Office Visit Jean-Paul Rodas Ramone DO [facility] Showing recent visits within past 365 days and meeting all other requirements Future Appointments Date Type Provider Dept 05/11/24 Appointment Jean-Paul Clark DO [facility] Showing future appointments within next 90 days and meeting all other requirements Requested Prescriptions Pending Prescriptions Disp Refills levothyroxine (Synthroid, Levoxyl) 100 MCG tablet [Pharmacy Med Name: Levothyroxine Sodium 100 MCG Oral Tablet] 90 tablet 1 Sig: Take 1 tablet (100 mcg) by mouth daily. Provider: Jean-Paul Pack DO Verified pharmacy: yes Verified day(s) supplied: yes Verified refill(s) needed (previous prescription showing no refills in chart): Yes Have you received any controlled medications from any other provider? N/A Overdue for visit: No If yes - patient scheduled? N/A Most recent labs completed in chart? Yes None documented in this [facility]01-02-2025 Telephone encounter Note* Telephone Encounter - Marly Chambers RN - 02/26/2024 12:40 PM EST ANGELY: 01/15/24, next OV on 07/16/24, labs: 12/29/23 [facility] Miscellaneous Notes* Telephone Encounter - Marly Chambers RN - 02/26/2024 12:40 PM EST ANGELY: 01/15/24, next OV on 07/16/24, labs: 12/29/23 documented in this [facility]11-21-2024 History of Present illness Narrative* Roddy Sosa MD - 01/15/2024 2:45 PM EST [facility] Medical [facility] Cardiology [facility] CARDIOLOGY - [address] [facility] [address] Dept: [phone] Dept Visit type: Established : 1940 Chief Complaint: Chief Complaint Patient presents with 3 Month Follow Up Coronary Artery Disease Cardiac Valve Problem History of Present Illness: Ramy Barron is a 83 y.o. male who returns in follow-up concerning his history of severe coronary artery disease and moderate to severe aortic stenosis. He had a catheterization in August because ofaccelerated angina. He had known moderate to moderately severe aortic stenosis. This showed his aortic stenosis to be continued moderate but he had significant progression of his [place] coronary disease. He had stenting of his left main, ostium of his circumflex. He had very tortuous vessel so the procedure was complex. He had no complications related to this. Since then he is doing much better with no symptoms of angina. He is exercising in cardiac rehab and hopes to go onto Silver sneakers. Past Medical History: Past Medical History: Diagnosis Date Aortic stenosis, moderate 05/2022 per ECHO CAD (coronary artery disease) 01/05/2015 CABG, 06/[address] Barr Cervical spine degeneration 2019 Clostridium difficile colitis 01/2021 ?etiology ED (erectile dysfunction) H/O colonoscopy 2007 Dr. 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 Barr- 3 RCA stents, CARDIAC CATHETERIZATION N/A 09/23/2023 Performed by Ronal Barr MD at [facility] Cardiac Director Utilization Management CARDIAC CATHETERIZATION N/A 09/23/2023 Performed by Ronal Barr MD at [facility] Cardiac Director Utilization Management CARDIAC CATHETERIZATION N/A 09/23/2023 Performed by Ronal Barr MD at [facility] Cardiac Director Utilization Management COLONOSCOPY 2007 Dr. Garnica CORONARY ANGIOPLASTY WITH STENT PLACEMENT 10/2014 JUSTINA to mid LAD CORONARY ARTERY BYPASS GRAFT 10/2014 RODARTE-LAD, SVG-Diagonal, SVG-PDA KNEE ARTHROSCOPY W/ MENISCAL REPAIR Left 2013 [place] Family History Family History Problem Relation Name Age of Onset No Known Problems Mother PNA and bowel obst age 85 COPD Father Miners Lung, age 80 Diabetes Sister 4 Heart disease Brother 5 age 76, pacemaker Bladder Cancer Brother Social History Social History Tobacco Use Smoking status: Never Smokeless tobacco: Never Vaping Use Vaping status: Never Used Substance Use Topics Alcohol use: Never Drug use: Never Allergies: No Known Allergies Medications: Current Outpatient Medications: acetaminophen (Tylenol) 500 MG tablet, Take 1 tablet by mouth as needed., Disp: , Rfl: aspirin 81 MG EC tablet, Take 81 mg by mouth in the morning., Disp: , Rfl: atorvastatin (Lipitor) 80 MG tablet, TAKE 1 TABLET BY MOUTH DAILY, Disp: 90 tablet, Rfl: 3 clopidogrel (Plavix) 75 MG tablet, Take 1 tablet (75 mg) by mouth daily., Disp: 90 tablet, Rfl: 3 coenzyme Q-10 100 MG capsule, Take 1 capsule by mouth in the morning., Disp: , Rfl: ezetimibe (Zetia) 10 MG tablet, Take 1 tablet (10 mg) by mouth daily., Disp: 90 tablet, Rfl: 3 isosorbide mononitrate ER (Imdur) 60 MG 24 hr tablet, TAKE 1 TABLET BY MOUTH DAILY, Disp: 90 tablet, Rfl: 3 levothyroxine (Synthroid, Levoxyl) 100 MCG tablet, Take 1 tablet (100 mcg) by mouth daily., Disp: 90 tablet, Rfl: 3 metoprolol tartrate (Lopressor) 25 MG tablet, TAKE 1 TABLET BY MOUTH TWICE DAILY, Disp: 180 tablet,Rfl: 3 nitroglycerin (Nitrostat) 0.4 MG SL tablet, Place 1 tablet (0.4 mg) under the tongue every 5 minutes as needed for chest pain. May repeat dose every 5 minutes for up to 3 doses total., Disp: 25 tablet, Rfl: 1 pantoprazole (ProtoNix) 40 MG EC tablet, TAKE 1 TABLET BY MOUTH IN THE MORNING BEFORE BREAKFAST DO NOT CRUSH, CHEW, OR SPLIT, Disp: 90 tablet, Rfl: 3 Xifaxan 550 MG tablet, Take 550 mg by mouth 3 times daily. (Patient not taking: Reported on 01/15/2024), Disp: , Rfl: Review of Systems: Review of Systems Constitutional: Negative for activity change, chills, diaphoresis, fatigue and fever. HENT: Negative for nosebleeds and trouble swallowing. Eyes: Negative for discharge and visual disturbance. Respiratory: Negative for apnea, cough, chest tightness, shortness of breath and wheezing. Cardiovascular: Negative for chest pain, palpitations and leg swelling. Gastrointestinal: Negative for abdominal distention, abdominal pain, blood in stool, diarrhea, nausea and vomiting. Endocrine: Negative for cold intolerance and heat intolerance. Genitourinary: Negative for hematuria. Musculoskeletal: Negative for gait problem and myalgias. Skin: Negative for color change and rash. Neurological: Negative for dizziness, seizures, syncope, facial asymmetry, speech difficulty, weakness, light-headedness, numbness and headaches. Hematological: Does not bruise/bleed easily. Psychiatric/Behavioral: Negative for dysphoric mood. Physical Examination: Vitals: Vitals: 01/15/24 1442 BP: 110/62 BP Location: Left arm Patient Position: Sitting BP Cuff Size: Large adult Pulse: 54 Resp: 16 SpO2: 98% Weight: 175 lb (79.4 kg) Height: 5' 6 (1.676 m) Body mass index is 28.25 kg/m . Physical Exam Constitutional: Appearance: Normal appearance. HENT: Head: Normocephalic and atraumatic. Nose: Nose normal. Eyes: General: No scleral icterus. Extraocular Movements: Extraocular movements intact. Pupils: Pupils are equal, round, and reactive to light. Neck: Thyroid: No thyromegaly. Vascular: No carotid bruit or JVD. Cardiovascular: Rate and Rhythm: Normal rate and regular rhythm. Pulses: Normal pulses. Heart sounds: Murmur heard. Systolic murmur is present with a grade of 2/6. No gallop. Pulmonary: Effort: Pulmonary effort is normal. Breath sounds: No wheezing, rhonchi or rales. Chest: Chest wall: No tenderness. Abdominal: General: Abdomen is flat. There is no distension. Palpations: Abdomen is soft. There is no hepatomegaly, splenomegaly or mass. Musculoskeletal: General: No swelling or tenderness. Normal range of motion. Cervical back: No tenderness. Skin: General: Skin is warm. Neurological: General: No focal deficit present. Mental Status: He is alert and oriented to person, place, and time. Cranial Nerves: Cranial nerves 2-12 are intact. No cranial nerve deficit. Psychiatric: Attention and Perception: Attention normal. Mood and Affect: Mood normal. Speech: Speech normal. Behavior: Behavior normal. Laboratory Tests: Lab Results Component Value Date WBC 4.3 12/29/2023 HGB 14.6 12/29/2023 HCT 42.8 12/29/2023 MCV 105.2 (H) 12/29/2023 PLT 167 12/29/2023 Lab Results Component Value Date GLUCOSE 102 (H) 12/29/2023 CALCIUM 9.4 12/29/2023 NA 140 12/29/2023 K 4.4 12/29/2023 CO2 26 12/29/2023 CL 106 12/29/2023 BUN 18 12/29/2023 CREATININE 0.95 12/29/2023 @LASTP@ Lab Results Component Value Date CHOL 133 05/27/2022 CHOL 125 05/23/2021 CHOL 125 11/20/2020 Lab Results Component Value Date TRIG 325 (H) 05/27/2022 TRIG 91 05/23/2021 TRIG 84 11/20/2020 Lab Results Component Value Date HDL 25 (L) 05/27/2022 HDL 41 05/23/2021 HDL 31 (L) 11/20/2020 Lab Results Component Value Date LDLCALC 43 05/27/2022 NT PRO BNP Date Value Ref Range Status 08/18/2023 145 <20 - 300 pg/mL Final Assessment and Plan: 1. Coronary artery disease involving [place] coronary artery of [place] heart, unspecified whether angina present 2. Aortic valve stenosis, etiology of cardiac valve disease unspecified 3. Mixed hyperlipidemia 1. Coronary artery disease: His symptoms of chest pain were more likely related to his coronary disease than aortic valvular diseas He has had significant symptom relief with after his percutaneous intervention. We will continue to monitor. Will see him back in 6 months. 2. Aortic stenosis: This is moderate. We will continue to follow it. 3. Hyperlipidemia: On therapy. documented in this [facility]11-14-2024 History of Present illness Narrative* Jean-Paul Pack, - 01/08/2024 2:30 PM EST Images from the original note were not included. [facility] PRIMARY CARE - [address] [facility] [address] Visit type: Established Patient Reason for Visit: ER Follow-up (Bleeding is stool Hemorid ) Assessment / Plan: Ramy was seen today for er follow-up. Diagnoses and all orders for this visit: External hemorrhoid, bleeding (Primary) Comments: Resolved, follow-up as needed Irritable bowel syndrome, unspecified type Comments: Stable, follow-up with GI after Xifaxan completed Coronary artery disease involving [place] coronary artery of [place] heart, unspecified whether angina present Comments: Very stable, continue all meds and follow-up with cardiology Subjective: Patient ID: Ramy Barron is a 83 y.o. male. HPI patient presents to the office after going to the ER after his found spotting of blood on his pants in the rectal area. In the ER he is found to have a small external hemorrhoid that is healing. No recurrent symptoms. He presents for overall checkup Review of Systems of note was placed on Suboxone per GI for cleaning on his bowels he says. Tolerated the the meds. GI deferred doing upper endoscopy. Denies dysphagia or abdominal pain. No recurrentchest pain since a few ER evaluations this summer. No exertional dyspnea or chest pain. Denies PND o rthopnea or edema. Bowels have been regular. No constipation or diarrhea.. No melena or blood. CBC normal. No Known Allergies Current Outpatient Medications on File Prior to Visit Medication Sig Dispense Refill acetaminophen (Tylenol) 500 MG tablet Take 1 tablet by mouth as needed. aspirin 81 MG EC tablet Take 81 mg by mouth in the morning. atorvastatin (Lipitor) 80 MG tablet TAKE 1 TABLET BY MOUTH DAILY 90 tablet 3 clopidogrel (Plavix) 75 MG tablet Take 1 tablet (75 mg) by mouth daily. 90 tablet 3 coenzyme Q-10 100 MG capsule Take 1 capsule by mouth in the morning. ezetimibe (Zetia) 10 MG tablet Take 1 tablet (10 mg) by mouth daily. 90 tablet 3 isosorbide mononitrate ER (Imdur) 60 MG 24 hr tablet TAKE 1 TABLET BY MOUTH DAILY 90 tablet 3 levothyroxine (Synthroid, Levoxyl) 100 MCG tablet Take 1 tablet (100 mcg) by mouth daily. 90 tablet3 metoprolol tartrate (Lopressor) 25 MG tablet TAKE 1 TABLET BY MOUTH TWICE DAILY 180 tablet 3 nitroglycerin (Nitrostat) 0.[address] 1 tablet (0.4 mg) under the tongue every 5 minutesas needed for chest pain. May repeat dose every 5 minutes for up to 3 doses total. 25 tablet 1 pantoprazole (ProtoNix) 40 MG EC tablet TAKE 1 TABLET BY MOUTH IN THE MORNING BEFORE BREAKFAST DO NOT CRUSH, CHEW, OR SPLIT 90 tablet 3 Xifaxan 550 MG tablet Take 550 mg by mouth 3 times daily. No current facility-administered medications on file prior to visit. 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 Barr- 3 RCA stents, CARDIAC CATHETERIZATION N/A 09/23/2023 Performed by Ronal Barr MD at [facility] Cardiac Director Utilization Management CARDIAC CATHETERIZATION N/A 09/23/2023 Performed by Ronal Barr MD at [facility] Cardiac Director Utilization Management CARDIAC CATHETERIZATION N/A 09/23/2023 Performed by Ronal Barr MD at [facility] Cardiac Director Utilization Management COLONOSCOPY 2008 Dr. Garnica CORONARY ANGIOPLASTY WITH STENT PLACEMENT 10/2014 JUSTINA to mid LAD CORONARY ARTERY BYPASS GRAFT 10/2014 RODARTE-LAD, SVG-Diagonal, SVG-PDA KNEE ARTHROSCOPY W/ MENISCAL REPAIR Left 2013 [place] Family History Problem Relation Name Age of Onset No Known Problems Mother PNA and bowel obst age 85 COPD Father Miners Lung, age 80 Diabetes Sister 4 Heart disease Brother 5 age 76, pacemaker Bladder Cancer Brother Objective: BP 121/64 (BP Location: Right arm, Patient Position: Sitting, BP Cuff Size: Large adult) Pulse 54 Temp 36.1 C (97 F) (Temporal) Ht 5' 6 (1.676 m) Wt 177 lb (80.3 kg) SpO2 97% BMI 28.57 kg/m Physical Exam He appears well. Very alert and pleasant and engaging. No neck masses. Heart is regular. Lungs are clear. Abdomen without pain hepatosplenomegaly or masses. No guarding rigidity or rebound tenderness. Good bowel sounds. Some hemorrhoidal tags that are clean without evidence of bleeding or thrombosis. No rectal masses.Prostate without nodules. documented in this [facility]11-13-2024 Telephone encounter Note* Telephone Encounter - Erin Florentino MA - 01/07/2024 8:38 AM EST Called and spoke with patient. He already saw Dr Bajwa and is established with him. No action needed by us at this time. Thank you [place] [id number] Miscellaneous Notes* Telephone Encounter - Erin Florentino MA - 01/07/2024 8:38 AM EST Called and spoke with patient. He already saw Dr Bajwa and is established with him. No action needed by us at this time. Thank you * Telephone Encounter - Patricia Barraza - 12/30/2023 9:53 AM EST Name of Caller: Ramy Contact Reason for Appointment: referral from ED Diagnosis K62.5 (ICD-10-CM) - Rectal bleeding Office Name: GI documented in this [facility]11-05-2024 NoteName of Caller: Ramy Contact Reason for Appointment: referral from ED Diagnosis K62.5 (ICD-10-CM) - Rectal bleeding Office Name: [facility]11-05-2024 Telephone encounter Note* Telephone Encounter - Patricia Barraza - 12/30/2023 9:53 AM EST Name of Caller: Rmay Contact Reason for Appointment: referral from ED Diagnosis K62.5 (ICD-10-CM) - Rectal bleeding Office Name: GI [place] [id number] Miscellaneous Notes* Telephone Encounter - Patricia Barraza - 12/30/2023 9:53 AM EST Name of Caller: Ramy Contact Reason for Appointment: referral from ED Diagnosis K62.5 (ICD-10-CM) - Rectal bleeding Office Name: GI documented in this [place] [id number] Hospital Discharge instructions* Discharge Instructions* NOÉ Alonzo CNP - 12/29/2023 10:08 PM EST Please make appointment follow-up with gastroenterology in 1 day. Please follow-up with your PCP in 2 days. * Attachments The following attachments cannot be sent through Care Everywhere. * Bloody Stools Discharge Instructions, Adult ([place]) documented in this [place] [id number] Emergency department Note* Sara Levine RN - 12/29/2023 9:52 PM EST I was in the room with Gustavo GA for the rectal exam. [id number] Emergency department Note* Sara Levine RN - 12/29/2023 9:52 PM EST I was in the room with Gustavo GA for the rectal exam. * Lashaun Hudson RN - 12/29/2023 5:46 PM EST Reports he was placed on Xifaxan 4 days ago, reports he had an episode of rectal bleeding today. documented in this [place] [id number] Emergency department Triage note* Lashaun Hudson RN - 12/29/2023 5:46 PM EST Reports he was placed on Xifaxan 4 days ago, reports he had an episode of rectal bleeding today. [id number] Telephone encounter Note* Telephone Encounter - Leonora Leonard - 11/14/2023 10:48 AM EDT Referral pended for dx and doctor's signature [id number] Miscellaneous Notes* Telephone Encounter - Leonora Leonard - 11/14/2023 10:48 AM EDT Referral pended for dx and doctor's signature * Telephone Encounter - Liza Poe MA - 11/14/2023 10:39 AM EDT All addressed in another encounter * Telephone Encounter - Liza Poe MA - 11/14/2023 10:39 AM EDT ----- Message from Jean-Paul Pack DO sent at 11/12/2023 7:00 AM EDT ----- Call patient and tell him that the general surgeon feels he needs to see a trout farmer to consider upper endoscopy. Post referral to [facility] or [facility] if patient agrees * Telephone Encounter - Liza Poe MA - 11/14/2023 10:08 AM EDT Spoke with patient and he would like sheng. * Telephone Encounter - Leonora Leonard - 11/13/2023 9:52 AM EDT Please verify which location pt wants Gastro referral to: Dr Bajwa ([facility]) or [facility] ([place]) * Telephone Encounter - Liza Poe MA - 11/13/2023 9:35 AM EDT Placed call to patient. Two patient identifers confirmed. Was able to speak to patient. All concerns in message have been addressed. No questions at this time. Call ended Pt consents to referral * Telephone Encounter - Leonora Leonard - 11/13/2023 7:31 AM EDT NINII from Staff message: ----- Message from Jean-Paul Pack DO sent at 11/12/2023 7:00 AM EDT ----- Call patient and tell him that the general surgeon feels he needs to see a trout farmer to consider upper endoscopy. Post referral to [facility] or [facility] if patient agrees documented in this [facility]SSelect [facility], [id number] Telephone encounter Note* Telephone Encounter - Liza Poe MA - 11/14/2023 10:39 AM EDT All addressed in another encounter [id number] Telephone encounter Note* Telephone Encounter - Liza Poe MA - 11/14/2023 10:39 AM EDT ----- Message from Jean-Paul Pack DO sent at 11/12/2023 7:00 AM EDT ----- Call patient and tell him that the general surgeon feels he needs to see a trout farmer to consider upper endoscopy. Post referral to [facility] or [facility] if patient agrees [place] [id number] Telephone encounter Note* Telephone Encounter - Liza Poe MA - 11/14/2023 10:08 AM EDT Spoke with patient and he would like sheng. [id number] Telephone encounter Note* Telephone Encounter - Leonora Leonard - 11/13/2023 9:52 AM EDT Please verify which location pt wants Gastro referral to: Dr Bajwa ([facility]) or [facility] ([place]) [place] [id number] Telephone encounter Note* Telephone Encounter - Liza Poe MA - 11/13/2023 9:35 AM EDT Placed call to patient. Two patient identifers confirmed. Was able to speak to patient. All concerns in message have been addressed. No questions at this time. Call ended Pt consents to referral [facility] [id number] Telephone encounter Note* Telephone Encounter - Leonora Leonard - 11/13/2023 7:31 AM EDT NINII from Staff message: ----- Message from Jean-Paul Pack DO sent at 11/12/2023 7:00 AM EDT ----- Call patient and tell him that the general surgeon feels he needs to see a trout farmer to consider upper endoscopy. Post referral to [facility] or [facility] if patient agrees [facility] [id number] History of Present illness Narrative* Jean-Paul Pack DO - 11/10/2023 9:00 AM EDT Images from the original note were not included. [address] [facility] [address] Visit type: Established Patient Reason for Visit: Follow-up (Med check), GERD, and Flu Vaccine (Patient has declined to receive influenza vaccine in the office. ) Assessment / Plan: Ramy was seen today for follow-up, gerd and flu vaccine. Diagnoses and all orders for this visit: Delayed gastric emptying (Primary) Comments: rec, cont protonix, ? EGD, GS notifed Coronary artery disease involving [place] coronary artery of [place] heart, unspecified whether angina present Comments: stable, cont plavix , asa and statin rx Hypothyroidism, unspecified type Comments: stable, cont levothy Hypercholesterolemia Gastritis without bleeding, unspecified chronicity, unspecified gastritis type Comments: Stable, continue Protonix Aortic stenosis, moderate Comments: stable, f/u with Cardio Subjective: Patient ID: Ramy Barron is a 82 y.o. male. HPI patient with history of coronary disease, aortic valve stenosis, presents to discuss ongoing intermittent midepigastric bloating and acid reflux. Has been on Protonix for a few months but still having breakthrough symptoms. Had a gastric emptying study noticed that she was normal except for slight delay at 2 hours. No early satiety or weight loss. No melena or blood. No constipation diarrhea. He does not smoke ordrink but does have some caffeine intake. Is a question on whether he should undergo an upper endoscopy. Recently had another heart cath with stenting but has stable LV function. Review of Systems no exertional component to his symptoms. No use of nitro. CT abdomen done this summer for similar pain was unremarkable. Takes Plavix and aspirin routinely. No history of ulcers. NoNSAID use. Cardiac pulliam he has been stable. History of valvular heart disease but no intervention planned. No pulmonary concerns. Defers vaccinations No Known Allergies Current Outpatient Medications on File Prior to Visit Medication Sig Dispense Refill acetaminophen (Tylenol) 500 MG tablet Take 1 tablet by mouth as needed. aspirin 81 MG EC tablet Take 81 mg by mouth in the morning. atorvastatin (Lipitor) 80 MG tablet TAKE 1 TABLET BY MOUTH DAILY 90 tablet 3 clopidogrel (Plavix) 75 MG tablet Take 1 tablet (75 mg) by mouth daily. 90 tablet 3 coenzyme Q-10 100 MG capsule Take 1 capsule by mouth in the morning. ezetimibe (Zetia) 10 MG tablet Take 1 tablet (10 mg) by mouth daily. 90 tablet 3 isosorbide mononitrate ER (Imdur) 60 MG 24 hr tablet TAKE 1 TABLET BY MOUTH DAILY 90 tablet 3 levothyroxine (Synthroid, Levoxyl) 100 MCG tablet Take 1 tablet (100 mcg) by mouth daily. 90 tablet3 metoprolol tartrate (Lopressor) 25 MG tablet TAKE 1 TABLET BY MOUTH TWICE DAILY 180 tablet 3 pantoprazole (ProtoNix) 40 MG EC tablet TAKE 1 TABLET BY MOUTH IN THE MORNING BEFORE BREAKFAST DO NOT CRUSH, CHEW, OR SPLIT 90 tablet 3 nitroglycerin (Nitrostat) 0.[address] 1 tablet (0.4 mg) under the tongue every 5 minutesas needed for chest pain. May repeat dose every 5 minutes for up to 3 doses total. (Patient not taking: Reported on 11/10/2023) 25 tablet 1 No current facility-administered medications on file prior to visit. 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 Barr- 3 RCA stents, CARDIAC CATHETERIZATION N/A 09/23/2023 Performed by Ronal Barr MD at [facility] Cardiac Director Utilization Management CARDIAC CATHETERIZATION N/A 09/23/2023 Performed by Ronal Barr MD at [facility] Cardiac Director Utilization Management CARDIAC CATHETERIZATION N/A 09/23/2023 Performed by Ronal Barr MD at [facility] Cardiac Director Utilization Management COLONOSCOPY 2007 Dr. Garnica CORONARY ANGIOPLASTY WITH STENT PLACEMENT 10/2014 JUSTINA to mid LAD CORONARY ARTERY BYPASS GRAFT 10/2014 RODARTE-LAD, SVG-Diagonal, SVG-PDA KNEE ARTHROSCOPY W/ MENISCAL REPAIR Left 2013 [place] Family History Problem Relation Name Age of Onset No Known Problems Mother PNA and bowel obst age 85 COPD Father Miners Lung, age 80 Diabetes Sister 4 Heart disease Brother 5 age 76, pacemaker Bladder Cancer Brother Objective: BP 118/74 (BP Location: Right arm, Patient Position: Sitting, BP Cuff Size: Large adult) Pulse 55 Temp 36.1 C (97 F) (Temporal) Ht 5' 6 (1.676 m) Wt 176 lb (79.8 kg) SpO2 98% BMI 28.41 kg/m Physical Exam pleasant and cooperative. No acute distress. Nonicteric. Moist mucous membranes. No neck masses JVD adenopathy or thyroid lesions. No carotid bruits. Heart is regular with the same aortic stenotic murmur. No ectopy or gallops. Lungs are clear. Abdomen soft nontender today. Without hepa tosplenomegaly masses bruits or ascites. Femoral pedal pulses well. No leg edema. documented in this [facility]08-14-2024 History of Present illness Narrative* Kavon Kramer APRN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 - 10/08/2023 11:00 AM EDT Images from the original note were not included. [facility] Cardiology Office Note DATE of SERVICE: 10/08/23 TIME of SERVICE: 11:16 AM Reason for Visit: Chief Complaint Patient presents with Follow-up PCI History ofPresent Illness: Ramy Barron is a 82 y.o. male who is known to Dr. Sosa and to Dr. Barr. He has a history of coronary artery disease, history of PCI to the LAD October 2014 in the setting of cardiac arrest, followed by urgent coronary artery bypass surgery (RODARTE to left anterior descending, vein to OM, vein to diagonal, vein to PDA with all vein grafts known occluded) with PCI of the RCA in the setting of u nstable angina 05/2022, hypertension, hyperlipidemia, history of leukemia, degenerative disc disease. He was seen by Dr. Sosa July 2023, he was reporting symptoms of more shortness of breath. Upon reviewing his most recent echocardiogram 06/17/2023 he was found to have moderate aortic stenosis. He was referred and was seen again by Dr. Barr for further evaluation of his valve disease who recommended he undergo right and left heart catheterization for further evaluation of coronary artery disease, and to help guide decisions regarding potential TAVR evaluation. He underwent left and right heart catheterization September 23, 2023. It was noted his aortic stenosis appeared to be moderate, it was decided to proceed with percutaneous intervention. He has severe CAD with severe left main trunk disease, ostial left circumflex disease, and ostial diagonal disease. He ultimately underwent plain old balloon angioplasty of the ostium of the left circumflex. His left main trunk into the proximal diagonal was treated with drug-eluting stent. It was noted both the left circumflex and the diagonal had improved flow after the LMT/Diagonal stent was placed. It was noted if he persisted to have symptoms of dyspnea, fatigue, would again consider proceeding with TAVR. Today in office he is happy to say he is feeling well. He is interested in I have referred him again to cardiac rehab. I have provided orders for surveillance blood work including BMP, CBC, lipid andhepatic panel. He did have a brief episode of feeling diaphoretic and mild chest discomfort when atrest on Friday, eating breakfast. Symptoms lasted for very short time, very mild, but did somewhat remind him of his prior angina. I did urged that if he were to have any recurrent symptoms that remind him of his prior angina, to please proceed to the emergency room for further evaluation. He was in good spirits today, accompanied by his . I emphasized the continued importance of having no interruption of his dual antiplatelet therapy, aspirin and Plavix for minimum of 1 year, if not longer. Past Medical History: Past Medical History: Diagnosis Date Aortic stenosis, moderate 05/2022 per ECHO CAD (coronary artery disease) 01/05/2015 CABG, 06/[address] Barr Cervical spine degeneration 2019 Clostridium difficile colitis 01/2021 ?etiology ED (erectile dysfunction) H/O colonoscopy 2007 Dr. 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 Barr- 3 RCA stents, CARDIAC CATHETERIZATION N/A 09/23/2023 Performed by Ronal Barr MD at [facility] Cardiac Director Utilization Management CARDIAC CATHETERIZATION N/A 09/23/2023 Performed by Ronal Barr MD at [facility] Cardiac Director Utilization Management CARDIAC CATHETERIZATION N/A 09/23/2023 Performed by Ronal Barr MD at [facility] Cardiac Director Utilization Management COLONOSCOPY 2007 Dr. Garnica CORONARY ANGIOPLASTY WITH STENT PLACEMENT 10/2014 JUSTINA to mid LAD CORONARY ARTERY BYPASS GRAFT 10/2014 RODARTE-LAD, SVG-Diagonal, SVG-PDA KNEE ARTHROSCOPY W/ MENISCAL REPAIR Left 2013 [place] Family History Family History Problem Relation Name Age of Onset No Known Problems Mother PNA and bowel obst age 85 COPD Father Miners Lung, age 80 Diabetes Sister 4 Heart disease Brother 5 age 76, pacemaker Bladder Cancer Brother Social History Social History Tobacco Use Smoking status: Never Smokeless tobacco: Never Substance Use Topics Alcohol use: Never Drug use: Never Allergies: No Known Allergies Medications: Current Outpatient Medications: acetaminophen (Tylenol) 500 MG tablet, Take 1 tablet by mouth as needed., Disp: , Rfl: aspirin 81 MG EC tablet, Take 81 mg by mouth in the morning., Disp: , Rfl: atorvastatin (Lipitor) 80 MG tablet, TAKE 1 TABLET BY MOUTH DAILY, Disp: 90 tablet, Rfl: 3 clopidogrel (Plavix) 75 MG tablet, Take 1 tablet (75 mg) by mouth daily., Disp: 90 tablet, Rfl: 3 coenzyme Q-10 100 MG capsule, Take 1 capsule by mouth in the morning., Disp: , Rfl: ezetimibe (Zetia) 10 MG tablet, Take 1 tablet (10 mg) by mouth daily., Disp: 90 tablet, Rfl: 3 isosorbide mononitrate ER (Imdur) 60 MG 24 hr tablet, TAKE 1 TABLET BY MOUTH DAILY, Disp: 90 tablet, Rfl: 3 levothyroxine (Synthroid, Levoxyl) 100 MCG tablet, Take 1 tablet (100 mcg) by mouth daily., Disp: 90 tablet, Rfl: 3 metoprolol tartrate (Lopressor) 25 MG tablet, TAKE 1 TABLET BY MOUTH TWICE DAILY, Disp: 180 tablet,Rfl: 3 nitroglycerin (Nitrostat) 0.4 MG SL tablet, Place 1 tablet (0.4 mg) under the tongue every 5 minutes as needed for chest pain. May repeat dose every 5 minutes for up to 3 doses total. (Patient not taking: Reported on 09/23/2023), Disp: 100 tablet, Rfl: 11 pantoprazole (ProtoNix) 40 MG EC tablet, TAKE 1 TABLET BY MOUTH IN THE MORNING BEFORE BREAKFAST DO NOT CRUSH, CHEW, OR SPLIT, Disp: 90 tablet, Rfl: 3 Review of Systems: Review of Systems Constitutional: Negative for activity change, chills, diaphoresis, fatigue and fever. Pt states feeling well HENT: Negative for nosebleeds and trouble swallowing. Eyes: Negative for discharge and visual disturbance. Respiratory: Negative for apnea, cough, chest tightness, shortness of breath and wheezing. States his shortness of breath improved since his recent stenting Cardiovascular: Negative for chest pain, palpitations and leg swelling. Denies chest pain or palpitations Gastrointestinal: Negative for abdominal distention, abdominal pain, blood in stool, diarrhea, nausea and vomiting. Endocrine: Negative for cold intolerance and heat intolerance. Genitourinary: Negative for hematuria. Musculoskeletal: Negative for gait problem and myalgias. Skin: Negative for color change and rash. Neurological: Negative for dizziness, seizures, syncope, facial asymmetry, speech difficulty, weakness, light-headedness, numbness and headaches. Denies dizziness or light headedness Hematological: Does not bruise/bleed easily. Psychiatric/Behavioral: Negative for dysphoric mood. Physical Examination: Vitals: BP 126/78 (BP Location: Left arm, Patient Position: Sitting, BP Cuff Size: Adult) Pulse 58 Resp 16 Ht 5' 6 (1.676 m) Wt 174 lb 3.2 oz (79 kg) BMI 28.12 kg/m Body mass index is 28.12 kg/m . Physical Exam Constitutional: Appearance: Normal appearance. Comments: Well compensated HENT: Head: Normocephalic. Eyes: General: Right eye: No discharge. Left eye: No discharge. Neck: Comments: No JVD Cardiovascular: Rate and Rhythm: Normal rate and regular rhythm. Heart sounds: No murmur heard. Comments: Right radial cath site is CDI, well healed. Heart rate regular, 3+ systolic murmer present, heart rate well controlled Pulmonary: Effort: Pulmonary effort is normal. Breath sounds: Normal breath sounds. No wheezing or rales. Comments: Clear t/o Abdominal: General: Bowel sounds are normal. There is no distension. Palpations: Abdomen is soft. Musculoskeletal: Cervical back: Neck supple. Right lower leg: No edema. Left lower leg: No edema. Comments: BLE are nonedematous Skin: General: Skin is warm. Findings: No erythema or rash. Neurological: Mental Status: He is alert and oriented to person, place, and time. Psychiatric: Behavior: Behavior normal. Laboratory Tests: Lab Results Component Value Date GLUCOSE 126 (H) 09/15/2023 CALCIUM 9.5 09/15/2023 NA 139 09/15/2023 K 4.6 09/15/2023 CO2 28 09/15/2023 CL 104 09/15/2023 BUN 17 09/15/2023 CREATININE 1.05 09/15/2023 @[facility]@ Lab Results Component Value Date CHOL 133 05/27/2022 CHOL 125 05/23/2021 CHOL 125 11/20/2020 Lab Results Component Value Date TRIG 325 (H) 05/27/2022 TRIG 91 05/23/2021 TRIG 84 11/20/2020 Lab Results Component Value Date HDL 25 (L) 05/27/2022 HDL 41 05/23/2021 HDL 31 (L) 11/20/2020 Lab Results Component Value Date LDLCALC 43 05/27/2022 No results found for: VLDL Lab Results Component Value Date CHOLHDLRATIO 5 05/27/2022 CHOLHDLRATIO 3 05/23/2021 CHOLHDLRATIO 4 11/20/2020 Other Testing: Cardiac Tests: Echo (date: 06/17/2023): Left Ventricle: Left ventricle size is normal. Mild septal thickening. Normal left ventricular systolic function. EF by 2D Simpsons Biplane is 69%. Normal wall motion. Grade I diastolic dysfunction with normal LAP. Right Ventricle: Right ventricle size is normal. Normal systolic function. Left Atrium: Left atrium is mildly dilated. Aortic Valve: Trileaflet. Severely calcified cusps with signifincat mobility restriction on visual inspetion. Trace regurgitation. Paradoxical low flow/low gradient severe aortic stenosis with normalEF. AV mean gradient is 20 mmHg. AV peak gradient is 38 mmHg. AV peak velocity is 3.1 m/s. LVOT:AV VTI Index is 0.31. AV area by continuity VTI is 0.9 cm2. Stroke volume index is 34.9 mL/m2. Aorta: Normal sized sinuses of Valsalva. Mildly dilated ascending aorta. Ao ascending diameter is 3.6 cm. Technically difficult study. Cardiac Catheterization (date: 09/23/2023): Conclusion Severe CAD with severe LMT disease, ostial LCX disease and ostial diagonal disease. The L-LAD is patent. His aortic stenosis appears moderate so it was decided to proceed with PCI. The ostium of the LCx was treated with angioplasty only with a 2.5mm balloon. The LMT into the proximal diagonal was treated with a 3.0x28 drug eluting stent, IVUS guided. It was extremely difficult to pass equipment into the mid/distal calcified and tortuous diagonal branch. Both the LCx and the diagonal have improved flow after the LMT/Diagonal stent. If he has persistent symptoms of dyspnea and fatigue, considerproceeding with TAVR. Recommendations Patient management should include: Aggressive risk factor modification, optimal medical management,follow-up for further management of valve disease, cardiac rehabillitation, drug-eluting stent maintenance and continue with current meds. Assessment and Plan: 1. Coronary artery disease-as outlined above underwent plain old balloon angioplasty of the ostium of the left circumflex, as well as drug-eluting stent placement into the Left Main into proximal diagonal vessel 09/23/2023. -I emphasized the continued importance of having no interruption of his dual antiplatelet therapy, aspirin and Plavix for minimum of 1 year, likely longer -He is interested in I have referred him back to cardiac rehab. -I emphasized if he were to have recurrent chest discomfort, that reminds him of his prior angina, and be prudent to proceed to the emergency room. 2. Moderate aortic stenosis-well compensated. Overall he feels his symptoms of shortness of breath have improved. -Will continue to monitor for symptoms, it was noted if he were to have recurrent symptoms of shortness of breath, after his recent percutaneous intervention as noted above, could again consider TAVRevaluation. 3. Dyslipidemia-atorvastatin 80 mg daily continues for cardiac risk reduction, along with Zetia 10 mg daily. I have ordered surveillance blood work including a lipid and hepatic panel, along with a BMP, CBC, I will await results. Goal LDL is less than 70. 4. Follow-up-3 months and as needed. Kavon Kramer SALESPERSON [employer]ESSORIES/CHEMICAL PROCESS PROJECT ENGINEER documented in this [facility]07-30-2024 Note* Perioperative Nursing Note - Estelita Brock RN - 09/23/2023 3:03 PM EDT Discharge instructions given to pt and with good understanding [id number]* Perioperative Nursing Note - Estelita Brock RN - 09/23/2023 3:03 PM EDT Discharge instructions given to pt and with good understanding [id number] Miscellaneous Notes* Perioperative Nursing Note - Estelita Brock RN - 09/23/2023 3:03 PM EDT Discharge instructions given to pt and with good understanding * Pre-Sedation Documentation - Ronal Barr MD - 09/23/2023 10:41 AM EDT Sedation Plan ASA class 2 - patient with mild systemic disease Mallampati class: II - soft palate, uvula, fauces visible. Sedation plan: local anesthesia and minimal sedation Risks, benefits, and alternatives discussed with patient. Use of blood products discussed with patient who. Immediate reassessment prior to sedation: Patient's status reviewed and vital signs assessed; acceptable to perform procedure and proceed to administer sedation as planned. * Perioperative Nursing Note - Dali Wetzel RN - 09/23/2023 6:50 AM EDT Patient educated on importance of coughing/ deep breathing after surgery to reduce risk of pneumonia. Patient educated on importance of early mobility to reduce the risk of blood clots. Falls prevention information reviewed with patient. documented in this [facility]07-30-2024 Hospital course Narrative* Dawn Flores, SALESPERSON [employer]IES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 - 09/23/2023 1:13 PM EDT Discharge Summary Ramy Barron : 1940 ADMIT DATE: 09/23/2023 DISCHARGE DATE: 09/23/2023 PRIMARY CARE PHYSICIAN: Jean-Paul Pack VISIT STATUS: Observation CODE STATUS: Full Code DISCHARGE DIAGNOSES: Principal Problem: Aortic valve stenosis HOSPITAL COURSE: Ramy Barron is a 82 y.o. year old male patient with hx of CAD and aortic valve disease presented for [facility] s/p JUSTINA to LMT / diagonal. He was reloaded with Plavix. He denies chest pain, SOB, dizziness, syncope, and edema. Reviewed cath site, with TR band on presently. Site c/d/I, without hematoma or ecchymosis. Pulse 2+, cap refill brisk. Reviewed DAPT - aspirin and Plavix - to be taken uninterrupted for a minimum of 12 months. He has both aspirin and Plavix at home already as he previously took these meds. SIGNIFICANT DIAGNOSTIC STUDIES: 09/23/23 CARDIAC PROCEDURE 09/23/2023 10:53 AM (Final) Conclusion Severe CAD with severe LMT disease, ostial LCX disease and ostial diagonal disease. The L-LAD is patent. His aortic stenosis appears moderate so it was decided to proceed with PCI. The ostium of the LCx was treated with angioplasty only with a 2.5mm balloon. The LMT into the proximal diagonal was treated with a 3.0x28 drug eluting stent, IVUS guided. It was extremely difficult to pass equipment into the mid/distal calcified and tortuous diagonal branch. Both the LCx and the diagonal have improved flow after the LMT/Diagonal stent. If he has persistent symptoms of dyspnea and fatigue, considerproceeding with TAVR. Signed by: Ronal Barr MD on 09/23/2023 10:53 AM CONSULTANTS: Interventional Cardiology Cardiac Rehab RECOMMENDED NEXT STEPS: 1-2 week post-cath follow-up in office. DISCHARGE MEDICATIONS: Medication List CONTINUE taking these medications acetaminophen 500 MG tablet Commonly known as: Tylenol aspirin 81 MG EC tablet atorvastatin 80 MG tablet Commonly known as: Lipitor TAKE 1 TABLET BY MOUTH DAILY clopidogrel 75 MG tablet Commonly known as: Plavix Take 1 tablet (75 mg) by mouth daily. coenzyme Q-10 100 MG capsule ezetimibe 10 MG tablet Commonly known as: Zetia Take 1 tablet (10 mg) by mouth daily. isosorbide mononitrate ER 60 MG 24 hr tablet Commonly known as: Imdur TAKE 1 TABLET BY MOUTH DAILY levothyroxine 100 MCG tablet Commonly known as: Synthroid, Levoxyl Take 1 tablet (100 mcg) by mouth daily. metoprolol tartrate 25 MG tablet Commonly known as: Lopressor TAKE 1 TABLET BY MOUTH TWICE DAILY nitroglycerin 0.4 MG SL tablet Commonly known as: Nitrostat Place 1 tablet (0.4 mg) under the tongue every 5 minutes as needed for chest pain. May repeat dose every 5 minutes for up to 3 doses total. pantoprazole 40 MG EC tablet Commonly known as: ProtoNix TAKE 1 TABLET BY MOUTH IN THE MORNING BEFORE BREAKFAST DO NOT CRUSH, CHEW, OR SPLIT DIET: Adult diet Regular ACTIVITY: No heavy lifting. COMPLEXITY OF FOLLOW UP: [x] Moderate Complexity: follow up within 7-14 calendar days (13265) [] Severe Complexity: follow up within 7 calendar days (63024) FOLLOW UP TESTING, PENDING RESULTS OR REFERRALS AT TRANSITIONAL CARE VISIT: [x] Yes - CBC and BMP in 1 week [] No PENDING STUDIES: NA DISPOSITION: Home Follow up with Temi Tubbs, SALESPERSON [employer]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 [address] [facility] [id number] Go on 10/08/2023 Cardiology follow-up at 9:00 AM. INSTRUCTIONS TO MA/SW: Please call patient on day after discharge (must document patient contacted within 2 business days of discharge). FOLLOW UP QUESTIONS FOR MA/SW: 1. Did you get medications filled and taking them as instructed from discharge? 2. Are you following your discharge instructions from your hospital stay? 3. Please confirm patient is scheduled for a follow up appointment within the above time frame. DISCHARGE TIME: > 30 minutes SIGNED: NOÉ Garcia CNP 09/23/2023, 2:29 PM documented in this [facility]07-30-2024 Hospital Discharge instructions* Discharge Instructions* NOÉ Villalobos CNP - 09/23/2023 12:48 PM EDT Expect a phone call within 72 hours post discharge. If you have questions, issues, or concerns please call or text the Ischemic Heart Disease Hotline, this is a cell phone, # [phone] (available 16/09) Post Cardiac Catheterization/Wrist Site Care Call your doctor with any medication questions or if you notice any side effects from your medications. If you are unable to fill your medications, please call your [employer] Manager immediately. The office number is located with your follow-up appointment information. Call your doctor if any redness or drainage from the wound site. DO NOT stop taking your medication unless instructed to do so by your doctor. No alcoholic beverages for 24 hours. It may interfere with healing. No exercise or sex for 5 days. Call your doctor if a lump at the puncture site enlarges or is larger than marble size. Call your doctor for numbness, tingling, or swelling of the fingers, hand or wrist. Call your doctor for increased area or bruising with discoloration extending into the arm. If bleeding occurs, hold pressure with your thumb against the puncture site and your finger againstthe back of the wrist for 10 minutes, if BLEEDING continues CALL 911. OK to shower. No tub baths, swimming pools or hot tub soaking for 3 days. Wash site daily with soap and water, dry gently. The healing wound should remain soft and dry. Keepsite clean and dry, no soaking of wrist for 3 days (no cleaning or dish washing). Remove band aid the day after procedure and leave open to air. No bending of affected wrist for 24 hours. DO NOT lift more than 3 pounds for 3- 5 days[address] No driving for 24 hours. ACUTE CORONARY SYNDROME (Heart attack, Myocardial Infarction [STEMI/NSTEMI], unstable angina): situations where the blood supplied to the heart muscle is severely reduced or blocked (the blockage canbe a narrowing or sudden and complete). Then the section of the heart muscle supplied by that artery can be damaged. The amount of damage increases the longer an artery stays blocked and in some cases, it may even . The amount of damage to the heart muscle depends on the size of the area supplied by the blocked artery and the time between injury and treatment. Risk Factors Cannot Change [] Age [] Gender [] Family history of heart disease Can Change [] Tobacco use (cigarettes, chewing, vape) [] Diabetes [] High cholesterol [] Sedentary lifestyle [] Poor diet [] For women, a History of high blood pressure, pre-eclampsia or diabetes during GREEN ZONE: All Clear- Your Symptoms Are Under Control No increase in frequency or severity of chest pain No increased shortness of breath No lightheadedness or dizziness This Means You Should: Continue taking your medications as prescribed Continue activity as tolerated Exercise regularly or as recommended by your physician Eat a healthy diet low in saturated and trans fat, limiting alcohol and caffeine Maintain a healthy weight Keep all doctor appointments Avoid smoking YELLOW ZONE: Caution Chest pain, pressure or tightness - return of symptoms similar to what brought you to the hospital Pain radiating into your neck, jaw or arm Shortness of breath Nausea or heavy sweating Lightheadedness or dizziness Any side effects from your medications Uneasy feeling or that something is wrong This Means You Should: Call/text the Ischemic hotline [phone] or your doctor's office for further instructions RED ZONE: Medical Alert Chest pain/pressure/discomfort or pain in the neck, jaw, arm, upper back that is lasting longer than 5 minutes OR NOT relieved after nitroglycerin (if prescribed) Severe shortness of breath Passing out or fainting This Means You Should Call 911 Immediately Heart-Healthy Life-Style Modifications Take your medications as prescribed Quit smoking ([email or web address]) Control your blood sugar Treat high-blood pressure Eat a heart-healthy diet, low in saturated and trans-fat, sodium and added sugars Exercise regularly Achieve and maintain a healthy weight Keep your follow-up appointments Ask Your Provider Before You Take New medications Fqli-gjz-cppnrez drugs, nutrition supplements or herbal therapies Avoid nonsteroidal anti-inflammatory drugs (NSAIDS). Example are ibuprofen (Advil , Motrin ) and naproxen (Aleve , Naprosyn ). Acetaminophen (Tylenol ) is recommended to relieve aches, pains and/or fever. Avoid decongestants, such as pseudoephedrine (Sudafed ). If you have any questions about whether it is safe to take a medicine, ask your doctor, nurse, or pharmacist. Cardiac Rehab The Cardiac Rehab team at [facility] consists of highly skilled exercise physiologists, nurses, respiratory therapists and physicians working together with you. Our purpose is to help you have a full recovery and achieve the goals you set for yourself. Over the years many of our patients have returned to activities they assumed they would never do again! We can help restore your confidence and motivation to make lifestyle changes that can have a significant impact on your health and quality of life! We can help answer questions and concerns you may have about exercise, lifestyle, medications, diet, stress and anxiety which are common following a hospitalization. We monitor ECG and vital signs during exercise and discuss your progress with you and report to your physician. Cardiac Rehab is proven to help reduce readmissions, improve functional capacity and lower recurrence of problems with your heart. We have facilities at both [facility] and [facility]. At both locations we have street level parking which is free and our sites are easily accessible. For both [facility] you can contact us at . We invite you to call us with your questions or to get started in our program. If you have other questions or concerns be sure to ask your provider during your follow up visit. We look forward to seeing you there. Our locations: [facility] [address] Floor [id number] - Ground floor * Attachments The following attachments cannot be sent through Care Everywhere. * Coronary Artery Disease (Guatemalan) documented in this [facility]07-30-2024 Note* Pre-Sedation Documentation - Ronal Barr MD - 09/23/2023 10:41 AM EDT Sedation Plan ASA class 2 - patient with mild systemic disease Mallampati class: II - soft palate, uvula, fauces visible. Sedation plan: local anesthesia and minimal sedation Risks, benefits, and alternatives discussed with patient. Use of blood products discussed with patient who. Immediate reassessment prior to sedation: Patient's status reviewed and vital signs assessed; acceptable to perform procedure and proceed to administer sedation as planned. [facility]07-30-2024 Note* Pre-Sedation Documentation - Ronal Barr MD - 09/23/2023 10:41 AM EDT Sedation Plan ASA class 2 - patient with mild systemic disease Mallampati class: II - soft palate, uvula, fauces visible. Sedation plan: local anesthesia and minimal sedation Risks, benefits, and alternatives discussed with patient. Use of blood products discussed with patient who. Immediate reassessment prior to sedation: Patient's status reviewed and vital signs assessed; acceptable to perform procedure and proceed to administer sedation as planned. [facility]07-30-2024 Note* Perioperative Nursing Note - Dali Wetzel RN - 09/23/2023 6:50 AM EDT Patient educated on importance of coughing/ deep breathing after surgery to reduce risk of pneumonia. Patient educated on importance of early mobility to reduce the risk of blood clots. Falls prevention information reviewed with patient. [facility]07-30-2024 Note* Perioperative Nursing Note - Dali Wetzel RN - 09/23/2023 6:50 AM EDT Patient educated on importance of coughing/ deep breathing after surgery to reduce risk of pneumonia. Patient educated on importance of early mobility to reduce the risk of blood clots. Falls prevention information reviewed with patient. [facility] [id number] History of Present illness Narrative* Kaushik Wise MD - 09/22/2023 9:15 AM EDT General Surgery History and Physical Patient ID: Ramy Barron [id number] 82 y.o. 1940 HPI: Patient here with 2 separate issues. First, periumbilical pain on several occasions over the past couple of months. States that he had acute pain right at the bellybutton sharp and burning in nature nature however did resolve spontaneously after a brief period. He does have a very small umbilical hernia that most likely causing the symptoms. His main complaint today is chronic abdominal discomfort pain and bloating. States he has been experiencing this for the past several years and it seems to be getting worse. Feels like he has a hard time emptying his stomach after eating. Notices severe bloating and upper abdominal pain that is at times debilitating. No nausea vomiting fevers or chi lls. No significant changes in bowel or bladder habits. Thoroughly reviewed the patient's medical history, family history, social history and review of systems with the patient today in the office. Please see medical record for pertinent positives. Impression /Treatment: Small umbilical hernia and I recommend watchful waiting at this point. If symptoms get to the pointthey are interfering with his daily activities then we should proceed with repair. Chronic abdominal pain with gastric bloating. Will refer patient to GI for further evaluation and treatment and in the meantime also schedule gastric emptying study. patient counseled on risks, benefits, and alternatives of treatment plan at length while in the office today. Patient states an unders tanding and willingness to proceed with plan. Past Medical History: Diagnosis Date Aortic stenosis, moderate 05/2022 per ECHO CAD (coronary artery disease) 01/05/2015 CABG, 06/[address] Barr Cervical spine degeneration 2019 Clostridium difficile colitis 01/2021 ?etiology ED (erectile dysfunction) H/O colonoscopy 2007 Dr. 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 Barr- 3 RCA stents, COLONOSCOPY 2007 Dr. Garnica CORONARY ANGIOPLASTY WITH STENT PLACEMENT 10/2014 JUSTINA to mid LAD CORONARY ARTERY BYPASS GRAFT 10/2014 RODARTE-LAD, SVG-Diagonal, SVG-PDA KNEE ARTHROSCOPY W/ MENISCAL REPAIR Left 2013 [place] Current Outpatient Medications Medication Sig Dispense Refill acetaminophen (Tylenol) 500 MG tablet Take 1 tablet by mouth as needed. aspirin 81 MG EC tablet Take 81 mg by mouth in the morning. atorvastatin (Lipitor) 80 MG tablet TAKE 1 TABLET BY MOUTH DAILY 90 tablet 3 clopidogrel (Plavix) 75 MG tablet Take 1 tablet (75 mg) by mouth daily. 90 tablet 3 coenzyme Q-10 100 MG capsule Take 1 capsule by mouth in the morning. ezetimibe (Zetia) 10 MG tablet Take 1 tablet (10 mg) by mouth daily. 90 tablet 3 isosorbide mononitrate ER (Imdur) 60 MG 24 hr tablet TAKE 1 TABLET BY MOUTH DAILY 90 tablet 3 levothyroxine (Synthroid, Levoxyl) 100 MCG tablet Take 1 tablet (100 mcg) by mouth daily. 90 tablet3 metoprolol tartrate (Lopressor) 25 MG tablet TAKE 1 TABLET BY MOUTH TWICE DAILY 180 tablet 3 nitroglycerin (Nitrostat) 0.[address] 1 tablet (0.4 mg) under the tongue every 5 minutesas needed for chest pain. May repeat dose every 5 minutes for up to 3 doses total. 100 tablet 11 pantoprazole (ProtoNix) 40 MG EC tablet TAKE 1 TABLET BY MOUTH IN THE MORNING BEFORE BREAKFAST DO NOT CRUSH, CHEW, OR SPLIT 90 tablet 3 No current facility-administered medications for this visit. No Known Allergies Review of Systems: Review of Systems Constitutional: Negative for appetite change, chills, fatigue, fever and unexpected weight change. HENT: Negative for trouble swallowing and voice change. Respiratory: Negative for cough, shortness of breath and wheezing. Cardiovascular: Negative for chest pain and palpitations. Gastrointestinal: Positive for abdominal pain. Negative for constipation, diarrhea, nausea, rectal pain and vomiting. Endocrine: Negative for polyuria. Skin: Negative for rash and wound. Allergic/Immunologic: Negative for immunocompromised state. Neurological: Negative for seizures and syncope. Hematological: Negative for adenopathy. Does not bruise/bleed easily. Physical Exam: BP 120/69 Pulse 51 Ht 5' 6 (1.676 m) Wt 174 lb 6.4 oz (79.1 kg) BMI 28.15 kg/m Physical Exam Constitutional: Appearance: Normal appearance. HENT: Head: Normocephalic. Eyes: Pupils: Pupils are equal, round, and reactive to light. Cardiovascular: Rate and Rhythm: Normal rate and regular rhythm. Pulmonary: Effort: No respiratory distress. Breath sounds: Normal breath sounds. No rales. Abdominal: General: There is no distension. Palpations: There is no mass. Tenderness: There is no abdominal tenderness. There is no guarding or rebound. Hernia: A hernia is present. Hernia is present in the umbilical area. Comments: Very small umbilical hernia Musculoskeletal: General: No tenderness or deformity. Cervical back: Neck supple. Lymphadenopathy: Cervical: No cervical adenopathy. Skin: General: Skin is warm and dry. Neurological: Mental Status: He is alert and oriented to person, place, and time. Cranial Nerves: No cranial nerve deficit. Coordination: Coordination normal. Psychiatric: Behavior: Behavior normal. Kaushik Wise MD 09/22/2023 documented in this [facility]07-29-2024 Miscellaneous Notes* Addendum Note - NOÉ Cummings CNP - 09/22/2023 9:15 AM EDTAddended by: FLORIAN TRUJILLO on: 09/22/2023 02:35 PM Modules accepted: Orders documented in this [facility]07-29-2024 Note* Addendum Note - NOÉ Cummings CNP - 09/22/2023 9:15 AM EDTAddended by: FLORIAN TRUJILLO on: 09/22/2023 02:35 PM Modules accepted: Orders [facility] [employer] Work Phone: 1(877) 865-478807-29-2024 Note* Addendum Note - NOÉ Cummings CNP - 09/22/2023 9:15 AM EDTAddended by: FLORIAN TRUJILLO on: 09/22/2023 02:35 PM Modules accepted: Orders [facility] Work Phone: 1(929) 343-793207-25-2024 History and physical note* Meagan JovelNOÉ CNP - 09/18/2023 4:45 PM EDT Images from the original note were not included. Office Visit 09/17/2023 [facility] Ronal Barr MD Cardiology Aortic valve stenosis, etiology of cardiac valve disease unspecified Dx Follow-up Reason for Visit Progress Notes Ronal Barr MD (Physician) Cardiology Expand All Collapse All [facility] [address] [facility] [address] Dept: [phone] Dept Loc: [phone] Interventional Cardiology Office Note Visit type: Established patient Reason for Visit: Follow-up (ER annual) Assessment and Plan Ramy Barron is a very pleasant 82 y.o. male who presents for routine follow-up. His aortic stenosis may be severe. His murmur on exam sounds more moderate and his gradients are more moderate though he does meet some criteria for severe aortic stenosis. I am somewhat concerned that he has worsening coronary disease based on his symptoms. His periumbilical tenderness appears to be unrelated and I agree with further GI workup. We will plan a left and right heart catheterizationto look for further targets for coronary intervention and also as workup for likely TAVR in the near future. I advised him to continue with his GI workup through this process. 1. Aortic valve stenosis, etiology of cardiac valve disease unspecified - Case Request Director Utilization Management: Left and right heart cath / coronary angiography - ECG 12 lead - CLINIC PERFORMED Follow up in about 3 months (around 12/18/2023). It was a great pleasure seeing Ramy Barron in our office today. Please contact me with any questions. Ronal Barr MD MPH, [facility], [facility] Chief, Ischemic Heart Disease Position Classification Specialist, Interventional Cardiology Fellowship Grinder Set Up Operator Surface Coronary, Structural, Peripheral Interventions Subjective Ramy Barron is a very pleasant 82 y.o. male with coronary artery disease status post PCI of theleft anterior descending in October 2014 in the setting of cardiac arrest followed by urgent coronary bypass surgery (RODARTE to left anterior descending, vein to OM, vein to diagonal, vein to PDA with all vein grafts known occluded) with PCI of the RCA in the setting of unstable angina 05/2022, hypertension, hyperlipidemia, history of leukemia, degenerative disc disease of the spine who presents today for routine follow up. He has been having some worsening dyspnea as well as some gas and abdominal pain for the past several weeks. He was evaluated in the ER and cardiac workup was unremarkable at that time. A couple of days ago he had severe periumbilical pain and was evaluated in the ER and CT did not reveal any acute abnormalities. He states this pain has essentially subsided since then but he is scheduled to see a GI specialist on Friday for further workup. His most recent echocardiogram revealed moderate to severe aortic stenosis. He denies any angina, lightheadedness, syncope, edema, orthopnea. Review of Systems Constitutional: Negative. Respiratory: Positive for shortness of breath (on exertion). Genitourinary: Negative. Musculoskeletal: Negative. Neurological: Negative. Hematological: Negative. Psychiatric/Behavioral: Negative. Allergies No Known Allergies Medications Prior to Visit Outpatient Medications Prior to Visit Medication Sig Dispense Refill acetaminophen (Tylenol) 500 MG tablet Take 1 tablet by mouth as needed. aspirin 81 MG EC tablet Take 81 mg by mouth in the morning. atorvastatin (Lipitor) 80 MG tablet TAKE 1 TABLET BY MOUTH DAILY 90 tablet 3 clopidogrel (Plavix) 75 MG tablet Take 1 tablet (75 mg) by mouth daily. 90 tablet 3 coenzyme Q-10 100 MG capsule Take 1 capsule by mouth in the morning. ezetimibe (Zetia) 10 MG tablet Take 1 tablet (10 mg) by mouth daily. 90 tablet 3 isosorbide mononitrate ER (Imdur) 60 MG 24 hr tablet TAKE 1 TABLET BY MOUTH DAILY 90 tablet 3 levothyroxine (Synthroid, Levoxyl) 100 MCG tablet Take 1 tablet (100 mcg) by mouth daily. 90 tablet3 metoprolol tartrate (Lopressor) 25 MG tablet TAKE 1 TABLET BY MOUTH TWICE DAILY 180 tablet 3 nitroglycerin (Nitrostat) 0.[address] 1 tablet (0.4 mg) under the tongue every 5 minutesas needed for chest pain. June repeat dose every 5 minutes for up to 3 doses total. 100 tablet 11 pantoprazole (ProtoNix) 40 MG EC tablet TAKE 1 TABLET BY MOUTH IN THE MORNING BEFORE BREAKFAST DO NOT CRUSH, CHEW, OR SPLIT 90 tablet 3 No facility-administered medications prior to visit. Medical History Past Medical History: Diagnosis Date Aortic stenosis, moderate 05/2022 per ECHO CAD (coronary artery disease) 01/05/2015 CABG, 06/[address] Barr Cervical spine degeneration 2019 Clostridium difficile colitis 01/2021 ?etiology ED (erectile dysfunction) H/O colonoscopy 2007 Dr. 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 Barr- 3 RCA stents, COLONOSCOPY 2007 Dr. Garnica CORONARY ANGIOPLASTY WITH STENT PLACEMENT 10/2014 JUSTINA to mid LAD CORONARY ARTERY BYPASS GRAFT 10/2014 RODARTE-LAD, SVG-Diagonal, SVG-PDA KNEE ARTHROSCOPY W/ MENISCAL REPAIR Left 2013 [place] Social History Tobacco Use Smoking status: Never Smokeless tobacco: Never Substance Use Topics Alcohol use: Never Family History Family History Problem Relation Name Age of Onset No Known Problems Mother PNA and bowel obst age 85 COPD Father [employer], age 80 Diabetes Sister 4 Heart disease Brother 5 age 76, pacemaker Bladder Cancer Brother Objective Vitals Vitals: 09/17/23 1504 BP: (!) 144/76 BP Location: Right arm Patient Position: Sitting BP Cuff Size: Adult Pulse: 61 SpO2: 97% Weight: 171 lb 9.6 oz (77.8 kg) Height: 5' 6 (1.676 m) Body mass index is 27.7 kg/m . Physical Exam Constitutional: General: He is not in acute distress. Appearance: Normal appearance. He is not toxic-appearing. HENT: Head: Normocephalic and atraumatic. Nose: Nose normal. Mouth/Throat: Mouth: Mucous membranes are moist. Eyes: Pupils: Pupils are equal, round, and reactive to light. Neck: Vascular: No carotid bruit or JVD. Cardiovascular: Rate and Rhythm: Regular rhythm. Bradycardia present. Pulses: Dorsalis pedis pulses are 2+ on the right side and 2+ on the left side. Posterior tibial pulses are 2+ on the right side and 2+ on the left side. Heart sounds: Murmur heard. Crescendo systolic murmur is present with a grade of 3/6. Pulmonary: Effort: Pulmonary effort is normal. No respiratory distress. Breath sounds: Normal breath sounds. Abdominal: General: Abdomen is flat. Palpations: Abdomen is soft. Musculoskeletal: General: Normal range of motion. Cervical back: Normal range of motion and neck supple. Right lower leg: No edema. Left lower leg: No edema. Skin: General: Skin is warm and dry. Neurological: General: No focal deficit present. Mental Status: He is alert and oriented to person, place, and time. Psychiatric: Mood and Affect: Mood normal. Data Reviewed and Summarized Labs: personally reviewed Lab Results Component Value Date WBC 4.6 09/15/2023 HGB 14.1 09/15/2023 HCT 40.5 09/15/2023 MCV 104.9 (H) 09/15/2023 PLT 163 09/15/2023 Lab Results Component Value Date GLUCOSE 126 (H) 09/15/2023 CALCIUM 9.5 09/15/2023 NA 139 09/15/2023 K 4.6 09/15/2023 CO2 28 09/15/2023 CL 104 09/15/2023 BUN 17 09/15/2023 CREATININE 1.05 09/15/2023 @[facility]@ Lab Results Component Value Date CHOL 133 05/27/2022 CHOL 125 05/23/2021 CHOL 125 11/20/2020 Lab Results Component Value Date TRIG 325 (H) 05/27/2022 TRIG 91 05/23/2021 TRIG 84 11/20/2020 Lab Results Component Value Date HDL 25 (L) 05/27/2022 HDL 41 05/23/2021 HDL 31 (L) 11/20/2020 Lab Results Component Value Date LDLCALC 43 05/27/2022 Imaging/Testing: personally reviewed No components found for: LVEF, LVEFMODE Coronary Appropriate Use Criteria Coronary Presentation (select one): Valvular DiseaseAortic Stenosis; Severity: Moderate History of CABG (select one): Yes Diabetes (select one): No Anginal Classification (CCS) within 2 weeks (select one): CCS II - Slight limitation, with angina only during vigorous physical activity Anti-anginal Meds within 2 weeks (select all that apply): Yes: Beta Blockers, Long Acting Nitrates (Any), Aspirin, and Statin (Any) Stress or Imaging studies performed (select one), risk/extent of ischemia (select one if applicable): No, Unavailable Patient undergoing renal transplant or percutaneous valve procedure (select one): No NYHA Classification: N/A, no history of HF Frailty Score :3 [facility] Protocol: No H+ P copied to chart from Dr. Barr progress note dated 09/17/[address] Barr. Associated attestation - Ronal Barr MD - 09/25/2023 12:26 PM EDT I have examined the patient on admission and confirm that the necessity for the procedure is still present . The patient's condition has not changed since the History & Physical was originally completed. Ronal Barr MD 09/23/2023 [facility] Work Phone: 1(886) 669-452707-25-2024 History and physical note* Meagan Jovel, SALESPERSON [employer]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 - 09/18/2023 4:45 PM EDT Images from the original note were not included. Office Visit 09/17/2023 [facility] Ronal Barr MD Cardiology Aortic valve stenosis, etiology of cardiac valve disease unspecified Dx Follow-up Reason for Visit Progress Notes Ronal Barr MD (Physician) Cardiology Expand All Collapse All [facility] [address] [facility] [address] Dept: [phone] Dept Loc: [phone] Interventional Cardiology Office Note Visit type: Established patient Reason for Visit: Follow-up (ER annual) Assessment and Plan Ramy Barron is a very pleasant 82 y.o. male who presents for routine follow-up. His aortic stenosis may be severe. His murmur on exam sounds more moderate and his gradients are more moderate though he does meet some criteria for severe aortic stenosis. I am somewhat concerned that he has worsening coronary disease based on his symptoms. His periumbilical tenderness appears to be unrelated and I agree with further GI workup. We will plan a left and right heart catheterizationto look for further targets for coronary intervention and also as workup for likely TAVR in the near future. I advised him to continue with his GI workup through this process. 1. Aortic valve stenosis, etiology of cardiac valve disease unspecified - Case Request Director Utilization Management: Left and right heart cath / coronary angiography - ECG 12 lead - CLINIC PERFORMED Follow up in about 3 months (around 12/18/2023). It was a great pleasure seeing Ramy Barron in our office today. Please contact me with any questions. Ronal Barr MD MPH, FACC, [facility] Chief, Ischemic Heart Disease Position Classification Specialist, Interventional Cardiology Fellowship Grinder Set Up Operator Surface Coronary, Structural, Peripheral Interventions Subjective Ramy Barron is a very pleasant 82 y.o. male with coronary artery disease status post PCI of theleft anterior descending in October 2014 in the setting of cardiac arrest followed by urgent coronary bypass surgery (RODARTE to left anterior descending, vein to OM, vein to diagonal, vein to PDA with all vein grafts known occluded) with PCI of the RCA in the setting of unstable angina 05/2022, hypertension, hyperlipidemia, history of leukemia, degenerative disc disease of the spine who presents today for routine follow up. He has been having some worsening dyspnea as well as some gas and abdominal pain for the past several weeks. He was evaluated in the ER and cardiac workup was unremarkable at that time. A couple of days ago he had severe periumbilical pain and was evaluated in the ER and CT did not reveal any acute abnormalities. He states this pain has essentially subsided since then but he is scheduled to see a GI specialist on Friday for further workup. His most recent echocardiogram revealed moderate to severe aortic stenosis. He denies any angina, lightheadedness, syncope, edema, orthopnea. Review of Systems Constitutional: Negative. Respiratory: Positive for shortness of breath (on exertion). Genitourinary: Negative. Musculoskeletal: Negative. Neurological: Negative. Hematological: Negative. Psychiatric/Behavioral: Negative. Allergies No Known Allergies Medications Prior to Visit Outpatient Medications Prior to Visit Medication Sig Dispense Refill acetaminophen (Tylenol) 500 MG tablet Take 1 tablet by mouth as needed. aspirin 81 MG EC tablet Take 81 mg by mouth in the morning. atorvastatin (Lipitor) 80 MG tablet TAKE 1 TABLET BY MOUTH DAILY 90 tablet 3 clopidogrel (Plavix) 75 MG tablet Take 1 tablet (75 mg) by mouth daily. 90 tablet 3 coenzyme Q-10 100 MG capsule Take 1 capsule by mouth in the morning. ezetimibe (Zetia) 10 MG tablet Take 1 tablet (10 mg) by mouth daily. 90 tablet 3 isosorbide mononitrate ER (Imdur) 60 MG 24 hr tablet TAKE 1 TABLET BY MOUTH DAILY 90 tablet 3 levothyroxine (Synthroid, Levoxyl) 100 MCG tablet Take 1 tablet (100 mcg) by mouth daily. 90 tablet3 metoprolol tartrate (Lopressor) 25 MG tablet TAKE 1 TABLET BY MOUTH TWICE DAILY 180 tablet 3 nitroglycerin (Nitrostat) 0.[address] 1 tablet (0.4 mg) under the tongue every 5 minutesas needed for chest pain. May repeat dose every 5 minutes for up to 3 doses total. 100 tablet 11 pantoprazole (ProtoNix) 40 MG EC tablet TAKE 1 TABLET BY MOUTH IN THE MORNING BEFORE BREAKFAST DO NOT CRUSH, CHEW, OR SPLIT 90 tablet 3 No facility-administered medications prior to visit. Medical History Past Medical History: Diagnosis Date Aortic stenosis, moderate 05/2022 per ECHO CAD (coronary artery disease) 01/05/2015 CABG, 06/[address] Barr Cervical spine degeneration 2019 Clostridium difficile colitis 01/2021 ?etiology ED (erectile dysfunction) H/O colonoscopy 2007 Dr. 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 Barr- 3 RCA stents, COLONOSCOPY 2007 Dr. Garnica CORONARY ANGIOPLASTY WITH STENT PLACEMENT 10/2014 JUSTINA to mid LAD CORONARY ARTERY BYPASS GRAFT 10/2014 RODARTE-LAD, SVG-Diagonal, SVG-PDA KNEE ARTHROSCOPY W/ MENISCAL REPAIR Left 2013 [place] Social History Tobacco Use Smoking status: Never Smokeless tobacco: Never Substance Use Topics Alcohol use: Never Family History Family History Problem Relation Name Age of Onset No Known Problems Mother PNA and bowel obst age 85 COPD Father [employer] Lung, age 80 Diabetes Sister 4 Heart disease Brother 5 age 76, pacemaker Bladder Cancer Brother Objective Vitals Vitals: 09/17/23 1504 BP: (!) 144/76 BP Location: Right arm Patient Position: Sitting BP Cuff Size: Adult Pulse: 61 SpO2: 97% Weight: 171 lb 9.6 oz (77.8 kg) Height: 5' 6 (1.676 m) Body mass index is 27.7 kg/m . Physical Exam Constitutional: General: He is not in acute distress. Appearance: Normal appearance. He is not toxic-appearing. HENT: Head: Normocephalic and atraumatic. Nose: Nose normal. Mouth/Throat: Mouth: Mucous membranes are moist. Eyes: Pupils: Pupils are equal, round, and reactive to light. Neck: Vascular: No carotid bruit or JVD. Cardiovascular: Rate and Rhythm: Regular rhythm. Bradycardia present. Pulses: Dorsalis pedis pulses are 2+ on the right side and 2+ on the left side. Posterior tibial pulses are 2+ on the right side and 2+ on the left side. Heart sounds: Murmur heard. Crescendo systolic murmur is present with a grade of 3/6. Pulmonary: Effort: Pulmonary effort is normal. No respiratory distress. Breath sounds: Normal breath sounds. Abdominal: General: Abdomen is flat. Palpations: Abdomen is soft. Musculoskeletal: General: Normal range of motion. Cervical back: Normal range of motion and neck supple. Right lower leg: No edema. Left lower leg: No edema. Skin: General: Skin is warm and dry. Neurological: General: No focal deficit present. Mental Status: He is alert and oriented to person, place, and time. Psychiatric: Mood and Affect: Mood normal. Data Reviewed and Summarized Labs: personally reviewed Lab Results Component Value Date WBC 4.6 09/15/2023 HGB 14.1 09/15/2023 HCT 40.5 09/15/2023 MCV 104.9 (H) 09/15/2023 PLT 163 09/15/2023 Lab Results Component Value Date GLUCOSE 126 (H) 09/15/2023 CALCIUM 9.5 09/15/2023 NA 139 09/15/2023 K 4.6 09/15/2023 CO2 28 09/15/2023 CL 104 09/15/2023 BUN 17 09/15/2023 CREATININE 1.05 09/15/2023 @[facility]@ Lab Results Component Value Date CHOL 133 05/27/2022 CHOL 125 05/23/2021 CHOL 125 11/20/2020 Lab Results Component Value Date TRIG 325 (H) 05/27/2022 TRIG 91 05/23/2021 TRIG 84 11/20/2020 Lab Results Component Value Date HDL 25 (L) 05/27/2022 HDL 41 05/23/2021 HDL 31 (L) 11/20/2020 Lab Results Component Value Date LDLCALC 43 05/27/2022 Imaging/Testing: personally reviewed No components found for: LVEF, LVEFMODE Coronary Appropriate Use Criteria Coronary Presentation (select one): Valvular DiseaseAortic Stenosis; Severity: Moderate History of CABG (select one): Yes Diabetes (select one): No Anginal Classification (CCS) within 2 weeks (select one): CCS II - Slight limitation, with angina only during vigorous physical activity Anti-anginal Meds within 2 weeks (select all that apply): Yes: Beta Blockers, Long Acting Nitrates (Any), Aspirin, and Statin (Any) Stress or Imaging studies performed (select one), risk/extent of ischemia (select one if applicable): No, Unavailable Patient undergoing renal transplant or percutaneous valve procedure (select one): No NYHA Classification: N/A, no history of HF Frailty Score :3 [place] Protocol: No H+ P copied to chart from Dr. Barr progress note dated 09/17/[address] Barr. Associated attestation - Ronal Barr MD - 09/25/2023 12:26 PM EDT I have examined the patient on admission and confirm that the necessity for the procedure is still present . The patient's condition has not changed since the History & Physical was originally completed. Ronal Barr MD 09/23/2023 documented in this [facility]07-24-2024 History of Present illness Narrative* Ronal Barr MD - 09/17/2023 3:30 PM EDT Images from the original note were not included. [facility] [address] [facility] [address] Dept: [phone] Dept Loc: [phone] Interventional Cardiology Office Note Visit type: Established patient Reason for Visit: Follow-up (ER annual) Assessment and Plan Ramy Barron is a very pleasant 82 y.o. male who presents for routine follow-up. His aortic stenosis may be severe. His murmur on exam sounds more moderate and his gradients are more moderate though he does meet some criteria for severe aortic stenosis. I am somewhat concerned that he has worsening coronary disease based on his symptoms. His periumbilical tenderness appears to be unrelated and I agree with further GI workup. We will plan a left and right heart catheterizationto look for further targets for coronary intervention and also as workup for likely TAVR in the near future. I advised him to continue with his GI workup through this process. 1. Aortic valve stenosis, etiology of cardiac valve disease unspecified - Case Request Director Utilization Management: Left and right heart cath / coronary angiography - ECG 12 lead - CLINIC PERFORMED Follow up in about 3 months (around 12/18/2023). It was a great pleasure seeing Ramy Barron in our office today. Please contact me with any questions. Ronal Barr MD MPH, FACC, [facility] Chief, Ischemic Heart Disease Position Classification Specialist, Interventional Cardiology Fellowship Grinder Set Up Operator Surface Coronary, Structural, Peripheral Interventions Subjective Ramy Barron is a very pleasant 82 y.o. male with coronary artery disease status post PCI of theleft anterior descending in October 2014 in the setting of cardiac arrest followed by urgent coronary bypass surgery (RODARTE to left anterior descending, vein to OM, vein to diagonal, vein to PDA with all vein grafts known occluded) with PCI of the RCA in the setting of unstable angina 05/2022, hypertension, hyperlipidemia, history of leukemia, degenerative disc disease of the spine who presents today for routine follow up. He has been having some worsening dyspnea as well as some gas and abdominal pain for the past several weeks. He was evaluated in the ER and cardiac workup was unremarkable at that time. A couple of days ago he had severe periumbilical pain and was evaluated in the ER and CT did not reveal any acute abnormalities. He states this pain has essentially subsided since then but he is scheduled to see a GI specialist on Friday for further workup. His most recent echocardiogram revealed moderate to severe aortic stenosis. He denies any angina, lightheadedness, syncope, edema, orthopnea. Review of Systems Constitutional: Negative. Respiratory: Positive for shortness of breath (on exertion). Genitourinary: Negative. Musculoskeletal: Negative. Neurological: Negative. Hematological: Negative. Psychiatric/Behavioral: Negative. No Known Allergies Outpatient Medications Prior to Visit Medication Sig Dispense Refill acetaminophen (Tylenol) 500 MG tablet Take 1 tablet by mouth as needed. aspirin 81 MG EC tablet Take 81 mg by mouth in the morning. atorvastatin (Lipitor) 80 MG tablet TAKE 1 TABLET BY MOUTH DAILY 90 tablet 3 clopidogrel (Plavix) 75 MG tablet Take 1 tablet (75 mg) by mouth daily. 90 tablet 3 coenzyme Q-10 100 MG capsule Take 1 capsule by mouth in the morning. ezetimibe (Zetia) 10 MG tablet Take 1 tablet (10 mg) by mouth daily. 90 tablet 3 isosorbide mononitrate ER (Imdur) 60 MG 24 hr tablet TAKE 1 TABLET BY MOUTH DAILY 90 tablet 3 levothyroxine (Synthroid, Levoxyl) 100 MCG tablet Take 1 tablet (100 mcg) by mouth daily. 90 tablet3 metoprolol tartrate (Lopressor) 25 MG tablet TAKE 1 TABLET BY MOUTH TWICE DAILY 180 tablet 3 nitroglycerin (Nitrostat) 0.[address] 1 tablet (0.4 mg) under the tongue every 5 minutesas needed for chest pain. May repeat dose every 5 minutes for up to 3 doses total. 100 tablet 11 pantoprazole (ProtoNix) 40 MG EC tablet TAKE 1 TABLET BY MOUTH IN THE MORNING BEFORE BREAKFAST DO NOT CRUSH, CHEW, OR SPLIT 90 tablet 3 No facility-administered medications prior to visit. Past Medical History: Diagnosis Date Aortic stenosis, moderate 05/2022 per ECHO CAD (coronary artery disease) 01/05/2015 CABG, 06/[address] Barr Cervical spine degeneration 2019 Clostridium difficile colitis 01/2021 ?etiology ED (erectile dysfunction) H/O colonoscopy 2007 Dr. 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 Barr- 3 RCA stents, COLONOSCOPY 2007 Dr. Garnica CORONARY ANGIOPLASTY WITH STENT PLACEMENT 10/2014 JUSTINA to mid LAD CORONARY ARTERY BYPASS GRAFT 10/2014 RODARTE-LAD, SVG-Diagonal, SVG-PDA KNEE ARTHROSCOPY W/ MENISCAL REPAIR Left 2013 [place] Social History Tobacco Use Smoking status: Never Smokeless tobacco: Never Substance Use Topics Alcohol use: Never Family History Problem Relation Name Age of Onset No Known Problems Mother PNA and bowel obst age 85 COPD Father [employer] Lung, age 80 Diabetes Sister 4 Heart disease Brother 5 age 76, pacemaker Bladder Cancer Brother Objective Vitals: 09/17/23 1504 BP: (!) 144/76 BP Location: Right arm Patient Position: Sitting BP Cuff Size: Adult Pulse: 61 SpO2: 97% Weight: 171 lb 9.6 oz (77.8 kg) Height: 5' 6 (1.676 m) Body mass index is 27.7 kg/m . Physical Exam Constitutional: General: He is not in acute distress. Appearance: Normal appearance. He is not toxic-appearing. HENT: Head: Normocephalic and atraumatic. Nose: Nose normal. Mouth/Throat: Mouth: Mucous membranes are moist. Eyes: Pupils: Pupils are equal, round, and reactive to light. Neck: Vascular: No carotid bruit or JVD. Cardiovascular: Rate and Rhythm: Regular rhythm. Bradycardia present. Pulses: Dorsalis pedis pulses are 2+ on the right side and 2+ on the left side. Posterior tibial pulses are 2+ on the right side and 2+ on the left side. Heart sounds: Murmur heard. Crescendo systolic murmur is present with a grade of 3/6. Pulmonary: Effort: Pulmonary effort is normal. No respiratory distress. Breath sounds: Normal breath sounds. Abdominal: General: Abdomen is flat. Palpations: Abdomen is soft. Musculoskeletal: General: Normal range of motion. Cervical back: Normal range of motion and neck supple. Right lower leg: No edema. Left lower leg: No edema. Skin: General: Skin is warm and dry. Neurological: General: No focal deficit present. Mental Status: He is alert and oriented to person, place, and time. Psychiatric: Mood and Affect: Mood normal. Data Reviewed and Summarized Labs: personally reviewed Lab Results Component Value Date WBC 4.6 09/15/2023 HGB 14.1 09/15/2023 HCT 40.5 09/15/2023 MCV 104.9 (H) 09/15/2023 PLT 163 09/15/2023 Lab Results Component Value Date GLUCOSE 126 (H) 09/15/2023 CALCIUM 9.5 09/15/2023 NA 139 09/15/2023 K 4.6 09/15/2023 CO2 28 09/15/2023 CL 104 09/15/2023 BUN 17 09/15/2023 CREATININE 1.05 09/15/2023 @[facility]@ Lab Results Component Value Date CHOL 133 05/27/2022 CHOL 125 05/23/2021 CHOL 125 11/20/2020 Lab Results Component Value Date TRIG 325 (H) 05/27/2022 TRIG 91 05/23/2021 TRIG 84 11/20/2020 Lab Results Component Value Date HDL 25 (L) 05/27/2022 HDL 41 05/23/2021 HDL 31 (L) 11/20/2020 Lab Results Component Value Date LDLCALC 43 05/27/2022 Imaging/Testing: personally reviewed No components found for: LVEF, LVEFMODE documented in this [facility]07-24-2024 History of Present illness Narrative* Ronal Barr MD - 09/17/2023 3:30 PM EDT Images from the original note were not included. [facility] [address] [address] Dept: [phone] Dept Loc: [phone] Interventional Cardiology Office Note Visit type: Established patient Reason for Visit: Follow-up (ER annual) Assessment and Plan Ramy Barron is a very pleasant 82 y.o. male who presents for routine follow-up. His aortic stenosis may be severe. His murmur on exam sounds more moderate and his gradients are more moderate though he does meet some criteria for severe aortic stenosis. I am somewhat concerned that he has worsening coronary disease based on his symptoms. His periumbilical tenderness appears to be unrelated and I agree with further GI workup. We will plan a left and right heart catheterizationto look for further targets for coronary intervention and also as workup for likely TAVR in the near future. I advised him to continue with his GI workup through this process. 1. Aortic valve stenosis, etiology of cardiac valve disease unspecified - Case Request Director Utilization Management: Left and right heart cath / coronary angiography - ECG 12 lead - CLINIC PERFORMED Follow up in about 3 months (around 12/18/2023). It was a great pleasure seeing Ramy Barron in our office today. Please contact me with any questions. Ronal Barr MD MPH, FACC, [facility] Chief, Ischemic Heart Disease Position Classification Specialist, Interventional Cardiology Fellowship Grinder Set Up Operator Surface Coronary, Structural, Peripheral Interventions Subjective Ramy Barron is a very pleasant 82 y.o. male with coronary artery disease status post PCI of theleft anterior descending in October 2014 in the setting of cardiac arrest followed by urgent coronary bypass surgery (RODARTE to left anterior descending, vein to OM, vein to diagonal, vein to PDA with all vein grafts known occluded) with PCI of the RCA in the setting of unstable angina 05/2022, hypertension, hyperlipidemia, history of leukemia, degenerative disc disease of the spine who presents today for routine follow up. He has been having some worsening dyspnea as well as some gas and abdominal pain for the past several weeks. He was evaluated in the ER and cardiac workup was unremarkable at that time. A couple of days ago he had severe periumbilical pain and was evaluated in the ER and CT did not reveal any acute abnormalities. He states this pain has essentially subsided since then but he is scheduled to see a GI specialist on Friday for further workup. His most recent echocardiogram revealed moderate to severe aortic stenosis. He denies any angina, lightheadedness, syncope, edema, orthopnea. Review of Systems Constitutional: Negative. Respiratory: Positive for shortness of breath (on exertion). Genitourinary: Negative. Musculoskeletal: Negative. Neurological: Negative. Hematological: Negative. Psychiatric/Behavioral: Negative. No Known Allergies Outpatient Medications Prior to Visit Medication Sig Dispense Refill acetaminophen (Tylenol) 500 MG tablet Take 1 tablet by mouth as needed. aspirin 81 MG EC tablet Take 81 mg by mouth in the morning. atorvastatin (Lipitor) 80 MG tablet TAKE 1 TABLET BY MOUTH DAILY 90 tablet 3 clopidogrel (Plavix) 75 MG tablet Take 1 tablet (75 mg) by mouth daily. 90 tablet 3 coenzyme Q-10 100 MG capsule Take 1 capsule by mouth in the morning. ezetimibe (Zetia) 10 MG tablet Take 1 tablet (10 mg) by mouth daily. 90 tablet 3 isosorbide mononitrate ER (Imdur) 60 MG 24 hr tablet TAKE 1 TABLET BY MOUTH DAILY 90 tablet 3 levothyroxine (Synthroid, Levoxyl) 100 MCG tablet Take 1 tablet (100 mcg) by mouth daily. 90 tablet3 metoprolol tartrate (Lopressor) 25 MG tablet TAKE 1 TABLET BY MOUTH TWICE DAILY 180 tablet 3 nitroglycerin (Nitrostat) 0.[address] 1 tablet (0.4 mg) under the tongue every 5 minutesas needed for chest pain. May repeat dose every 5 minutes for up to 3 doses total. 100 tablet 11 pantoprazole (ProtoNix) 40 MG EC tablet TAKE 1 TABLET BY MOUTH IN THE MORNING BEFORE BREAKFAST DO NOT CRUSH, CHEW, OR SPLIT 90 tablet 3 No facility-administered medications prior to visit. Past Medical History: Diagnosis Date Aortic stenosis, moderate 05/2022 per ECHO CAD (coronary artery disease) 01/05/2015 CABG, 06/[address] Barr Cervical spine degeneration 2019 Clostridium difficile colitis 01/2021 ?etiology ED (erectile dysfunction) H/O colonoscopy 2007 Dr. 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 Barr- 3 RCA stents, COLONOSCOPY 2007 Dr. Garnica CORONARY ANGIOPLASTY WITH STENT PLACEMENT 10/2014 JUSTINA to mid LAD CORONARY ARTERY BYPASS GRAFT 10/2014 RODARTE-LAD, SVG-Diagonal, SVG-PDA KNEE ARTHROSCOPY W/ MENISCAL REPAIR Left 2013 [place] Social History Tobacco Use Smoking status: Never Smokeless tobacco: Never Substance Use Topics Alcohol use: Never Family History Problem Relation Name Age of Onset No Known Problems Mother PNA and bowel obst age 85 COPD Father [employer] Lung, age 80 Diabetes Sister 4 Heart disease Brother 5 age 76, pacemaker Bladder Cancer Brother Objective Vitals: 09/17/23 1504 BP: (!) 144/76 BP Location: Right arm Patient Position: Sitting BP Cuff Size: Adult Pulse: 61 SpO2: 97% Weight: 171 lb 9.6 oz (77.8 kg) Height: 5' 6 (1.676 m) Body mass index is 27.7 kg/m . Physical Exam Constitutional: General: He is not in acute distress. Appearance: Normal appearance. He is not toxic-appearing. HENT: Head: Normocephalic and atraumatic. Nose: Nose normal. Mouth/Throat: Mouth: Mucous membranes are moist. Eyes: Pupils: Pupils are equal, round, and reactive to light. Neck: Vascular: No carotid bruit or JVD. Cardiovascular: Rate and Rhythm: Regular rhythm. Bradycardia present. Pulses: Dorsalis pedis pulses are 2+ on the right side and 2+ on the left side. Posterior tibial pulses are 2+ on the right side and 2+ on the left side. Heart sounds: Murmur heard. Crescendo systolic murmur is present with a grade of 3/6. Pulmonary: Effort: Pulmonary effort is normal. No respiratory distress. Breath sounds: Normal breath sounds. Abdominal: General: Abdomen is flat. Palpations: Abdomen is soft. Musculoskeletal: General: Normal range of motion. Cervical back: Normal range of motion and neck supple. Right lower leg: No edema. Left lower leg: No edema. Skin: General: Skin is warm and dry. Neurological: General: No focal deficit present. Mental Status: He is alert and oriented to person, place, and time. Psychiatric: Mood and Affect: Mood normal. Data Reviewed and Summarized Labs: personally reviewed Lab Results Component Value Date WBC 4.6 09/15/2023 HGB 14.1 09/15/2023 HCT 40.5 09/15/2023 MCV 104.9 (H) 09/15/2023 PLT 163 09/15/2023 Lab Results Component Value Date GLUCOSE 126 (H) 09/15/2023 CALCIUM 9.5 09/15/2023 NA 139 09/15/2023 K 4.6 09/15/2023 CO2 28 09/15/2023 CL 104 09/15/2023 BUN 17 09/15/2023 CREATININE 1.05 09/15/2023 [facility] Lab Results Component Value Date CHOL 133 05/27/2022 CHOL 125 05/23/2021 CHOL 125 11/20/2020 Lab Results Component Value Date TRIG 325 (H) 05/27/2022 TRIG 91 05/23/2021 TRIG 84 11/20/2020 Lab Results Component Value Date HDL 25 (L) 05/27/2022 HDL 41 05/23/2021 HDL 31 (L) 11/20/2020 Lab Results Component Value Date LDLCALC 43 05/27/2022 Imaging/Testing: personally reviewed No components found for: LVEF, LVEFMODE documented in this [facility]07-22-2024 Hospital Discharge instructions* Discharge Instructions* Keanu Canales MD - 09/15/2023 2:21 PM EDT As discussed you may have a hernia. At this time there is no signs of obstruction but I do recommend that you follow-up with a surgeon given above. * Attachments The following attachments cannot be sent through Care Everywhere. * Abdominal Pain, Adult ED ([place]) documented in this [facility]07-22-2024 Emergency department Note* Keanu Canales MD - 09/15/2023 11:10 AM EDT [facility] ED EMERGENCY DEPARTMENT ENCOUNTER Pt Name: Ramy Barron Birthdate 1940 Date of evaluation: 09/15/2023 Provider: Keanu Canales MD CHIEF COMPLAINT Chief Complaint Patient presents with Abdominal Pain Superficial abd pain around umbilicus since yesterday. Denies hx of hernia. No N/V/D. States pain is made worse when he moves around. HISTORY OF PRESENT ILLNESS (Location/Symptom, Timing/Onset,Context/Setting, Quality, Duration, Modifying Factors, Severity) Note limiting factors. Ramy Barron is a 82 y.o. male who presents to the emergency department with periumbilical abdominal pain. Started yesterday. Pretty uncomfortable. Limit worse when he moves. He felt almost like abulge. [facility] was at [employer] and actually had to leave yesterday comes in the pains better now but he wanted make sure things okay. Denies fevers chills cough cold congestion lightheadedness or dizziness. HPI Historian is the patient Nurse's notes for past medical history, surgical history, social history were reviewed. Medicationsand allergies reviewed. PAST MEDICAL HISTORY Past Medical History: Diagnosis Date Aortic stenosis, moderate 05/2022 per ECHO CAD (coronary artery disease) 01/05/2015 CABG, 06/[address] Barr Cervical spine degeneration 2019 Clostridium difficile colitis 01/2021 ?etiology ED (erectile dysfunction) H/O colonoscopy 2007 Dr. 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 Barr- 3 RCA stents, COLONOSCOPY 2007 Dr. Garnica CORONARY ANGIOPLASTY WITH STENT PLACEMENT 10/2014 JUSTINA to mid LAD CORONARY ARTERY BYPASS GRAFT 10/2014 RODARTE-LAD, SVG-Diagonal, SVG-PDA KNEE ARTHROSCOPY W/ MENISCAL REPAIR Left 2013 [place] CURRENT MEDICATIONS Discharge Medication List as of 09/15/2023 2:21 PM CONTINUE these medications which have NOT CHANGED Details acetaminophen (Tylenol) 500 MG tablet Take 1 tablet by mouth as needed., Starting Fri02/14/2017, Historical Med aspirin 81 MG EC tablet Take 81 mg by mouth in the morning., Historical Med atorvastatin (Lipitor) 80 MG tablet TAKE 1 TABLET BY MOUTH DAILY, Starting Fri06/30/2023, Normal clopidogrel (Plavix) 75 MG tablet Take 1 tablet (75 mg) by mouth daily., Starting Fri08/15/2023, Normal coenzyme Q-10 100 MG capsule Take 1 capsule by mouth in the morning., Historical Med ezetimibe (Zetia) 10 MG tablet Take 1 tablet (10 mg) by mouth daily., Starting Fri06/04/2023, UntilFri12/01/2023, Normal isosorbide mononitrate ER (Imdur) 60 MG 24 hr tablet TAKE 1 TABLET BY MOUTH DAILY, Starting Fri08/19/2023, Normal levothyroxine (Synthroid, Levoxyl) 100 MCG tablet Take 1 tablet (100 mcg) by mouth daily., StartingWed 04/23/2023, Until 04/17/2024, Normal metoprolol tartrate (Lopressor) 25 MG tablet TAKE 1 TABLET BY MOUTH TWICE DAILY, Starting Fri08/19/2023, Normal nitroglycerin (Nitrostat) 0.[address] 1 tablet (0.4 mg) under the tongue every 5 minutesas needed for chest pain. May repeat dose every 5 minutes for up to 3 doses total., Starting Fri05/29/2022, Until Fri07/29/2023 at 2359, Normal pantoprazole (ProtoNix) 40 MG EC tablet TAKE 1 TABLET BY MOUTH IN THE MORNING BEFORE BREAKFAST DO NOT CRUSH, CHEW, OR SPLIT, Normal Patient has no known allergies. FAMILY HISTORY Family History Problem Relation Name Age of Onset No Known Problems Mother PNA and bowel obst age 85 COPD Father [employer] Lung, age 80 Diabetes Sister 4 Heart disease Brother 5 age 76, pacemaker Bladder Cancer Brother SOCIAL HISTORY Social History Socioeconomic History Marital status: Tobacco Use Smoking status: Never Smokeless tobacco: Never Substance and Sexual Activity Alcohol use: Never Drug use: Never Social History Narrative to Jayshree. Has 3 sons , 7 GC, 6 GGC. Nonsmoker or drinker. Retired from [employer] in 2004. 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 [employer] Social Determinants of Health Financial Resource Strain: Low Risk (11/17/2020) Re[facility] from [facility] Overall Financial Resource Strain (CARDIA) Difficulty of Paying Living Expenses: Not hard at all Food Insecurity: No Food Insecurity (11/17/2020) Received from [facility] Hunger Vital Sign Worried About Running Out of Food in the Last Year: Never true Ran Out of Food in the Last Year: Never true Transportation Needs: No Transportation Needs (05/27/2022) PRAPARE - Transportation Lack of Transportation (Medical): No Lack of Transportation (Non-Medical): No Physical Activity: Unknown (07/22/2018) Received from [facility] Exercise Vital Sign Days of Exercise per Week: 2 days Minutes of Exercise per Session: Patient declined Stress: No Stress Concern Present (07/22/2018) Received from [facility] [place] of Occupational Health - Occupational Stress Questionnaire Feeling of Stress : Only a little Social Connections: Socially Integrated (07/22/2018) Received from [facility] Social Connection and Isolation Panel [NHANES] Frequency of Communication with Friends and Family: More than three times a week Frequency of Social Gatherings with Friends and Family: Patient declined Attends Evangelical Services: More than 4 times per year Active Member of Clubs or Organizations: Yes Attends Club or Organization Meetings: Patient declined Marital Status: Intimate Partner Violence: Not At Risk (06/11/2022) Humiliation, Afraid, Rape, and Kick questionnaire Fear of Current or Ex-Partner: No Emotionally Abused: No Physically Abused: No Sexually Abused: No Housing Stability: Low Risk (05/27/2022) Housing Stability Vital Sign Unable to Pay for Housing in the Last Year: No Number of Places Lived in the Last Year: 1 Unstable Housing in the Last Year: No SCREENINGS PHYSICAL EXAM (up to 7 for level 4, 8 or more for level 5) @DAMIAN@ Appropriate PPE including n 95, gown, gloves, goggles where worn when appropriate with this patient. Physical Exam Vital signs reviewed general: Alert and oriented 3 head: Atraumatic eyes: Equal round reactive to light and accommodating, pupils are equal, round and reactive to light and accommodation oropharynx: Clear and well hydrated neck: Supple heart: Regular rate and rhythm, no murmurs lungs: Clear to auscultation bilaterally abdomen: Soft umbilical felt like it could's feel a small periumbilical hernia but it was easily reducible seem like fluid did not feel like anything hard or unreducible or incarceration., positive bowel sounds, no peritoneal findings. Extremities: Moving all fours, no tenderness. Normal capillary refill. Skin: No rash or lesions -to the exposed skin neurologically: Alert and oriented 3, no focal deficit DIAGNOSTIC RESULTS RADIOLOGY: Interpretation per the Radiologist below, if availableat the time of this note: CT abdomen pelvis w contrast Final Result 1. No acute abdominopelvic process identified. 2. Other chronic and postsurgical findings as discussed. Report Dictated on Electronically Signed By: Sedrick Vivar MD Electronically Signed Date/Time: 09/15/2023 1:36 PM EDT ED BEDSIDE ULTRASOUND: Performed by ED Physician - none LABS: Labs Reviewed COMPREHENSIVE METABOLIC PANEL - Abnormal Result Value SODIUM 139 POTASSIUM 4.6 CHLORIDE 104 CARBON DIOXIDE 28 ANION GAP 7 UREA NITROGEN 17 CREATININE 1.05 GLUCOSE 126 (*) CALCIUM 9.5 AST (SGOT) 32 ALT 26 ALKALINE PHOSPHATASE 84 ALBUMIN 4.3 BILIRUBIN, TOTAL 1.4 (*) TOTAL PROTEIN 7.5 eGFR 71.3 CBC WITH AUTO DIFFERENTIAL - Abnormal Auto WBC 4.6 RBC 3.86 (*) Hemoglobin 14.1 Hematocrit 40.5 MCV 104.9 (*) MCH 36.5 (*) MCHC 34.8 RDW 12.0 Platelets 163 MPV 10.3 nRBC 0.0 Neutrophils Relative 55.2 Lymphocytes Relative 31.4 Monocytes Relative 11.0 Eosinophils Relative 2.0 Basophils Relative 0.2 Immature Grans % 0.2 Neutrophils Absolute 2.5 Lymphocytes Absolute 1.4 Monocytes Absolute 0.5 Eosinophils Absolute 0.1 Basophils Absolute 0.0 Immature Grans Absolute 0.0 LIPASE - Normal LIPASE 53 All other labs were within normal range or not returned as of thisdictation. EMERGENCYDEPARTMENT COURSE and DIFFERENTIAL DIAGNOSIS/MDM: Vitals: Vitals: 09/15/23 1111 BP: (!) 144/80 Pulse: 67 Resp: 16 Temp: 36.6 C (97.9 F) TempSrc: Temporal SpO2: 98% Medical Decision Making Problems Addressed: Generalized abdominal pain: complicated acute illness or injury Amount and/or Complexity of Data Reviewed Labs: ordered. Radiology: ordered. Risk Prescription drug management. EMERGENCY DEPARTMENT COURSE and DIFFERENTIAL DIAGNOSIS/MDM: Vitals: Vitals: 09/15/23 1111 BP: (!) 144/80 Pulse: 67 Resp: 16 Temp: 36.6 C (97.9 F) TempSrc: Temporal SpO2: 98% The patient presented with a chief complaint of abdominal pain concern for hernia. The differentialdiagnosis associated with this patient's presentation includes periumbilical hernia, fluid and hernia obstruction incarcerated hernia and gangrenous changes. Our workup consisted of ordering/reviewing blood work CT. Normal sodium potassium. No leukocytosis normal lipase. Bilirubin 1.4. CT showed nosigns of obstruction or hernia. Clinically I am still concerned he could have a hernia. Will give Dr. Wise for follow-up. He has no pain now. Return here if any problems or concerns patient agrees to plan. Diagnoses as of 09/15/23 1455 Generalized abdominal pain Diagnostics considered but not indicated based on history, physical, testing: None External records reviewed: Outpatient records reviewed patient was recently admitted for Dr. Carcamo 08/18/2023 for chest pain. Patient does have a history of coronary artery disease. Radiologic diagnostics interpreted by me: film images such as CT, Ultrasound and MRI are read by the radiologist. Plain radiographic images are visualized and preliminarily interpreted by the emergency physician with the below findings: CT abdomen pelvis no acute process per radiology full report reviewed Discussions with other clinicians: None Chronic conditions impacting care: Coronary disease erectile dysfunction hypothyroidism hypercholesterolemia Social determinants of health affecting care: None Shared decision making: Patient agrees to treatment plan ED Medications managed: Medications iopamidol (Isovue-370) 76 % injection 75 mL (75 mL IntraVENous Given 09/15/23 1245) Prescription drugs prescribed: PROCEDURES: Unless otherwise noted below, none Procedures IMPRESSION 1. Generalized abdominal pain DISPOSITION/PLAN DISPOSITION Discharge 09/15/2023 02:20:17 PM PATIENT REFERRED TO: Kaushik Wise MD [address] [place] [address] [address] [place] [id number] In 1 week DISCHARGE MEDICATIONS: Discharge Medication List as of 09/15/2023 2:21 PM @[facility]([id number]:LAST:1)@ (Comment: Please notethis report has been produced using speech recognition software and may contain errors related to that system including errors in grammar, punctuation, and spelling, as well as words and phrases that may be inappropriate.If there is any questions or concerns please feel free tocontact the dictating provider for clarification). Keanu Canales MD (electronically signed) Attending Emergency Physician Keanu Canales MD 09/15/23 1455 documented in this [facility]07-22-2024 Physician Emergency department Note* Keanu Canales MD - 09/15/2023 11:10 AM EDT [facility] ED EMERGENCY DEPARTMENT ENCOUNTER Pt Name: Ramy Barron Birthdate 1940 Date of evaluation: 09/15/2023 Provider: Keanu Canales MD CHIEF COMPLAINT Chief Complaint Patient presents with Abdominal Pain Superficial abd pain around umbilicus since yesterday. Denies hx of hernia. No N/V/D. States pain is made worse when he moves around. HISTORY OF PRESENT ILLNESS (Location/Symptom, Timing/Onset,Context/Setting, Quality, Duration, Modifying Factors, Severity) Note limiting factors. Ramy Barron is a 82 y.o. male who presents to the emergency department with periumbilical abdominal pain. Started yesterday. Pretty uncomfortable. Limit worse when he moves. He felt almost like abulge. He was at [employer] and actually had to leave yesterday comes in the pains better now but he wanted make sure things okay. Denies fevers chills cough cold congestion lightheadedness or dizziness. HPI Historian is the patient Nurse's notes for past medical history, surgical history, social history were reviewed. Medicationsand allergies reviewed. PAST MEDICAL HISTORY Past Medical History: Diagnosis Date Aortic stenosis, moderate 05/2022 per ECHO CAD (coronary artery disease) 01/05/2015 CABG, 06/[address] Barr Cervical spine degeneration 2019 Clostridium difficile colitis 01/2021 ?etiology ED (erectile dysfunction) H/O colonoscopy 2007 Dr. 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 Barr- 3 RCA stents, COLONOSCOPY 2007 Dr. Garnica CORONARY ANGIOPLASTY WITH STENT PLACEMENT 10/2014 JUSTINA to mid LAD CORONARY ARTERY BYPASS GRAFT 10/2014 RODARTE-LAD, SVG-Diagonal, SVG-PDA KNEE ARTHROSCOPY W/ MENISCAL REPAIR Left 2013 Raman CURRENT MEDICATIONS Discharge Medication List as of 09/15/2023 2:21 PM CONTINUE these medications which have NOT CHANGED Details acetaminophen (Tylenol) 500 MG tablet Take 1 tablet by mouth as needed., Starting Fri02/14/2017, Historical Med aspirin 81 MG EC tablet Take 81 mg by mouth in the morning., Historical Med atorvastatin (Lipitor) 80 MG tablet TAKE 1 TABLET BY MOUTH DAILY, Starting Fri06/30/2023, Normal clopidogrel (Plavix) 75 MG tablet Take 1 tablet (75 mg) by mouth daily., Starting Fri08/15/2023, Normal coenzyme Q-10 100 MG capsule Take 1 capsule by mouth in the morning., Historical Med ezetimibe (Zetia) 10 MG tablet Take 1 tablet (10 mg) by mouth daily., Starting Fri06/04/2023, UntilMon 12/01/2023, Normal isosorbide mononitrate ER (Imdur) 60 MG 24 hr tablet TAKE 1 TABLET BY MOUTH DAILY, Starting Fri08/19/2023, Normal levothyroxine (Synthroid, Levoxyl) 100 MCG tablet Take 1 tablet (100 mcg) by mouth daily., StartingWed 04/23/2023, Until 04/17/2024, Normal metoprolol tartrate (Lopressor) 25 MG tablet TAKE 1 TABLET BY MOUTH TWICE DAILY, Starting Fri08/19/2023, Normal nitroglycerin (Nitrostat) 0.[address] 1 tablet (0.4 mg) under the tongue every 5 minutesas needed for chest pain. May repeat dose every 5 minutes for up to 3 doses total., Starting Fri05/29/2022, Until Fri07/29/2023 at 2359, Normal pantoprazole (ProtoNix) 40 MG EC tablet TAKE 1 TABLET BY MOUTH IN THE MORNING BEFORE BREAKFAST DO NOT CRUSH, CHEW, OR SPLIT, Normal Patient has no known allergies. FAMILY HISTORY Family History Problem Relation Name Age of Onset No Known Problems Mother PNA and bowel obst age 85 COPD Father [employer], age 80 Diabetes Sister 4 Heart disease Brother 5 age 76, pacemaker Bladder Cancer Brother SOCIAL HISTORY Social History Socioeconomic History Marital status: Tobacco Use Smoking status: Never Smokeless tobacco: Never Substance and Sexual Activity Alcohol use: Never Drug use: Never Social History Narrative to Jayshree. Has 3 sons , 7 GC, 6 GGC. Nonsmoker or drinker. 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 [employer] Vet Social Determinants of Health Financial Resource Strain: Low Risk (11/17/2020) Re[facility] from [facility] Overall Financial Resource Strain (CARDI) Difficulty of Paying Living Expenses: Not hard at all Food Insecurity: No Food Insecurity (11/17/2020) Received from [facility] Hunger Vital Sign Worried About Running Out of Food in the Last Year: Never true Ran Out of Food in the Last Year: Never true Transportation Needs: No Transportation Needs (05/27/2022) PRAPARE - Transportation Lack of Transportation (Medical): No Lack of Transportation (Non-Medical): No Physical Activity: Unknown (07/22/2018) Received from [facility] Exercise Vital Sign Days of Exercise per Week: 2 days Minutes of Exercise per Session: Patient declined Stress: No Stress Concern Present (07/22/2018) Received from [facility] [place] of Occupational Health - Occupational Stress Questionnaire Feeling of Stress : Only a little Social Connections: Socially Integrated (07/22/2018) Received from [facility] Social Connection and Isolation Panel [NHANES] Frequency of Communication with Friends and Family: More than three times a week Frequency of Social Gatherings with Friends and Family: Patient declined Attends Evangelical Services: More than 4 times per year Active Member of Clubs or Organizations: Yes Attends Club or Organization Meetings: Patient declined Marital Status: Intimate Partner Violence: Not At Risk (06/11/2022) Humiliation, Afraid, Rape, and Kick questionnaire Fear of Current or Ex-Partner: No Emotionally Abused: No Physically Abused: No Sexually Abused: No Housing Stability: Low Risk (05/27/2022) Housing Stability Vital Sign Unable to Pay for Housing in the Last Year: No Number of Places Lived in the Last Year: 1 Unstable Housing in the Last Year: No SCREENINGS PHYSICAL EXAM (up to 7 for level 4, 8 or more for level 5) @EDTRIAGEVSS@ Appropriate PPE including n 95, gown, gloves, goggles where worn when appropriate with this patient. Physical Exam Vital signs reviewed general: Alert and oriented 3 head: Atraumatic eyes: Equal round reactive to light and accommodating, pupils are equal, round and reactive to light and accommodation oropharynx: Clear and well hydrated neck: Supple heart: Regular rate and rhythm, no murmurs lungs: Clear to auscultation bilaterally abdomen: Soft umbilical felt like it could's feel a small periumbilical hernia but it was easily reducible seem like fluid did not feel like anything hard or unreducible or incarceration., positive bowel sounds, no peritoneal findings. Extremities: Moving all fours, no tenderness. Normal capillary refill. Skin: No rash or lesions -to the exposed skin neurologically: Alert and oriented 3, no focal deficit DIAGNOSTIC RESULTS RADIOLOGY: Interpretation per the Radiologist below, if availableat the time of this note: CT abdomen pelvis w contrast Final Result 1. No acute abdominopelvic process identified. 2. Other chronic and postsurgical findings as discussed. Report Dictated on Electronically Signed By: Sedrick Vivar MD Electronically Signed Date/Time: 09/15/2023 1:36 PM EDT ED BEDSIDE ULTRASOUND: Performed by ED Physician - none LABS: Labs Reviewed COMPREHENSIVE METABOLIC PANEL - Abnormal Result Value SODIUM 139 POTASSIUM 4.6 CHLORIDE 104 CARBON DIOXIDE 28 ANION GAP 7 UREA NITROGEN 17 CREATININE 1.05 GLUCOSE 126 (*) CALCIUM 9.5 AST (SGOT) 32 ALT 26 ALKALINE PHOSPHATASE 84 ALBUMIN 4.3 BILIRUBIN, TOTAL 1.4 (*) TOTAL PROTEIN 7.5 eGFR 71.3 CBC WITH AUTO DIFFERENTIAL - Abnormal Auto WBC 4.6 RBC 3.86 (*) Hemoglobin 14.1 Hematocrit 40.5 MCV 104.9 (*) MCH 36.5 (*) MCHC 34.8 RDW 12.0 Platelets 163 MPV 10.3 nRBC 0.0 Neutrophils Relative 55.2 Lymphocytes Relative 31.4 Monocytes Relative 11.0 Eosinophils Relative 2.0 Basophils Relative 0.2 Immature Grans % 0.2 Neutrophils Absolute 2.5 Lymphocytes Absolute 1.4 Monocytes Absolute 0.5 Eosinophils Absolute 0.1 Basophils Absolute 0.0 Immature Grans Absolute 0.0 LIPASE - Normal LIPASE 53 All other labs were within normal range or not returned as of thisdictation. EMERGENCYDEPARTMENT COURSE and DIFFERENTIAL DIAGNOSIS/MDM: Vitals: Vitals: 09/15/23 1111 BP: (!) 144/80 Pulse: 67 Resp: 16 Temp: 36.6 C (97.9 F) TempSrc: Temporal SpO2: 98% Medical Decision Making Problems Addressed: Generalized abdominal pain: complicated acute illness or injury Amount and/or Complexity of Data Reviewed Labs: ordered. Radiology: ordered. Risk Prescription drug management. EMERGENCY DEPARTMENT COURSE and DIFFERENTIAL DIAGNOSIS/MDM: Vitals: Vitals: 09/15/23 1111 BP: (!) 144/80 Pulse: 67 Resp: 16 Temp: 36.6 C (97.9 F) TempSrc: Temporal SpO2: 98% The patient presented with a chief complaint of abdominal pain concern for hernia. The differentialdiagnosis associated with this patient's presentation includes periumbilical hernia, fluid and hernia obstruction incarcerated hernia and gangrenous changes. Our workup consisted of ordering/reviewing blood work CT. Normal sodium potassium. No leukocytosis normal lipase. Bilirubin 1.4. CT showed nosigns of obstruction or hernia. Clinically I am still concerned he could have a hernia. Will give Dr. Wise for follow-up. He has no pain now. Return here if any problems or concerns patient agrees to plan. Diagnoses as of 09/15/23 1455 Generalized abdominal pain Diagnostics considered but not indicated based on history, physical, testing: None External records reviewed: Outpatient records reviewed patient was recently admitted for Dr. Carcamo 08/18/2023 for chest pain. Patient does have a history of coronary artery disease. Radiologic diagnostics interpreted by me: film images such as CT, Ultrasound and MRI are read by the radiologist. Plain radiographic images are visualized and preliminarily interpreted by the emergency physician with the below findings: CT abdomen pelvis no acute process per radiology full report reviewed Discussions with other clinicians: None Chronic conditions impacting care: Coronary disease erectile dysfunction hypothyroidism hypercholesterolemia Social determinants of health affecting care: None Shared decision making: Patient agrees to treatment plan ED Medications managed: Medications iopamidol (Isovue-370) 76 % injection 75 mL (75 mL IntraVENous Given 09/15/23 1245) Prescription drugs prescribed: PROCEDURES: Unless otherwise noted below, none Procedures IMPRESSION 1. Generalized abdominal pain DISPOSITION/PLAN DISPOSITION Discharge 09/15/2023 02:20:17 PM PATIENT REFERRED TO: Kaushik Wise MD [address] [place] [address] [address] [place] [address] In 1 week DISCHARGE MEDICATIONS: Discharge Medication List as of 09/15/2023 2:21 PM @[facility]([id number]:LAST:1)@ (Comment: Please notethis report has been produced using speech recognition software and may contain errors related to that system including errors in grammar, punctuation, and spelling, as well as words and phrases that may be inappropriate.If there is any questions or concerns please feel free tocontact the dictating provider for clarification). Keanu Canales MD (electronically signed) Attending Emergency Physician Keanu Canales MD 09/15/231454 [id number] Telephone encounter Note* Telephone Encounter - Roxana Obrien MA - 09/15/2023 10:35 AM EDT Noted [id number] Miscellaneous Notes* Telephone Encounter - Roxana Obrien MA - 09/15/2023 10:35 AM EDT Noted * Telephone Encounter - Salma Amezcua RN - 09/15/2023 9:50 AM EDT S: Patient spoke with [facility] nurse regarding pain around belly button B: Onset of symptoms/concern 1 day A: Complainng of pain around belly button, started yesterday AM, had sausage and coffee, started getting pain around belly button, painful to touch. When he sits it goes away, comes back when he getsup to walk aroound. States abdomen is slightly bloated, with some pressure. Pain 3-4 when pain is there. Constant if he is not sitting down. Denies: fever, chills, nausea, vomiting, urinary issues, having BM, blood in stool or urine. R: Patient advised if he has new abdominal pain that is constant with bloating, he should be evaluated in the ED. Patient understands care advice. States they will go to [facility]. No further needs at this time. Patient instructed to call back with new or worsening symptoms. Reason for Disposition MILD TO MODERATE constant pain lasting > 2 hours Protocols used: Abdominal Pain - [id number] documented in this encounterSSelect Medical Specialty [facility], [id number] Telephone encounter Note* Telephone Encounter - Salma Amezcua RN - 09/15/2023 9:50 AM EDT S: Patient spoke with [facility] nurse regarding pain around belly button B: Onset of symptoms/concern 1 day A: Complainng of pain around belly button, started yesterday AM, had sausage and coffee, started getting pain around belly button, painful to touch. When he sits it goes away, comes back when he getsup to walk aroound. States abdomen is slightly bloated, with some pressure. Pain 3-4 when pain is there. Constant if he is not sitting down. Denies: fever, chills, nausea, vomiting, urinary issues, having BM, blood in stool or urine. R: Patient advised if he has new abdominal pain that is constant with bloating, he should be evaluated in the ED. Patient understands care advice. States they will go to [facility] ED. No further needs at this time. Patient instructed to call back with new or worsening symptoms. Reason for Disposition MILD TO MODERATE constant pain lasting > 2 hours Protocols used: Abdominal Pain - [id number] [facility] [id number] Telephone encounter Note* Telephone Encounter - Giovana Montiel RN - 08/19/2023 1:06 PM EDT Last OV with LUIS ALBERTO on 07/29/23; next OV with Dr. Barr on 09/17/23 [facility] [id number] Miscellaneous Notes* Telephone Encounter - Giovana Montiel RN - 08/19/2023 1:06 PM EDT Last OV with LUIS ALBERTO on 07/29/23; next OV with Dr. Barr on 09/17/23 documented in this encounterSSelect Medical Specialty Hospital - Board[facility], [id number] Telephone encounter Note* Telephone Encounter - Giovana Montiel RN - 08/19/2023 11:18 AM EDT Last OV with LUIS ALBERTO on 07/29/23; next OV with Dr. Barr 09/17/23 [id number] Miscellaneous Notes* Telephone Encounter - Giovana Montiel RN - 08/19/2023 11:18 AM EDT Last OV with LUIS ALBERTO on 07/29/23; next OV with Dr. Barr 09/17/23 documented in this [facility]06-24-2024 Nurse Note* Graciela Schultz LPN - 08/18/2023 3:27 PM EDT Discharge instructions reviewed with patient. No questions at this time. [id number] Nurse Note* Graciela Schultz LPN - 08/18/2023 3:27 PM EDT Discharge instructions reviewed with patient. No questions at this time. documented in this [facility]06-24-2024 Hospital course Narrative* Anthony Carcamo MD - 08/18/2023 3:17 PM EDT Discharge Summary Ramy Barron : 1940 ADMIT DATE: 08/18/2023 DISCHARGE DATE: 08/18/2023 PRIMARY CARE PHYSICIAN: JeanP-aul Pack VISIT STATUS: Admission CODE STATUS: Full Code DISCHARGE DIAGNOSES: Principal Problem: Chest pain, unspecified type HOSPITAL COURSE: Ramy Barron is a 82 y.o. male with a past medical history significant for coronary artery disease status post four-vessel CABG, and 3 stents, aortic stenosis, high cholesterol, and hypothyroidismwho presents to the emergency department evaluation for chest pain. Patient states had rama did not check it around 2 PM. He states he started having pain in his epigastric area with dull ache in his chest. He states the pain persisted hence coming to the department for evaluation. He denies fevers or chills or sick contacts. He denies shortness of breath or palpitations. He denies diaphoresis. He endorses nausea but no vomiting. The following is a summary of his diagnosis/management here at [facility]: Abdominal and chest discomfort: Cardiology saw and Dr. Lynch feels that his presenting symptoms actually sound more consistent with a GI problem and not suggestive of myocardial ischemia, especially given the prolonged nature of the symptoms with entirely normal cardiac enzymes. His symptoms alsoare routinely triggered by eating certain foods and sometimes he gets some relief with Tums. Dr. Lynch states he does have known coronary disease and aortic stenosis, and these will need to be evaluated eventually but he does not think that there is a need for urgent evaluation and treatment based on the symptoms. Cardiology says May discharge home with close follow-up, Continue proton pump inhibitor and Return if symptoms recur Borderline severe aortic stenosis: The patient's recent echo suggested borderline criteria for severe aortic stenosis based mostly on his aortic valve area per cardiology. His mean gradient was only 20 and his dimensionless index was 0.31, which were more suggestive of moderate stenosis. On the other hand the patient is having clear decrease in exercise capacity. He is scheduled to see Dr. Barr in the valve clinic on September 16, but dr. Lynch will see if he can get this moved up a little bit. Known coronary artery disease: He has had extensive revascularization in the past, most recently with multiple stents to the right coronary artery in May 2022. He is not having any of the symptoms that brought him in at that time. See above. He can address this when he is seen by Dr. Barr in the future per Dr. Lynch. He should continue risk factor modification. He continues on dual antiplatelet therapy. Chronic hypothyroidism Physical exam: Eyes; no scleral icterus Heart; S1S2 heard RRR Lungs; CTAB Abdomen: soft NT ND BS+ SIGNIFICANT DIAGNOSTIC STUDIES: As above CONSULTANTS: Cardiology RECOMMENDED NEXT STEPS: DISCHARGE MEDICATIONS: Medication List CONTINUE taking these medications acetaminophen 500 MG tablet Commonly known as: Tylenol aspirin 81 MG EC tablet atorvastatin 80 MG tablet Commonly known as: Lipitor TAKE 1 TABLET BY MOUTH DAILY clopidogrel 75 MG tablet Commonly known as: Plavix Take 1 tablet (75 mg) by mouth daily. coenzyme Q-10 100 MG capsule ezetimibe 10 MG tablet Commonly known as: Zetia Take 1 tablet (10 mg) by mouth daily. isosorbide mononitrate ER 60 MG 24 hr tablet Commonly known as: Imdur TAKE 1 TABLET BY MOUTH DAILY levothyroxine 100 MCG tablet Commonly known as: Synthroid, Levoxyl Take 1 tablet (100 mcg) by mouth daily. metoprolol tartrate 25 MG tablet Commonly known as: Lopressor TAKE 1 TABLET BY MOUTH TWICE DAILY nitroglycerin 0.4 MG SL tablet Commonly known as: Nitrostat Place 1 tablet (0.4 mg) under the tongue every 5 minutes as needed for chest pain. May repeat dose every 5 minutes for up to 3 doses total. pantoprazole 40 MG EC tablet Commonly known as: ProtoNix TAKE 1 TABLET BY MOUTH IN THE MORNING BEFORE BREAKFAST DO NOT CRUSH, CHEW, OR SPLIT DIET: Adult diet Regular ACTIVITY: No restriction. COMPLEXITY OF FOLLOW UP: [] Moderate Complexity: follow up within 7-14 calendar days (80113) [] Severe Complexity: follow up within 7 calendar days (58202) FOLLOW UP TESTING, PENDING RESULTS OR REFERRALS AT TRANSITIONAL CARE VISIT: [] Yes [] No PENDING STUDIES: DISPOSITION: Home FACILITY/HOME CARE AGENCY NAME: Follow up with No follow-up provider specified. Follow up with PCP and Dr. Barr INSTRUCTIONS TO MA/SW: Please call patient on day after discharge (must document patient contacted within 2 business days of discharge). FOLLOW UP QUESTIONS FOR MA/SW: 1. Did you get medications filled and taking them as instructed from discharge? 2. Are you following your discharge instructions from your hospital stay? 3. Please confirm patient is scheduled for a follow up appointment within the above time frame. DISCHARGE TIME: > 31 minutes SIGNED: Anthony Carcamo MD 08/18/2023, 3:17 PM documented in this [facility]06-24-2024 Note* Care Coordination - Soila Tamez RN - 08/18/2023 2:00 PM EDT Care Managment Initial Assessment Date: 08/18/2023 Patient Name: Ramy Barron : 1940 Patient Information Source of Information: Patient Name/Contact Information: TOMMY BARRON [phone] SPOUSE Cognition/Language: WFL - Within Functional Limits Permission given to speak with patient appeals representative/caregiver as indicated: Yes Confirmation of Payer with patient/family: Yes Payer Name: [facility] MED[facility] : Yes Confirmation of Primary Care Physician: Confirmed PCP Name: DR. PACK Seen in last 2 years?: Yes Primary Caregiver: Self If assistance needed, confirmed caregiver ready, willing and able to care for patient at discharge:Yes Confirmed with: PER PATIENT, HIS SPOUSE Living Arrangements Current Residence: House Number of Floors 1 Number of Entry Steps: 2 Bed/Bath Levels: Both first floor Facility: Facility Name: NA Plan to Return: Yes Lives with: Spouse/significant other Support Systems: Spouse/significant other Activities of Daily Living Ambulation: Independent Bathing/Dressing: Independent Elimination/Continence/Toileting: Independent Feeding: Independent Who Assists with Activities of Daily Living: NA Instrumental Activities of Daily Living Prescription Coverage: Yes Pharmacy Used: [facility] Medication Management: Independent Transportation/Shopping: Independent Transportation Mode: Car Needs Assistance with Transportation at Discharge: No (SPOUSE) Meal Preparation: Independent Laundry/Cleaning: Independent Finances/Bill Paying: Independent Communication: Independent Types of Care Services/Equipment Utilized Care Services: Dialysis Type: NA Durable Medical Equipment: Walker, Rollator Patient's Goal/Discharge Plan Patient expects to be discharged to: HOME Discharge Planning Actions: Continue to follow Patient's Choice Rights and [employer] and Collaborative Relationships Disclosed as Indicated for Post-Acute Care: NA Interdisciplinary Team Engagement: Social Work Referral for: Additional Information: Inpatient status from home with chest pain. Admitted to telemetry. Cardiology consulted. Serial trop. Introduced myself and explained my role. Patient lives at home with spouse. Is independent in hisadls and household tasks. Denies anticipating any needs upon discharge. States is able to assist at home if needed. Is currently declining need for home care services. Tentative discharge plan is home when medically stable. Soila Tamez RN [facility]06-24-2024 Note* Care Coordination - Soila Tamez RN - 08/18/2023 2:00 PM EDT Care Managment Initial Assessment Date: 08/18/2023 Patient Name: Ramy Barron : 1940 Patient Information Source of Information: Patient Name/Contact Information: TOMMY BARRON [phone] SPOUSE Cognition/Language: WFL - Within Functional Limits Permission given to speak with patient appeals representative/caregiver as indicated: Yes Confirmation of Payer with patient/family: Yes Payer Name: [facility] MEDICARE [place]: Yes Confirmation of Primary Care Physician: Confirmed PCP Name: DR. PACK Seen in last 2 years?: Yes Primary Caregiver: Self If assistance needed, confirmed caregiver ready, willing and able to care for patient at discharge:Yes Confirmed with: PER PATIENT, HIS SPOUSE Living Arrangements Current Residence: House Number of Floors 1 Number of Entry Steps: 2 Bed/Bath Levels: Both first floor Facility: Facility Name: NA Plan to Return: Yes Lives with: Spouse/significant other Support Systems: Spouse/significant other Activities of Daily Living Ambulation: Independent Bathing/Dressing: Independent Elimination/Continence/Toileting: Independent Feeding: Independent Who Assists with Activities of Daily Living: NA Instrumental Activities of Daily Living Prescription Coverage: Yes Pharmacy Used: [facility] Medication Management: Independent Transportation/Shopping: Independent Transportation Mode: Car Needs Assistance with Transportation at Discharge: No (SPOUSE) Meal Preparation: Independent Laundry/Cleaning: Independent Finances/Bill Paying: Independent Communication: Independent Types of Care Services/Equipment Utilized Care Services: Dialysis Type: NA Durable Medical Equipment: Walker, Rollator Patient's Goal/Discharge Plan Patient expects to be discharged to: HOME Discharge Planning Actions: Continue to follow Patient's Choice Rights and [employer] and Collaborative Relationships Disclosed as Indicated for Post-Acute Care: NA Interdisciplinary Team Engagement: Social Work Referral for: Additional Information: Inpatient status from home with chest pain. Admitted to telemetry. Cardiology consulted. Serial trop. Introduced myself and explained my role. Patient lives at home with spouse. Is independent in hisadls and household tasks. Denies anticipating any needs upon discharge. States is able to assist at home if needed. Is currently declining need for home care services. Tentative discharge plan is home when medically stable. Soila Tamez RN [facility] [id number] Miscellaneous Notes* Care Coordination - Soila Tamez RN - 08/18/2023 2:00 PM EDT Care Managment Initial Assessment Date: 08/18/2023 Patient Name: Ramy Barron : 1940 Patient Information Source of Information: Patient Name/Contact Information: TOMMY BARRON [phone] SPOUSE Cognition/Language: WFL - Within Functional Limits Permission given to speak with patient appeals representative/caregiver as indicated: Yes Confirmation of Payer with patient/family: Yes Payer Name: [facility] MEDIC[facility] [place]: Yes Confirmation of Primary Care Physician: Confirmed PCP Name: DR. PACK Seen in last 2 years?: Yes Primary Caregiver: Self If assistance needed, confirmed caregiver ready, willing and able to care for patient at discharge:Yes Confirmed with: PER PATIENT, HIS SPOUSE Living Arrangements Current Residence: House Number of Floors 1 Number of Entry Steps: 2 Bed/Bath Levels: Both first floor Facility: Facility Name: [facility] Plan to Return: Yes Lives with: Spouse/significant other Support Systems: Spouse/significant other Activities of Daily Living Ambulation: Independent Bathing/Dressing: Independent Elimination/Continence/Toileting: Independent Feeding: Independent Who Assists with Activities of Daily Living: NA Instrumental Activities of Daily Living Prescription Coverage: Yes Pharmacy Used: [facility] Medication Management: Independent Transportation/Shopping: Independent Transportation Mode: Car Needs Assistance with Transportation at Discharge: No (SPOUSE) Meal Preparation: Independent Laundry/Cleaning: Independent Finances/Bill Paying: Independent Communication: Independent Types of Care Services/Equipment Utilized Care Services: Dialysis Type: NA Durable Medical Equipment: Walker, Rollator Patient's Goal/Discharge Plan Patient expects to be discharged to: HOME Discharge Planning Actions: Continue to follow Patient's Choice Rights and [employer] and Collaborative Relationships Disclosed as Indicated for Post-Acute Care: NA Interdisciplinary Team Engagement: Social Work Referral for: Additional Information: Inpatient status from home with chest pain. Admitted to telemetry. Cardiology consulted. Serial trop. Introduced myself and explained my role. Patient lives at home with spouse. Is independent in hisadls and household tasks. Denies anticipating any needs upon discharge. States is able to assist at home if needed. Is currently declining need for home care services. Tentative discharge plan is home when medically stable. Soila Tamez RN documented in this [facility]06-24-2024 Consult note* Triston Lynch MD - 08/18/2023 12:25 PM EDTAssociated Order(s): IP CONSULT TO CARDIOLOGY [facility] [place] [facility] Cardiology /Electrophysiology Consult Note Reason for Consult/Chief Complaint: Chest/ abdomen pain. Consulting provider: Syed Silva thermometer production worker: Lianne History of Present Illness: Ramy Barron is a 82 y.o. male with a history of coronary artery disease, status post PCI of theleft anterior descending in October 2014 in the setting of cardiac arrest followed by urgent coronary bypass surgery (RODARTE to left anterior descending, vein to OM, vein to diagonal, vein to PDA with all vein grafts now occluded), PCI of the RCA in the setting of unstable angina 05/2022, hypertension, hyperlipidemia, moderate-severe aortic stenosis, who presents now due to chest and abdominal pain and decreased exercise tolerance. He tells me has been having progressive shortness of breath whenhe exerts himself over the past several months, and was planning on seeing Dr. Barr in the valve clinic in late August for consideration of possible TAVR. The symptoms of brought him in was chest discomfort which occurred after eating getting last night. He says certain foods do seem to cause heartburn for him. He has been started on a proton pump inhibitor by his primary care doctor couple weeks ago but still gets symptoms sometimes. He says last night, he ate a small amount of spaghetti for dinner and about an hour or so later developed burning sensation in his chest with belching, abdominal pain and bloating. The symptoms persisted so after a few hours, he came to the ER. Since arrival to the hospital, his abdominal distention pain and chest symptoms all resolved and he is felt fine for the past 12 hours or so. The total duration of the symptoms is about 12 hours, and his troponin was entirely normal. The primary service wonders if the patient may be having intermittent small bowel obstructions based on the way he describes his symptoms. We are consulted due to his known coronary and valvular heart disease. Assessment/Plan Abdominal and chest discomfort: His presenting symptoms actually sound more consistent with a GI problem and not suggestive of myocardial ischemia, especially given the prolonged nature of the symptoms with entirely normal cardiac enzymes. His symptoms also are routinely triggered by eating certain foods and sometimes he gets some relief with Tums. He does have known coronary disease and aortic stenosis, and these will need to be evaluated eventually but I do not think that there is a need for urgent evaluation and treatment based on the symptoms. May discharge home with close follow-up Continue proton pump inhibitor Return if symptoms recur we will attempt to get a CAT scan of the abdomen while he is still having distention to look for small bowel obstruction Borderline severe aortic stenosis: The patient's recent echo suggested borderline criteria for severe aortic stenosis based mostly on his aortic valve area. His mean gradient was only 20 and his dimensionless index was 0.31, which were more suggestive of moderate stenosis. On the other hand the patient is having clear decrease in exercise capacity. He is scheduled to see Dr. Barr in the valve clinic on September 16, but I will see if we can get this moved up a little bit. Known coronary artery disease: He has had extensive revascularization in the past, most recently with multiple stents to the right coronary artery in May 2022. He is not having any of the symptoms that brought him in at that time, and as above and I will think his current chest and abdominal symptoms are anginal. He can address this when he is seen by Dr. Barr in the future. He should continue risk factor modification. He continues on dual antiplatelet therapy. Medications: aspirin, 81 mg, Oral, Daily atorvastatin, 80 mg, Oral, Daily clopidogrel, 75 mg, Oral, Daily enoxaparin, 40 mg, SubCUTAneous, Daily ezetimibe, 10 mg, Oral, Daily isosorbide mononitrate ER, 60 mg, Oral, Daily levothyroxine, 100 mcg, Oral, Daily metoprolol tartrate, 25 mg, Oral, BID pantoprazole, 40 mg, Oral, qAM AC Physical Examination: Vitals: 08/18/23 0704 08/18/23 0852 08/18/23 1033 08/18/23 1114 BP: 122/82 130/63 117/68 BP Location: Left arm Left arm Patient Position: Sitting Sitting Pulse: 67 58 73 Resp: 16 16 14 Temp: 36.2 C (97.1 F) 36.2 C (97.2 F) TempSrc: Temporal Temporal SpO2: 95% 96% 96% Weight: 170 lb (77.1 kg) Height: 5' 6 (1.676 m) No intake or output data in the 24 hours ending 08/18/23 1225 Wt Readings from Last 3 Encounters: 08/18/23 170 lb (77.1 kg) 07/29/23 173 lb 6.4 oz (78.7 kg) 06/17/23 176 lb (79.8 kg) Physical Exam Constitutional: No distress. Well nourished. Well hydrated Psychiatric: A &O x 3. Medical insight good NMT: Oral mucosa is pink and moist Neck: No JVD. Respiratory: Lungs are clear Cardiac exam: Rhythm: Regular rate and rhythm; Normal S1 and S2 Murmur: 3/6 high-pitched systolic murmur with diminished A2 component Other: No rub; no gallop Vasc: Peripheral pulses 2+ and equal bilaterally Abdomen: Active bowel sounds, soft, nondistended, nontender Extremities: No LE edema Skin: Warm to touch and well perfused Laboratory Tests: Recent Labs 08/18/23 0133 NA 137 K 3.3* CL 105 CO2 15* BUN 21* CREATININE 0.89 EGFR 86.1 Recent Labs 08/18/23 0133 08/18/23 0359 08/18/23 0737 TROPONINI <0.012 <0.012 <0.012 Recent Labs 08/18/23 0133 WBC 7.6 HGB 12.9* HCT 36.2* MCV 103.1* PLT 181 No results found for: HGBA1C Lab Results Component Value Date TSH 3.488 08/18/2023 Lab Results Component Value Date CHOL 133 05/27/2022 CHOL 125 05/23/2021 CHOL 125 11/20/2020 Lab Results Component Value Date HDL 25 (L) 05/27/2022 HDL 41 05/23/2021 HDL 31 (L) 11/20/2020 Lab Results Component Value Date LDLCALC 43 05/27/2022 Lab Results Component Value Date TRIG 325 (H) 05/27/2022 TRIG 91 05/23/2021 TRIG 84 11/20/2020 Lab Results Component Value Date LDLCHOLESTER 83 04/21/2023 LDLCHOLESTER 63 10/17/2022 Recent Labs 08/18/23 0133 BNP 145 Radiology: CXR: personally reviewed: No active disease. Cardiac Tests Personally Reviewed: ECG 12-LEAD 08/18/2023 3:29 AM (Final) Impression > my interpretation Sinus rhythm with Type 1 second degree AVB Borderline low voltage, extremity leads No ST/T change Borderline prolonged QT interval Telemetry findings: Normal sinus rhythm, no significant ectopy Reports reviewed: TRANSTHORACIC ECHOCARDIOGRAM (TTE) COMPLETE (CONTRAST/BUBBLE/3D PRN) 06/17/2023 2:16 PM (Final) Interpretation Summary Left Ventricle: Left ventricle size is normal. Mild septal thickening. Normal left ventricular systolic function. EF by 2D Simpsons Biplane is 69%. Normal wall motion. Grade I diastolic dysfunction with normal LAP. Right Ventricle: Right ventricle size is normal. Normal systolic function. Left Atrium: Left atrium is mildly dilated. Aortic Valve: Trileaflet. Severely calcified cusps with signifincat mobility restriction on visual inspetion. Trace regurgitation. Paradoxical low flow/low gradient severe aortic stenosis with normalEF. AV mean gradient is 20 mmHg. AV peak gradient is 38 mmHg. AV peak velocity is 3.1 m/s. LVOT:AV VTI Index is 0.31. AV area by continuity VTI is 0.9 cm2. Stroke volume index is 34.9 mL/m2. Aorta: Normal sized sinuses of Valsalva. Mildly dilated ascending aorta. Ao ascending diameter is 3.6 cm. Technically difficult study. Signed by: Lucia Sargent MD on 06/17/2023 2:16 PM CARDIAC PROCEDURE 06/12/2022 11:10 AM (Final) Conclusion 81 y.o. male with CAD s/p PCI of LAD in 10/2014 in the setting of cardiac arrest followed by urgent4 vCABG with RODARTE to LAD, vein to OM, vein to diagonal, vein to PDA, HTN, HLD, h/o leukemia presents with c/o of chest pain with minimal exertion. LHC : Dominance : Right LM - Heavily calcified, 70 % disease in distal LM LAD - Patent mid LAD stent. 80% disease in proximal LAD at bifurcation with Diag 1. 90% disease in ostial Diag. Mid to distal LAD severe disease, prior to RODARTE anastomosis. LCX - 90% ostial LCX disease. Ramus - diffuse moderate disease RCA - Heavily calcified. 90% disease ostial, 80% in mid RCA. 90% disease in distal RCA/RPL. Grafts : Patent RODARTE-LAD, fills LAD anterogradely and retrogradely via a collateral. All 3 vein grafts occluded, SVG - RCA, SVG-OM and SVG-Diag LVEDp - 14 mm Hg Aortic valve - Mild Aortic stenosis, peak to peak gradient 15 Catheters: Diagnostic - JL 3.5, JR 4, IM, MP Guide - HS 2. Attempted JR 4 Guideliner Access : Left Radial Conclusion : Severe [place] multivessel disease. Patent RODARTE - LAD. All vein grafts occluded Intervention : Due to significant use of contrast during diagnostic cath (140 ml), opted for staged intervention -RCA disease to start with. Challenging intervention due to heavily calcified RCA Successful IVUS guided JUSTINA x 3 to ostial and distal RCA Ostial RCA - predilated with 3.0 x 12 mm RX, 4.0 x 12 mm NC balloons and then Xience JUSTINA 4.0 x 18 mm Distal RCA / RPL - Predilated with 2.5 x 20 mm, 3.0 x 12 mm RX balloons, and then Xience JUSTINA 3.0 x 38 mm and 2.5 x 38 mm Symptoms likely due to RCA disease, patient with similar chest pain during intervention, resolved after PCI. Recommendation : Likely staged intervention of LM/Ostial LCX/ LAD / Diag, if continues to have symptoms on maximum tolerated medical regimen. Aggressive medical management Risk factor management Signed by: Ronal Barr MD on 06/12/2022 11:10 AM Last Stress Test No results found for this or any previous visit. Last EP study No results found for this or any previous visit. EF BP Date Value Ref Range Status 06/17/2023 69 55 - 100 % Final Triston Lynch MD DATE of SERVICE: 08/18/2023 [id number] Consult note* Triston Lynch MD - 08/18/2023 12:25 PM EDTAssociated Order(s): IP CONSULT TO CARDIOLOGY [facility] [place] [facility] Cardiology /Electrophysiology Consult Note Reason for Consult/Chief Complaint: Chest/ abdomen pain. Consulting provider: Syed Silva thermometer production worker: Lianne History of Present Illness: Ramy Barron is a 82 y.o. male with a history of coronary artery disease, status post PCI of theleft anterior descending in October 2014 in the setting of cardiac arrest followed by urgent coronary bypass surgery (RODARTE to left anterior descending, vein to OM, vein to diagonal, vein to PDA with all vein grafts now occluded), PCI of the RCA in the setting of unstable angina 05/2022, hypertension, hyperlipidemia, moderate-severe aortic stenosis, who presents now due to chest and abdominal pain and decreased exercise tolerance. He tells me has been having progressive shortness of breath whenhe exerts himself over the past several months, and was planning on seeing Dr. Barr in the valve clinic in late August for consideration of possible TAVR. The symptoms of brought him in was chest discomfort which occurred after eating getting last night. He says certain foods do seem to cause heartburn for him. He has been started on a proton pump inhibitor by his primary care doctor couple weeks ago but still gets symptoms sometimes. He says last night, he ate a small amount of spaghetti for dinner and about an hour or so later developed burning sensation in his chest with belching, abdominal pain and bloating. The symptoms persisted so after a few hours, he came to the ER. Since arrival to the hospital, his abdominal distention pain and chest symptoms all resolved and he is felt fine for the past 12 hours or so. The total duration of the symptoms is about 12 hours, and his troponin was entirely normal. The primary service wonders if the patient may be having intermittent small bowel obstructions based on the way he describes his symptoms. We are consulted due to his known coronary and valvular heart disease. Assessment/Plan Abdominal and chest discomfort: His presenting symptoms actually sound more consistent with a GI problem and not suggestive of myocardial ischemia, especially given the prolonged nature of the symptoms with entirely normal cardiac enzymes. His symptoms also are routinely triggered by eating certain foods and sometimes he gets some relief with Tums. He does have known coronary disease and aortic stenosis, and these will need to be evaluated eventually but I do not think that there is a need for urgent evaluation and treatment based on the symptoms. May discharge home with close follow-up Continue proton pump inhibitor Return if symptoms recur we will attempt to get a CAT scan of the abdomen while he is still having distention to look for small bowel obstruction Borderline severe aortic stenosis: The patient's recent echo suggested borderline criteria for severe aortic stenosis based mostly on his aortic valve area. His mean gradient was only 20 and his dimensionless index was 0.31, which were more suggestive of moderate stenosis. On the other hand the patient is having clear decrease in exercise capacity. He is scheduled to see Dr. Barr in the valve clinic on September 16, but I will see if we can get this moved up a little bit. Known coronary artery disease: He has had extensive revascularization in the past, most recently with multiple stents to the right coronary artery in May 2022. He is not having any of the symptoms that brought him in at that time, and as above and I will think his current chest and abdominal symptoms are anginal. He can address this when he is seen by Dr. Barr in the future. He should continue risk factor modification. He continues on dual antiplatelet therapy. Medications: aspirin, 81 mg, Oral, Daily atorvastatin, 80 mg, Oral, Daily clopidogrel, 75 mg, Oral, Daily enoxaparin, 40 mg, SubCUTAneous, Daily ezetimibe, 10 mg, Oral, Daily isosorbide mononitrate ER, 60 mg, Oral, Daily levothyroxine, 100 mcg, Oral, Daily metoprolol tartrate, 25 mg, Oral, BID pantoprazole, 40 mg, Oral, qAM AC Physical Examination: Vitals: 08/18/23 0704 08/18/23 0852 08/18/23 1033 08/18/23 1114 BP: 122/82 130/63 117/68 BP Location: Left arm Left arm Patient Position: Sitting Sitting Pulse: 67 58 73 Resp: 16 16 14 Temp: 36.2 C (97.1 F) 36.2 C (97.2 F) TempSrc: Temporal Temporal SpO2: 95% 96% 96% Weight: 170 lb (77.1 kg) Height: 5' 6 (1.676 m) No intake or output data in the 24 hours ending 08/18/23 1225 Wt Readings from Last 3 Encounters: 08/18/23 170 lb (77.1 kg) 07/29/23 173 lb 6.4 oz (78.7 kg) 06/17/23 176 lb (79.8 kg) Physical Exam Constitutional: No distress. Well nourished. Well hydrated Psychiatric: A &O x 3. Medical insight good NMT: Oral mucosa is pink and moist Neck: No JVD. Respiratory: Lungs are clear Cardiac exam: Rhythm: Regular rate and rhythm; Normal S1 and S2 Murmur: 3/6 high-pitched systolic murmur with diminished A2 component Other: No rub; no gallop Vasc: Peripheral pulses 2+ and equal bilaterally Abdomen: Active bowel sounds, soft, nondistended, nontender Extremities: No LE edema Skin: Warm to touch and well perfused Laboratory Tests: Recent Labs 08/18/23 0133 NA 137 K 3.3* CL 105 CO2 15* BUN 21* CREATININE 0.89 EGFR 86.1 Recent Labs 08/18/23 0133 08/18/23 0359 08/18/23 0737 TROPONINI <0.012 <0.012 <0.012 Recent Labs 08/18/23 0133 WBC 7.6 HGB 12.9* HCT 36.2* MCV 103.1* PLT 181 No results found for: HGBA1C Lab Results Component Value Date TSH 3.488 08/18/2023 Lab Results Component Value Date CHOL 133 05/27/2022 CHOL 125 05/23/2021 CHOL 125 11/20/2020 Lab Results Component Value Date HDL 25 (L) 05/27/2022 HDL 41 05/23/2021 HDL 31 (L) 11/20/2020 Lab Results Component Value Date LDLCALC 43 05/27/2022 Lab Results Component Value Date TRIG 325 (H) 05/27/2022 TRIG 91 05/23/2021 TRIG 84 11/20/2020 Lab Results Component Value Date LDLCHOLESTER 83 04/21/2023 LDLCHOLESTER 63 10/17/2022 Recent Labs 08/18/23 0133 BNP 145 Radiology: CXR: personally reviewed: No active disease. Cardiac Tests Personally Reviewed: ECG 12-LEAD 08/18/2023 3:29 AM (Final) Impression > my interpretation Sinus rhythm with Type 1 second degree AVB Borderline low voltage, extremity leads No ST/T change Borderline prolonged QT interval Telemetry findings: Normal sinus rhythm, no significant ectopy Reports reviewed: TRANSTHORACIC ECHOCARDIOGRAM (TTE) COMPLETE (CONTRAST/BUBBLE/3D PRN) 06/17/2023 2:16 PM (Final) Interpretation Summary Left Ventricle: Left ventricle size is normal. Mild septal thickening. Normal left ventricular systolic function. EF by 2D [place]ons Biplane is 69%. Normal wall motion. Grade I diastolic dysfunction with normal LAP. Right Ventricle: Right ventricle size is normal. Normal systolic function. Left Atrium: Left atrium is mildly dilated. Aortic Valve: Trileaflet. Severely calcified cusps with signifincat mobility restriction on visual inspetion. Trace regurgitation. Paradoxical low flow/low gradient severe aortic stenosis with normalEF. AV mean gradient is 20 mmHg. AV peak gradient is 38 mmHg. AV peak velocity is 3.1 m/s. LVOT:AV VTI Index is 0.31. AV area by continuity VTI is 0.9 cm2. Stroke volume index is 34.9 mL/m2. Aorta: Normal sized sinuses of Valsalva. Mildly dilated ascending aorta. Ao ascending diameter is 3.6 cm. Technically difficult study. Signed by: Lucia Sargent MD on 06/17/2023 2:16 PM CARDIAC PROCEDURE 06/12/2022 11:10 AM (Final) Conclusion 81 y.o. male with CAD s/p PCI of LAD in 10/2014 in the setting of cardiac arrest followed by urgent4 vCABG with RODARTE to LAD, vein to OM, vein to diagonal, vein to PDA, HTN, HLD, h/o leukemia presents with c/o of chest pain with minimal exertion. LHC : Dominance : Right LM - Heavily calcified, 70 % disease in distal LM LAD - Patent mid LAD stent. 80% disease in proximal LAD at bifurcation with Diag 1. 90% disease in ostial Diag. Mid to distal LAD severe disease, prior to RODARTE anastomosis. LCX - 90% ostial LCX disease. Ramus - diffuse moderate disease RCA - Heavily calcified. 90% disease ostial, 80% in mid RCA. 90% disease in distal RCA/RPL. Grafts : Patent RODARTE-LAD, fills LAD anterogradely and retrogradely via a collateral. All 3 vein grafts occluded, SVG - RCA, SVG-OM and SVG-Diag LVEDp - 14 mm Hg Aortic valve - Mild Aortic stenosis, peak to peak gradient 15 Catheters: Diagnostic - JL 3.5, JR 4, IM, MP Guide - HS 2. Attempted JR 4 Guideliner Access : Left Radial Conclusion : Severe [place] multivessel disease. Patent RODARTE - LAD. All vein grafts occluded Intervention : Due to significant use of contrast during diagnostic cath (140 ml), opted for staged intervention -RCA disease to start with. Challenging intervention due to heavily calcified RCA Successful IVUS guided JUSTINA x 3 to ostial and distal RCA Ostial RCA - predilated with 3.0 x 12 mm RX, 4.0 x 12 mm NC balloons and then Xience JUSTINA 4.0 x 18 mm Distal RCA / RPL - Predilated with 2.5 x 20 mm, 3.0 x 12 mm RX balloons, and then Xience JUSTINA 3.0 x 38 mm and 2.5 x 38 mm Symptoms likely due to RCA disease, patient with similar chest pain during intervention, resolved after PCI. Recommendation : Likely staged intervention of LM/Ostial LCX/ LAD / Diag, if continues to have symptoms on maximum tolerated medical regimen. Aggressive medical management Risk factor management Signed by: Ronal Barr MD on 06/12/2022 11:10 AM Last Stress Test No results found for this or any previous visit. Last EP study No results found for this or any previous visit. EF BP Date Value Ref Range Status 06/17/2023 69 55 - 100 % Final Triston Lynch MD DATE of SERVICE: 08/18/2023 documented in this [facility]06-24-2024 History and physical note* Jah Montoya MD - 08/18/2023 5:46 AM EDT [facility] 1940 AGE 82 y.o. YEARS Note Date 08/18/2023 Primary Care Physician:Jean-Paul Pack, Current Providers as of 08/18/2023 PCP: Jean-Paul Pack DO Referring Provider: not found, starting on FriAug 18, 2023 12:00 AM Admitting Provider: Jah Montoya MD, (Active) Attending Provider: Tanna Chavez MD, starting on FriAug 18, 2023 1:36 AM (Active) Attending Provider: Jah Montoya MD, starting on FriAug 18, 2023 5:25 AM (Active) Registered Nurse: Ebonie Herman RN, starting on FriAug 18, 2023 1:42 AM (Active) Chief Complaint: Chest Pain HPI: He reports he had abd pain and then chest pain and abd bloating this started around 14:30 on 08/16 He had abd bloating, and then distention This occurred after eating a spaghetti dinner. He actually reports several times in the past he has had some abdominal distention and bloating. Ithas not lasted very long He has had associated nausea. He reports he does have GERD and he takes a medication for GERD The pain he had was in his abdomen did move up into his epigastric area and also moved up into his chest However now that I seen him his bloating has gone down all his abdominal pain has resolved He additionally reports that he has had decreased functional capacity recently he denies passing out or falling but he does report he gets winded short of breath and weak when he tries to exert himself Review of Systems: General: Skin: HEENT: Cardiovascular Fever n Rashes n Difficulty chewing n Chest Pain Radiating up from abd Chills n Sores n Appetite Loss n Chest Pressure n Fatigue y Epistaxis n Orthopnea n Sweats n Hearing loss nn Palpitations n GI: Tinnitus GERD y Vision quality RESP: Abdominal Pain y : SOB/MEDINA n Nausea y Hematuria n Cough n Vomiting n Dysuria n Productive/Sputum n Hematemesis n NEURO: Urgency n Hemoptysis n Diarrhea n Headaches Frequency n Wheezing n Constipation n Seizures Times at night urinating n Heamatochezia n Neuropathy catheter present n MSK: Melena n Focal weakness Hesitancy n Focal Numbness Incontinence n Acute joint pain n Dizzy/Vertigo Redness n Difficulty speaking Heme/Lymph Swelling n Difficulty walking Lymphadenopathy Myalgia n Ataxia Chronic joint pain n Past Medical History: Diagnosis Date Aortic stenosis, moderate 05/2022 per ECHO CAD (coronary artery disease) 01/05/2015 CABG, 06/[address] Barr Cervical spine degeneration 2019 Clostridium difficile colitis 01/2021 ?etiology ED (erectile dysfunction) H/O colonoscopy 2007 Dr. 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 Barr- 3 RCA stents, COLONOSCOPY 2007 Dr. Garnica CORONARY ANGIOPLASTY WITH STENT PLACEMENT 10/2014 JUSTINA to mid LAD CORONARY ARTERY BYPASS GRAFT 10/2014 RODARTE-LAD, SVG-Diagonal, SVG-PDA KNEE ARTHROSCOPY W/ MENISCAL REPAIR Left 2013 [place] No Known Allergies Medications Prior to Admission: Current Outpatient Medications Medication Instructions acetaminophen (Tylenol) 500 MG tablet 1 tablet, Oral, PRN aspirin 81 mg, Oral, Daily atorvastatin (LIPITOR) 80 mg, Oral, Daily clopidogrel (PLAVIX) 75 mg, Oral, Daily coenzyme Q-10 100 MG capsule 1 capsule, Oral, Daily ezetimibe (ZETIA) 10 mg, Oral, Daily isosorbide mononitrate ER (IMDUR) 60 mg, Oral, Daily levothyroxine (SYNTHROID, LEVOXYL) 100 mcg, Oral, Daily metoprolol tartrate (LOPRESSOR) 25 mg, Oral, 2 times daily nitroglycerin (NITROSTAT) 0.4 mg, SubLINGual, Every 5 min PRN, May repeat dose every 5 minutes for up to 3 doses total. pantoprazole (ProtoNix) 40 MG EC tablet TAKE 1 TABLET BY MOUTH IN THE MORNING BEFORE BREAKFAST DO NOT CRUSH, CHEW, OR SPLIT Current Facility-Administered Medications: aspirin EC tablet 81 mg, 81 mg, Oral, Daily, Jah Montoya MD atorvastatin (Lipitor) tablet 80 mg, 80 mg, Oral, Daily, Jah Montoya MD clopidogrel (Plavix) tablet 75 mg, 75 mg, Oral, Daily, Jah Montoya MD ezetimibe (Zetia) tablet 10 mg, 10 mg, Oral, Daily, Jah Montoya MD isosorbide mononitrate ER (Imdur) 24 hr tablet 60 mg, 60 mg, Oral, Daily, Jah Montoya MD levothyroxine (Synthroid, Levoxyl) tablet 100 mcg, 100 mcg, Oral, Daily, aJh Montoya MD metoprolol tartrate (Lopressor) tablet 25 mg, 25 mg, Oral, BID, Jah Montoya MD pantoprazole (ProtoNix) 40 mg in sodium chloride (PF) 0.9 % 10 mL injection, 40 mg, IntraVENous, Nightly, Tanna Chavez MD, 40 mg at 08/18/23 0248 pantoprazole (ProtoNix) EC tablet 40 mg, 40 mg, Oral, qAM AC, Jah Montoya MD Current Outpatient Medications: acetaminophen (Tylenol) 500 MG tablet, Take 1 tablet by mouth as needed., Disp: , Rfl: aspirin 81 MG EC tablet, Take 81 mg by mouth in the morning., Disp: , Rfl: atorvastatin (Lipitor) 80 MG tablet, TAKE 1 TABLET BY MOUTH DAILY, Disp: 90 tablet, Rfl: 3 clopidogrel (Plavix) 75 MG tablet, Take 1 tablet (75 mg) by mouth daily., Disp: 90 tablet, Rfl: 3 coenzyme Q-10 100 MG capsule, Take 1 capsule by mouth in the morning., Disp: , Rfl: ezetimibe (Zetia) 10 MG tablet, Take 1 tablet (10 mg) by mouth daily., Disp: 90 tablet, Rfl: 3 isosorbide mononitrate ER (Imdur) 60 MG 24 hr tablet, TAKE 1 TABLET BY MOUTH DAILY, Disp: 90 tablet, Rfl: 0 levothyroxine (Synthroid, Levoxyl) 100 MCG tablet, Take 1 tablet (100 mcg) by mouth daily., Disp: 90 tablet, Rfl: 3 metoprolol tartrate (Lopressor) 25 MG tablet, TAKE 1 TABLET BY MOUTH TWICE DAILY, Disp: 180 tablet,Rfl: 0 nitroglycerin (Nitrostat) 0.4 MG SL tablet, Place 1 tablet (0.4 mg) under the tongue every 5 minutes as needed for chest pain. May repeat dose every 5 minutes for up to 3 doses total., Disp: 100 tablet, Rfl: 11 pantoprazole (ProtoNix) 40 MG EC tablet, TAKE 1 TABLET BY MOUTH IN THE MORNING BEFORE BREAKFAST DO NOT CRUSH, CHEW, OR SPLIT, Disp: 90 tablet, Rfl: 3 Social History Social History Tobacco Use Smoking status: Never Smokeless tobacco: Never Substance Use Topics Alcohol use: Never Family History Family History Problem Relation Name Age of Onset No Known Problems Mother PNA and bowel obst age 85 COPD Father [employer], age 80 Diabetes Sister 4 Heart disease Brother 5 age 76, pacemaker Bladder Cancer Brother Physical Exam Temp (24hrs), Av.1 C (97 F), Min:35.8 C (96.4 F), Max:36.4 C (97.5 F) Body mass index is 27.44 kg/m .BMI Classification: Overweight (BMI 25.0-29.9) BP 139/81 Pulse 69 Temp 36.4 C (97.5 F) (Oral) Resp 21 Ht 5' 6 (1.676 m) Wt 170 lb (77.1kg) SpO2 96% BMI 27.44 kg/m Pulse Ox: SpO2 Av % Min: 96 % Max: 100 % Supplemental O2: General appearance: No apparent distress, appears stated age and cooperative with exam HEENT: Normal cephalic, atraumatic without obvious deformity. Pupils equal, round, and reactive to light. Extra ocular muscles intact. Conjunctivae/corneas clear. Neck: Supple, with full range of motion. No jugular venous distention. Trachea midline. No lymphadenopathy. Respiratory: Normal respiratory effort. Clear to auscultation, bilaterally without Rales/Wheezes/Rhonchi. Cardiovascular: Grade 2-3 systolic ejection murmur heard best at the left sternal border Abdomen: His abdomen is soft nontender nondistended Musculoskeletal: No clubbing, cyanosis or edema bilaterally. Full range of motion without deformity. Skin: Skin color, texture, turgor normal. No rashes or lesions. Neurologic: Neurovascularly intact without any focal sensory/motor deficits. Cranial nerves grosslyintact. Labs Admission on 08/18/2023 Component Date Value Heart Rate 08/18/2023 70 QRSD Interval 08/18/2023 92 QT Interval 08/18/2023 441 QTC Interval 08/18/2023 477 P [place] 08/18/2023 79 QRS [place] 08/18/2023 67 T Wave [place] 08/18/2023 31 VT Interval 08/18/2023 308 Auto WBC 08/18/2023 7.6 RBC 08/18/2023 3.51 (L) Hemoglobin 08/18/2023 12.9 (L) Hematocrit 08/18/2023 36.2 (L) MCV 08/18/2023 103.1 (H) MCH 08/18/2023 36.8 (H) MCHC 08/18/2023 35.6 RDW 08/18/2023 12.3 Platelets 08/18/2023 181 MPV 08/18/2023 10.4 nRBC 08/18/2023 0.0 Neutrophils Relative 08/18/2023 52.7 Lymphocytes Relative 08/18/2023 32.5 Monocytes Relative 08/18/2023 12.5 Eosinophils Relative 08/18/2023 1.7 Basophils Relative 08/18/2023 0.3 Immature Grans % 08/18/2023 0.3 Neutrophils Absolute 08/18/2023 4.0 Lymphocytes Absolute 08/18/2023 2.5 Monocytes Absolute 08/18/2023 1.0 (H) Eosinophils Absolute 08/18/2023 0.1 Basophils Absolute 08/18/2023 0.0 Immature Grans Absolute 08/18/2023 0.0 SODIUM 08/18/2023 137 POTASSIUM 08/18/2023 3.3 (L) CHLORIDE 08/18/2023 105 CARBON DIOXIDE 08/18/2023 15 (L) UREA NITROGEN 08/18/2023 21 (H) CREATININE 08/18/2023 0.89 GLUCOSE 08/18/2023 177 (H) CALCIUM 08/18/2023 9.0 ANION GAP 08/18/2023 16 (H) eGFR 08/18/2023 86.1 TROPONIN I 08/18/2023 <0.012 NT PRO BNP 08/18/2023 145 LIPASE 08/18/2023 82 TROPONIN I 08/18/2023 <0.012 Heart Rate 08/18/2023 65 QRSD Interval 08/18/2023 91 QT Interval 08/18/2023 463 QTC Interval 08/18/2023 481 P [place] 08/18/2023 58 QRS [place] 08/18/2023 39 T Wave [place] 08/18/2023 23 VT Interval 08/18/2023 277 THYROID STIMULATING HORM* 08/18/2023 3.488 EKG Encounter Date: 08/18/23 ECG 12 lead Result Value Heart Rate 65 QRSD Interval 91 QT Interval 463 QTC Interval 481 P [place] 58 QRS [place] 39 T Wave [place] 23 VT Interval 277 Impression Sinus arrhythmia Sinus pause new compared to previous Prolonged VT interval Borderline low voltage, extremity leads Borderline prolonged QT interval No Electronically Signed On 08-18-2023 03:29:34 EDT by Tanna Camarillo Assessment/Plan and Medical Decision Making Original complaint was abdominal pain and bloating He reports several times recently he gets abdominal pain distention and bloating after eating. He does have reflux but that pain is more like a burning and aching pain. He does have an extensive cardiac history and some of this pain was located in his upper chest = see below What he is describing to me also sounds like a partial or intermittent small bowel obstruction. However by the time I see him all of his abdominal bloating has resolved although his abdominal pain has resolved. He does describe after eating feels like he is full and has nausea. He does take a PPI on a regular basis I suspect he may be having intermittent small bowel obstructions that are resolving Lipase in the emergency room is normal Renal function did show metabolic acidosis with a bicarb of 15 I will follow-up with lactic acid repeat renal function and check LFTs I will also continue his PPI. I am suggesting that if he has this distention in the future that he come in and have imaging such as a CAT scan of his abd and pelivs. Right now he reports all of his abdominal pain is resolved and he has no abdominal distention.. CT scan not likely to be as beneficial now. Chest pain Does have an extensive cardiac history with stents and bypass. He is also known to have aortic stenosis see below. The chest pain he describes to me was mainly rating from his abdomen Also likely from GERD. He is already on aspirin statin and Plavix at home EKG does not show any ST changes So far cardiac enzymes have been negative I will continue medical therapy is on at home This also includes Imdur and Lopressor in addition to his dual antiplatelet therapy and statin Aortic stenosis Recent echo had a valve area 0.9 was approximately 1 month ago. He denies any syncope presyncope but he does get very short of breath with exertion He reports he is seeing cardiology and being evaluated for TAVR . From what he describes to me he may be having symptomatic aortic stenosis. History of hypothyroidism Continues levothyroxine I will currently resume diet as his abdominal pain is improved he is tolerating p.o. I discussed the need for admission with the emergency provider. -DVT prophylaxis: [x] Lovenox [] Heparin [] SCDs [x] Encourage ambulation [] Already on Anticoagulation [] Pharmocologic prophylaxis on hold to due risk bleed/procedure [] Low risk, ambulatory [] Both pharmacologic and mechanical contraindicated 08/18/2023 Ramy Barron [id number] Any scheduled follow up appointments Future Appointments Date Time Provider Department Center 09/17/2023 3:30 PM Ronal Barr MD [facility] [address] 11/10/2023 9:00 AM Jean-Paul Pack DO [facility] Extended Emergency Contact Information Primary Emergency Contact: Jayshree Barron Mobile Relation: Spouse Preferred language: Guatemalan Management Manager needed? No Portions of this note may be electronically transcribed. Please forward a copy of this H&P to the primary care physician. [facility] Phone: [phone] 371-843906-24-2024 History and physical note* Jah Montoya MD - 08/18/2023 5:46 AM EDT History and Physical [facility] Ramy Barron : 1940 AGE 82 y.o. YEARS Note Date 08/18/2023 Primary Care Physician:Jean-Paul Pack DO Current Providers as of 08/18/2023 PCP: Jean-Paul Pack DO Referring Provider: not found, starting on FriAug 18, 2023 12:00 AM Admitting Provider: Jah Montoya MD, (Active) Attending Provider: Tanna Chavez MD, starting on FriAug 18, 2023 1:36 AM (Active) Attending Provider: Jah Montoya MD, starting on FriAug 18, 2023 5:25 AM (Active) Registered Nurse: Ebonie Herman RN, starting on FriAug 18, 2023 1:42 AM (Active) Chief Complaint: Chest Pain HPI: He reports he had abd pain and then chest pain and abd bloating this started around 14:30 on 08/16 He had abd bloating, and then distention This occurred after eating a spaghetti dinner. He actually reports several times in the past he has had some abdominal distention and bloating. Ithas not lasted very long He has had associated nausea. He reports he does have GERD and he takes a medication for GERD The pain he had was in his abdomen did move up into his epigastric area and also moved up into his chest However now that I seen him his bloating has gone down all his abdominal pain has resolved He additionally reports that he has had decreased functional capacity recently he denies passing out or falling but he does report he gets winded short of breath and weak when he tries to exert himself Review of Systems: General: Skin: HEENT: Cardiovascular Fever n Rashes n Difficulty chewing n Chest Pain Radiating up from abd Chills n Sores n Appetite Loss n Chest Pressure n Fatigue y Epistaxis n Orthopnea n Sweats n Hearing loss nn Palpitations n GI: Tinnitus GERD y Vision quality RESP: Abdominal Pain y : SOB/MEDINA n Nausea y Hematuria n Cough n Vomiting n Dysuria n Productive/Sputum n Hematemesis n NEURO: Urgency n Hemoptysis n Diarrhea n Headaches Frequency n Wheezing n Constipation n Seizures Times at night urinating n Heamatochezia n Neuropathy catheter present n MSK: Melena n Focal weakness Hesitancy n Focal Numbness Incontinence n Acute joint pain n Dizzy/Vertigo Redness n Difficulty speaking Heme/Lymph Swelling n Difficulty walking Lymphadenopathy Myalgia n Ataxia Chronic joint pain n Past Medical History: Diagnosis Date Aortic stenosis, moderate 05/2022 per ECHO CAD (coronary artery disease) 01/05/2015 CABG, 06/[address] Barr Cervical spine degeneration 2019 Clostridium difficile colitis 01/2021 ?etiology ED (erectile dysfunction) H/O colonoscopy 2007 Dr. 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 Barr- 3 RCA stents, COLONOSCOPY 2007 Dr. Garnica CORONARY ANGIOPLASTY WITH STENT PLACEMENT 10/2014 JUSTINA to mid LAD CORONARY ARTERY BYPASS GRAFT 10/2014 ROADRT[place]-LAD, SVG-Diagonal, SVG-PDA KNEE ARTHROSCOPY W/ MENISCAL REPAIR Left 2014 [place] No Known Allergies Medications Prior to Admission: Current Outpatient Medications Medication Instructions acetaminophen (Tylenol) 500 MG tablet 1 tablet, Oral, PRN aspirin 81 mg, Oral, Daily atorvastatin (LIPITOR) 80 mg, Oral, Daily clopidogrel (PLAVIX) 75 mg, Oral, Daily coenzyme Q-10 100 MG capsule 1 capsule, Oral, Daily ezetimibe (ZETIA) 10 mg, Oral, Daily isosorbide mononitrate ER (IMDUR) 60 mg, Oral, Daily levothyroxine (SYNTHROID, LEVOXYL) 100 mcg, Oral, Daily metoprolol tartrate (LOPRESSOR) 25 mg, Oral, 2 times daily nitroglycerin (NITROSTAT) 0.4 mg, SubLINGual, Every 5 min PRN, May repeat dose every 5 minutes for up to 3 doses total. pantoprazole (ProtoNix) 40 MG EC tablet TAKE 1 TABLET BY MOUTH IN THE MORNING BEFORE BREAKFAST DO NOT CRUSH, CHEW, OR SPLIT Current Facility-Administered Medications: aspirin EC tablet 81 mg, 81 mg, Oral, Daily, Jah Montoya MD atorvastatin (Lipitor) tablet 80 mg, 80 mg, Oral, Daily, Jah Montoya MD clopidogrel (Plavix) tablet 75 mg, 75 mg, Oral, Daily, Jah Montoya MD ezetimibe (Zetia) tablet 10 mg, 10 mg, Oral, Daily, Jah Montoya MD isosorbide mononitrate ER (Imdur) 24 hr tablet 60 mg, 60 mg, Oral, Daily, Jah Montoya MD levothyroxine (Synthroid, Levoxyl) tablet 100 mcg, 100 mcg, Oral, Daily, Jah Montoya MD metoprolol tartrate (Lopressor) tablet 25 mg, 25 mg, Oral, BID, Jah Montoya MD pantoprazole (ProtoNix) 40 mg in sodium chloride (PF) 0.9 % 10 mL injection, 40 mg, IntraVENous, Nightly, Tanna Chavez MD, 40 mg at 08/18/23 0248 pantoprazole (ProtoNix) EC tablet 40 mg, 40 mg, Oral, qAM AC, Jah Montoya MD Current Outpatient Medications: acetaminophen (Tylenol) 500 MG tablet, Take 1 tablet by mouth as needed., Disp: , Rfl: aspirin 81 MG EC tablet, Take 81 mg by mouth in the morning., Disp: , Rfl: atorvastatin (Lipitor) 80 MG tablet, TAKE 1 TABLET BY MOUTH DAILY, Disp: 90 tablet, Rfl: 3 clopidogrel (Plavix) 75 MG tablet, Take 1 tablet (75 mg) by mouth daily., Disp: 90 tablet, Rfl: 3 coenzyme Q-10 100 MG capsule, Take 1 capsule by mouth in the morning., Disp: , Rfl: ezetimibe (Zetia) 10 MG tablet, Take 1 tablet (10 mg) by mouth daily., Disp: 90 tablet, Rfl: 3 isosorbide mononitrate ER (Imdur) 60 MG 24 hr tablet, TAKE 1 TABLET BY MOUTH DAILY, Disp: 90 tablet, Rfl: 0 levothyroxine (Synthroid, Levoxyl) 100 MCG tablet, Take 1 tablet (100 mcg) by mouth daily., Disp: 90 tablet, Rfl: 3 metoprolol tartrate (Lopressor) 25 MG tablet, TAKE 1 TABLET BY MOUTH TWICE DAILY, Disp: 180 tablet,Rfl: 0 nitroglycerin (Nitrostat) 0.4 MG SL tablet, Place 1 tablet (0.4 mg) under the tongue every 5 minutes as needed for chest pain. May repeat dose every 5 minutes for up to 3 doses total., Disp: 100 tablet, Rfl: 11 pantoprazole (ProtoNix) 40 MG EC tablet, TAKE 1 TABLET BY MOUTH IN THE MORNING BEFORE BREAKFAST DO NOT CRUSH, CHEW, OR SPLIT, Disp: 90 tablet, Rfl: 3 Social History Social History Tobacco Use Smoking status: Never Smokeless tobacco: Never Substance Use Topics Alcohol use: Never Family History Family History Problem Relation Name Age of Onset No Known Problems Mother PNA and bowel obst age 85 COPD Father [employer] Lung, age 80 Diabetes Sister 4 Heart disease Brother 5 age 76, pacemaker Bladder Cancer Brother Physical Exam Temp (24hrs), Av.1 C (97 F), Min:35.8 C (96.4 F), Max:36.4 C (97.5 F) Body mass index is 27.44 kg/m .BMI Classification: Overweight (BMI 25.0-29.9) BP 139/81 Pulse 69 Temp 36.4 C (97.5 F) (Oral) Resp 21 Ht 5' 6 (1.676 m) Wt 170 lb (77.1kg) SpO2 96% BMI 27.44 kg/m Pulse Ox: SpO2 Av % Min: 96 % Max: 100 % Supplemental O2: General appearance: No apparent distress, appears stated age and cooperative with exam HEENT: Normal cephalic, atraumatic without obvious deformity. Pupils equal, round, and reactive to light. Extra ocular muscles intact. Conjunctivae/corneas clear. Neck: Supple, with full range of motion. No jugular venous distention. Trachea midline. No lymphadenopathy. Respiratory: Normal respiratory effort. Clear to auscultation, bilaterally without Rales/Wheezes/Rhonchi. Cardiovascular: Grade 2-3 systolic ejection murmur heard best at the left sternal border Abdomen: His abdomen is soft nontender nondistended Musculoskeletal: No clubbing, cyanosis or edema bilaterally. Full range of motion without deformity. Skin: Skin color, texture, turgor normal. No rashes or lesions. Neurologic: Neurovascularly intact without any focal sensory/motor deficits. Cranial nerves grosslyintact. Labs Admission on 08/18/2023 Component Date Value Heart Rate 08/18/2023 70 QRSD Interval 08/18/2023 92 QT Interval 08/18/2023 441 QTC Interval 08/18/2023 477 P [place] 08/18/2023 79 QRS [place] 08/18/2023 67 T Wave [place] 08/18/2023 31 VT Interval 08/18/2023 308 Auto WBC 08/18/2023 7.6 RBC 08/18/2023 3.51 (L) Hemoglobin 08/18/2023 12.9 (L) Hematocrit 08/18/2023 36.2 (L) MCV 08/18/2023 103.1 (H) MCH 08/18/2023 36.8 (H) MCHC 08/18/2023 35.6 RDW 08/18/2023 12.3 Platelets 08/18/2023 181 MPV 08/18/2023 10.4 nRBC 08/18/2023 0.0 Neutrophils Relative 08/18/2023 52.7 Lymphocytes Relative 08/18/2023 32.5 Monocytes Relative 08/18/2023 12.5 Eosinophils Relative 08/18/2023 1.7 Basophils Relative 08/18/2023 0.3 Immature Grans % 08/18/2023 0.3 Neutrophils Absolute 08/18/2023 4.0 Lymphocytes Absolute 08/18/2023 2.5 Monocytes Absolute 08/18/2023 1.0 (H) Eosinophils Absolute 08/18/2023 0.1 Basophils Absolute 08/18/2023 0.0 Immature Grans Absolute 08/18/2023 0.0 SODIUM 08/18/2023 137 POTASSIUM 08/18/2023 3.3 (L) CHLORIDE 08/18/2023 105 CARBON DIOXIDE 08/18/2023 15 (L) UREA NITROGEN 08/18/2023 21 (H) CREATININE 08/18/2023 0.89 GLUCOSE 08/18/2023 177 (H) CALCIUM 08/18/2023 9.0 ANION GAP 08/18/2023 16 (H) eGFR 08/18/2023 86.1 TROPONIN I 08/18/2023 <0.012 NT PRO BNP 08/18/2023 145 LIPASE 08/18/2023 82 TROPONIN I 08/18/2023 <0.012 Heart Rate 08/18/2023 65 QRSD Interval 08/18/2023 91 QT Interval 08/18/2023 463 QTC Interval 08/18/2023 481 P [place] 08/18/2023 58 QRS [place] 08/18/2023 39 T Wave [place] 08/18/2023 23 VT Interval 08/18/2023 277 THYROID STIMULATING HORM* 08/18/2023 3.488 EKG Encounter Date: 08/18/23 ECG 12 lead Result Value Heart Rate 65 QRSD Interval 91 QT Interval 463 QTC Interval 481 P [place] 58 QRS [place] 39 T Wave [place] 23 VT Interval 277 Impression Sinus arrhythmia Sinus pause new compared to previous Prolonged VT interval Borderline low voltage, extremity leads Borderline prolonged QT interval No Electronically Signed On 08-18-2023 03:29:34 EDT by Tanna Camarillo Assessment/Plan and Medical Decision Making Original complaint was abdominal pain and bloating He reports several times recently he gets abdominal pain distention and bloating after eating. He does have reflux but that pain is more like a burning and aching pain. He does have an extensive cardiac history and some of this pain was located in his upper chest = see below What he is describing to me also sounds like a partial or intermittent small bowel obstruction. However by the time I see him all of his abdominal bloating has resolved although his abdominal pain has resolved. He does describe after eating feels like he is full and has nausea. He does take a PPI on a regular basis I suspect he may be having intermittent small bowel obstructions that are resolving Lipase in the emergency room is normal Renal function did show metabolic acidosis with a bicarb of 15 I will follow-up with lactic acid repeat renal function and check LFTs I will also continue his PPI. I am suggesting that if he has this distention in the future that he come in and have imaging such as a CAT scan of his abd and pelivs. Right now he reports all of his abdominal pain is resolved and he has no abdominal distention.. CT scan not likely to be as beneficial now. Chest pain Does have an extensive cardiac history with stents and bypass. He is also known to have aortic stenosis see below. The chest pain he describes to me was mainly rating from his abdomen Also likely from GERD. He is already on aspirin statin and Plavix at home EKG does not show any ST changes So far cardiac enzymes have been negative I will continue medical therapy is on at home This also includes Imdur and Lopressor in addition to his dual antiplatelet therapy and statin Aortic stenosis Recent echo had a valve area 0.9 was approximately 1 month ago. He denies any syncope presyncope but he does get very short of breath with exertion He reports he is seeing cardiology and being evaluated for TAVR . From what he describes to me he may be having symptomatic aortic stenosis. History of hypothyroidism Continues levothyroxine I will currently resume diet as his abdominal pain is improved he is tolerating p.o. I discussed the need for admission with the emergency provider. -DVT prophylaxis: [x] Lovenox [] Heparin [] SCDs [x] Encourage ambulation [] Already on Anticoagulation [] Pharmocologic prophylaxis on hold to due risk bleed/procedure [] Low risk, ambulatory [] Both pharmacologic and mechanical contraindicated 08/18/2023 Ramy Barron [id number] Any scheduled follow up appointments Future Appointments Date Time Provider Department Center 09/17/2023 3:30 PM Ronal Barr MD [facility] [address] 11/10/2023 9:00 AM Jean-Paul Pack DO [facility] Extended Emergency Contact Information Primary Emergency Contact: Jayshree Barron Mobile Relation: Spouse Preferred language: Guatemalan Management Manager needed? No Portions of this note may be electronically transcribed. Please forward a copy of this H&P to the primary care physician. documented in this [facility]06-24-2024 Emergency department Note* Tanna Chavez MD - 08/18/2023 1:24 AM EDT EMERGENCY DEPARTMENT ENCOUNTER Pt Name: Ramy Barron Birthdate 1940 Date of evaluation: 08/18/2023 ED Provider: Tanna Chavez MD CHIEF COMPLAINT Chief Complaint Patient presents with Chest Pain HISTORY OF PRESENT ILLNESS (Location/Symptom, Timing/Onset, Context/Setting, Quality, Duration, Modifying Factors, Severity) Note limiting factors. I wore appropriate PPE for the entirety of this encounter. HPI Ramy Barron is a 82 y.o. male with a past medical history significant for coronary artery disease status post four-vessel CABG, and 3 stents, aortic stenosis, high cholesterol, and hypothyroidismwho presents to the emergency department evaluation for chest pain. Patient states had spaanalyetti did not check it around 2 PM. He states he started having pain in his epigastric area with dull ache in his chest. He states the pain persisted hence coming to the department for evaluation. He denies fevers or chills or sick contacts. He denies shortness of breath or palpitations. He denies diaphoresis. He endorses nausea but no vomiting. Nursing Notes were reviewed. Limitations to history: None Outside historians: None REVIEW OF SYSTEMS Review of Systems Constitutional: Positive for fatigue. Negative for chills and fever. HENT: Negative for ear pain and sore throat. Eyes: Negative for pain and visual disturbance. Respiratory: Negative for cough and shortness of breath. Cardiovascular: Positive for chest pain. Negative for palpitations. Gastrointestinal: Positive for abdominal pain and nausea. Negative for vomiting. Genitourinary: Negative for dysuria and hematuria. Musculoskeletal: Negative for arthralgias and back pain. Skin: Negative for color change and rash. Neurological: Negative for seizures and syncope. Psychiatric/Behavioral: Negative for confusion. All other systems reviewed and are negative. PAST MEDICAL HISTORY Past Medical History: Diagnosis Date Aortic stenosis, moderate 05/2022 per ECHO CAD (coronary artery disease) 01/05/2015 CABG, 06/[address] Barr Cervical spine degeneration 2019 Clostridium difficile colitis 01/2021 ?etiology ED (erectile dysfunction) H/O colonoscopy 2007 Dr. 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 Barr- 3 RCA stents, COLONOSCOPY 2007 Dr. Garnica CORONARY ANGIOPLASTY WITH STENT PLACEMENT 10/2014 JUSTINA to mid LAD CORONARY ARTERY BYPASS GRAFT 10/2014 [place]-LAD, SVG-Diagonal, SVG-PDA KNEE ARTHROSCOPY W/ MENISCAL REPAIR Left 2013 [place] CURRENT MEDICATIONS Previous Medications ACETAMINOPHEN (TYLENOL) 500 MG TABLET Take 1 tablet by mouth as needed. ASPIRIN 81 MG EC TABLET Take 81 mg by mouth in the morning. ATORVASTATIN (LIPITOR) 80 MG TABLET TAKE 1 TABLET BY MOUTH DAILY CLOPIDOGREL (PLAVIX) 75 MG TABLET Take 1 tablet (75 mg) by mouth daily. COENZYME Q-10 100 MG CAPSULE Take 1 capsule by mouth in the morning. EZETIMIBE (ZETIA) 10 MG TABLET Take 1 tablet (10 mg) by mouth daily. ISOSORBIDE MONONITRATE ER (IMDUR) 60 MG 24 HR TABLET TAKE 1 TABLET BY MOUTH DAILY LEVOTHYROXINE (SYNTHROID, LEVOXYL) 100 MCG TABLET Take 1 tablet (100 mcg) by mouth daily. METOPROLOL TARTRATE (LOPRESSOR) 25 MG TABLET TAKE 1 TABLET BY MOUTH TWICE DAILY NITROGLYCERIN (NITROSTAT) 0.[address] 1 tablet (0.4 mg) under the tongue every 5 minutesas needed for chest pain. May repeat dose every 5 minutes for up to 3 doses total. PANTOPRAZOLE (PROTONIX) 40 MG EC TABLET TAKE 1 TABLET BY MOUTH IN THE MORNING BEFORE BREAKFAST DO NOT CRUSH, CHEW, OR SPLIT ALLERGIES Patient has no known allergies. FAMILY HISTORY Family History Problem Relation Name Age of Onset No Known Problems Mother PNA and bowel obst age 85 COPD Father [employer] Lung, age 80 Diabetes Sister 4 Heart disease Brother 5 age 76, pacemaker Bladder Cancer Brother SOCIAL HISTORY Social History Socioeconomic History Marital status: Tobacco Use Smoking status: Never Smokeless tobacco: Never Substance and Sexual Activity Alcohol use: Never Drug use: Never Social History Narrative to Jayshree. Has 3 sons , 7 GC, 6 GGC. Nonsmoker or drinker. 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 [employer] Social Determinants of Health Financial Resource Strain: Low Risk (11/17/2020) [facility] Overall Financial Resource Strain (CARDIA) Difficulty of Paying Living Expenses: Not hard at all Food Insecurity: No Food Insecurity (11/17/2020) Received from [facility] Hunger Vital Sign Worried About Running Out of Food in the Last Year: Never true Ran Out of Food in the Last Year: Never true Transportation Needs: No Transportation Needs (05/27/2022) PRAPARE - Transportation Lack of Transportation (Medical): No Lack of Transportation (Non-Medical): No Physical Activity: Unknown (07/22/2018) Received from [facility] Exercise Vital Sign Days of Exercise per Week: 2 days Minutes of Exercise per Session: Patient declined Stress: No Stress Concern Present (07/22/2018) Received from [facility] [place] Island[place] of Occupational Health - Occupational Stress Questionnaire Feeling of Stress : Only a little Social Connections: Socially Integrated (07/22/2018) Received from [facility] Social Connection and Isolation Panel [NHANES] Frequency of Communication with Friends and Family: More than three times a week Frequency of Social Gatherings with Friends and Family: Patient declined Attends Evangelical Services: More than 4 times per year Active Member of Clubs or Organizations: Yes Attends Club or Organization Meetings: Patient declined Marital Status: Intimate Partner Violence: Not At Risk (06/11/2022) Humiliation, Afraid, Rape, and Kick questionnaire Fear of Current or Ex-Partner: No Emotionally Abused: No Physically Abused: No Sexually Abused: No Housing Stability: Low Risk (05/27/2022) Housing Stability Vital Sign Unable to Pay for Housing in the Last Year: No Number of Places Lived in the Last Year: 1 Unstable Housing in the Last Year: No SCREENINGS Avinash Coma Scale Best Eye Response: Spontaneous Best Verbal Response: Oriented Best Motor Response: Follows commands Avinash Coma Scale Score: 15 PHYSICAL EXAM ED Triage Vitals [08/18/23 0129] Temp Heart Rate Resp BP (!) 35.8 C (96.4 F) 66 20 122/72 SpO2 Temp Source Heart Rate Source Patient Position 100 % Temporal Monitor Lying BP Location FiO2 (%) Left arm -- Physical Exam Vitals and nursing note reviewed. Constitutional: General: He is not in acute distress. Appearance: He is well-developed. HENT: Head: Normocephalic and atraumatic. Eyes: Conjunctiva/sclera: Conjunctivae normal. Cardiovascular: Rate and Rhythm: Normal rate and regular rhythm. Pulses: Carotid pulses are 2+ on the right side and 2+ on the left side. Radial pulses are 2+ on the right side and 2+ on the left side. Dorsalis pedis pulses are 2+ on the right side and 2+ on the left side. Posterior tibial pulses are 2+ on the right side and 2+ on the left side. Heart sounds: No murmur heard. Pulmonary: Effort: Pulmonary effort is normal. No respiratory distress. Breath sounds: Normal breath sounds. Chest: Chest wall: No tenderness. Abdominal: Palpations: Abdomen is soft. Tenderness: There is abdominal tenderness (Epigastric.). Musculoskeletal: General: No swelling. Cervical back: Neck supple. Skin: General: Skin is warm and dry. Capillary Refill: Capillary refill takes less than 2 seconds. Neurological: General: No focal deficit present. Mental Status: He is alert and oriented to person, place, and time. Psychiatric: Mood and Affect: Mood normal. DIAGNOSTIC RESULTS RADIOLOGY (Per Emergency Physician): Interpretation per the Radiologist below, if available at the time of this note: No orders to display LABS: Labs Reviewed CBC WITH AUTO DIFFERENTIAL - Abnormal Result Value Auto WBC 7.6 RBC 3.51 (*) Hemoglobin 12.9 (*) Hematocrit 36.2 (*) MCV 103.1 (*) MCH 36.8 (*) MCHC 35.6 RDW 12.3 Platelets 181 MPV 10.4 nRBC 0.0 Neutrophils Relative 52.7 Lymphocytes Relative 32.5 Monocytes Relative 12.5 Eosinophils Relative 1.7 Basophils Relative 0.3 Immature Grans % 0.3 Neutrophils Absolute 4.0 Lymphocytes Absolute 2.5 Monocytes Absolute 1.0 (*) Eosinophils Absolute 0.1 Basophils Absolute 0.0 Immature Grans Absolute 0.0 BASIC METABOLIC PANEL - Abnormal SODIUM 137 POTASSIUM 3.3 (*) CHLORIDE 105 CARBON DIOXIDE 15 (*) UREA NITROGEN 21 (*) CREATININE 0.89 GLUCOSE 177 (*) CALCIUM 9.0 ANION GAP 16 (*) eGFR 86.1 TROPONIN, WITH SERIAL REFLEX - Normal TROPONIN I <0.012 Narrative: Patients with high levels of Biotin oral intake (ie >5 mg/day) may have falsely decreased Troponin levels. NT PRO BNP - Normal NT PRO BNP 145 LIPASE - Normal LIPASE 82 TROPONIN I - Normal TROPONIN I <0.012 Narrative: Patients with high levels of Biotin oral intake (ie >5 mg/day) may have falsely decreased Troponin levels. THYROID STIMULATING HORMONE - Normal THYROID STIMULATING HORMONE 3.488 All other labs were within normal range or not returned as of this dictation. EMERGENCY DEPARTMENT COURSE and DIFFERENTIAL DIAGNOSIS/MDM: Vitals: Vitals: 08/18/23 0203 08/18/23 0229 08/18/23 0259 08/18/23 0304 BP: (!) 150/73 139/81 BP Location: Patient Position: Pulse: 80 64 81 69 Resp: 21 21 22 21 Temp: TempSrc: SpO2: 99% 100% 96% Weight: Height: Medications pantoprazole (ProtoNix) 40 mg in sodium chloride (PF) 0.9 % 10 mL injection (40 mg IntraVENous Given 08/18/23 0248) lidocaine (Xylocaine) 2 % mouth solution 5 mL (5 mL Mouth/Throat Given 08/18/23 0235) And aluminum & magnesium hydroxide-simethicone (Mylanta) 200-200-20 MG/5ML oral suspension 20 mL (20 mL Oral Given 08/18/23 0235) ondansetron (Zofran) injection 4 mg (4 mg IntraVENous Given 08/18/23 0243) sodium chloride 0.9 % bolus 1,000 mL (1,000 mL IntraVENous New Bag 08/18/23 0246) potassium chloride CR (Klor-Con M10) ER tablet 40 mEq (40 mEq Oral Given 08/18/23 0358) Diagnoses as of 08/18/23 0526 Chest pain, unspecified type Presenting for evaluation for chest pain. Describes pain as a burning pain. Presentation is concerning for coronary event given history versus acid reflux versus pancreatitis. Given presentation workup in the department with EKG with sinus rhythm with no ST elevations or depressions concerning for STEMI and similar to her other EKGs on file, negative troponin, mild hypokalemia the potassium of 3.3 repleted with 40 mill equivalents of potassium in the department, mild acidosis with CO2 of 15, and slight anion gap of 16 with no renal function impairment. Patient with no leukocytosis, mild anemia present with a hemoglobin of 12.9 decreased from 14.83 months ago. No pancreatitis appreciated with a BNP of 145. Repeat EKG with sinus rhythm with no ST elevations or depressions concerning for STEMI. Sinus pause appreciated. EKG otherwise unchanged from previous. While in the department patient did not receive aspirin and has not received the same for EMS. Patient however started endorsing chest pain again. Received a GI cocktail given reports of eating spaghetti dinner earlier in the evening. Patient not able to tolerate the medication. Was dry heaving in the room. Received a dose of Zofran. Was given a liter of IV fluids. Patient received Protonix 40 mgx 1 dose. Repeat troponin at negative results. Patient received Protonix x 1 dose. Continues to endorse chest pressure. Discussed with the patientgiven heart history and a heart score of 6 would recommend admission to the hospital for further cardiac workup. Patient verbalized understanding of information given and agreed to plan. Was discussed with inpatient admitting provider accepted him for admission. Was admitted in stable condition PROCEDURES: Unless otherwise noted below, none Procedures FINAL IMPRESSION 1. Chest pain, unspecified type DISPOSITION Admit 08/18/2023 05:25:16 AM PATIENT REFERRED TO: No follow-up provider specified. DISCHARGE MEDICATIONS: New Prescriptions No medications on file (Comment: Please note this report has been produced using speech recognition software and may contain errors related to that system including errors in grammar, punctuation, and spelling, as well as words and phrases that may be inappropriate. If there are any questions or concerns please feel freeto contact the dictating provider for clarification.) Tanna Chavez MD (electronically signed) Emergency Medicine Provider Tanna Chavez MD 08/18/23525 documented in this [facility]06-24-2024 Physician Emergency department Note* Tanna Chavez MD - 08/18/2023 1:24 AM EDT EMERGENCY DEPARTMENT ENCOUNTER Pt Name: Ramy Barron Birthdate 1940 Date of evaluation: 08/18/2023 ED Provider: Tanna Chavez MD CHIEF COMPLAINT Chief Complaint Patient presents with Chest Pain HISTORY OF PRESENT ILLNESS (Location/Symptom, Timing/Onset, Context/Setting, Quality, Duration, Modifying Factors, Severity) Note limiting factors. I wore appropriate PPE for the entirety of this encounter. HPI Ramy Barron is a 82 y.o. male with a past medical history significant for coronary artery disease status post four-vessel CABG, and 3 stents, aortic stenosis, high cholesterol, and hypothyroidismwho presents to the emergency department evaluation for chest pain. Patient states had rama did not check it around 2 PM. He states he started having pain in his epigastric area with dull ache in his chest. He states the pain persisted hence coming to the department for evaluation. He denies fevers or chills or sick contacts. He denies shortness of breath or palpitations. He denies diaphoresis. He endorses nausea but no vomiting. Nursing Notes were reviewed. Limitations to history: None Outside historians: None REVIEW OF SYSTEMS Review of Systems Constitutional: Positive for fatigue. Negative for chills and fever. HENT: Negative for ear pain and sore throat. Eyes: Negative for pain and visual disturbance. Respiratory: Negative for cough and shortness of breath. Cardiovascular: Positive for chest pain. Negative for palpitations. Gastrointestinal: Positive for abdominal pain and nausea. Negative for vomiting. Genitourinary: Negative for dysuria and hematuria. Musculoskeletal: Negative for arthralgias and back pain. Skin: Negative for color change and rash. Neurological: Negative for seizures and syncope. Psychiatric/Behavioral: Negative for confusion. All other systems reviewed and are negative. PAST MEDICAL HISTORY Past Medical History: Diagnosis Date Aortic stenosis, moderate 05/2022 per ECHO CAD (coronary artery disease) 01/05/2015 CABG, 06/[address] Barr Cervical spine degeneration 2019 Clostridium difficile colitis 01/2021 ?etiology ED (erectile dysfunction) H/O colonoscopy 2007 Dr. 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 Barr- 3 RCA stents, COLONOSCOPY 2007 Dr. Garnica CORONARY ANGIOPLASTY WITH STENT PLACEMENT 10/2014 JUSTINA to mid LAD CORONARY ARTERY BYPASS GRAFT 10/2014 RODARTE-LAD, SVG-Diagonal, SVG-PDA KNEE ARTHROSCOPY W/ MENISCAL REPAIR Left 2013 Raman CURRENT MEDICATIONS Previous Medications ACETAMINOPHEN (TYLENOL) 500 MG TABLET Take 1 tablet by mouth as needed. ASPIRIN 81 MG EC TABLET Take 81 mg by mouth in the morning. ATORVASTATIN (LIPITOR) 80 MG TABLET TAKE 1 TABLET BY MOUTH DAILY CLOPIDOGREL (PLAVIX) 75 MG TABLET Take 1 tablet (75 mg) by mouth daily. COENZYME Q-10 100 MG CAPSULE Take 1 capsule by mouth in the morning. EZETIMIBE (ZETIA) 10 MG TABLET Take 1 tablet (10 mg) by mouth daily. ISOSORBIDE MONONITRATE ER (IMDUR) 60 MG 24 HR TABLET TAKE 1 TABLET BY MOUTH DAILY LEVOTHYROXINE (SYNTHROID, LEVOXYL) 100 MCG TABLET Take 1 tablet (100 mcg) by mouth daily. METOPROLOL TARTRATE (LOPRESSOR) 25 MG TABLET TAKE 1 TABLET BY MOUTH TWICE DAILY NITROGLYCERIN (NITROSTAT) 0.[address] 1 tablet (0.4 mg) under the tongue every 5 minutesas needed for chest pain. May repeat dose every 5 minutes for up to 3 doses total. PANTOPRAZOLE (PROTONIX) 40 MG EC TABLET TAKE 1 TABLET BY MOUTH IN THE MORNING BEFORE BREAKFAST DO NOT CRUSH, CHEW, OR SPLIT ALLERGIES Patient has no known allergies. FAMILY HISTORY Family History Problem Relation Name Age of Onset No Known Problems Mother PNA and bowel obst age 85 COPD Father Miners Lung, age 80 Diabetes Sister 4 Heart disease Brother 5 age 76, pacemaker Bladder Cancer Brother SOCIAL HISTORY Social History Socioeconomic History Marital status: Tobacco Use Smoking status: Never Smokeless tobacco: Never Substance and Sexual Activity Alcohol use: Never Drug use: Never Social History Narrative to Jayshree. Has 3 sons , 7 GC, 6 GGC. Nonsmoker or drinker. 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 [employer] Social Determinants of Health Financial Resource Strain: Low Risk (11/17/2020) Received from [facility] Overall Financial Resource Strain (CARDIA) Difficulty of Paying Living Expenses: Not hard at all Food Insecurity: No Food Insecurity (11/17/2020) Received from [facility] Hunger Vital Sign Worried About Running Out of Food in the Last Year: Never true Ran Out of Food in the Last Year: Never true Transportation Needs: No Transportation Needs (05/27/2022) PRAPARE - Transportation Lack of Transportation (Medical): No Lack of Transportation (Non-Medical): No Physical Activity: Unknown (07/22/2018) Received from [facility] Exercise Vital Sign Days of Exercise per Week: 2 days Minutes of Exercise per Session: Patient declined Stress: No Stress Concern Present (07/22/2018) Received from [facility] [place] of Occupational Health - Occupational Stress Questionnaire Feeling of Stress : Only a little Social Connections: Socially Integrated (07/22/2018) Received from [facility] Social Connection and Isolation Panel [NHANES] Frequency of Communication with Friends and Family: More than three times a week Frequency of Social Gatherings with Friends and Family: Patient declined Attends Evangelical Services: More than 4 times per year Active Member of Clubs or Organizations: Yes Attends Club or Organization Meetings: Patient declined Marital Status: Intimate Partner Violence: Not At Risk (06/11/2022) Humiliation, Afraid, Rape, and Kick questionnaire Fear of Current or Ex-Partner: No Emotionally Abused: No Physically Abused: No Sexually Abused: No Housing Stability: Low Risk (05/27/2022) Housing Stability Vital Sign Unable to Pay for Housing in the Last Year: No Number of Places Lived in the Last Year: 1 Unstable Housing in the Last Year: No SCREENINGS Gregory Coma Scale Best Eye Response: Spontaneous Best Verbal Response: Oriented Best Motor Response: Follows commands Gregory Coma Scale Score: 15 PHYSICAL EXAM ED Triage Vitals [08/18/23 0129] Temp Heart Rate Resp BP (!) 35.8 C (96.4 F) 66 20 122/72 SpO2 Temp Source Heart Rate Source Patient Position 100 % Temporal Monitor Lying BP Location FiO2 (%) Left arm -- Physical Exam Vitals and nursing note reviewed. Constitutional: General: He is not in acute distress. Appearance: He is well-developed. HENT: Head: Normocephalic and atraumatic. Eyes: Conjunctiva/sclera: Conjunctivae normal. Cardiovascular: Rate and Rhythm: Normal rate and regular rhythm. Pulses: Carotid pulses are 2+ on the right side and 2+ on the left side. Radial pulses are 2+ on the right side and 2+ on the left side. Dorsalis pedis pulses are 2+ on the right side and 2+ on the left side. Posterior tibial pulses are 2+ on the right side and 2+ on the left side. Heart sounds: No murmur heard. Pulmonary: Effort: Pulmonary effort is normal. No respiratory distress. Breath sounds: Normal breath sounds. Chest: Chest wall: No tenderness. Abdominal: Palpations: Abdomen is soft. Tenderness: There is abdominal tenderness (Epigastric.). Musculoskeletal: General: No swelling. Cervical back: Neck supple. Skin: General: Skin is warm and dry. Capillary Refill: Capillary refill takes less than 2 seconds. Neurological: General: No focal deficit present. Mental Status: He is alert and oriented to person, place, and time. Psychiatric: Mood and Affect: Mood normal. DIAGNOSTIC RESULTS RADIOLOGY (Per Emergency Physician): Interpretation per the Radiologist below, if available at the time of this note: No orders to display LABS: Labs Reviewed CBC WITH AUTO DIFFERENTIAL - Abnormal Result Value Auto WBC 7.6 RBC 3.51 (*) Hemoglobin 12.9 (*) Hematocrit 36.2 (*) MCV 103.1 (*) MCH 36.8 (*) MCHC 35.6 RDW 12.3 Platelets 181 MPV 10.4 nRBC 0.0 Neutrophils Relative 52.7 Lymphocytes Relative 32.5 Monocytes Relative 12.5 Eosinophils Relative 1.7 Basophils Relative 0.3 Immature Grans % 0.3 Neutrophils Absolute 4.0 Lymphocytes Absolute 2.5 Monocytes Absolute 1.0 (*) Eosinophils Absolute 0.1 Basophils Absolute 0.0 Immature Grans Absolute 0.0 BASIC METABOLIC PANEL - Abnormal SODIUM 137 POTASSIUM 3.3 (*) CHLORIDE 105 CARBON DIOXIDE 15 (*) UREA NITROGEN 21 (*) CREATININE 0.89 GLUCOSE 177 (*) CALCIUM 9.0 ANION GAP 16 (*) eGFR 86.1 TROPONIN, WITH SERIAL REFLEX - Normal TROPONIN I <0.012 Narrative: Patients with high levels of Biotin oral intake (ie >5 mg/day) may have falsely decreased Troponin levels. NT PRO BNP - Normal NT PRO BNP 145 LIPASE - Normal LIPASE 82 TROPONIN I - Normal TROPONIN I <0.012 Narrative: Patients with high levels of Biotin oral intake (ie >5 mg/day) may have falsely decreased Troponin levels. THYROID STIMULATING HORMONE - Normal THYROID STIMULATING HORMONE 3.488 All other labs were within normal range or not returned as of this dictation. EMERGENCY DEPARTMENT COURSE and DIFFERENTIAL DIAGNOSIS/MDM: Vitals: Vitals: 08/18/23 0203 08/18/23 0229 08/18/23 0259 08/18/23 0304 BP: (!) 150/73 139/81 BP Location: Patient Position: Pulse: 80 64 81 69 Resp: Temp: TempSrc: SpO2: 99% 100% 96% Weight: Height: Medications pantoprazole (ProtoNix) 40 mg in sodium chloride (PF) 0.9 % 10 mL injection (40 mg IntraVENous Given 08/18/23 0248) lidocaine (Xylocaine) 2 % mouth solution 5 mL (5 mL Mouth/Throat Given 08/18/23 0235) And aluminum & magnesium hydroxide-simethicone (Mylanta) 200-200-20 MG/5ML oral suspension 20 mL (20 mL Oral Given 08/18/23 0235) ondansetron (Zofran) injection 4 mg (4 mg IntraVENous Given 08/18/23 0243) sodium chloride 0.9 % bolus 1,000 mL (1,000 mL IntraVENous New Bag 08/18/23 0246) potassium chloride CR (Klor-Con M10) ER tablet 40 mEq (40 mEq Oral Given 08/18/23 0358) Diagnoses as of 08/18/23 0526 Chest pain, unspecified type Presenting for evaluation for chest pain. Describes pain as a burning pain. Presentation is concerning for coronary event given history versus acid reflux versus pancreatitis. Given presentation workup in the department with EKG with sinus rhythm with no ST elevations or depressions concerning for STEMI and similar to her other EKGs on file, negative troponin, mild hypokalemia the potassium of 3.3 repleted with 40 mill equivalents of potassium in the department, mild acidosis with CO2 of 15, and slight anion gap of 16 with no renal function impairment. Patient with no leukocytosis, mild anemia present with a hemoglobin of 12.9 decreased from 14.83 months ago. No pancreatitis appreciated with a BNP of 145. Repeat EKG with sinus rhythm with no ST elevations or depressions concerning for STEMI. Sinus pause appreciated. EKG otherwise unchanged from previous. While in the department patient did not receive aspirin and has not received the same for EMS. Patient however started endorsing chest pain again. Received a GI cocktail given reports of eating spaghetti dinner earlier in the evening. Patient not able to tolerate the medication. Was dry heaving in the room. Received a dose of Zofran. Was given a liter of IV fluids. Patient received Protonix 40 mgx 1 dose. Repeat troponin at negative results. Patient received Protonix x 1 dose. Continues to endorse chest pressure. Discussed with the patientgiven heart history and a heart score of 6 would recommend admission to the hospital for further cardiac workup. Patient verbalized understanding of information given and agreed to plan. Was discussed with inpatient admitting provider accepted him for admission. Was admitted in stable condition PROCEDURES: Unless otherwise noted below, none Procedures FINAL IMPRESSION 1. Chest pain, unspecified type DISPOSITION Admit 08/18/2023 05:25:16 AM PATIENT REFERRED TO: No follow-up provider specified. DISCHARGE MEDICATIONS: New Prescriptions No medications on file (Comment: Please note this report has been produced using speech recognition software and may contain errors related to that system including errors in grammar, punctuation, and spelling, as well as words and phrases that may be inappropriate. If there are any questions or concerns please feel freeto contact the dictating provider for clarification.) Tanna Chavez MD (electronically signed) Emergency Medicine Provider Tanna Chavez MD 08/18/23 0526 [id number] Telephone encounter Note* Telephone Encounter - Giovana Montiel RN - 08/15/2023 11:52 AM EDT Last OV with LUIS ALBERTO on 07/29/23; next OV with Dr. Barr on 09/17/23 CBC 04/21/23 [id number] Miscellaneous Notes* Telephone Encounter - Giovana Montiel RN - 08/15/2023 11:52 AM EDT Last OV with LUIS ALBERTO on 07/29/23; next OV with Dr. Barr on 09/17/23 CBC 04/21/23 documented in this [facility]06-04-2024 History of Present illness Narrative* Roddy Sosa MD - 07/29/2023 11:00 AM EDT [facility] [address] [facility] [address] Dept: [phone] Dept Visit type: Established : 1940 Chief Complaint: Chief Complaint Patient presents with 1 Year Follow-up Coronary Artery Disease Cardiac Valve Problem History of Present Illness: Ramy Barron is a 82 y.o. male who is here in follow-up concerning his coronary artery disease and aortic stenosis. He had a recent echo which his gradients were about the same. He has normal leftventricular function with a mean gradient of around 20. He has been having more shortness of breathas of late. He denies any anginal type chest pain. He has not had syncope or near syncope. He triesto remain active. Past Medical History: Past Medical History: Diagnosis Date Aortic stenosis, moderate 05/2022 per ECHO CAD (coronary artery disease) 01/05/2015 CABG, 06/[address] Barr Cervical spine degeneration 2019 Clostridium difficile colitis 01/2021 ?etiology ED (erectile dysfunction) H/O colonoscopy 2007 Dr. 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 Barr- 3 RCA stents, COLONOSCOPY 2007 Dr. Garnica CORONARY ANGIOPLASTY WITH STENT PLACEMENT 10/2014 JUSTINA to mid LAD CORONARY ARTERY BYPASS GRAFT 10/2014 RODARTE-LAD, SVG-Diagonal, SVG-PDA KNEE ARTHROSCOPY W/ MENISCAL REPAIR Left 2013 [place] Family History Family History Problem Relation Name Age of Onset No Known Problems Mother PNA and bowel obst age 85 COPD Father [employer] Lung, age 80 Diabetes Sister 4 Heart disease Brother 5 age 76, pacemaker Bladder Cancer Brother Social History Social History Tobacco Use Smoking status: Never Smokeless tobacco: Never Substance Use Topics Alcohol use: Never Drug use: Never Allergies: No Known Allergies Medications: Current Outpatient Medications: acetaminophen (Tylenol) 500 MG tablet, Take 1 tablet by mouth as needed., Disp: , Rfl: aspirin 81 MG EC tablet, Take 81 mg by mouth in the morning., Disp: , Rfl: atorvastatin (Lipitor) 80 MG tablet, TAKE 1 TABLET BY MOUTH DAILY, Disp: 90 tablet, Rfl: 3 coenzyme Q-10 100 MG capsule, Take 1 capsule by mouth in the morning., Disp: , Rfl: ezetimibe (Zetia) 10 MG tablet, Take 1 tablet (10 mg) by mouth daily., Disp: 90 tablet, Rfl: 3 isosorbide mononitrate ER (Imdur) 60 MG 24 hr tablet, TAKE 1 TABLET BY MOUTH DAILY, Disp: 90 tablet, Rfl: 0 levothyroxine (Synthroid, Levoxyl) 100 MCG tablet, Take 1 tablet (100 mcg) by mouth daily., Disp: 90 tablet, Rfl: 3 metoprolol tartrate (Lopressor) 25 MG tablet, TAKE 1 TABLET BY MOUTH TWICE DAILY, Disp: 180 tablet,Rfl: 0 nitroglycerin (Nitrostat) 0.4 MG SL tablet, Place 1 tablet (0.4 mg) under the tongue every 5 minutes as needed for chest pain. May repeat dose every 5 minutes for up to 3 doses total., Disp: 100 tablet, Rfl: 11 pantoprazole (ProtoNix) 40 MG EC tablet, TAKE 1 TABLET BY MOUTH IN THE MORNING BEFORE BREAKFAST DO NOT CRUSH, CHEW, OR SPLIT, Disp: 90 tablet, Rfl: 3 clopidogrel (Plavix) 75 MG tablet, Take 1 tablet (75 mg) by mouth daily. Take 8 tablets one time, then take 1 tablet daily thereafter., Disp: 40 tablet, Rfl: 0 Review of Systems: Review of Systems Constitutional: Negative for activity change, chills, diaphoresis, fatigue and fever. HENT: Negative for nosebleeds and trouble swallowing. Eyes: Negative for discharge and visual disturbance. Respiratory: Positive for shortness of breath (with any exc). Negative for apnea, cough, chest tightness and wheezing. Cardiovascular: Negative for chest pain, palpitations and leg swelling. Gastrointestinal: Negative for abdominal distention, abdominal pain, blood in stool, diarrhea, nausea and vomiting. Endocrine: Negative for cold intolerance and heat intolerance. Genitourinary: Negative for hematuria. Musculoskeletal: Negative for gait problem and myalgias. Skin: Negative for color change and rash. Neurological: Negative for dizziness, seizures, syncope, facial asymmetry, speech difficulty, weakness, light-headedness, numbness and headaches. Hematological: Does not bruise/bleed easily. Psychiatric/Behavioral: Negative for dysphoric mood. Physical Examination: Vitals: Vitals: 07/29/23 1053 BP: 90/70 BP Location: Right arm Patient Position: Sitting BP Cuff Size: Adult Pulse: 57 Resp: 16 SpO2: 97% Weight: 173 lb 6.4 oz (78.7 kg) Height: 5' 6 (1.676 m) Body mass index is 27.99 kg/m . Physical Exam Constitutional: Appearance: Normal appearance. HENT: Head: Normocephalic and atraumatic. Nose: Nose normal. Eyes: General: No scleral icterus. Extraocular Movements: Extraocular movements intact. Pupils: Pupils are equal, round, and reactive to light. Neck: Thyroid: No thyromegaly. Vascular: No carotid bruit or JVD. Cardiovascular: Rate and Rhythm: Normal rate and regular rhythm. Pulses: Normal pulses. Heart sounds: Murmur heard. Systolic murmur is present with a grade of 3/6. No gallop. Pulmonary: Effort: Pulmonary effort is normal. Breath sounds: No wheezing, rhonchi or rales. Chest: Chest wall: No tenderness. Abdominal: General: Abdomen is flat. There is no distension. Palpations: Abdomen is soft. There is no hepatomegaly, splenomegaly or mass. Musculoskeletal: General: No swelling or tenderness. Normal range of motion. Cervical back: No tenderness. Skin: General: Skin is warm. Neurological: General: No focal deficit present. Mental Status: He is alert and oriented to person, place, and time. Cranial Nerves: Cranial nerves 2-12 are intact. No cranial nerve deficit. Psychiatric: Attention and Perception: Attention normal. Mood and Affect: Mood normal. Speech: Speech normal. Behavior: Behavior normal. Laboratory Tests: Lab Results Component Value Date WBC 4.7 04/21/2023 HGB 14.8 04/21/2023 HCT 42.8 04/21/2023 MCV 105.7 (H) 04/21/2023 PLT 161 04/21/2023 Lab Results Component Value Date GLUCOSE 114 (H) 04/21/2023 CALCIUM 9.4 04/21/2023 NA 137 06/12/2022 K 3.9 06/12/2022 CO2 25 04/21/2023 CL 110 (H) 06/12/2022 BUN 21 04/21/2023 CREATININE 1.02 04/21/2023 @LASTCMP@ Lab Results Component Value Date CHOL 133 05/27/2022 CHOL 125 05/23/2021 CHOL 125 11/20/2020 Lab Results Component Value Date TRIG 325 (H) 05/27/2022 TRIG 91 05/23/2021 TRIG 84 11/20/2020 Lab Results Component Value Date HDL 25 (L) 05/27/2022 HDL 41 05/23/2021 HDL 31 (L) 11/20/2020 Lab Results Component Value Date LDLCALC 43 05/27/2022 NT PRO BNP Date Value Ref Range Status 05/27/2022 106 0 - 450 pg/mL Final Assessment and Plan: 1. Coronary artery disease involving [place] coronary artery of [place] heart, unspecified whether angina present 2. Shortness of breath 3. Aortic valve stenosis, etiology of cardiac valve disease unspecified 4. Mixed hyperlipidemia 1. Shortness of breath: He has multiple reasons for shortness of breath. He is Shows severe disease. I reviewed the films. He had his [place] right revascularized but his vein grafts of all been occluded. He has a patent RODARTE to the LAD but the distal LAD has diffuse disease in it. This could be causing his shortness of breath. He is also on Brilinta which can cause shortness of breath. I will switch him to Plavix to see if this helps his shortness of breath. He has an upcoming appointment with Dr. Barr to rediscuss his valve also. His aortic valve is about the same as far as gradients ago butby exam it does seem significant. This will be reassessed when he sees Dr. Barr. If his shortness of breath improves with switching him from Brilinta to Plavix then we will continue to monitor him. 2. Coronary artery disease: He has complex coronary disease with history of multivessel bypass surgery and severe diffuse disease. 3. Hyperlipidemia: On therapy with high-dose statin and Zetia.. 4. Hypertension: Controlled. documented in this [facility]05-06-2024 Telephone encounter Note* Telephone Encounter - Antonette Pulido RN - 06/30/2023 8:35 AM EDT ANGELY 08/22/23 has one 09/17/23 labs 04/21/23 [id number] Miscellaneous Notes* Telephone Encounter - Antonette Pulido RN - 06/30/2023 8:35 AM EDT ANGELY 08/22/23 has one 09/17/23 labs 04/21/23 documented in this [facility]04-23-2024 Miscellaneous Notes* Result Encounter Note - Ronal Barr MD - 06/17/2023 1:00 PM EDT Possible low flow low gradient aortic stenosis, maybe getting close to severe. Plan to discuss symptoms with patient at next office visit. documented in this [facility]04-23-2024 Progress note* Result Encounter Note - Ronal Barr MD - 06/17/2023 1:00 PM EDT Possible low flow low gradient aortic stenosis, maybe getting close to severe. Plan to discuss symptoms with patient at next office visit. [place] [id number] Telephone encounter Note* Telephone Encounter - Sussy Romero - 06/17/2023 9:39 AM EDT Scheduled 07/29/23 with LUIS ALBERTO. [id number] Miscellaneous Notes* Telephone Encounter - Sussy Romero - 06/17/2023 9:39 AM EDT Scheduled 07/29/23 with LUIS ALBERTO. * Telephone Encounter - Giovana Montiel RN - 06/17/2023 8:18 AM EDT Last OV with Reid Agustin on 06/19/22; Dr. Barr 08/21/22; next OV needs scheduled for May 2023. CBC 04/21/23 documented in this [place] [id number] Telephone encounter Note* Telephone Encounter - Marly Chambers RN - 06/17/2023 8:59 AM EDT ANGELY: 06/19/22 with Kayla, and 08/21/[address] Barr, church secretary to call and schedule follow-up OV [id number] Miscellaneous Notes* Telephone Encounter - Marly Chambers RN - 06/17/2023 8:59 AM EDT ANGELY: 06/19/22 with Kayla, and 08/21/[address] Barr, church secretary to call and schedule follow-up OV documented in this [place] [id number] Telephone encounter Note* Telephone Encounter - Giovana Montiel RN - 06/17/2023 8:18 AM EDT Last OV with Reid Agustin on 06/19/22; Dr. Barr 08/21/22; next OV needs scheduled for May 2023. CBC 04/21/23 [id number] Telephone encounter Note* Telephone Encounter - Tsering Hudson LPN - 04/23/2023 1:10 PM EST Rx loaded [facility] different [id number] Miscellaneous Notes* Telephone Encounter - Tsering Hudson LPN - 04/23/2023 1:10 PM EST Rx loaded For different pharmacy documented in this [facility]02-20-2024 Telephone encounter Note* Telephone Encounter - Giovana Montiel RN - 04/15/2023 8:45 AM EST Last OV with Reid Agustin on 06/19/22; OV with Dr. Barr on 08/21/22 [id number] Miscellaneous Notes* Telephone Encounter - Giovana Montiel RN - 04/15/2023 8:45 AM EST Last OV with Reid Agustin on 06/19/22; OV with Dr. Barr on 08/21/22 documented in this [facility]08-24-2023 History of Present illness Narrative* Jean-Paul Pack DO - 10/17/2022 7:00 AM EDT Images from the original note were not included. [facility] [address] [facility] [address] Dept: [phone] Dept Chief Complaint: Ramy Barron is an 81 y.o. male here for an annual wellness visit. Assessment/Plan : Problem List Items Addressed This Visit Circulatory CAD (coronary artery disease) Endocrine/Metabolic Hypothyroidism Relevant Orders Comprehensive metabolic panel CBC auto differential TSH Other Hypercholesterolemia Relevant Orders Lipid panel History of myocardial infarction Other Visit Diagnoses Encounter for subsequent annual wellness visit (AWV) in Medicare patient - Primary Macrocytic Relevant Orders Vitamin B12 Folate RBC I have reviewed and reconciled the medication list with the patient today. Current Outpatient Medications Medication Sig Dispense Refill aspirin 81 MG EC tablet Take 81 mg by mouth in the morning. atorvastatin (Lipitor) 80 MG tablet Take 1 tablet (80 mg) by mouth daily. 90 tablet 3 coenzyme Q-10 100 MG capsule Take 1 capsule by mouth in the morning. isosorbide mononitrate ER (Imdur) 60 MG 24 hr tablet Take 1 tablet (60 mg) by mouth daily. 90 tablet 3 metoprolol tartrate (Lopressor) 25 MG tablet Take 1 tablet (25 mg) by mouth 2 times daily. 180 tablet 3 pantoprazole (ProtoNix) 40 MG EC tablet Take 1 tablet (40 mg) by mouth every morning (before breakfast). Do not crush, chew, or split. 90 tablet 1 ticagrelor (Brilinta) 90 MG tablet Take 1 tablet (90 mg) by mouth 2 times daily. 180 tablet 3 acetaminophen (Tylenol) 500 MG tablet Take 1 tablet by mouth as needed. levothyroxine (Synthroid, Levoxyl) 100 MCG tablet Take 1 tablet (100 mcg) by mouth daily. 90 tablet3 nitroglycerin (Nitrostat) 0.[address] 1 tablet (0.4 mg) under the tongue every 5 minutesas needed for chest pain. May repeat dose every 5 minutes for up to 3 doses total. 100 tablet 11 No current facility-administered medications for this visit. Also reviewed during this visit: Med Hx Surg Hx Fam Hx The following health maintenance schedule was reviewed with the patient and provided in printed form in the after visit summary: Health Maintenance Topic Date Due COVID-19 Vaccine (1) Never done Depression Screening Never done DTaP/Tdap/Td Vaccines (1 - Tdap) Never done Zoster Vaccines (1 of 2) Never done Influenza Vaccine (1) 10/25/2022 TSH Level 05/28/2023 Lipid Panel 05/28/2027 Pneumococcal Vaccine: 65+ Years Completed HIB Vaccines Aged Out Hepatitis B Vaccines Aged Out IPV Vaccines Aged Out Hepatitis A Vaccines Aged Out Meningococcal Vaccine Aged Out Rotavirus Vaccines Aged Out HPV Vaccines Aged Out List of current healthcare providers: Patient Care Team: Jean-Paul Pack DO as PCP - General Orders Placed This Encounter Procedures Comprehensive metabolic panel Standing Status: Future Number of Occurrences: 1 Standing Expiration Date: 10/18/2023 CBC auto differential Standing Status: Future Number of Occurrences: 1 Standing Expiration Date: 10/18/2023 Lipid panel Standing Status: Future Number of Occurrences: 1 Standing Expiration Date: 10/18/2023 Vitamin B12 Standing Status: Future Number of Occurrences: 1 Standing Expiration Date: 10/18/2023 TSH Standing Status: Future Number of Occurrences: 1 Standing Expiration Date: 10/18/2023 Folate RBC Standing Status: Future Number of Occurrences: 1 Standing Expiration Date: 10/18/2023 Subjective : AWV for pt with CAD, moderate aortic stenosis, hyperlipidemia and hypothyroidism. Had restenting in May per Dr. Barr. Echocardiogram showed moderate aortic stenosis. Overall feeling great. Presently on Brilinta and aspirin and Lipitor and metoprolol. No recurrent angina. No dyspnea chest pain or PND orthopnea or edema Review of Systems still staying active. Weight is down. No recent respiratory infections. Defers COVID and flu vaccinations. Pneumococcal vaccination up-to-date. Aged out of prostate and colon cancerscreening. Recent palpitations dyspnea PND orthopnea or claudication. No cough or congestion. No heartburn on Protonix. No melena or blood. Bowels are regular. No change in urine flow. Rare arthralgia of his neck or knees. Physical Exam appears very well. No JVD adenopathy or carotid bruits. Heart is regular with a grade3 out of 6 aortic stenosis murmur. No gallops or ectopy. Lungs are clear. Abdomen soft nontender without pain hepatosplenomegaly masses bruits or ascites. Femoral and pedal pulses are excellent. No extremity edema. Health Risk Assessment: General: General In general, how would you say your health is?: Very good In the past 7 days, have you experienced any of the following: New or Increased Pain, New or Increased Fatigue, Loneliness, Social Isolation, Stress or Anger?: No Do you get the social and emotional suppport you need?: Yes Health Habits/Nutrition: Health Habits / Nutrition On average, how many days per week do you engage in moderate to strenous exercise (like a brisk walk)?: 7 days On average, how man minutes do you engage in exercise at this level?: 60 min Have you lost any weight without trying in the past 3 months? : No Have you seen the dentist within the past year?: (!) No Hearing/ Vision: Hearing / Vision Do you or your family notice any trouble with your hearing that hasn't been managed with hearing aids?: (!) Yes Do you have difficulty driving, watching TV, or doing any of your daily activities because of your eyesight?: No Have you had an eye exam within the past year?: (!) No No results found. Interventions: Hearing concerns: Patient declines any further evaluation / treatment for hearing issues Safety: Safety Do you have a working smoke detector?: Yes Do you have any tripping hazards - loose or unsecured carpets or rugs?: No Do you have any tripping hazards - clutter in doorways, halls, or stairs?: No Do you have either shower bars, grab bars, non-slip mats or non-slip surfaces in your shower or bathtub? : (!) No Do all your stairways have a railing or banister? : Yes Do you fasten your seatbelt when you are in a car?: Yes Interventions: Patient declines any further evaluation / treatment for this issue ADL: ADL In the past 7 days, did you need help from others to perform any of the following everyday activities: Eating, dressing, grooming,bathing, toileting, or walking / balance? : No In the past 7 days, did you need help from others to take care of any of the following: laundry, housekeeping, banking / finances,shopping, telephone use, food preparation, transportation, or taking medications? : No Living Will: Living Will Do you have a living will?: Yes Cognitive: Cognitive Screening: Mini-Cog Clock Drawing Test (CDT): 2 Words Recalled: 2 Total Score: 4 Total Score Interpretation: Normal Mini-Cog Fall Risk: Fall Risk One or more falls in the last year:: No Advised to use a cane or walker to get around safely:: No Feels unsteady when walking:: No Steadies self on furniture while walking at home:: No Worried about falling:: No Depression Screening: Over the past 2 weeks, how often have you been bothered by any of the following problems? 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 1. Coronary artery disease involving [place] coronary artery of [place] heart, unspecified whether angina present Stable, continue all meds 2. Acquired hypothyroidism Stable, check lab continue Levothyroid - Comprehensive metabolic panel; Future - CBC auto differential; Future - TSH; Future - Comprehensive metabolic panel - CBC auto differential - TSH 3. Hypercholesterolemia Stable, continue Lipitor - Lipid panel; Future - Lipid panel 4. History of myocardial infarction Stable, continue current meds 5. Macrocytic Check lab - Vitamin B12; Future - Folate RBC; Future - Vitamin B12 - Folate RBC 6. Encounter for subsequent annual wellness visit (AWV) in Medicare patient Stable, continue vitamin D calcium and an exercise 150 minutes/week with low- carb and low-fat meals documented in this [facility]08-24-2023 Instructions* Patient Instructions* Jean-Paul Pack DO - 10/17/2022 7:00 AM EDT Personalized Preventative Plan for Ramy Barron - 10/17/2022 Medicare offers a range of preventative health benefits. Some of the tests and screenings are paid in full while others may be subject to a deductible, co- insurance, and / or copay. Some of these benefits include a comprehensive review of your medical history including lifestyle, illnesses that mayrun in your family, and various assessments and screenings as appropriate. After reviewing your medical record and screening and assessments performed today, your provider may have ordered immunizations, labs, imaging, and / or referrals for you. A list of these orders (if applicable) as well as your Preventative Care list are included within your After Visit Summary for your review. Other Preventative Recommendations: A preventive eye exam by an customer support specialist is recommended every 1-2 years to screen for glaucoma, cataracts, macular degeneration, and other eye disorders. A preventive dental visit is recommended every 6 months. Try to get at least 150 minutes of exercise per week or 10,000 steps per day on a pedometer. You need 1200-1500mg of calcium and 4658-2696 international units of vitamin D per day. It is possible to meet your calcium requirement with diet alone, but a vitamin D supplement is usually necessary to meet this goal. When exposed to the sun, use a sunscreen that protects against both UVA and UVB radiation with an SPF of 30 or greater. Reapply every 2-3 hours or after sweating, drying off with a towel, or swimming. Always wear a seat belt when traveling in a car. Always wear a helmet when riding a bicycle or a motorcycle documented in this encounterSSelect [facility], [id number] Telephone encounter Note* Telephone Encounter - Carolyn Orosco RN - 10/14/2022 10:48 PM EDT Duplicate Answer Assessment - Initial Assessment Questions N/A Duplicate Protocols used: No Contact or Duplicate Contact [id number] [facility] [id number] Miscellaneous Notes* Telephone Encounter - Carolyn Orosco RN - 10/14/2022 10:48 PM EDT Duplicate Answer Assessment - Initial Assessment Questions N/A Duplicate Protocols used: No Contact or Duplicate Contact [id number] documented in this [facility]06-12-2023 Telephone encounter Note* Telephone Encounter - Freda Coyle MA - 08/05/2022 11:23 AM EDT L/M for patient to call and schedule a med check soon. [facility] [id number] Miscellaneous Notes* Telephone Encounter - Freda Coyle MA - 08/05/2022 11:23 AM EDT L/M for patient to call and schedule a med check soon. * Telephone Encounter - Liza Poe MA - 07/31/2022 2:36 PM EDT Rx loaded * Telephone Encounter - Saúl House - 07/31/2022 2:31 PM EDT Medication name: Levothyroxine Medication dosage: 100 mg (Miligrams Monthly quantity needed: 90 How many day supply requestin days Medication route: oral (PO) Medication administration time(s): daily If taking medication PRN, reason for taking medication: N/A If this is a controlled substance do you receive this or any other controlled medication from any other doctor or facility: N/A Ordering provider: Date of last office visit: 01/13/20 Date of next office visit: 08/21/22 Date of last refill: (see medication tab): 06/19/22 Updated/Validated preferred pharmacy: Yes Patient instructed to contact the pharmacy prior to picking up the medication: Yes documented in this [facility]06-07-2023 Telephone encounter Note* Telephone Encounter - Liza Poe MA - 07/31/2022 2:36 PM EDT Rx loaded [facility] [id number] Miscellaneous Notes* Telephone Encounter - Liza Poe MA - 07/31/2022 2:36 PM EDT Rx loaded * Telephone Encounter - Saúl House - 07/31/2022 2:31 PM EDT Medication name: Levothyroxine Medication dosage: 100 mg (Miligrams Monthly quantity needed: 90 How many day supply requestin days Medication route: oral (PO) Medication administration time(s): daily If taking medication PRN, reason for taking medication: N/A If this is a controlled substance do you receive this or any other controlled medication from any other doctor or facility: N/A Ordering provider: Date of last office visit: 01/13/20 Date of next office visit: 08/21/22 Date of last refill: (see medication tab): 06/19/22 Updated/Validated preferred pharmacy: Yes Patient instructed to contact the pharmacy prior to picking up the medication: Yes documented in this encounterSSelect Medical Specialty [facility], [id number] Telephone encounter Note* Telephone Encounter - Saúl House - 07/31/2022 2:31 PM EDT Medication name: Levothyroxine Medication dosage: 100 mg (Miligrams Monthly quantity needed: 90 How many day supply requestin days Medication route: oral (PO) Medication administration time(s): daily If taking medication PRN, reason for taking medication: N/A If this is a controlled substance do you receive this or any other controlled medication from any other doctor or facility: N/A Ordering provider: Date of last office visit: 01/13/20 Date of next office visit: 08/21/22 Date of last refill: (see medication tab): 06/19/22 Updated/Validated preferred pharmacy: Yes Patient instructed to contact the pharmacy prior to picking up the medication: Yes [facility] [id number] Hospital Discharge instructions* Discharge Instructions* Todd Shukla PA-C - 06/22/2022 6:44 PM EDT Try elevating your hand and using ice for the next couple days. If bruising is still present for the next week or if starts become painful or you get numb or tingling sensation, please return to ED or follow-up with PCP. * Attachments The following attachments cannot be sent through Care Everywhere. * Contusion Discharge Instructions (Guatemalan) documented in this [facility]04-29-2023 Emergency department Note* Todd Shukla PA-C - 06/22/2022 6:12 PM EDT Images from the original note were not included. Emergency Department Encounter [facility] ED Patient: Ramy Barron : 1940 Date of Evaluation: 06/22/2022 ED [facility] Provider: Todd Shukla PA-C Patient seen independently within my scope of practice with an Emergency Medicine attending available for supervision. Chief Complaint Chief Complaint Patient presents with hand hematoma [place] I was wearing a N95, Surgical mask for the entirety of this encounter. Ramy Barron is a 81 y.o. male who presents to the emergency department for bruising to left hand. Patient said he was recently admitted about a week ago for coronary artery stent placement and hehad an IV in his left hand. Patient said today he noticed there was bruising surrounding where IV was placed on the dorsal aspect of his left hand. Patient is on Plavix and aspirin at this time. Denies any pain, numbness/tingling, injury or trauma to his left hand. Denies any chest pain, shortness of breath, nausea, vomiting, fever, chills, dizziness. Limitations to history: None Outside historians: EMR and at bedside did provide some history. 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 01/26/2018 Past Surgical History: Procedure Laterality Date CARDIAC CATHETERIZATION N/A 06/11/2022 Performed by Ronal Barr MD at [facility] Cardiac Director Utilization Management CARDIAC CATHETERIZATION N/A 06/11/2022 Performed by Ronal Barr MD at [facility] Cardiac Director Utilization Management CARDIAC CATHETERIZATION N/A 06/11/2022 Performed by Ronal Barr MD at [facility] Cardiac Director Utilization Management COLONOSCOPY CORONARY ANGIOPLASTY WITH STENT PLACEMENT 10/2014 JUSTINA to mid LAD CORONARY ARTERY BYPASS GRAFT 10/2014 RODARTE-LAD, SVG-Diagonal, SVG-PDA KNEE ARTHROSCOPY W/ MENISCAL REPAIR Left Social History Socioeconomic History Marital status: Tobacco Use Smoking status: Never Smokeless tobacco: Never Substance and Sexual Activity Alcohol use: Never Drug use: Never Social Determinants of Health Transportation Needs: No Transportation Needs Lack of Transportation (Medical): No Lack of Transportation (Non-Medical): No Intimate Partner Violence: Not At Risk Fear of Current or Ex-Partner: No Emotionally Abused: No Physically Abused: No Sexually Abused: No Housing Stability: Low Risk Unable to Pay for Housing in the Last Year: No Number of Places Lived in the Last Year: 1 Unstable Housing in the Last Year: No Medications/Allergies Previous Medications ACETAMINOPHEN (TYLENOL) 500 MG TABLET Take 1 tablet by mouth as needed. ASPIRIN 81 MG EC TABLET Take 81 mg by mouth in the morning. ATORVASTATIN (LIPITOR) 80 MG TABLET Take 1 tablet by mouth in the morning. COENZYME Q-10 100 MG CAPSULE Take 1 capsule by mouth in the morning. ISOSORBIDE MONONITRATE ER (IMDUR) 60 MG 24 HR TABLET Take 1 tablet (60 mg) by mouth daily. LEVOTHYROXINE (SYNTHROID, LEVOXYL) 100 MCG TABLET Take 1 tablet (100 mcg) by mouth daily. METOPROLOL TARTRATE (LOPRESSOR) 25 MG TABLET Take 1 tablet (25 mg) by mouth 2 times daily. NITROGLYCERIN (NITROSTAT) 0.[address] 1 tablet (0.4 mg) under the tongue every 5 minutesas needed for chest pain. May repeat dose every 5 minutes for up to 3 doses total. PANTOPRAZOLE (PROTONIX) 40 MG EC TABLET Take 1 tablet (40 mg) by mouth every morning (before breakfast). Do not crush, chew, or split. TICAGRELOR (BRILINTA) 90 MG TABLET Take 1 tablet (90 mg) by mouth 2 times daily. No Known Allergies Physical Exam BP (!) 142/85 Pulse 79 Temp 36.2 C (97.2 F) (Temporal) Resp 16 SpO2 97% Physical Exam GENERAL APPEARANCE: Awake and alert. Cooperative. HEENT: Normocephalic. Atraumatic. Sclera anicteric. Tolerates saliva. No trismus. NECK: Supple. Trachea midline. CARDIO: Normal rate. Radial pulses symmetrical and palpable LUNGS: Respirations unlabored. CTAB. ABDOMEN: Soft. Non-distended. Non-tender throughout. MUSCULOSKELETAL: Left hand Exam: - Inspection: Bruising on dorsal portion of hand surrounding where IV was placed. -Hand is nontender. Nontender to palpation about scaphoid - ROM: Full range of motion of fingers. Patient is unable to make a fist completely. - Motor: Demonstrates normal Thumbs Up (radial), OK sign (median), X with 2nd, 3rd fingers (ulnar),Thumb to pinky (median). - Vascular: Pulses 2+ radial; normal capillary refill distal digits, bilateral. Compartments soft. - Neurologic: Normal sensation intact to light touch in First Finger/Index Finger dorsal, proximal (radial), Short Finger tip (ulnar), Index Finger volar tip (median). Please see image below. SKIN: Warm and dry. NEUROLOGICAL: No gross facial drooping. No obvious neurologic deficits. [employer] strength symmetrical. Moves all 4 extremities spontaneously. SCREENINGS : EKG: All EKG's areinterpreted by the Emergency Department Physician in the absence of a thermometer production worker. see their note for interpretation of EKG. EMERGENCY DEPARTMENT COURSE and DIFFERENTIAL DIAGNOSIS/MDM: External Records Review: Chart reviewed shows patient was admitted to CICU on 06/11/2022. Social Determinants of Health: none. Ramy Barron is a 81 y.o. male who presented to the emergency department for bruising and possible hematoma to left hand where IV was placed when patient was admitted recently. Differential diagnosis included contusion, hematoma, fracture. Consider getting x-ray of left hand, however, patient denied any injury or trauma and area is nontender to palpation, therefore I do not think is necessary.Had shared decision-making with patient who agreed. Reassessment: Pt feeling relieved. Discussed findings/results with pt. Suspect presentation is mostconsistent with contusion/hematoma from IV. IV likely infiltrated surrounding tissue causing hematoma/bruise. I did educate patient that since he is on Plavix and aspirin, he is more likely to bruiseeasier. Presentation is not consistent with a DVT. Patient was encouraged to elevate his hand and use cold compresses and to wrap his hand. Patient was told to continue to monitor bruising and to watch it for a few days but it should improve in the next couple days. Patient was told that if he would ever get any pain and had or develop numbness or tingling in hands that he should return to ED or follow-up with PCP. Pt is to follow up with PCP in 2-3 days for follow-up. Vital signs on discharge are stable.Ramy Barron (or their surrogate) and I have discussed the diagnosis and risks, and weagree with discharging home with close follow-up. We also discussed returning to the Emergency Department immediately if new or worsening symptoms occur. We have discussed the symptoms which are most concerning that necessitate immediate return. Final Diagnosis: 1. Hematoma of IV site, initial encounter ([facility]) CONSULTS: None PROCEDURES: Unless otherwise noted below, none Procedures DISPOSITION/PLAN Discharge 06/22/2022 06:51:57 PM PATIENT REFERRED TO: Jean-Paul Pack DO [address] [facility] [id number] In 2 days [facility] ED [address] Count Includes [facility] [id number] As needed, If symptoms worsen DISCHARGE MEDICATIONS: New Prescriptions No medications on file @[facility]([id number]:LAST:1)@ (Please note: Portions of this note were completed with a voice recognition program. Efforts were made to edit the dictations but occasionally words and phrases are mis-transcribed.) Form [id number] Todd Shukla PA-C [facility] Shukla PA-C 06/22/22 [id number] * Alicia Mijares RN - 06/22/2022 6:12 PM EDT Pt states he had an IV on his L hand from an admission he had last week for heart stents and today while he was at home he noticed he has swelling and bruising on L hand where IV was. Pt denies injury and endorses brilinta and baby aspirin documented in this [facility]04-29-2023 Emergency department Triage note* Alicia Mijares RN - 06/22/2022 6:12 PM EDT Pt states he had an IV on his L hand from an admission he had last week for heart stents and today while he was at home he noticed he has swelling and bruising on L hand where IV was. Pt denies injury and endorses brilinta and baby aspirin [id number] Phys[facility] Emergency department Note* Todd Shukla PA-C - 06/22/2022 6:12 PM EDT Images from the original note were not included. Emergency Department Encounter [facility] ED Patient: Ramy Barron : 1940 Date of Evaluation: 06/22/2022 ED [facility] Provider: Todd Shukla PA-C Patient seen independently within my scope of practice with an Emergency Medicine attending available for supervision. Chief Complaint Chief Complaint Patient presents with hand hematoma [place] I was wearing a N95, Surgical mask for the entirety of this encounter. Ramy Barron is a 81 y.o. male who presents to the emergency department for bruising to left hand. Patient said he was recently admitted about a week ago for coronary artery stent placement and hehad an IV in his left hand. Patient said today he noticed there was bruising surrounding where IV was placed on the dorsal aspect of his left hand. Patient is on Plavix and aspirin at this time. Denies any pain, numbness/tingling, injury or trauma to his left hand. Denies any chest pain, shortness of breath, nausea, vomiting, fever, chills, dizziness. Limitations to history: None Outside historians: EMR and at bedside did provide some history. 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 01/26/2018 Past Surgical History: Procedure Laterality Date CARDIAC CATHETERIZATION N/A 06/11/2022 Performed by Ronal Barr MD at [facility] Cardiac Director Utilization Management CARDIAC CATHETERIZATION N/A 06/11/2022 Performed by Ronal Barr MD at [facility] Cardiac Director Utilization Management CARDIAC CATHETERIZATION N/A 06/11/2022 Performed by Ronal Barr MD at [facility] Cardiac Director Utilization Management COLONOSCOPY CORONARY ANGIOPLASTY WITH STENT PLACEMENT 10/2014 JUSTINA to mid LAD CORONARY ARTERY BYPASS GRAFT 10/2014 RODARTE-LAD, SVG-Diagonal, SVG-PDA KNEE ARTHROSCOPY W/ MENISCAL REPAIR Left Social History Socioeconomic History Marital status: Tobacco Use Smoking status: Never Smokeless tobacco: Never Substance and Sexual Activity Alcohol use: Never Drug use: Never Social Determinants of Health Transportation Needs: No Transportation Needs Lack of Transportation (Medical): No Lack of Transportation (Non-Medical): No Intimate Partner Violence: Not At Risk Fear of Current or Ex-Partner: No Emotionally Abused: No Physically Abused: No Sexually Abused: No Housing Stability: Low Risk Unable to Pay for Housing in the Last Year: No Number of Places Lived in the Last Year: 1 Unstable Housing in the Last Year: No Medications/Allergies Previous Medications ACETAMINOPHEN (TYLENOL) 500 MG TABLET Take 1 tablet by mouth as needed. ASPIRIN 81 MG EC TABLET Take 81 mg by mouth in the morning. ATORVASTATIN (LIPITOR) 80 MG TABLET Take 1 tablet by mouth in the morning. COENZYME Q-10 100 MG CAPSULE Take 1 capsule by mouth in the morning. ISOSORBIDE MONONITRATE ER (IMDUR) 60 MG 24 HR TABLET Take 1 tablet (60 mg) by mouth daily. LEVOTHYROXINE (SYNTHROID, LEVOXYL) 100 MCG TABLET Take 1 tablet (100 mcg) by mouth daily. METOPROLOL TARTRATE (LOPRESSOR) 25 MG TABLET Take 1 tablet (25 mg) by mouth 2 times daily. NITROGLYCERIN (NITROSTAT) 0.[address] 1 tablet (0.4 mg) under the tongue every 5 minutesas needed for chest pain. May repeat dose every 5 minutes for up to 3 doses total. PANTOPRAZOLE (PROTONIX) 40 MG EC TABLET Take 1 tablet (40 mg) by mouth every morning (before breakfast). Do not crush, chew, or split. TICAGRELOR (BRILINTA) 90 MG TABLET Take 1 tablet (90 mg) by mouth 2 times daily. No Known Allergies Physical Exam BP (!) 142/85 Pulse 79 Temp 36.2 C (97.2 F) (Temporal) Resp 16 SpO2 97% Physical Exam GENERAL APPEARANCE: Awake and alert. Cooperative. HEENT: Normocephalic. Atraumatic. Sclera anicteric. Tolerates saliva. No trismus. NECK: Supple. Trachea midline. CARDIO: Normal rate. Radial pulses symmetrical and palpable LUNGS: Respirations unlabored. CTAB. ABDOMEN: Soft. Non-distended. Non-tender throughout. MUSCULOSKELETAL: Left hand Exam: - Inspection: Bruising on dorsal portion of hand surrounding where IV was placed. -Hand is nontender. Nontender to palpation about scaphoid - ROM: Full range of motion of fingers. Patient is unable to make a fist completely. - Motor: Demonstrates normal Thumbs Up (radial), OK sign (median), X with 2nd, 3rd fingers (ulnar),Thumb to pinky (median). - Vascular: Pulses 2+ radial; normal capillary refill distal digits, bilateral. Compartments soft. - Neurologic: Normal sensation intact to light touch in First Finger/Index Finger dorsal, proximal (radial), Short Finger tip (ulnar), Index Finger volar tip (median). Please see image below. SKIN: Warm and dry. NEUROLOGICAL: No gross facial drooping. No obvious neurologic deficits. [employer] strength symmetrical. Moves all 4 extremities spontaneously. SCREENINGS : EKG: All EKG's areinterpreted by the Emergency Department Physician in the absence of a thermometer production worker. see their note for interpretation of EKG. EMERGENCY DEPARTMENT COURSE and DIFFERENTIAL DIAGNOSIS/MDM: External Records Review: Chart reviewed shows patient was admitted to CICU on 06/11/2022. Social Determinants of Health: none. Ramy Barron is a 81 y.o. male who presented to the emergency department for bruising and possible hematoma to left hand where IV was placed when patient was admitted recently. Differential diagnosis included contusion, hematoma, fracture. Consider getting x-ray of left hand, however, patient denied any injury or trauma and area is nontender to palpation, therefore I do not think is necessary.Had shared decision-making with patient who agreed. Reassessment: Pt feeling relieved. Discussed findings/results with pt. Suspect presentation is mostconsistent with contusion/hematoma from IV. IV likely infiltrated surrounding tissue causing hematoma/bruise. I did educate patient that since he is on Plavix and aspirin, he is more likely to bruiseeasier. Presentation is not consistent with a DVT. Patient was encouraged to elevate his hand and use cold compresses and to wrap his hand. Patient was told to continue to monitor bruising and to watch it for a few days but it should improve in the next couple days. Patient was told that if he would ever get any pain and had or develop numbness or tingling in hands that he should return to ED or follow-up with PCP. Pt is to follow up with PCP in 2-3 days for follow-up. Vital signs on discharge are stable.Ramy Barron (or their surrogate) and I have discussed the diagnosis and risks, and weagree with discharging home with close follow-up. We also discussed returning to the Emergency Department immediately if new or worsening symptoms occur. We have discussed the symptoms which are most concerning that necessitate immediate return. Final Diagnosis: 1. Hematoma of IV site, initial encounter ([facility]) CONSULTS: None PROCEDURES: Unless otherwise noted below, none Procedures DISPOSITION/PLAN Discharge 06/22/2022 06:51:57 PM PATIENT [facility]: Jean[facility]Paul Pack [facility] [address] [facility] [id number] In 2 days [facility] ED [address] Count Includes [facility] [id number] As needed, If symptoms worsen DISCHARGE MEDICATIONS: New Prescriptions No medications on file @[facility]([id number]:LAST:1)@ (Please note: Portions of this note were completed with a voice recognition program. Efforts were made to edit the dictations but occasionally words and phrases are mis-transcribed.) Form [id number] Todd Shukla PA-C [employer] Todd Shukla PA-C 06/22/22 [address] [facility] [employer] Work Phone: [phone] 292-273104-05-2023 History of Present illness Narrative* Ronal Barr MD - 05/29/2022 12:15 PM EDT Images from the original note were not included. [facility] CARDIOLOGY [address] [facility] [address] Dept: [phone] Dept Loc: [phone] Interventional Cardiology Office Note Visit type: Established Reason for Visit: Hospital Follow-up Assessment and Plan Ramy Barron is a very pleasant 81 y.o. male who presents for routine follow-up. We will plan a left heart catheterization as well as an echocardiogram. He will continue on aspirinand high-dose statin at this time. He would like these done at [facility] if possible. 1. Coronary artery disease involving [place] coronary artery of [place] heart, unspecified whether angina present - Transthoracic echocardiogram (TTE) complete with contrast, bubble, strain, and 3D PRN 2. Chest pain due to coronary artery disease (HCC) - Case Request Director Utilization Management: Left heart cath / coronary angiography 3. Hypercholesterolemia Follow up in about 3 months (around 08/28/2022). It was a great pleasure seeing Ramy Barron in our office today. Please contact me with any questions. Ronal Barr MD MPH, FACC, [facility] Chief, Ischemic Heart Disease Position Classification Specialist, Interventional Cardiology Fellowship Grinder Set Up Operator Surface Coronary, Structural, Peripheral Interventions Subjective Ramy Barron is a very pleasant 81 y.o. male with coronary artery disease status post PCI of theleft anterior descending in October 2014 in the setting of cardiac arrest followed by urgent coronary bypass surgery with RODARTE to left anterior descending, vein to OM, vein to diagonal, vein to PDA, hypertension, hyperlipidemia, history of leukemia, degenerative disc disease of the spine who presents today for routine follow up. He has been doing fairly well with medical therapy for his chest pain though he did have an increase in his chest pain with minimal exertion and was seen in the CDU acouple of days ago. He now has exertional chest pain just going on picking up sticks in his yard which is unusual for him. He is typically very vigorous and active. We discussed options including trying to intensify medical therapy versus proceeding with heart catheterization and we decided to proceed with heart catheterization at this time. He denies any lightheadedness or syncope. Review of Systems Constitutional: Negative for activity change, chills, diaphoresis, fatigue and fever. HENT: Negative for nosebleeds and trouble swallowing. Eyes: Negative for discharge and visual disturbance. Respiratory: Negative for apnea, cough, chest tightness, shortness of breath and wheezing. Cardiovascular: Negative for chest pain, palpitations and leg swelling. Gastrointestinal: Negative for abdominal distention, abdominal pain, blood in stool, diarrhea, nausea and vomiting. Endocrine: Negative for cold intolerance and heat intolerance. Genitourinary: Negative for hematuria. Musculoskeletal: Negative for gait problem and myalgias. Skin: Negative for color change and rash. Neurological: Negative for dizziness, seizures, syncope, facial asymmetry, speech difficulty, weakness, light-headedness, numbness and headaches. Hematological: Does not bruise/bleed easily. Psychiatric/Behavioral: Negative for dysphoric mood. No Known Allergies Outpatient Medications Prior to Visit Medication Sig Dispense Refill acetaminophen (Tylenol) 500 MG tablet Take 1 tablet by mouth as needed. aspirin 81 MG EC tablet Take 81 mg by mouth in the morning. atorvastatin (Lipitor) 80 MG tablet Take 1 tablet by mouth in the morning. coenzyme Q-10 100 MG capsule Take 1 capsule by mouth in the morning. isosorbide mononitrate ER (Imdur) 60 MG 24 hr tablet Take 1 tablet (60 mg) by mouth daily. 90 tablet 3 levothyroxine (Synthroid, Levoxyl) 100 MCG tablet Take 1 tablet (100 mcg) by mouth daily. 90 tablet0 metoprolol tartrate (Lopressor) 25 MG tablet Take 1 tablet (25 mg) by mouth 2 times daily. 60 tablet 0 pantoprazole (ProtoNix) 40 MG EC tablet Take 1 tablet (40 mg) by mouth every morning (before breakfast). Do not crush, chew, or split. 30 tablet 0 No facility-administered medications prior to visit. 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 Physical Exam Constitutional: General: He is not in acute distress. Appearance: Normal appearance. He is not toxic-appearing. HENT: Head: Normocephalic and atraumatic. Nose: Nose normal. Mouth/Throat: Mouth: Mucous membranes are moist. Eyes: Pupils: Pupils are equal, round, and reactive to light. Neck: Vascular: No carotid bruit or JVD. Cardiovascular: Rate and Rhythm: Normal rate and regular rhythm. Pulses: Dorsalis pedis pulses are 2+ on the right side and 2+ on the left side. Posterior tibial pulses are 2+ on the right side and 2+ on the left side. Heart sounds: Murmur heard. Crescendo systolic murmur is present with a grade of 2/6. Pulmonary: Effort: Pulmonary effort is normal. No respiratory distress. Breath sounds: Normal breath sounds. Abdominal: General: Abdomen is flat. Palpations: Abdomen is soft. Musculoskeletal: General: Normal range of motion. Cervical back: Normal range of motion and neck supple. Right lower leg: No edema. Left lower leg: No edema. Skin: General: Skin is warm and dry. Neurological: General: No focal deficit present. Mental Status: He is alert and oriented to person, place, and time. Psychiatric: Mood and Affect: Mood normal. Data Reviewed and Summarized Labs: personally reviewed Lab Results Component Value Date WBC 5.7 05/28/2022 HGB 14.1 05/28/2022 HCT 40.5 05/28/2022 MCV 104.0 (H) 05/28/2022 PLT 160 05/28/2022 Lab Results Component Value Date GLUCOSE 97 05/28/2022 CALCIUM 8.9 05/28/2022 NA 137 05/28/2022 K 4.4 05/28/2022 CO2 26 05/28/2022 CL 106 05/28/2022 BUN 19 05/28/2022 CREATININE 1.06 05/28/2022 @LASTCMP@ Lab Results Component Value Date CHOL 133 05/27/2022 CHOL 125 05/23/2021 CHOL 125 11/20/2020 Lab Results Component Value Date TRIG 325 (H) 05/27/2022 TRIG 91 05/23/2021 TRIG 84 11/20/2020 Lab Results Component Value Date HDL 25 (L) 05/27/2022 HDL 41 05/23/2021 HDL 31 (L) 11/20/2020 Lab Results Component Value Date LDLCALC 43 05/27/2022 Imaging/Testing: personally reviewed No components found for: LVEF, LVEFMODE documented in this [facility]04-04-2023 Telephone encounter Note* Telephone Encounter - Sushila Le - 05/28/2022 9:47 AM EDT I received an appointment request via secure chat. Patient is being discharged from CDU today and would like follow up. Patient last saw Dr. Barr 12/26/2021. Did not see any available appointments until July 24. Requesting a sooner appointment if melanieibel, please advise. [id number] Miscellaneous Notes* Telephone Encounter - Sushila Le - 05/28/2022 9:47 AM EDT I received an appointment request via secure chat. Patient is being discharged from CDU today and would like follow up. Patient last saw Dr. Barr 12/26/2021. Did not see any available appointments until July 24. Requesting a sooner appointment if melanieibgeorge, please advise. documented in this [facility]04-04-2023 Consult note* Mane Peterson MD - 05/28/2022 8:59 AM EDT Images from the original note were not included. [address] [place] [address] Dept: [phone] This is a consult done on this patient for chest pain. He is an 81-year-old man who is followed by Dr. Ronal Barr. He had an anterior ST segment elevation myocardial infarction in October. By his memory he had cardiac arrest. He had coronary stenting and then coronary artery bypass surgeryduring that same time with a left internal mammary graft to the LAD and vein graft to a diagonal branch and the posterior descending artery. He has mild aortic stenosis. He had a dobutamine stress echocardiogram that was normal January 2020 with a left ventricular ejection fraction at rest to 65% and no inducible ischemia. At that time he had what looked like aortic sclerosis or mild aortic stenosis. He was doing well until the last few months when he has developed exertional chest pain. He describes it as burning. It would come on with exertion and resolves with rest. He saw Dr. Barr December 25, 2021. At that time Dr. Barr felt he had stable angina. He increased his isosorbide mononitrate from 30 mg to 60 mg and the patient did fine. Friday, 3 days ago, he was doing some work at [facility]. He developed retrosternal burning. It last about half hour it was 6 out of 10 in severity. It did not radiate. There are no associated symptoms. He did not use sublingual nitroglycerin. He had a little bit of similar pain Friday and has had none since then. He is pain-free now. He also notes what he describes as reflux. Occurs after eating, particularly things like spaghetti or tomato- based foods. He also has a sense the need to belch. It resolves with antacids. Otherwise, he has been well. I reviewed his past medical history, social history, family history, medication list, review of systems. He is a non-smoker and has not used tobacco. On physical exam he appears well. He has no jugular venous distention. He has a grade 3 systolic murmur in the aortic valve area. He has a preserved second heart sound. He has no peripheral edema is no normal sounds on lung exam. His abdomen soft. His EKG is normal. His chest x-ray shows sternal wires but is otherwise normal. His hemoglobin is 14.1, platelets 160, BUN 19, creatinine 1.1. 4 troponins are normal. Medical decision making My assessment is that he had a prolonged episode of angina 3 days ago. His troponins being normal strongly argue against an acute coronary syndrome. He has aortic stenosis, probably mild based on thefact that there was no significant aortic stenosis noted by an echocardiogram about 2-1/2 years ago. Although he is having angina, I think his coronary disease is stable. Diagnostically, I recommended no further testing. Therapeutically, I have added a beta-naomi, metoprolol 25 mg twice a day. Hewill continue his long-acting nitrate, high intensity statin, aspirin. Educationally, I taught him how to use sublingual nitrates. We made a shared decision to try to manage this medically. If he marc ins disabled in any way by angina pectoris we will do a diagnostic cardiac catheterization. In my opinion, he could go home today with careful follow-up with Dr. oRnal Barr. I would also treat him with a potent proton pump inhibitor for 6 weeks to treat his apparent gastroesophageal reflux disease. [employer] Phone: [phone] 834-341704-04-2023 Consult note* Mane Peterson MD - 05/28/2022 8:59 AM EDT Images from the original note were not included. [address] [address] Dept: [phone] This is a consult done on this patient for chest pain. He is an 81-year-old man who is followed by Dr. Rnoal Barr. He had an anterior ST segment elevation myocardial infarction in October. By his memory he had cardiac arrest. He had coronary stenting and then coronary artery bypass surgeryduring that same time with a left internal mammary graft to the LAD and vein graft to a diagonal branch and the posterior descending artery. He has mild aortic stenosis. He had a dobutamine stress echocardiogram that was normal January 2020 with a left ventricular ejection fraction at rest to 65% and no inducible ischemia. At that time he had what looked like aortic sclerosis or mild aortic stenosis. He was doing well until the last few months when he has developed exertional chest pain. He describes it as burning. It would come on with exertion and resolves with rest. He saw Dr. Barr December 25, 2021. At that time Dr. Barr felt he had stable angina. He increased his isosorbide mononitrate from 30 mg to 60 mg and the patient did fine. Friday, 3 days ago, he was doing some work at [employer] [facility]. He developed retrosternal burning. It last about half hour it was 6 out of 10 in severity. It did not radiate. There are no associated symptoms. He did not use sublingual nitroglycerin. He had a little bit of similar pain Friday and has had none since then. He is pain-free now. He also notes what he describes as reflux. Occurs after eating, particularly things like spaghetti or tomato- based foods. He also has a sense the need to belch. It resolves with antacids. Otherwise, he has been well. I reviewed his past medical history, social history, family history, medication list, review of systems. He is a non-smoker and has not used tobacco. On physical exam he appears well. He has no jugular venous distention. He has a grade 3 systolic murmur in the aortic valve area. He has a preserved second heart sound. He has no peripheral edema is no normal sounds on lung exam. His abdomen soft. His EKG is normal. His chest x-ray shows sternal wires but is otherwise normal. His hemoglobin is 14.1, platelets 160, BUN 19, creatinine 1.1. 4 troponins are normal. Medical decision making My assessment is that he had a prolonged episode of angina 3 days ago. His troponins being normal strongly argue against an acute coronary syndrome. He has aortic stenosis, probably mild based on thefact that there was no significant aortic stenosis noted by an echocardiogram about 2-1/2 years ago. Although he is having angina, I think his coronary disease is stable. Diagnostically, I recommended no further testing. Therapeutically, I have added a beta-naomi, metoprolol 25 mg twice a day. Hewill continue his long-acting nitrate, high intensity statin, aspirin. Educationally, I taught him how to use sublingual nitrates. We made a shared decision to try to manage this medically. If he marc ins disabled in any way by angina pectoris we will do a diagnostic cardiac catheterization. In my opinion, he could go home today with careful follow-up with Dr. Ronal Barr. I would also treat him with a potent proton pump inhibitor for 6 weeks to treat his apparent gastroesophageal reflux disease. documented in this [facility]04-03-2023 Emergency department Note* Cornelio Garcia MD - 05/27/2022 12:31 PM EDT Emergency Department Encounter [facility] ED Patient: Ramy Barron : 1940 Date of Evaluation: 05/27/2022 ED Supervising Physician: Cornelio Garcia MD I independently examined and evaluated Ramy Barron. This will serve as my Supervisory note and shared attestation. I did perform a substantive portion of the visit including all aspects of the Medical Decision Making. I wore appropriate PPE for the entirety of this encounter. In brief, Ramy Barron is a 81 y.o. male that presents to the emergency department for chest discomfort. Patient describes a midsternal burning chest discomfort with exertion. He denies shortness of breath nausea diaphoresis lightheadedness. He states the pain did radiate to his left shoulder area recently. He states he does have an increase amount of acid reflux recently but that is a different sensation in the epigastric area. 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 History of heart disease with stents and open heart surgery. He states when he had his prior heart attack he had an episode of diaphoresis and syncope but no chest pain. He follows with cardiology Dr. Barr. Denies drug use or alcohol or smoking. Denies any recent illness Focused exam: General: awake alert no acute distress HEENT: normocephalic atraumatic PERRLA EOMI oropharynx clear moist Neck: Supple trachea midline no JVD Cardio: heart sounds regular rate rhythm systolic ejection murmur, distal pulses intact equal radial pulses Lungs: no respiratory distress, clear to auscultation bilaterally Abdomen: soft, nondistended, nontender Extremities: no deformities, no bilateral lower extremity edema Back: nontender Neuro: oriented x 3 no focal neuro deficits Skin: clean dry intact no rashes EKG interpreted by me. Sinus arrhythmia with a rate of 79 with normal intervals without acute ST changes with T wave inversions inferiorly, good R wave progression, abnormal EKG no STEMI Total Critical Care time was 32 minutes, excluding separately reportable procedures. There was a high probability of clinically significant/life threatening deterioration in the patient's condition which required my urgent intervention. Brief ED course/MDM: 81-year-old male here with burning chest discomfort with exertion. History of heart disease. Differential includes ACS or GERD, less likely PE, low suspicion for aortic dissection, pneumonia. Plan for CBC CMP and troponin, EKG with T wave inversions no prior for comparison. No STEMI. Chest x-ray pending. Heart score of 5 even with a normal troponin. Plan for observation at a minimum. MDM elements: The patient presented with chief complaint of chest pain. The differential diagnosis associated with this patient's presentation includes as above. Our workup consisted of ordering/reviewing: as above. I also reviewed external records from none. Patient is in agreement with this plan. Patient's care was impacted by Heart disease. All diagnostic, treatment, and disposition decisions were made by myself in conjunction with the Resident. I also supervised barth portions of any procedures performed by the Resident. For all further details of the patient's emergency department visit, please see their documentation. (Comment: Please note this report has been produced using speech recognition software and may contain errors related to that system including errors in grammar, punctuation, and spelling, as well as words and phrases that may be inappropriate. If there are any questions or concerns please feel freeto contact the dictating provider for clarification.) Cornelio Garcia MD [employer] Cornelio Garcia MD 05/27/22 1410 * Temi Mckeon MD - 05/27/2022 12:31 PM EDT [facility] ED EMERGENCY DEPARTMENT ENCOUNTER Pt Name: Ramy Barron Birthdate 1940 Date of evaluation: 05/27/2022 Provider: Temi Mckeon MD CHIEF COMPLAINT Chief Complaint Patient presents with Chest Pain HISTORY OF PRESENT ILLNESS (Location/Symptom, Timing/Onset, Context/Setting, Quality, Duration, Modifying Factors, Severity) Note limiting factors. HPI Ramy Barron is a 81 y.o. male who presents to the emergency department with chest pain. First began a couple of weeks ago on exertion. PMH significant for CABG with 4 stents placed in 2014, CAD and hyperlipidemia. Describes chest pain as midsternal, burning in nature on exertion that was not present previously. Does not have any chest tightness or pressure on his chest during these episodes. Was able to walk a longer distance without experiencing this pain before. States he does have acid reflux but is not currently taking any medications for it. At times does have epigastric pain but no associated N/V. Denies fever/chills, orthopnea, PND, and SOB. Nursing Notes were reviewed. REVIEW OF SYSTEMS (2+ for level 4; 10+ for level 5) Review of Systems Constitutional: Negative for chills and fever. Respiratory: Negative for shortness of breath. Cardiovascular: Positive for chest pain (burning). Gastrointestinal: Negative for abdominal pain, constipation, diarrhea, nausea and vomiting. Genitourinary: Negative for dysuria. 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 ASPIRIN 81 MG EC TABLET Take 81 mg by mouth in the morning. ATORVASTATIN (LIPITOR) 80 MG TABLET Take 1 tablet by mouth in the morning. COENZYME Q-10 100 MG CAPSULE Take 1 capsule by mouth in the morning. ISOSORBIDE MONONITRATE ER (IMDUR) 60 MG 24 HR TABLET Take 1 tablet (60 mg) by mouth daily. LEVOTHYROXINE (SYNTHROID, LEVOXYL) 100 MCG TABLET Take 1 tablet (100 mcg) by mouth daily. ALLERGIES Patient has no known allergies. FAMILY HISTORY Family History Problem Relation Name Age of Onset Heart disease Father SOCIAL HISTORY Social History Socioeconomic History Marital status: Tobacco Use Smoking status: Never Smokeless tobacco: Never SCREENINGS PHYSICAL EXAM (up to 7 for level 4, 8 or more for level 5) @EDTRIAGEVSS@ Physical Exam Vitals and nursing note reviewed. Constitutional: General: He is not in acute distress. Appearance: He is well-developed. He is not ill-appearing or toxic-appearing. HENT: Head: Normocephalic and atraumatic. Mouth/Throat: Mouth: Mucous membranes are dry. Cardiovascular: Rate and Rhythm: Normal rate and regular rhythm. Heart sounds: Murmur heard. Pulmonary: Effort: Pulmonary effort is normal. Breath sounds: Normal breath sounds. Chest: Chest wall: No tenderness. Abdominal: General: Bowel sounds are normal. Tenderness: There is no abdominal tenderness. There is no guarding or rebound. Musculoskeletal: Right lower leg: No edema. Left lower leg: No edema. Skin: General: Skin is warm and dry. Capillary Refill: Capillary refill takes less than 2 seconds. Neurological: Mental Status: He is alert and oriented to person, place, and time. DIAGNOSTIC RESULTS EKG (Per Emergency Physician): Please see epiphany interpretation if EKG performed RADIOLOGY (Per Emergency Physician): CXR pending ED BEDSIDE ULTRASOUND: Performed by ED Physician - none LABS: Labs Reviewed CBC WITH AUTO DIFFERENTIAL - Abnormal Result Value Auto WBC 4.6 RBC 3.97 (*) Hemoglobin 14.2 Hematocrit 41.7 MCV 104.9 (*) MCH 35.7 (*) MCHC 34.0 RDW 12.9 Platelets 165 MPV 8.8 nRBC 0.2 Neutrophils Relative 42.4 Lymphocytes Relative 40.2 (*) Monocytes Relative 14.5 (*) Eosinophils Relative 2.5 Basophils Relative 0.4 Neutrophils Absolute 2.0 Lymphocytes Absolute 1.9 Monocytes Absolute 0.7 Eosinophils Absolute 0.1 Basophils Absolute 0.0 COMPREHENSIVE METABOLIC PANEL - Abnormal SODIUM 136 POTASSIUM 4.0 CHLORIDE 107 CARBON DIOXIDE 22 ANION GAP 8 UREA NITROGEN 19 CREATININE 0.87 GLUCOSE 104 (*) CALCIUM 9.2 AST (SGOT) 31 ALT 28 ALKALINE PHOSPHATASE 122 ALBUMIN 4.0 BILIRUBIN, TOTAL 0.7 TOTAL PROTEIN 7.0 eGFR 87.2 TROPONIN I - Normal TROPONIN I <0.012 Narrative: Patients with high levels of Biotin oral intake (ie >5 mg/day) may have falsely decreased Troponin levels. All other labs were within normal range or not returned as of this dictation. EMERGENCY DEPARTMENT COURSE and DIFFERENTIAL DIAGNOSIS/MDM: Vitals: Vitals: 05/27/22 1234 05/27/22 1254 05/27/22 1300 05/27/22 1404 BP: (!) 151/91 (!) 149/80 (!) 132/90 Pulse: 76 77 101 Resp: 18 16 16 Temp: 36.2 C (97.1 F) TempSrc: Temporal SpO2: 99% 99% 97% Weight: 77.1 kg (170 lb) Medications aspirin chewable tablet 81 mg (81 mg Oral Not Given 05/27/22 1340) pantoprazole (ProtoNix) injection 40 mg (has no administration in time range) The patient presented with chief complaint of chest pain. Patient's vital signs were reviewed by santiago were stable. Pertinent history and physical exam as above. Nursing notes were reviewed by me. The differential diagnosis would be ACS vs GERD. Plan for CBC, CMP and troponin to rule out any acutecardiac event. CXR pending. Will admit patient to CDU for observation due to heart score of 5 even with troponin wnl. CONSULTS: None PROCEDURES: Unless otherwise noted below, none Procedures FINAL IMPRESSION No diagnosis found. DISPOSITION/PLAN DISPOSITION PATIENT REFERRED TO: No follow-up provider specified. DISCHARGE MEDICATIONS: New Prescriptions No medications on file (Please note: Portions of this note were completed with a voice recognition program. Efforts were made to edit the dictations but occasionally words and phrases are mis-transcribed.) Form [id number] Temi Mckeon MD (electronically signed) Emergency Medicine Provider Temi Mckeon MD Resident 05/27/22 1509 * Marialuisa Alejo RN - 05/27/2022 12:31 PM EDT Pt c/o chest pain that started two weeks ago. Pt describes pain as a burning sensation. Pt states pain gets worse with movement. Denies SOB, lightheaded, dizziness. Pt has hx of NH with stent placement [facility] [id number] Emergency department Triage note* Marialuisa Alejo RN - 05/27/2022 12:31 PM EDT Pt c/o chest pain that started two weeks ago. Pt describes pain as a burning sensation. Pt states pain gets worse with movement. Denies SOB, lightheaded, dizziness. Pt has hx of NH with stent placement [facility] [id number] Physician Emergency department Note* Cornelio Garcia MD - 05/27/2022 12:31 PM EDT Emergency Department Encounter [facility] ED Patient: Ramy Barron : 1940 Date of Evaluation: 05/27/2022 ED Supervising Physician: Cornelio Garcia MD I independently examined and evaluated Ramy Barron. This will serve as my Supervisory note and shared attestation. I did perform a substantive portion of the visit including all aspects of the Medical Decision Making. I wore appropriate PPE for the entirety of this encounter. In brief, Ramy Barron is a 81 y.o. male that presents to the emergency department for chest discomfort. Patient describes a midsternal burning chest discomfort with exertion. He denies shortness of breath nausea diaphoresis lightheadedness. He states the pain did radiate to his left shoulder area recently. He states he does have an increase amount of acid reflux recently but that is a different sensation in the epigastric area. 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 History of heart disease with stents and open heart surgery. He states when he had his prior heart attack he had an episode of diaphoresis and syncope but no chest pain. He follows with cardiology Dr. Barr. Denies drug use or alcohol or smoking. Denies any recent illness Focused exam: General: awake alert no acute distress HEENT: normocephalic atraumatic PERRLA EOMI oropharynx clear moist Neck: Supple trachea midline no JVD Cardio: heart sounds regular rate rhythm systolic ejection murmur, distal pulses intact equal radial pulses Lungs: no respiratory distress, clear to auscultation bilaterally Abdomen: soft, nondistended, nontender Extremities: no deformities, no bilateral lower extremity edema Back: nontender Neuro: oriented x 3 no focal neuro deficits Skin: clean dry intact no rashes EKG interpreted by me. Sinus arrhythmia with a rate of 79 with normal intervals without acute ST changes with T wave inversions inferiorly, good R wave progression, abnormal EKG no STEMI Total Critical Care time was 32 minutes, excluding separately reportable procedures. There was a high probability of clinically significant/life threatening deterioration in the patient's condition which required my urgent intervention. Brief ED course/MDM: 81-year-old male here with burning chest discomfort with exertion. History of heart disease. Differential includes ACS or GERD, less likely PE, low suspicion for aortic dissection, pneumonia. Plan for CBC CMP and troponin, EKG with T wave inversions no prior for comparison. No STEMI. Chest x-ray pending. Heart score of 5 even with a normal troponin. Plan for observation at a minimum. MDM elements: The patient presented with chief complaint of chest pain. The differential diagnosis associated with this patient's presentation includes as above. Our workup consisted of ordering/reviewing: as above. I also reviewed external records from none. Patient is in agreement with this plan. Patient's care was impacted by Heart disease. All diagnostic, treatment, and disposition decisions were made by myself in conjunction with the Resident. I also supervised barth portions of any procedures performed by the Resident. For all further details of the patient's emergency department visit, please see their documentation. (Comment: Please note this report has been produced using speech recognition software and may contain errors related to that system including errors in grammar, punctuation, and spelling, as well as words and phrases that may be inappropriate. If there are any questions or concerns please feel freeto contact the dictating provider for clarification.) Cornelio Garcia MD [place] [facility] [place]elio Garcai MD 05/27/22 1410 [employer] Phone: [phone] 462-586804-03-2023 Physician Emergency department Note* Temi Mckeon MD - 05/27/2022 12:31 PM EDT [facility] ED EMERGENCY DEPARTMENT ENCOUNTER Pt Name: Ramy Barron Birthdate 1940 Date of evaluation: 05/27/2022 Provider: Temi Mckeon MD CHIEF COMPLAINT Chief Complaint Patient presents with Chest Pain HISTORY OF PRESENT ILLNESS (Location/Symptom, Timing/Onset, Context/Setting, Quality, Duration, Modifying Factors, Severity) Note limiting factors. HPI Ramy Barron is a 81 y.o. male who presents to the emergency department with chest pain. First began a couple of weeks ago on exertion. PMH significant for CABG with 4 stents placed in 2014, CAD and hyperlipidemia. Describes chest pain as midsternal, burning in nature on exertion that was not present previously. Does not have any chest tightness or pressure on his chest during these episodes. Was able to walk a longer distance without experiencing this pain before. States he does have acid reflux but is not currently taking any medications for it. At times does have epigastric pain but no associated N/V. Denies fever/chills, orthopnea, PND, and SOB. Nursing Notes were reviewed. REVIEW OF SYSTEMS (2+ for level 4; 10+ for level 5) Review of Systems Constitutional: Negative for chills and fever. Respiratory: Negative for shortness of breath. Cardiovascular: Positive for chest pain (burning). Gastrointestinal: Negative for abdominal pain, constipation, diarrhea, nausea and vomiting. Genitourinary: Negative for dysuria. 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 ASPIRIN 81 MG EC TABLET Take 81 mg by mouth in the morning. ATORVASTATIN (LIPITOR) 80 MG TABLET Take 1 tablet by mouth in the morning. COENZYME Q-10 100 MG CAPSULE Take 1 capsule by mouth in the morning. ISOSORBIDE MONONITRATE ER (IMDUR) 60 MG 24 HR TABLET Take 1 tablet (60 mg) by mouth daily. LEVOTHYROXINE (SYNTHROID, LEVOXYL) 100 MCG TABLET Take 1 tablet (100 mcg) by mouth daily. ALLERGIES Patient has no known allergies. FAMILY HISTORY Family History Problem Relation Name Age of Onset Heart disease Father SOCIAL HISTORY Social History Socioeconomic History Marital status: Tobacco Use Smoking status: Never Smokeless tobacco: Never SCREENINGS PHYSICAL EXAM (up to 7 for level 4, 8 or more for level 5) @EDTRIAGEVSS@ Physical Exam Vitals and nursing note reviewed. Constitutional: General: He is not in acute distress. Appearance: He is well-developed. He is not ill-appearing or toxic-appearing. HENT: Head: Normocephalic and atraumatic. Mouth/Throat: Mouth: Mucous membranes are dry. Cardiovascular: Rate and Rhythm: Normal rate and regular rhythm. Heart sounds: Murmur heard. Pulmonary: Effort: Pulmonary effort is normal. Breath sounds: Normal breath sounds. Chest: Chest wall: No tenderness. Abdominal: General: Bowel sounds are normal. Tenderness: There is no abdominal tenderness. There is no guarding or rebound. Musculoskeletal: Right lower leg: No edema. Left lower leg: No edema. Skin: General: Skin is warm and dry. Capillary Refill: Capillary refill takes less than 2 seconds. Neurological: Mental Status: He is alert and oriented to person, place, and time. DIAGNOSTIC RESULTS EKG (Per Emergency Physician): Please see epiphany interpretation if EKG performed RADIOLOGY (Per Emergency Physician): CXR pending ED BEDSIDE ULTRASOUND: Performed by ED Physician - none LABS: Labs Reviewed CBC WITH AUTO DIFFERENTIAL - Abnormal Result Value Auto WBC 4.6 RBC 3.97 (*) Hemoglobin 14.2 Hematocrit 41.7 MCV 104.9 (*) MCH 35.7 (*) MCHC 34.0 RDW 12.9 Platelets 165 MPV 8.8 nRBC 0.2 Neutrophils Relative 42.4 Lymphocytes Relative 40.2 (*) Monocytes Relative 14.5 (*) Eosinophils Relative 2.5 Basophils Relative 0.4 Neutrophils Absolute 2.0 Lymphocytes Absolute 1.9 Monocytes Absolute 0.7 Eosinophils Absolute 0.1 Basophils Absolute 0.0 COMPREHENSIVE METABOLIC PANEL - Abnormal SODIUM 136 POTASSIUM 4.0 CHLORIDE 107 CARBON DIOXIDE 22 ANION GAP 8 UREA NITROGEN 19 CREATININE 0.87 GLUCOSE 104 (*) CALCIUM 9.2 AST (SGOT) 31 ALT 28 ALKALINE PHOSPHATASE 122 ALBUMIN 4.0 BILIRUBIN, TOTAL 0.7 TOTAL PROTEIN 7.0 eGFR 87.2 TROPONIN I - Normal TROPONIN I <0.012 Narrative: Patients with high levels of Biotin oral intake (ie >5 mg/day) may have falsely decreased Troponin levels. All other labs were within normal range or not returned as of this dictation. EMERGENCY DEPARTMENT COURSE and DIFFERENTIAL DIAGNOSIS/MDM: Vitals: Vitals: 05/27/22 1234 05/27/22 1254 05/27/22 1300 05/27/22 1404 BP: (!) 151/91 (!) 149/80 (!) 132/90 Pulse: 76 77 101 Resp: 18 16 16 Temp: 36.2 C (97.1 F) TempSrc: Temporal SpO2: 99% 99% 97% Weight: 77.1 kg (170 lb) Medications aspirin chewable tablet 81 mg (81 mg Oral Not Given 05/27/22 1340) pantoprazole (ProtoNix) injection 40 mg (has no administration in time range) The patient presented with chief complaint of chest pain. Patient's vital signs were reviewed by blayned were stable. Pertinent history and physical exam as above. Nursing notes were reviewed by me. The differential diagnosis would be ACS vs GERD. Plan for CBC, CMP and troponin to rule out any acutecardiac event. CXR pending. Will admit patient to CDU for observation due to heart score of 5 even with troponin wnl. CONSULTS: None PROCEDURES: Unless otherwise noted below, none Procedures FINAL IMPRESSION No diagnosis found. DISPOSITION/PLAN DISPOSITION PATIENT REFERRED TO: No follow-up provider specified. DISCHARGE MEDICATIONS: New Prescriptions No medications on file (Please note: Portions of this note were completed with a voice recognition program. Efforts were made to edit the dictations but occasionally words and phrases are mis-transcribed.) Form [id number] Temi Mckeon MD (electronically signed) Emergency Medicine Provider Temi Mckeon MD Resident 05/27/22 1509 [id number] Telephone encounter Note* Telephone Encounter - Jean-Paul Pack DO - 03/11/2022 10:30 PM EST Prescription completed. Patient due for checkup [facility] [id number] Miscellaneous Notes* Telephone Encounter - Jean-Paul Pack DO - 03/11/2022 10:30 PM EST Prescription completed. Patient due for checkup * Telephone Encounter - Cecy Sethi RN - 03/11/2022 7:12 AM EST Rx loaded * Telephone Encounter - Yaakov Cummings - 03/08/2022 2:31 PM EST Medication name: levothyroxine (Synthroid, Levoxyl) 100 MCG tablet [[id number]] Pt states they are having to use [facility] now and [facility] is needing Dr. Pack to call in the verify this prescription. Please advise. Medication dosage: 100 mcg (Micrograms) Monthly quantity needed: 30 How many day supply requestin year Medication route: oral (PO) Medication administration time(s): daily If taking medication PRN, reason for taking medication: N/A If this is a controlled substance do you receive this or any other controlled medication from any other doctor or facility: N/A Ordering provider: Dr. Pack Date of last office visit: 05/23/2021 Date of next office visit: none Date of last refill: (see medication tab): 04/25/2021 Updated/Validated preferred pharmacy: Yes Patient instructed to contact the pharmacy prior to picking up the medication: Yes documented in this encounterS[facility], [id number] Telephone encounter Note* Telephone Encounter - Cecy Sethi RN - 03/11/2022 7:12 AM EST Rx loaded [id number] Telephone encounter Note* Telephone Encounter - Yaakov Zoila - 03/08/2022 2:31 PM EST Medication name: levothyroxine (Synthroid, Levoxyl) 100 MCG tablet [[id number]] Pt states they are having to use [facility] now and [facility] is needing Dr. Pack to call in the verify this prescription. Please advise. Medication dosage: 100 mcg (Micrograms) Monthly quantity needed: 30 How many day supply requestin year Medication route: oral (PO) Medication administration time(s): daily If taking medication PRN, reason for taking medication: N/A If this is a controlled substance do you receive this or any other controlled medication from any other doctor or facility: N/A Ordering provider: Dr. Pack Date of last office visit: 05/23/2021 Date of next office visit: none Date of last refill: (see medication tab): 04/25/2021 Updated/Validated preferred pharmacy: Yes Patient instructed to contact the pharmacy prior to picking up the medication: Yes [facility] Author Juvencio Luu [facility] Note Date/Time August 19, 2024 12:0 5pm [facility] Medical Records Department [address] [place] [address] Anesthesia Postop Eval I 08/19/24 1205 MR#: [id number] Acct: [id number] Name: RAMY BARRON Rep #[id number] : 1940 83 From: Juvencio CANELA PCP: Dr. Jean-Paul Pack, DO Status:RE G SDC Y Race: C Location: [place] [address] Anesthesia: Postop Eval I Current Vital Signs Temperature: 97.6 F Pulse Rate: 62 Blood Pressure: 97/59 Respiratory Rate: 16 Pulse Ox: 96 Assessment Airway patent: Yes Spontaneous unlabored respirations: Yes nausea: No Vomiting: No Anesthesia Complication: No Fluid Hydration Crystalloid volume administer (ml): 300 Total IV fluid infused: 300 Progress Note Anesthesia document: Postop Eval 1 completed: Yes 08/19/24 1205 <Electronically signed by Juvencio Luu CRNA> Date _ Juvencio Luu CRNA Cosigner Signature: Date CC: ~ Signed [facility] Work Phone: Evaluation note* Diagnosis Pulmonary scarring Postinflammatory pulmonary fibrosis documented in this encounter [facility] Work Phone: Evaluation note* Diagnosis Chest pain due to coronary artery disease (HCC)- Primary Other chest pain Chest pain Unspecified chest pain Coronary artery disease involving [place] coronary artery of [place] heart, unspecified whether angina present Chest pain due to coronary artery disease (HCC) Hypercholesterolemia Pure hypercholesterolemia [facility] Diagnosis Coronary artery disease involving [place] coronary artery of [place] heart, unspecified whether angina present Chest pain due to coronary artery disease (HCC) Hypercholesterolemia Pure hypercholesterolemia Chest pain due to coronary artery disease (HCC)- Primary Chest pain due to coronary artery disease (HCC) [facility] Diagnosis Chest pain due to coronary artery disease (HCC)- Primary Coronary artery disease involving [place] coronary artery of [place] heart, unspecified whether angina present Chest pain due to coronary artery disease (HCC) [facility] Diagnosis Hematoma of IV site, initial encounter (HCC)- Primary [facility] Diagnosis Encounter for subsequent annual wellness visit (AWV) in Medicare patient- Primary Coronary artery disease involving [place] coronary artery of [place] heart, unspecified whether angina present Acquired hypothyroidism Unspecified hypothyroidism Hypercholesterolemia Pure hypercholesterolemia History of myocardial infarction Macrocytic Other specified diseases of blood and blood-forming organs Routine general medical examination at health care facility Routine general medical examination at a health care facility documented in this encounter [facility]* Diagnosis Coronary artery disease involving [place] coronary artery of [place] heart, unspecified whether angina present Chest pain, unspecified type Chest pain due to coronary artery disease (HCC) documented in this encounter [facility] note* Diagnosis Hypercholesterolemia- Primary Pure hypercholesterolemia [facility] Diagnosis Chest pain due to coronary artery disease (HCC) documented in this encounter [facility]* Diagnosis Coronary artery disease involving [place] coronary artery of [place] heart, unspecified whether angina present Chest pain due to coronary artery disease (HCC) documented in this encounter [facility]* Diagnosis Aortic valve stenosis, etiology of cardiac valve disease unspecified documented in this encounter [facility]* Diagnosis Coronary artery disease involving [place] coronary artery of [place] heart, unspecified whether angina present- Primary Shortness of breath Aortic valve stenosis, etiology of cardiac valve disease unspecified Mixed hyperlipidemia documented in this encounter [facility]* Diagnosis Coronary artery disease involving [place] coronary artery of [place] heart, unspecified whether angina present documented in this encounter [facility]* Diagnosis Chest pain, unspecified type- Primary Chest pain, unspecified type documented in this encounter [facility]* Diagnosis Chest pain due to coronary artery disease (HCC) documented in this encounter [facility]* Diagnosis Generalized abdominal pain- Primary 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, generalized documented in this encounter [facility]* Diagnosis Aortic valve stenosis, etiology of cardiac valve disease unspecified- Primary documented in this encounter [facility]* Diagnosis Aortic valve stenosis, etiology of cardiac valve disease unspecified- Primary Aortic valve stenosis, etiology of cardiac valve disease unspecified Aortic valve stenosis, etiology of cardiac valve disease unspecified documented in this encounter [facility]* Diagnosis Aortic valve stenosis, etiology of cardiac valve disease unspecified Umbilical hernia without obstruction and without gangrene- Primary 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, chronic, generalized Aortic valve stenosis, etiology of cardiac valve disease unspecified documented in this encounter [facility]* Diagnosis Aortic valve stenosis, etiology of cardiac valve disease unspecified Aortic valve stenosis, etiology of cardiac valve disease unspecified Coronary artery disease involving [place] coronary artery of [place] heart, unspecified whether angina present- Primary S/P CABG x 3 Postsurgical aortocoronary bypass status Nonrheumatic aortic valve stenosis Hypercholesterolemia Pure hypercholesterolemia documented in this encounter [facility]* Diagnosis 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, chronic, generalized Coronary artery disease involving [place] coronary artery of [place] heart, unspecified whether angina present- Primary S/P CABG x 3 Postsurgical aortocoronary bypass status Nonrheumatic aortic valve stenosis Hypercholesterolemia Pure hypercholesterolemia documented in this encounter [facility]* Diagnosis Coronary artery disease involving [place] coronary artery of [place] heart, unspecified whether angina present- Primary Aortic valve stenosis, etiology of cardiac valve disease unspecified History of percutaneous coronary intervention Dyslipidemia Other and unspecified hyperlipidemia Aortic stenosis, moderate Hypercholesterolemia Pure hypercholesterolemia documented in this encounter [facility]* Diagnosis Coronary artery disease involving [place] coronary artery of [place] heart, unspecified whether angina present History of percutaneous coronary intervention Post PTCA [Z98.61] Postsurgical percutaneous transluminal coronary angioplasty status documented in this encounter [facility]* Diagnosis Delayed gastric emptying- Primary Dyspepsia and other specified disorders of function of stomach Coronary artery disease involving [place] coronary artery of [place] heart, unspecified whether angina present Hypothyroidism, unspecified type Hypercholesterolemia Pure hypercholesterolemia Gastritis without bleeding, unspecified chronicity, unspecified gastritis type Aortic stenosis, moderate documented in this encounter [facility]* Diagnosis Postsurgical percutaneous transluminal coronary angioplasty status [Z98.61] Postsurgical percutaneous transluminal coronary angioplasty status documented in this encounter [facility]* Diagnosis Postsurgical percutaneous transluminal coronary angioplasty status [Z98.61] Postsurgical percutaneous transluminal coronary angioplasty status documented in this encounter [facility]* Diagnosis Postsurgical percutaneous transluminal coronary angioplasty status [Z98.61] Postsurgical percutaneous transluminal coronary angioplasty status documented in this encounter [facility]* Diagnosis Gastritis without bleeding, unspecified chronicity, unspecified gastritis type- Primary Gastroesophageal reflux disease without esophagitis Esophageal reflux Delayed gastric emptying Dyspepsia and other specified disorders of function of stomach documented in this encounter [facility]* Diagnosis Postsurgical percutaneous transluminal coronary angioplasty status [Z98.61] Postsurgical percutaneous transluminal coronary angioplasty status documented in this encounter [facility]* Diagnosis Postsurgical percutaneous transluminal coronary angioplasty status [Z98.61] Postsurgical percutaneous transluminal coronary angioplasty status documented in this encounter [facility]* Diagnosis Postsurgical percutaneous transluminal coronary angioplasty status [Z98.61] Postsurgical percutaneous transluminal coronary angioplasty status [facility] Diagnosis Percutaneous transluminal coronary angioplasty status [Z98.61] Postsurgical percutaneous transluminal coronary angioplasty status [facility] Diagnosis Postsurgical percutaneous transluminal coronary angioplasty status [Z98.61] Postsurgical percutaneous transluminal coronary angioplasty status documented in this encounter [facility]* Diagnosis Postsurgical percutaneous transluminal coronary angioplasty status [Z98.61] Postsurgical percutaneous transluminal coronary angioplasty status [facility] Diagnosis Postsurgical percutaneous transluminal coronary angioplasty status [Z98.61] Postsurgical percutaneous transluminal coronary angioplasty status documented in this encounter [facility]* Diagnosis Postsurgical percutaneous transluminal coronary angioplasty status [Z98.61] Postsurgical percutaneous transluminal coronary angioplasty status documented in this encounter [facility]* Diagnosis Postsurgical percutaneous transluminal coronary angioplasty status [Z98.61] Postsurgical percutaneous transluminal coronary angioplasty status [facility] Diagnosis Postsurgical percutaneous transluminal coronary angioplasty status [Z98.61] Postsurgical percutaneous transluminal coronary angioplasty status [facility] Diagnosis Postsurgical percutaneous transluminal coronary angioplasty status [Z98.61] Postsurgical percutaneous transluminal coronary angioplasty status [facility] Diagnosis Postsurgical percutaneous transluminal coronary angioplasty status [Z98.61] Postsurgical percutaneous transluminal coronary angioplasty status documented in this encounter [facility]* Diagnosis Rectal bleeding- Primary Hemorrhage of rectum and anus Rectal bleeding Hemorrhage of rectum and anus documented in this encounter [facility]* Diagnosis External hemorrhoid, bleeding- Primary Irritable bowel syndrome, unspecified type Coronary artery disease involving [place] coronary artery of [place] heart, unspecified whether angina present documented in this encounter [facility]* Diagnosis Coronary artery disease involving [place] coronary artery of [place] heart, unspecified whether angina present- Primary Aortic valve stenosis, etiology of cardiac valve disease unspecified Mixed hyperlipidemia documented in this encounter [facility]* Diagnosis Coronary artery disease involving [place] coronary artery of [place] heart, unspecified whether angina present- Primary Hypercholesterolemia Pure hypercholesterolemia Hypothyroidism, unspecified type Nonrheumatic aortic valve stenosis Gastroesophageal reflux disease without esophagitis Esophageal reflux [facility]* Diagnosis Macrocytosis without anemia- Primary Other specified diseases of blood and blood-forming organs [facility]* Diagnosis Coronary artery disease involving [place] coronary artery of [place] heart, unspecified whether angina present [facility]* Diagnosis Aortic stenosis, moderate [facility]* Diagnosis Chest pain due to coronary artery disease (HCC) [facility]* Diagnosis Coronary artery disease involving [place] coronary artery of [place] heart, unspecified whether angina present [facility] Diagnosis Coronary artery disease involving [place] coronary artery of [place] heart, unspecified whether angina present [facility]* Diagnosis Chest pain due to coronary artery disease (HCC) [facility] Author Liam Bajwa [facility] Note Date/Time August 19, 2024 11:4 0am [facility] Medical Records Department [address] [place] [id number] History & Physical Exam 08/19/24 1138 MR#: [id number] Acct: [id number] Name: RAMY BARRON Rep #:[id number] : 1940 83 From: Liam Bajwa DO PCP: Dr. Jean-Paul Pack DO Status:[facility] Location: [place] [address] HPI - General General Date of Admission: 08/19/24 Date of Service: 08/19/24 Chief Complaint: GERD and Bloating HPI Narrative RAMY BARRON, is a 83 M who presents with complaints of painful epigastric gas. He notes the increased gas and pain is related to eating tomatoes and red sauce on pasta. He denies difficulty chewing and swallowing, heartburn, bloating, constipation, diarrhea, hematochezia and melena. He states that he is able to lay in left recumbent position to evacuate the gas and it doesn't build up. He reports an ER visit 2 months ago where he thought he was having a heart attack from the gas pain. States he has a heart history of 5 coronary stents cristino problem valve. He states that he will get an EGD if necessary, but would prefer not to. He denies knowing a specific food trigger. 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 Home Medications ?Medication ?Instructions ?Recorded ?Last Taken ?Type aspirin 81 mg tablet,delayed 81 mg PO QDAY 12/11/23 History release (Adult Aspirin Regimen) atorvastatin 80 mg tablet 80 mg PO QDAY 12/11/2308/18 History clopidogrel 75 mg tablet 75 mg PO QDAY 12/11/2308/14 History coenzyme Q10 100 mg capsule 100 mg PO QDAY 12/11/23 History ezetimibe 10 mg tablet 10 mg PO QDAY 12/11/2308/18 History isosorbide mononitrate 60 mg 60 mg PO QDAY 12/11/23 History tablet,extended release 24 hr levothyroxine 100 mcg capsule 100 mcg PO QDAY 12/11/23 08/19/24 History metoprolol tartrate 25 mg tablet 25 mg PO BID 12/11/23 08/19/24 History nitroglycerin 0.4 mg sublingual 0.4 mg sublingual Q5-1 5M PRN chest 12/11/23 Unknown History tablet pain pantoprazole 40 mg tablet,delayed 40 mg PO QDAY 08/18/24 History release cyanocobalamin (vitamin B-12) 500 500 mcg PO DAILY 01/1808/18/24 History mcg tablet (Vitamin B-12) Allergy/AdvReac Type Severity Reaction Status Date / Time No Known Allergies Allergy Verified 08/19/24 10:14 Family History Father COPD (chronic obstructive pulmonary disease) Sister Diabetes Brother Heart disease Brother Cancer bladder Surgical History History of cardiac catheterization History of coronary artery stent placement S/P CABG x 3 Social History Smoking Status: Never smoker alcohol intake: never ROS Constitutional Constitutional: Denies fatigue, fever(s), poor appetite, weight gain or weight loss Gastrointestinal Gastrointestinal: Denies belching, bloating, change in bowel habits, change in stool character, chewing difficulty, coffee ground emesis, constipation, cramping, diarrhea, dyspepsia, dysphagia, early satiety, excessive flatus, fecalincontinence, heartburn, hematemesis, hematochezia, hemorrhoids, loose stools, melena, nausea, odynophagia, rectal bleeding, tenesmus, vomiting or weight changes Vital Signs Vital Signs Vital Signs: 08/19/24 10:15 08/19/24 10:15 08/19/24 10:56 Temperature 96.9 F L 96.9 F L Temperature Source Temporal Pulse Rate 53 L 53 L Respiratory Rate 17 17 Respiratory Pattern Normal Blood Pressure 120/75 120/75 Blood Pressure Mean 90 Blood Pressure Source Monitor Blood Pressure Position Semi-Fowlers Blood Pressure Location Left Arm Pulse Ox 99 99 Oxygen Delivery Method Room Air Room Air Weight Weight: 169 lb 12.095 oz Body Mass Index (BMI) 27.3 Physical Exam Const alert, oriented x3, no apparent distress and healthy appearing General Appearance: cooperative GI normal to inspection, nondistended, normoactive bowel sounds, soft to palpation,non-tender and non-distended Percussion: normal to percussion Rectal Exam: deferred Assessment & Plan Assessment/Plan (1) Small intestinal bacterial overgrowth (SIBO): (2) GERD (gastroesophageal reflux disease): PLAN: Assessment and Plan Assessment and Plan (1) Small intestinal bacterial overgrowth (SIBO): Status: Acute Plan: RAMY BARRON, is a 83 M who presents to the office today for establishment with [facility] for complaints of painful epigastric gas. Differential diagnoses include: SIBO, GERD, hiatal hernia, gastric dysmotility. * erythromycin 500mg PO TID * probiotics daily x2wks, starting second week of atb * continue pantoprazole 40mg PO daily * call with results(2) Gastroesophageal reflux disease: Qualifiers: Esophagitis presence: esophagitis presence not specified Qualified Code(s): K21.9 - Gastro-esophageal reflux disease without esophagitis Medications: New erythromycin 500 mg PO Q8H 42 tabs 0RF 08/19/24 1140 <Electronically signed by Liam Bajwa DO> Cosigner Signature (if applicable): CC: Dr. Jean-Paul Pack, ; Liam Bajwa DO~ Signed [facility] Work Phone: Hospital Discharge instructions* Attachments The following attachments cannot be sent through Care Everywhere. * Angina Discharge Instructions ([place]) [facility] Consultation (Routine) - Pending Review Specialty Diagnoses / Procedures Referred By Jose Elias penny Referred To Contact Cardiac Rehabilitation / Cardiology Diagnoses Coronary artery disease involving [place] coronary artery of [place] heart, unspecified whether angina present History of percutaneous coronary intervention Procedures [place] OFFICE[facility] 60 MINUTES Kavon Kramer APRN - CNP [address] [facility], [place] [address] [facility] [address] [address] Referral ID Status Reason Start Date Expiration Date Visits Requested Visits Authorized [id number] Pending Review Specialty Services Required 10/08/2023 10/07/2024 [facility] Consultation (Routine) - Closed Specialty Diagnoses / Procedures Referred By Jose Elias penny Referred To Contact Cardiac Rehabilitation / Cardiology Diagnoses Coronary artery disease involving [place] coronary artery of [place] heart, unspecified whether angina present History of percutaneous coronary intervention Procedures [place] OFFICE/[facility]PAT[facility] 60 MINUTES Kavon Kramer APRN - CNP [address] [facility], [address] [place] [address] [facility] [address] [address] Referral ID Status Reason Start Date Expiration Date V isits Requested Visits Authorized [id number] Closed Specialty Services Required 10/08/2023 10/07/2024 1 1 [facility] Consultation (Routine) - Pending Review Specialty Diagnoses / Procedures Referred By Contac t Referred To Contact Gastroenterology Diagnoses Gastritis without bleeding, unspecified chronicity, unspecified gastritis type Delayed gastric emptying Procedures [place] OFFICE/OUTPATIENT [facility] 60 MINUTES Jean-Paul Pack DO [address] [place] [address] AydeeTrevonLiam [address], [address] [place] [address] Referral ID Status Reason Start Date Expiration Date Visits Requested Visits Authorized [id number] Pending Review Specialty Services Required 11/14/2023 11/13/2024 1 1 [facility]No reason for referral [facility] Work Phone: Reason for visit Narrative* Consultation (Routine) - Closed Specialty Diagnoses / Procedures Referred By Contac t Referred To Contact Cardiac Rehabilitation / Cardiology Diagnoses Coronary artery disease involving [place] coronary artery of [place] heart, unspecified whether angina present 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 [place] [address] [facility] [address] [place] [address] Referral ID Status Reason Start Date Expiration Date V isits Requested Visits Authorized [id number] Closed Specialty Services Required 06/19/2022 06/19/2023 1 1 [facility]* Consultation (Routine) - Closed Specialty Diagnoses / Procedures Referred By Contac t Referred To Contact Cardiac Rehabilitation / Cardiology Diagnoses Coronary artery disease involving [place] coronary artery of [place] heart, unspecified whether angina present History of percutaneous coronary intervention Procedures [place] OFFICE/[facility]PAT[facility] 60 MINUTES Kavon Kramer APRN - CNP [address] [facility], [address] [place] [address] [facility] [address] [place] [address] Referral ID Status Reason Start Date Expiration Date V isits Requested Visits Authorized [id number] Closed Specialty Services Required 10/08/2023 10/07/[address] [facility] for visit Narrative* Imaging (Routine) - Closed Specialty Diagnoses / Procedures Referred By Contbeth t Referred To Contact Cardiology Diagnoses Aortic stenosis, moderate Procedures Transthoracic echocardiogram (TTE) complete with contrast, bubble, strain, and 3D PRN [place] ECHO TTHRC R-T 2D W/WOM-MODE COMPL SPEC&COLR D [place] TTE W OR WO FOL WCON,DOPPLER Kavon Kramer APRN - CNP [address] [facility], [address] [place] [address] Phone: tel: fax: Referral ID Status Reason Start Date Expiration Date Visits Re quested Visits Authorized [id number] Closed 07/16/2024 07/16/2025 1 1 [facility] Assessments Diagnosis Cervical spine disease Unspecified musculoskeletal disorders and symptoms referable to neck Diagnosis Coronary artery disease involving [place] coronary artery of [place] heart with other form of angina pectoris (HCC) Advance Directives No Advanced Directives Records FoundDocuments on File Type Date Recorded Patient Claim Processor Expl anation Code Documentation 11/04/2014 Date Activated Date Inactivated Comments 06/11/2022 6:49 AM 06/12/2022 3:19 PM Date Activated Date Inactivated Comments 05/27/2022 5:08 PM 05/28/2022 1:09 PM Documents on File Type Date Recorded Patient Claim Processor Expl anation ACP-Advance Directive ACP-Power of Engine Pilot Documents on File Type Date Recorded Patient Claim Processor Expl anation ACP-Advance Directive ACP-[employer] of [employer] Latest Code Status on File Code Status Date Activated Date Inactivated Comments Full Code 05/27/2022 5:08 PM 05/28/2022 1:09 PM Documents on File Type Date Recorded Patient Claim Processor Expl anation Code Documentation 11/04/2014 Latest Code Status on File Code Status Date Activated Date Inactivated Comments Full Code 05/27/2022 5:08 PM 05/28/2022 1:09 PM Latest Code Status on File Code Status Date Activated Date Inactivated Comments Full Code 06/11/2022 6:49 AM 06/12/2022 3:19 PM Code Status History Code Status Date Activated Date Inactivated Comments Full Code 05/27/2022 5:08 PM 05/28/2022 1:09 PM Latest Code Status on File Code Status Date Activated Date Inactivated Comments Full Code 06/11/2022 6:49 AM 06/12/2022 3:19 PM Code Status History Code Status Date Activated Date Inactivated Comments Full Code 05/27/2022 5:08 PM 05/28/2022 1:09 PM Date Activated Date Inactivated Comments 08/18/2023 6:12 AM 08/18/2023 6:49 PM Date Activated Date Inactivated Comments 06/11/2022 6:49 AM 06/12/2022 3:19 PM Date Activated Date Inactivated Comments 05/27/2022 5:08 PM 05/28/2022 1:09 PM Date Activated Date Inactivated Comments 08/18/2023 6:12 AM 08/18/2023 6:49 PM Date Activated Date Inactivated Comments 06/11/2022 6:49 AM 06/12/2022 3:19 PM Date Activated Date Inactivated Comments 05/27/2022 5:08 PM 05/28/2022 1:09 PM Date Activated Date Inactivated Comments 09/23/2023 6:24 AM 09/30/2023 9:47 AM Date Activated Date Inactivated Comments 08/18/2023 6:12 AM 08/18/2023 6:49 PM Date Activated Date Inactivated Comments 06/11/2022 6:49 AM 06/12/2022 3:19 PM Date Activated Date Inactivated Comments 05/27/2022 5:08 PM 05/28/2022 1:09 PM Date Activated Date Inactivated Comments 09/23/2023 6:24 AM 09/30/2023 9:47 AM Date Activated Date Inactivated Comments 08/18/2023 6:12 AM 08/18/2023 6:49 PM Date Activated Date Inactivated Comments 06/11/2022 6:49 AM 06/12/2022 3:19 PM Date Activated Date Inactivated Comments 05/27/2022 5:08 PM 05/28/2022 1:09 PM Advance Directive Response Recorded Date/ Time Do you have a Healthcare Power of Engine Pilot? Yes August 17, 2024 3:59pm Reason for Referral Status Reason Specialty Diagnoses / Procedures Referre d By Contact Referred To Contact Closed Cardiology Diagnoses Coronary artery disease involving [place] coronary artery of [place] heart with other form of angina pectoris (HCC) Procedures Echo Stress Test - Dobutamine Ronal Barr MD [address] [phone] Status Reason Specialty Diagnoses / Procedures Referred By Contact Referred To Contact Authorized Radiology Diagnoses Pulmonary scarring Procedures CT CHEST W CONTRAST Jean-Paul Pack, DO [address] [place] [id number] Specialty Diagnoses / Procedures Referred By Contac t Referred To Contact Cardiology Diagnoses Coronary artery disease involving [place] coronary artery of [place] heart, unspecified whether angina present Procedures Transthoracic echocardiogram (TTE) complete with contrast, bubble, strain, and 3D PRN Transthoracic echocardiogram (TTE) complete with contrast, bubble, strain, and 3D PRN VT ECHO TTHRC R-T 2D W/WOM-MODE COMPL SPEC&COLR D VT TTE W OR WO FOL NOAH ARRIETA Justin M, MD [address] [address] Referral ID Status Reason Start Date Expiration Date Visits Requested Visits Authorized [id number] Authorized Perform Procedure 05/29/2022 11/25/2022 1 1 Specialty Diagnoses / Procedures Referred By Contac t Referred To Contact Cardiology Diagnoses Coronary artery disease involving [place] coronary artery of [place] heart, unspecified whether angina present Procedures Transthoracic echocardiogram (TTE) complete with contrast, bubble, strain, and 3D PRN Transthoracic echocardiogram (TTE) complete with contrast, bubble, strain, and 3D PRN VT ECHO TTHRC R-T 2D W/WOM-MODE COMPL SPEC&COLR D VT TTE W OR WO NOAH NOBLES Justin M, MD [address] [phone] [facility] Non-Invasive [facility]iology 95 [place] [address] Referral ID Status Reason Start Date Expiration Date V isits Requested Visits Authorized [id number] Closed Perform Procedure 05/29/2022 11/25/2022 1 1 Specialty Diagnoses / Procedures Referred By Contac t Referred To Contact Cardiology Diagnoses Aortic valve stenosis, etiology of cardiac valve disease unspecified Procedures Transthoracic echocardiogram (TTE) complete with contrast, bubble, strain, and 3D PRN VT ECHO TTHRC R-T 2D W/WOM-MODE COMPL SPEC&COLR D VT TTE W OR WO FOL WCON,Ronal Murdock MD [address] [facility] [address] [place] [address] Referral ID Status Reason Start Date Expiration Date V isits Requested Visits Authorized [id number] Closed Perform Procedure 08/21/2022 08/22/2023 1 1 Specialty Diagnoses / Procedures Referred By Contac t Referred To Contact Radiology Diagnoses 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, chronic, generalized Procedures NM gastric emptying solid Florian Trujillo APRN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 [address] [facility] [address] [place] [phone] Referral ID Status Reason Start Date Expiration Date V isits Requested Visits Authorized [id number] Pending Review 09/22/2023 09/21/2024 3 3 Specialty Diagnoses / Procedures Referred By Contac t Referred To Contact Gastroenterology Diagnoses 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, chronic, generalized Procedures VT OFFICE/OUTPATIENT NEW HIGH MDM 60 MINUTES Florian Trujillo APRN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 [address] [facility] [address] [place] [address] [facility] [address] [facility] [address] [place] [phone] Referral ID Status Reason Start Date Expiration Date Visits Requested Visits Authorized [id number] Pending Review Specialty Services Required 09/22/2023 09/21/2024 1 1 Referral ID Status Reason Start Date Expiration Date V isits Requested Visits Authorized [id number] Authorized 09/22/2023 09/21/2024 3 3 Summary Purpose Family History No Family History Records Found Relationship Condition Age at Onset Recorded Date/T radha father Chronic obstructive pulmonary disease Unk nown sister Diabetes mellitus Unknown brother Cardiac disease Unknown brother Malignant neoplasm Unknown Chief Complaint and Reason for Visit Reason for Visit Admit Date GERD (gastroesophageal reflux disease) J une 2024 9:43am Small intestinal bacterial overgrowth (S IBO) August 19, 2024 9:43am Additional Source Comments (unrecognized sect ion and content) No Status Records FoundNo Status Records FoundNo Status Records FoundNo Status Records Found INFORMATION SOURCE (unrecogn ized section and content) DATE CREATED AUTHOR [facility]/25/2020 [facility] DATE CREATED AUTHOR AUTHOR'S ORGANIZ ATION 03/01/2021 [facility] DATE CREATED AUTHOR AUTHOR'S ORGANIZ ATION 09/07/2024 [facility] DATE CREATED AUTHOR AUTHOR'S ORGANIZ ATION 11/28/2024 [facility] Reason for Visit (unrecogniz ed section and content) Reason Onset Date Comments Appointment Request 05/28/2022 Discharge fr om CDU today. Reason Comments Chest Pain Specialty Diagnoses / Procedures Referred By Contac t Referred To Contact Diagnoses Chest pain due to coronary artery disease (HCC) Procedures . Bernard Webb MD [address] [place] [address] [facility] Emergency Dept [address] [place] [phone] Referral ID Status Reason Start Date Expiration Date Visits Re quested Visits Authorized [id number] 1 1 Reason Comments Hospital Follow-up Specialty Diagnoses / Procedures Referred By Contac t Referred To Contact Cardiology Diagnoses Coronary artery disease involving [place] coronary artery of [place] heart, unspecified whether angina present Procedures Transthoracic echocardiogram (TTE) complete with contrast, bubble, strain, and 3D PRN Transthoracic echocardiogram (TTE) complete with contrast, bubble, strain, and 3D PRN VT ECHO TTHRC R-T 2D W/WOM-MODE COMPL SPEC&COLR D VT TTE W OR WO FOL WCON,DOPPLER Ronal Barr MD [address] [facility] [address] [place] [phone] [facility] [address] [facility] Non-Invasive Cardiology [address] [place] [address] Referral ID Status Reason Start Date Expiration Date V isits Requested Visits Authorized [id number] Closed Perform Procedure 05/29/2022 11/25/2022 1 1 Reason Comments hand hematoma Reason Onset Date Comments Med Refill 07/31/2022 Reason Onset Date Comments Duplicate 10/14/2022 Reason Comments Medicare Annual Wellness Visit Initial Reason Comments Med Refill Reason Onset Date Comments Med Refill 04/23/2023 Specialty Diagnoses / Procedures Referred By Jose Elias penny Referred To Contact Cardiology Diagnoses Aortic valve stenosis, etiology of cardiac valve disease unspecified Procedures Transthoracic echocardiogram (TTE) complete with contrast, bubble, strain, and 3D PRN VT ECHO TTHRC R-T 2D W/WOM-MODE COMPL SPEC&COLR D VT TTE W OR WO FOL WCON,DOPPLER Ronal Barr MD [address] [facility] [address] [place] [address] Referral ID Status Reason Start Date Expiration Date V isits Requested Visits Authorized [id number] Closed Perform Procedure 08/21/2022 08/22/2023 1 1 Reason Comments 1 Year Follow-up Coronary Artery Disease Cardiac Valve Problem Specialty Diagnoses / Procedures Referred By Jose Elias penny Referred To Contact Diagnoses Chest pain, unspecified type Procedures [id number] pain, unspecified type Jah Montoya MD [address] [place] [address] [facility] [address] [place] [address] Referral ID Status Reason Start Date Expiration Date Visits Re quested Visits Authorized [id number] 1 1 Reason Onset Date Comments Abdominal Pain 09/15/2023 Reason Comments Abdominal Pain Superficial abd pain around umbilicus since yesterday. Denies hx of hernia. No N/V/D. States pain is made worse when he moves around. Reason Comments Follow-up ER annual Reason Comments Abdominal Pain GUEST SERVICES REPRESENTATIVE Abdominal Pain, P ossible hernia referral from Dr. Pack Specialty Diagnoses / Procedures Referred By Jose Elias penny Referred To Contact Diagnoses Aortic valve stenosis, etiology of cardiac valve disease unspecified Aortic valve stenosis, etiology of cardiac valve disease unspecified [I35.0] Procedures Left and right heart cath / coronary angiography w Ronal Elliott MD [address] [facility] [address] [place] [address] [facility] Cardiac Director Utilization Management [address] [place] [address] Referral ID Status Reason Start Date Expiration Date Visits Re quested Visits Authorized [id number] 1 1 Specialty Diagnoses / Procedures Referred By Contac t Referred To Contact Radiology Diagnoses 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, chronic, generalized Procedures NM gastric emptying solid Florian Trujillo, SALESPERSON [employer]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 [address] [place] [address] [address] [place] [address] Referral ID Status Reason Start Date Expiration Date V isits Requested Visits Authorized [id number] Authorized 09/22/2023 09/21/2024 3 3 Reason Comments Follow-up PCI Reason Comments Follow-up Med check GERD Flu Vaccine Patient has declined to receive influenza vaccine in the office. Reason Comments Rectal Bleeding Reports he was place d on Xifaxan 4 days ago, reports he had an episode of rectal bleeding today. Reason Onset Date Comments Appointment Request 12/30/2023 Reason Comments ER Follow-up Bleeding is stool He morid Reason Comments 3 Month Follow Up Coronary Artery Disease Cardiac Valve Problem Reason Onset Date Comments Med Refill 03/08/2022 Reason Comments 6 Month Follow-up Reason Onset Date Comments Med Refill 08/11/2024 Reason Onset Date Comments Med Refill 08/24/2024 Reason Onset Date Comments Med Management 08/25/2024 Reason Onset Date Comments Medication Problem 09/20/2024 Reason Onset Date Comments Medication Reaction 10/20/2024 Reason Onset Date Comments Med Management 11/02/2024 Care Teams (unrecognized sec tion and content) Sales Assistant Relationship Specialty Start Date End Date Jean-Paul Pack DO [address] [place], [place] [phone] PCP - General 11/24/16 Sales Assistant Relationship Specialty Start Date End Date Jean-Paul Pack DO [address] [place] [address] PCP - General 11/24/16 Sales Assistant Relationship Specialty Start Date End Date Jean-Paul Pack, DO [address] [place] [address] PCP - General 11/24/16 Sales Assistant Relationship Specialty Start Date End Date Jean-Paul Pack, DO [address] [place] [address] PCP - General 11/24/16 Sales Assistant Relationship Specialty Start Date End Date Jean-Paul Pack, DO [address] [place] [address] PCP - General 11/24/16 Sales Assistant Relationship Specialty Start Date End Date Jean-Paul Pack, DO [address] [place] [address] PCP - General 11/24/16 Sales Assistant Relationship Specialty Start Date End Date Jean-Paul Pack DO [address] [place] [address] PCP - General 11/24/16 Sales Assistant Relationship Specialty Start Date End Date Jean-Paul Pack DO [address] [place] [address] PCP - General 11/24/16 Sales Assistant Relationship Specialty Start Date End Date Jean-Paul Pack DO [address] [place], [place] [phone] PCP - General 11/24/16 Sales Assistant Relationship Specialty Start Date End Date Jean-Paul Pack DO [address] [place], [place] [phone] PCP - General 11/24/16 Sales Assistant Relationship Specialty Start Date End Date Ramone Jean-Paul Rodas, DO [address] [place] [phone] PCP - General 11/24/16 Sales Assistant Relationship Specialty Start Date End Date Ramone Jean-Paul Rodas, DO [address] [place] [phone] PCP - General 11/24/16 Sales Assistant Relationship Specialty Start Date End Date Jean-Paul Pack Clark, DO [address] [place] [phone] PCP - General 11/24/16 Sales Assistant Relationship Specialty Start Date End Date Jean-Paul Pack Clark, DO [address] [place] [phone] PCP - General 11/24/16 Sales Assistant Relationship Specialty Start Date End Date Jean-Paul Pack Clark, DO [address] [place] [phone] PCP - General 11/24/16 Sales Assistant Relationship Specialty Start Date End Date Ramone Jean-Paul Rodas, DO [address] [place] [address] PCP - General 11/24/16 Sales Assistant Relationship Specialty Start Date End Date Jean-Paul Pack Clark, DO [address] [place] [address] PCP - General 11/24/16 Sales Assistant Relationship Specialty Start Date End Date Jean-Paul Pack Clark, DO [address] [place] [phone] PCP - General 11/24/16 Sales Assistant Relationship Specialty Start Date End Date Jean-Paul Pack Clark, DO [address] [place] [phone] PCP - General 11/24/16 Sales Assistant Relationship Specialty Start Date End Date Jean-Paul Pack, DO [address] [place] [phone] PCP - General 11/24/16 Sales Assistant Relationship Specialty Start Date End Date Jean-Paul Pack, DO [address] [place] [phone] PCP - General 11/24/16 Sales Assistant Relationship Specialty Start Date End Date Jean-Paul Pack, DO [address] [place] [phone] PCP - General 11/24/16 Sales Assistant Relationship Specialty Start Date End Date Jean-Paul Pack, DO [address] [place] [phone] PCP - General 11/24/16 Sales Assistant Relationship Specialty Start Date End Date Jean-Paul Pack, DO [address] [place] [phone] PCP - General 11/24/16 Sales Assistant Relationship Specialty Start Date End Date Jean-Paul Pack, DO [address] [place] [phone] PCP - General 11/24/16 Sales Assistant Relationship Specialty Start Date End Date Ramone Jean-Paul Rodas, DO [address] [place] [address] PCP - General 11/24/16 Sales Assistant Relationship Specialty Start Date End Date Ramone Jean-Paul Rodas, DO [address] [place] [address] PCP - General 11/24/16 Sales Assistant Relationship Specialty Start Date End Date Ramone Jean-Paul Rodas, DO [address] [place] [address] PCP - General 11/24/16 Sales Assistant Relationship Specialty Start Date End Date Ramone Jean-Paul Rodas, DO [address] [place] [address] PCP - General 11/24/16 Sales Assistant Relationship Specialty Start Date End Date Ramone Jean-Paul Rodas, DO [address] [place] [address] PCP - General 11/24/16 Sales Assistant Relationship Specialty Start Date End Date Ramone Jean-Paul oRdas, DO [address] [place] [address] PCP - General 11/24/16 Sales Assistant Relationship Specialty Start Date End Date Ramone Jean-Paul Rodas, DO [address] [place] [address] PCP - General 11/24/16 Sales Assistant Relationship Specialty Start Date End Date Jean-Paul Pack, DO [address] [place] [phone] PCP - General 11/24/16 Sales Assistant Relationship Specialty Start Date End Date Jean-Paul Pack, DO [address] [place] [phone] PCP - General 11/24/16 Sales Assistant Relationship Specialty Start Date End Date Jean-Paul Pack, DO [address] [place] [phone] PCP - General 11/24/16 Sales Assistant Relationship Specialty Start Date End Date Jean-Paul Pack, DO [address] [place] [phone] PCP - General 11/24/16 Sales Assistant Relationship Specialty Start Date End Date Jean-Paul Pack, DO [address] [place] [phone] PCP - General 11/24/16 Sales Assistant Relationship Specialty Start Date End Date Jean-Paul Pack, DO [address] [place] [phone] PCP - General 11/24/16 Sales Assistant Relationship Specialty Start Date End Date Jean-Paul Pack, DO [address] [place] [phone] PCP - General 11/24/16 Sales Assistant Relationship Specialty Start Date End Date Jean-Paul Pack, DO [address] [place] [phone] PCP - General 11/24/16 Sales Assistant Relationship Specialty Start Date End Date Jean-Paul Pack, DO [address] [place] [phone] PCP - General 11/24/16 Sales Assistant Relationship Specialty Start Date End Date MahoganyJean-Paul nunes, DO [address] [place] [phone] PCP - General 11/24/16 Sales Assistant Relationship Specialty Start Date End Date Ramone Jean-Paul Rodas, DO [address] [place] [phone] PCP - General 11/24/16 Sales Assistant Relationship Specialty Start Date End Date Ramone Jean-Paul Rodas, DO [address] [place] [phone] PCP - General 11/24/16 Sales Assistant Relationship Specialty Start Date End Date Ramone Jean-Paul Rodas, DO [address] [place] [phone] PCP - General 11/24/16 Sales Assistant Relationship Specialty Start Date End Date Ramone Jean-Paul Rodas, DO [address] [place] [phone] PCP - General 11/24/16 Sales Assistant Relationship Specialty Start Date End Date Ramone Jean-Paul Rodas, DO [address] [place] [phone] PCP - General 11/24/16 Sales Assistant Relationship Specialty Start Date End Date Ramone Jean-Paul Rodas, [address] [place] [address] PCP - General 11/24/16 Sales Assistant Relationship Specialty Start Date End Date Ramone Jean-Paul Rodas, [address] [place] [address] PCP - General 11/24/16 Sales Assistant Relationship Specialty Start Date End Date Ramone Jean-Paul Rodas, [address] [place] [address] PCP - General 11/24/16 Sales Assistant Relationship Specialty Start Date End Date Ramone Jean-Paul Rodas, DO [address] [place] [phone] PCP - General 11/24/16 Sales Assistant Relationship Specialty Start Date End Date Ramone Jean-Paul Rodas [address] [place] [phone] PCP - General 11/24/16 Sales Assistant Relationship Specialty Start Date End Date Ramone Jean-Paul Rodas, DO [address] [place] [phone] PCP - General 11/24/16 Sales Assistant Relationship Specialty Start Date End Date Ramone Jean-Paul Rodas, [address] [place] [phone] PCP - General 11/24/16 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 JeanP-aul Pack DO Primary Care Provider Active Team Status: Inactive Member Role Status Dates Dr. Liam Bajwa DO Attending Provider Active Start: August 19, 2024 End: August 19, 2024 Dr. Jean-Palu Pack DO Primary Care Provider Active Start: August 19, 2024 End: August 19, 2024 Dr. Jean-Paul Pack DO Referring Provider Active Start: August 19, 2024 End: August 19, 2024 Team Status: Active Member Role Status Dates Dr. Liam Bajwa DO Attending Provider Active Start: August 19, 2024 Dr. Liam Bajwa DO Other Provider Active St art: August 19, 2024 Dr. Jean-Paul Pack DO Primary Care Provider Active Start: August 19, 2024 Dr. Jean-Paul Pack DO Referring Provider Active Start: August 19, 2024 Sales Assistant Relationship Specialty Start Date End Date Jean-Paul Pack DO [address] [place] [address] PCP - General 11/24/16 Scheduled Active and Recently Administ ered Medications (unrecognized section and content) Medication Order 05/26/2022 05/27/2022 05/28/2022 aspirin EC tablet 81 mg 81 mg, Oral, Daily, First dose on Fri05/27/22 at 1800, Do not crush, chew, or split. 1800 (Not Given - Provider: Michaela Hernandez RN - Reason: Other - Comment: pt took at home) 09 (Given - Provider: Josefa Quan, RICHARD) atorvastatin (Lipitor) tablet 80 mg 80 mg, Oral, Daily, First dose on Fri05/27/22 at 1800 1800 (Not Given - Provider: Michaela Hernandez RN - Reason: Other - Comment: pt took at home) 09 (Given - Provider: Josefa Quan, RICHARD) isosorbide mononitrate ER (Imdur) 24 hr tablet 60 mg 60 mg, Oral, Daily, First dose on Fri05/27/22 at 1800, Do not crush, chew, or split. 1800 (Not Given - Provider: Michaela Hernandez RN - Reason: Other - Comment: pt took at home) 0928 (Given - Provider: Josefa Quan RN) levothyroxine (Synthroid, Levoxyl) tablet 100 mcg 100 mcg, Oral, Daily, First dose on Fri05/27/22 at 1800, Tube feeding (TF) interaction, obtain physician order to manage, recommend holding TF for 30 minutes before and after dose. 1800 (Not Given - Provider: Michaela Hernandez RN - Reason: Other - Comment: pt took at home) 0915 (Given - Provider: Josefa Quan RN) metoprolol tartrate (Lopressor) tablet 25 mg 25 mg, Oral, 2 times daily, First dose on Fri05/28/22 at 0900 0941 (Given - Provid er: Josefa Quan RN) pantoprazole (ProtoNix) injection 40 mg 40 mg, IntraVENous, Administer over 2 Minutes, Nightly, First dose on Fri05/27/22 at 2100, Give only if unable to tolerate po. 2116 (Given - Provider: Elisabeth Taylor RN) PRN Medication Order 05/26/2022 05/27/2022 05/28/2022 acetaminophen (Tylenol) suppository 650 mg(Linked Group 1) 650 mg, Rectal, Every 6 hours PRN, mild pain (1-3), fever, For temp greater than 100.4 F (38 C), Starting on Fri05/27/22 at 1706, Administer if oral route cannot be used. Maximum dose of acetaminophen is 4000 mg from all sources in 24 hours. acetaminophen (Tylenol) tablet 650 mg(Linked Group 1) 650 mg, Oral, Every 6 hours PRN, mild pain (1-3), fever, For temp greater than 100.4 F (38 C), Starting on Fri05/27/22 at 1706, Maximum dose of acetaminophen is 4000 mg from all sources in 24 hours. morphine sulfate (PF) injection 2 mg 2 mg, IntraVENous, Every 4 hours PRN, moderate pain (4-6), Starting on Fri05/27/22 at 1726, If oral and IV narcotics ordered, use oral first and only use IV if oral is ineffective or cannot take oral. Do Not give oral and IV within 1 hour of each other unless specifically ordered. nitroglycerin (Nitrostat) SL tablet 0.4 mg 0.4 mg, SubLINGual, Every 5 min PRN, chest pain, Starting on Fri05/27/22 at 1726, May administer up to 3 doses per episode. ondansetron (Zofran) injection 4 mg(Linked Group 2) 4 mg, IntraVENous, Every 6 hours PRN, nausea, vomiting, Starting on Fri05/27/22 at 1706, Administer if oral route cannot be used. ondansetron ODT (Zofran-ODT) disintegrating tablet 4 mg(Linked Group 2) 4 mg, Oral, Every 8 hours PRN, nausea, vomiting, Starting on Fri05/27/22 at 1706, Patient should allow tablet to dissolve on tongue. Do not remove from blister pack until just before administering. polyethylene glycol (PEG) 3350 (Miralax) packet 17 g 17 g, Oral, Daily PRN, constipation, Starting on Fri05/27/22 at 1706, 1st line for treatment of constipation - give scheduled if no bowel movement in past 24 hours. Linked Groups Order Group 1: acetaminophen (Tylenol) tablet 650 mgJump to med 650 mg, Oral, Every 6 hours PRN, mild pain (1-3), fever, For temp greater than 100.4 F (38 C), Starting on Fri05/27/22 at 1706
Maximum dose of acetaminophen is 4000 mg from all sources in 24 hours.
Or acetaminophen (Tylenol) suppository 650 mgJump to med 650 mg, Rectal, Every 6 hours PRN, mild pain (1-3), fever, For temp greater than 100.4 F (38 C), Starting on Fri05/27/22 at 1706
Administer if oral route cannot be used. Maximum dose of acetaminophen is 4000 mg from all sources in 24 hours.
Group 2: ondansetron ODT (Zofran-ODT) disintegrating tablet 4 mgJump to med 4 mg, Oral, Every 8 hours PRN, nausea, vomiting, Starting on Fri05/27/22 at 1706
Patient should allow tablet to dissolve on tongue. Do not remove from blister pack until just before administering.
Or ondansetron (Zofran) injection 4 mgJump to med 4 mg, IntraVENous, Every 6 hours PRN, nausea, vomiting, Starting on Fri05/27/22 at 1706
Administer if oral route cannot be used.
Scheduled Medication Order 08/16/2023 08/17/2023 08/18/2023 aluminum & magnesium hydroxide-simethicone (Mylanta) 200-200-20 MG/5ML oral suspension 20 mL (COMPLETED)(Linked Group 1) 20 mL, Oral, Once, On Fri08/18/23 at 0225, For 1 dose, Mix with 5 mL viscous lidocaine oral solution and give together (25 mL total). 0235 (Given - Provid er: Sole Urrutia RN) aspirin EC tablet 81 mg 81 mg, Oral, Daily, First dose on Fri08/18/23 at 0900, Do not crush, chew, or split. 1025 (Given - Provid er: Graciela Schultz LPN) atorvastatin (Lipitor) tablet 80 mg 80 mg, Oral, Daily, First dose on Fri08/18/23 at 0900 1025 (Given - Provid er: Graciela Schultz LPN) clopidogrel (Plavix) tablet 75 mg 75 mg, Oral, Daily, First dose on Fri08/18/23 at 0900 1025 (Given - Provid er: Graciela Schultz LPN) enoxaparin (Lovenox) syringe 40 mg 40 mg, SubCUTAneous, Every 24 hours scheduled (Daily), First dose on Fri08/18/23 at 0900, Indication of Use: Prophylaxis-DVT/PE, Indications: Prophylaxis of Venous Thromboembolism 1025 (Given - Provid er: Graciela Schultz LPN) ezetimibe (Zetia) tablet 10 mg 10 mg, Oral, Daily, First dose on Fri08/18/23 at 0900 1025 (Given - Provid er: Graciela Schultz LPN) isosorbide mononitrate ER (Imdur) 24 hr tablet 60 mg 60 mg, Oral, Daily, First dose on Fri08/18/23 at 0900, Do not chew or crush ER tablets; may be divided in half. Due to insoluble matrix embedding, ER tablets that are scored may be split. 1025 (Given - Provid er: Graciela Schultz LPN) levothyroxine (Synthroid, Levoxyl) tablet 100 mcg 100 mcg, Oral, Daily, First dose on Fri08/18/23 at 0900, Tube feeding (TF) interaction, obtain physician order to manage, recommend holding TF for 30 minutes before and after dose. 1025 (Given - Provid er: Graciela Schultz LPN) lidocaine (Xylocaine) 2 % mouth solution 5 mL (COMPLETED)(Linked Group 1) 5 mL, Mouth/Throat, Once, On Fri08/18/23 at 0225, For 1 dose, Mix with 20 mL aluminum & magnesium hydroxide-simethicone oral solution and give together (25 mL total) 0235 (Given - Provid er: Sole Urrutia RN) metoprolol tartrate (Lopressor) tablet 25 mg 25 mg, Oral, 2 times daily, First dose on Fri08/18/23 at 0900 1025 (Given - Provid er: Graciela Schultz LPN) ondansetron (Zofran) injection 4 mg (COMPLETED) 4 mg, IntraVENous, Once, On Fri08/18/23 at 0240, For 1 dose 0243 (Given - Provid er: Ebonie Herman RN) pantoprazole (ProtoNix) 40 mg in sodium chloride (PF) 0.9 % 10 mL injection (CANCELED) 40 mg, IntraVENous, Administer over 2 Minutes, Nightly, First dose on Fri08/18/23 at 0245, Give only if unable to tolerate po. 0248 (Given - Provid er: Ebonie Herman RN) pantoprazole (ProtoNix) EC tablet 40 mg 40 mg, Oral, Daily before breakfast, First dose on Fri08/18/23 at 0600, DO NOT CRUSH CHEW OR SPLIT Do not crush, chew, or split. 0600 (Not Given - Pr ovider: Ebonie Herman RN - Reason: Contraindicated) potassium chloride CR (Klor-Con M10) ER tablet 40 mEq (COMPLETED) 40 mEq, Oral, Once, On Fri08/18/23 at 0330, For 1 dose, Best given with food and plenty of water to minimize gastric irritation. Do not crush or chew. 0358 (Given - Provid er: Ebonie Herman RN) sodium chloride 0.9 % bolus 1,000 mL (COMPLETED) 1,000 mL, IntraVENous, at 1,000 mL/hr, Administer over 1 Hours, Once, On Fri08/18/23 at 0240, For 1 dose 0246 (New Bag - Prov ider: Ebonie Herman RN)0346 (Stopped - Provider: Ebonie Herman RN) PRN Medication Order 08/16/2023 08/17/2023 08/18/2023 acetaminophen (Tylenol) suppository 650 mg(Linked Group 2) 650 mg, Rectal, Every 6 hours PRN, mild pain (1-3), fever, For temp greater than 100.4 F (38 C), Starting on Fri08/18/23 at 0611, Administer if oral route cannot be used. Maximum dose of acetaminophen is 4000 mg from all sources in 24 hours. acetaminophen (Tylenol) tablet 650 mg(Linked Group 2) 650 mg, Oral, Every 6 hours PRN, mild pain (1-3), fever, For temp greater than 100.4 F (38 C), Starting on Fri08/18/23 at 0611, Maximum dose of acetaminophen is 4000 mg from all sources in 24 hours. ondansetron (Zofran) injection 4 mg(Linked Group 3) 4 mg, IntraVENous, Every 6 hours PRN, nausea, vomiting, Starting on Fri08/18/23 at 0611, 1st Line. Give IV if patient is unable to take orally. If inadequate response within 60 minutes, proceed to next-line agent or contact provider if no further options ordered. ondansetron ODT (Zofran-ODT) disintegrating tablet 4 mg(Linked Group 3) 4 mg, Oral, Every 8 hours PRN, nausea, vomiting, Starting on Fri08/18/23 at 0611, 1st Line. If inadequate response within 60 minutes, proceed to next-line agent or contact provider if no further options ordered. Patient should allow tablet to dissolve on tongue. Do not remove from blister pack until just before administering. polyethylene glycol (PEG) 3350 (Miralax) packet 17 g 17 g, Oral, Daily PRN, constipation, Starting on Fri08/18/23 at 0611, 1st line for treatment of constipation - give scheduled if no bowel movement in past 24 hours. Linked Groups Order Group 1: lidocaine (Xylocaine) 2 % mouth solution 5 mL (COMPLETED)Jump to med 5 mL, Mouth/Throat, Once, On Fri08/18/23 at 0225, For 1 dose, Mix with 20 mL aluminum & magnesium hydroxide-simethicone oral solution and give together (25 mL total) And aluminum & magnesium hydroxide-simethicone (Mylanta) 200-200-20 MG/5ML oral suspension 20 mL (COMPLETED)Jump to med 20 mL, Oral, Once, On Fri08/18/23 at 0225, For 1 dose, Mix with 5 mL viscous lidocaine oral solution and give together (25 mL total). Group 2: acetaminophen (Tylenol) tablet 650 mgJump to med 650 mg, Oral, Every 6 hours PRN, mild pain (1-3), fever, For temp greater than 100.4 F (38 C), Starting on Fri08/18/23 at 0611, Maximum dose of acetaminophen is 4000 mg from all sources in 24 hours. Or acetaminophen (Tylenol) suppository 650 mgJump to med 650 mg, Rectal, Every 6 hours PRN, mild pain (1-3), fever, For temp greater than 100.4 F (38 C), Starting on Fri08/18/23 at 0611, Administer if oral route cannot be used. Maximum dose of acetaminophen is 4000 mg from all sources in 24 hours. Group 3: ondansetron ODT (Zofran-ODT) disintegrating tablet 4 mgJump to med 4 mg, Oral, Every 8 hours PRN, nausea, vomiting, Starting on Fri08/18/23 at 0611, 1st Line. If inadequate response within 60 minutes, proceed to next-line agent or contact provider if no further options ordered. Patient should allow tablet to dissolve on tongue. Do not remove from blister pack until just before administering. Or ondansetron (Zofran) injection 4 mgJump to med 4 mg, IntraVENous, Every 6 hours PRN, nausea, vomiting, Starting on Fri08/18/23 at 0611, 1st Line. Give IV if patient is unable to take orally. If inadequate response within 60 minutes, proceed to next-line agent or contact provider if no further options ordered. PRN Medication Order 09/13/2023 09/14/2023 09/15/2023 iopamidol (Isovue-370) 76 % injection 75 mL (COMPLETED) 75 mL, IntraVENous, IMG once PRN, contrast, Starting on Fri09/15/23 at 1245, For 1 dose 1245 (Given - Provid er: Pamela Canales RT (R)(CT)) Scheduled Medication Order 09/21/2023 09/22/2023 09/23/2023 aspirin chewable tablet 81 mg 81 mg, Oral, Once, On Fri09/24/23 at 0900, For 1 dose, [facility] atorvastatin (Lipitor) tablet 80 mg 80 mg, Oral, Daily, First dose on Fri09/23/23 at 1100, [facility] 1100 (Canceled Entry - Provider: Automatic Discharge Provider - Comment: Automatically canceled at discontinue of medication order) clopidogrel (Plavix) tablet 75 mg 75 mg, Oral, Daily, First dose on Fri09/24/23 at 0900, [facility] sodium chloride 0.9% (NS) flush 5-40 mL 5-40 mL, IntraVENous, Every 12 hours, First dose on Fri09/23/23 at 0630, Preprocedure, For Line Patency: Peripheral IV = 5 mL; Midline or Central Line = 10 mL/lumen. If following IV push medication, administer flush at same rate as the IV push. Flush volume is determined by type of infusion therapy being given. For non-viscous solutions use: Peripheral IV = 5 mL Midline or Central Line = 10 mL/lumen For viscous solutions (i.e. blood components, parenteral nutrition, contrast media, or after obtaining blood sample) use: Peripheral IV = 10 mL Midline or Central Line = 20 mL/lumen 0630 (Canceled Entry - Provider: Automatic Discharge Provider - Comment: Automatically canceled at discontinue of medication order)1830 (Canceled Entry - Provider: Automatic Discharge Provider - Comment: Automatically canceled at discontinue of medication order) Continuous Medication Order 09/21/2023 09/22/2023 09/23/2023 sodium chloride 0.9 % infusion 30 mL/hr, IntraVENous, Continuous, Starting on Fri09/23/23 at 0630, Preprocedure 0652 (New Bag - Prov ider: Dali Wetzel RN) PRN Medication Order 09/21/2023 09/22/2023 09/23/2023 acetaminophen (Tylenol) tablet 650 mg 650 mg, Oral, Every 4 hours PRN, mild pain (1-3), Fever > 100.5 F (38 C), Starting on Fri09/23/23 at 1055, [facility], Maximum dose of acetaminophen is 4000 mg from all sources in 24 hours. clopidogrel (Plavix) tablet (CANCELED) Oral, As needed, Starting on Fri09/23/23 at 1039, Intraprocedure 1039 (Given - Provid er: Roxana Phoenix, RICHARD) fentaNYL (Sublimaze) injection (CANCELED) IntraVENous, As needed, Starting on Fri09/23/23 at 0837, Intraprocedure 0837 (Given - Provid er: Ronal Barr MD)1011 (Given - Provider: Roxana Phoenix RN) heparin injection (CANCELED) IntraVENous, As needed, Starting on Fri09/23/23 at 0854, Intraprocedure 0854 (Given - Provid er: Roxana Phoenix RN)1011 (Given - Provider: Roxana Phoenix RN) iopamidol (Isovue-300) 61 % injection (CANCELED) As needed, Starting on Fri09/23/23 at 1038, Intraprocedure 1038 (Given - Provid er: Ronal Barr MD) lidocaine PF (Xylocaine) 1 % injection (CANCELED) As needed, Starting on Fri09/23/23 at 0839, Intraprocedure 0839 (Given - Provid er: Ronal Barr MD)0847 (Given - Provider: Ronal Barr MD) midazolam (Versed) injection (CANCELED) IntraVENous, As needed, Starting on Fri09/23/23 at 0837, Intraprocedure 0837 (Given - Provid er: Ronal Barr MD) sodium chloride 0.9% (NS) flush 5-40 mL 5-40 mL, IntraVENous, PRN, line care, After every IV line use, Starting on Fri09/23/23 at 0624, Preprocedure, For Line Patency: Peripheral IV = 5 mL; Midline or Central Line = 10 mL/lumen. If following IV push medication, administer flush at same rate as the IV push. Flush volume is determined by type of infusion therapy being given. For non-viscous solutions use: Peripheral IV = 5 mL Midline or Central Line = 10 mL/lumen For viscous solutions (i.e. blood components, parenteral nutrition, contrast media, or after obtaining blood sample) use: Peripheral IV = 10 mL Midline or Central Line = 20 mL/lumen verapamil (Isoptin) injection (CANCELED) As needed, Starting on Fri09/23/23 at 0848, Intraprocedure 0848 (Given - Provid er: Ronal Barr MD) FOR RECORDS PERTAINING TO PATIENTS WHO ARE OR HAVE BEEN ENROLLED IN A CHEMICAL DEPENDENCY/SUBSTANCEABUSE PROGRAM, SOME INFORMATION MAY BE OMITTED. This clinical summary was aggregated from multiple sources. Caution should be exercised in using it in the provision of clinical care. This summary normalizes information from multiple sources, and as a consequence, information in this document may materially change the coding, format and clinical context of patient data. In addition, data may be omitted in some cases. CLINICAL DECISIONS SHOULD BE BASED ON THE PRIMARY CLINICAL RECORDS. [email or web address] [facility]. provides no warranty or guarantee of the accuracy or completeness of information in this document.
--- NOTE | 2025-01-26 17:51 | STRESSREP ---
Stress Test Report Exercise myocardial perfusion stress test. 84-year-old man with a history of coronary artery disease. Stress protocol: Resting EKG demonstrates normal sinus rhythm with a rate of 53 bpm resting blood pressure is 130/72 mmHg. The patient exercised according to the regular Dylan protocol for a total duration of 5 minutes and 23 seconds attaining a maximum heart rate of 134 bpm which was 97% of maximum predicted heart rate; the maximum workload was 7 metabolic equivalents. At rest there were no ST or T wave changes noted to suggest ischemia and at peak exercise upsloping ST changes only were noted which did not meet the criteria for ischemia. No clinical angina was noted the test was terminated due to the target heart rate being achieved/fatigue. The peak blood pressure was 144/82 mmHg. Rate-pressure product was 15,200. Myocardial perfusion protocol. 12 mCi of technetium 99m sestamibi was injected at rest. The patient exercised according to regular Dylan protocol for total duration of 5 minutes and 23 and at peak exercise 34 mCi of technetium 99m sestamibi was injected stress images were obtained stress and rest images were reconstructed in comparing the short axis vertical long and horizontal long axis. Gated images were also obtained. Perfusion SPECT analysis: Review of the stress images demonstrate normal uptake of tracer noted in all areas of the myocardium. The resting images similarly demonstrate normal uptake of tracer noted in all areas of the myocardium. No areas of reversibility are noted to suggest ischemia no previous infarct was noted. Gated SPECT analysis: The gated ejection fraction is 64%. Conclusion: Normal exercise myocardial perfusion stress test at a moderate workload.
== END | disposition home or self-care (01) ==
LOC: CVS 06:49
PROVIDERS: PCP Family Medicine; Referring Provider Internal Medicine Cardiovascular Disease; Visit Provider Internal Medicine Cardiovascular Disease
DX: I25.10 Atherosclerotic heart disease of native coronary artery without angina pectoris (principal)
CPT/HCPCS: 78452; 93017; A9500